=== PATIENT | female | born 1940 | race Caucasian/White ===

== ENCOUNTER → 2017-10-16 11:16 | Outpatient (CLI) | payer MEDICARE, SELFPAY ==
[2017-10-16 12:57] LABS: Vitamin D,25 Hydroxy 24.3 ng/mL (29.95-100.01)
[2017-10-16 12:58] LABS: ALB/GLOB Ratio 0.8 RATIO (0.9-2.4); AST(SGOT) 22 U/L (15-37); Alanine Aminotransfer ALT/SGPT 24 U/L (13-56); Albumin, Serum 3.3 g/dL (3.2-5.0); Alkaline Phosphatase 100 U/L (45-117); Anion Gap 9 (5-15); BUN 22 mg/dL (7-18); BUN/Creat Ratio 26.5 RATIO (10-20); Calcium,Total 8.8 mg/dL (8.5-10.1); Chloride 108 mmol/L (98-107); Creatinine, Serum 0.83 mg/dL (0.55-1.02); EST Glomerular Filtration Rate 71 mL/min (>60); Est Glom Filt Rate - Afr Amer 86 mL/min (>60); Globulin 3.9 g/dL (2.2-4.2); Glucose 97 mg/dL (74-106); Potassium 3.8 mmol/L (3.5-5.1); Protein, Total 7.2 g/dL (6.4-8.2); Sodium Level 145 mmol/L (136-145); Thyroid Stim Hormone (TSH) 0.75 uIU/mL (0.358-3.74)
[2017-10-16 13:06] LABS: Absolute Lymphocyte Count 1.66 X10^3/ul (0.83-4.51); Basophil# 0.05 X10^3/uL; Basophil% 0.9 % (0-1); Eosinophil# 0.23 X10^3/uL; Eosinophils% 4.3 % (0-5); Hematocrit 41.3 % (37-47); Lymphocyte # 1.66 X10^3/ul (4.0); Mean Corp Hgb Conc 31.5 g/gl (32-36); Mean Corpuscular Hgb 29.1 pg (27.0-32.0); Mean Corpuscular Volume 92.6 fL (81-99); Mean Platelet Vol. 10.2 fl (6.2-12.0); Monocyte% 7.5 % (0-10); Neutrophil # 3.01 X10^3/uL (2.7-7.7); Neutrophil % 56.3 % (47-70); Platelet Count 266 K/mm3 (150-450); RBC Distribution Width CV 14.1 % (11.6-14.6); RBC Distribution Width SD 48.2 fl (35.1-43.9); Red Blood Count 4.46 M/mm3 (4.2-5.4); White Blood Count 5.4 K/mm3 (4.4-11.0)
[2017-10-16 13:09] LABS: POSITIVE COUNT NO; POSITIVE DIFFERENTIAL NO; POSITIVE MORPHOLOGY NO
== END ==
PROVIDERS: Family Provider Family Medicine Geriatric Medicine; PCP Family Medicine Geriatric Medicine; Visit Provider Family Medicine Geriatric Medicine
DX: E55.9 Vitamin D deficiency, unspecified (principal); I10 Essential (primary) hypertension
CPT/HCPCS: 36415; 80053; 82306; 84443; 85025

== ENCOUNTER → 2018-04-16 14:01 | Outpatient (CLI) | payer MEDICARE, SELFPAY ==
[2017-02-23 00:08] VITALS: BMI 32.1
[2018-04-16 17:52] LABS: Absolute Lymphocyte Count 1.98 X10^3/ul (0.83-4.51); Absolute Neutrophil Count 2.5 X10^3/uL (2.0-7.7); Basophil# 0.06 X10^3/uL; Basophil% 1.2 % (0-1); Eosinophil# 0.21 X10^3/uL; Hematocrit 41.3 % (37-47); Hemoglobin 12.5 g/dl (12.0-15.0); Lymphocyte # 1.98 X10^3/ul (4.0); Lymphocyte % 38.2 % (19-41); Mean Corp Hgb Conc 30.3 g/gl (32-36); Mean Corpuscular Hgb 28.5 pg (27.0-32.0); Mean Corpuscular Volume 94.3 fL (81-99); Mean Platelet Vol. 10.4 fl (6.2-12.0); Monocyte# 0.45 X10^3/uL; Monocyte% 8.7 % (0-10); Neutrophil # 2.49 X10^3/uL (2.7-7.7); Neutrophil % 47.9 % (47-70); Platelet Count 289 K/mm3 (150-450); RBC Distribution Width CV 14.6 % (11.6-14.6); RBC Distribution Width SD 49.6 fl (35.1-43.9); Red Blood Count 4.38 M/mm3 (4.2-5.4); White Blood Count 5.2 K/mm3 (4.4-11.0)
[2018-04-16 18:13] LABS: Vitamin D,25 Hydroxy 25.3 ng/mL (29.95-100.01)
[2018-04-16 18:18] LABS: POSITIVE COUNT NO; POSITIVE DIFFERENTIAL NO; POSITIVE MORPHOLOGY NO
[2018-04-16 18:25] LABS: ALB/GLOB Ratio 0.9 RATIO (0.9-2.4); AST(SGOT) 14 U/L (15-37); Alanine Aminotransfer ALT/SGPT 21 U/L (13-56); Albumin, Serum 3.3 g/dL (3.2-5.0); Alkaline Phosphatase 104 U/L (45-117); Anion Gap 7 (5-15); BUN 27 mg/dL (7-18); Calcium,Total 8.9 mg/dL (8.5-10.1); Chloride 108 mmol/L (98-107); Creatinine, Serum 0.84 mg/dL (0.55-1.02); EST Glomerular Filtration Rate 70 mL/min (>60); Est Glom Filt Rate - Afr Amer 84 mL/min (>60); Globulin 3.7 g/dL (2.2-4.2); Glucose 83 mg/dL (74-106); Potassium 3.7 mmol/L (3.5-5.1); Sodium Level 143 mmol/L (136-145); Thyroid Stim Hormone (TSH) 1.28 uIU/mL (0.358-3.74)
== END ==
PROVIDERS: Family Provider Family Medicine Geriatric Medicine; PCP Family Medicine Geriatric Medicine; Visit Provider Family Medicine Geriatric Medicine
DX: E55.9 Vitamin D deficiency, unspecified (principal); I10 Essential (primary) hypertension
CPT/HCPCS: 36415; 80053; 82306; 84443; 85025

== ENCOUNTER 2018-08-22 21:27 | Emergency (ER) | payer MEDICARE, SELFPAY ==
[2018-08-22 21:27] VITALS: BP 184/102; PULSE 80; RESP 16; TEMP 36.8; O2SAT 95; BMI 33.9
--- NOTE | 2018-08-22 22:23 | CT_ITS ---
STUDY: CT ABDOMEN AND PELVIS WITH CONTRAST REASON FOR EXAM: Female, 78 years old. Right lower quadrant pain for a few hours. RADIATION DOSAGE (If Supplied By Facility): CTDIvol = ( 26.62 ) mGy, DLP = ( 1889.47 ) mGycm TECHNIQUE: Transaxial images were obtained from the dome of the diaphragm to the symphysis pubis without oral contrast. 100ML IV Isovue 300 was administered. Sagittal and coronal images were reconstructed. Individualized dose optimization techniques were used for this CT. COMPARISON: None. FINDINGS: There is a 3 mm calcified granuloma medial right lung base. A 2 mm calcification is seen in the left lung. The visualized lung bases are otherwise unremarkable. The visualized portions of the heart are within normal limits. There is a calcified mediastinal node. The liver is normal size contour and density. There is a vague hypodensity in segment 6 of the liver adjacent to gallbladder fossa which may represent small cyst. This is too small to characterize. Normal gallbladder and extrahepatic biliary system. There are multiple benign calcified granulomata of the spleen. Normal pancreas. Normal bilateral adrenal glands. There is a 8 mm cyst in the upper pole of the right kidney. There is a 2 cm cyst in the lower pole. A 3 mm nonobstructing calculus in the mid calyx. No hydronephrosis. Normal visualized right ureter. Normal left kidney. Normal visualized left ureter. There is a large retrocardiac hiatal hernia consisting of the gastric fundus. Stomach is otherwise unremarkable. Normal small intestine. Normal colon. There is diffuse atherosclerotic calcification of the abdominal aorta, without a demonstrated aneurysm. Normal inferior vena cava. Normal retroperitoneum. Normal urinary bladder. The uterus is retroverted. There is a 2.5 x 1.5 x 2.6 cm calcified fibroid centrally within the uterus and normal ovaries. There is no pelvic lymphadenopathy. No free air or free fluid is seen within the peritoneal cavity.. There is a small right inguinal hernia. There is a small amount of soft tissue extending into the hernia may represent the appendix. The abdominal wall is otherwise unremarkable. There are diffuse degenerative changes of the visualized lumbar spine. CT/Abdomen/Pelvis W IV Cont ONLY IMPRESSION: 1. Right inguinal hernia. This contains soft tissue. Question appendix. 2. Large retrocardiac hiatal hernia. 3. Hepatic and right renal cysts. 4. Nonobstructing right renal calculus. 5. Large calcified uterine fibroid. 6. Degenerative changes of the lumbar spine. Electronically Signed: Alex Mckeon DO at 23:53 EDT Tel [phone], Service support ,
[2018-08-22] MEDS: 0.9% Normal Saline 1,000 ML 1000 ML IV (22:38)
[2018-08-22 22:53] LABS: Absolute Lymphocyte Count 1.28 X10^3/ul (0.83-4.51); Absolute Neutrophil Count 6.1 X10^3/uL (2.0-7.7); Basophil# 0.04 X10^3/uL; Basophil% 0.5 % (0-1); Eosinophil# 0.13 X10^3/uL; Eosinophils% 1.6 % (0-5); Hematocrit 40.9 % (37-47); Lymphocyte # 1.28 X10^3/ul (4.0); Lymphocyte % 15.8 % (19-41); Mean Corp Hgb Conc 31.8 g/gl (32-36); Mean Corpuscular Hgb 28.2 pg (27.0-32.0); Mean Corpuscular Volume 88.7 fL (81-99); Mean Platelet Vol. 10.4 fl (6.2-12.0); Monocyte% 7.4 % (0-10); Neutrophil # 6.05 X10^3/uL (2.7-7.7); Neutrophil % 74.6 % (47-70); POSITIVE COUNT NO; POSITIVE DIFFERENTIAL NO; POSITIVE MORPHOLOGY NO; Platelet Count 263 K/mm3 (150-450); RBC Distribution Width CV 14.7 % (11.6-14.6); Red Blood Count 4.61 M/mm3 (4.2-5.4); White Blood Count 8.1 K/mm3 (4.4-11.0)
[2018-08-22 23:09] LABS: AST(SGOT) 19 U/L (15-37); Alanine Aminotransfer ALT/SGPT 20 U/L (13-56); Albumin, Serum 3.6 g/dL (3.2-5.0); Alkaline Phosphatase 108 U/L (45-117); Anion Gap 8 (5-15); BUN 22 mg/dL (7-18); Calcium,Total 8.8 mg/dL (8.5-10.1); Chloride 110 mmol/L (98-107); Creatinine, Serum 1.05 mg/dL (0.55-1.02); EST Glomerular Filtration Rate 54 mL/min (>60); Est Glom Filt Rate - Afr Amer 65 mL/min (>60); Globulin 3.6 g/dL (2.2-4.2); Glucose 121 mg/dL (74-106); Lipase 113 U/L (73-393); Potassium 3.9 mmol/L (3.5-5.1); Protein, Total 7.2 g/dL (6.4-8.2); Sodium Level 144 mmol/L (136-145)
[2018-08-22 23:52] LABS: Mucous, Urine 0 SEEN /hpf (<or=2+)
[2018-08-22 23:53] LABS: Color, Urine Yellow (Yellow); Glucose, Dipstick Normal (Normal); Ketone-Dipstick Negative (Negative); Leukocyte Esterase-Dipstick 100 /ul (Negative); Nitrite-Dipstick Positive (Negative); Occult Blood-Urine 10 /ul (Negative); Protein-Dipstick 15 mg/dl (Negative); Specific Gravity, Urine 1.015 (1.002-1.030); Urine Bilirubin Dipstick Negative (Negative); Urine Clarity Cloudy (Clear); Urine Urobilinogen Normal (Normal)
[2018-08-22 23:58] LABS: Bacteria 3+ /hpf (None Seen); Squamous Epithelial Cells - UA 0-5 SEEN /hpf (5-10); White Blood Cells 5-10 SEEN /hpf (0-5)
--- NOTE | 2018-08-22 23:58 | ED.DCSUM_ITS ---
- ER Visit Summary Date of Service: 08/22/18 Chief Complaint: Abdominal pain History of Present Illness: The patient is a 78 F with right lower quadrant pain. The pain started about 2 hours prior to arrival. Nothing seemed to bring it on. She had been eating chili and watermelon. She said she had this pain in the past but never this long. By the time I saw her, the pain had resolved. Reports a history of tubal ligation. Denies any other abdominal or GI problems. Denies any urinary symptoms. Denies fevers. Physical Examination: Afebrile and vital signs unremarkable. Heart regular rate and rhythm. Lungs clear. Abdomen soft and nontender. Back is nontender. Skin appears normal. Test Results: Labs unremarkable. Urinalysis and CT pending. Emergency Department Course and Treatment: Patient declined pain meds. Will evaluate for right lower quadrant pain. Labs, urine, CT ordered. CT and urinalysis are pending at the time of this dictation. Oncoming doctor will check the results. If negative, patient may be discharged home to follow- up with her PCP. Treatment Plan: As above Disposition: Pending results Impression: 1. Right lower quadrant pain This note was generated with [employer] dictation software. It may contain incorrect words, spelling, and punctuation that were not noted in review of the chart prior to signing ED Disposition - Plan for ED Patient: Referrals: Ferny Pina Chi, MD [Primary Care Provider] -
[2018-08-22 23:59] LABS: Red Blood Cells-Urine 0-5 SEEN /hpf (0-5)
--- NOTE | 2018-08-23 00:13 | ED.DEP ---
ED Disposition - Plan for ED Patient: Instructions: ED UTI Cystitis Female, ED Hernia Inguinal Prescriptions: Smz/Tmp Ds [Bactrim Ds] 1 tab PO BID #6 tab Referrals: Ferny Pina Chi, MD [Primary Care Provider] - Franko Sinha MD [STAFF PHYSICIAN] -
[2018-08-23] MEDS: Smz/Tmp Ds Tablet 1 TABLET PO (00:27)
[2018-08-23 00:30] VITALS: BP 146/81; PULSE 67; RESP 18; O2SAT 97
== END 2018-08-23 00:31 | disposition home or self-care (01) ==
PROVIDERS: Emergency Provider Emergency Medicine; Family Provider Family Medicine Geriatric Medicine; PCP Family Medicine Geriatric Medicine
DX: K40.90 Unilateral inguinal hernia, without obstruction or gangrene, not specified as recurrent (principal); N30.90 Cystitis, unspecified without hematuria; K44.9 Diaphragmatic hernia without obstruction or gangrene; D25.9 Leiomyoma of uterus, unspecified; N20.0 Calculus of kidney; N28.1 Cyst of kidney, acquired; I10 Essential (primary) hypertension; F32.9 Major depressive disorder, single episode, unspecified; F41.9 Anxiety disorder, unspecified; Z79.899 Other long term (current) drug therapy
CPT/HCPCS: 74177; 80053; 81001; 83690; 85025; 96360; 96361; 99284; J7030; Q9967

== ENCOUNTER → 2018-09-05 14:56 | Outpatient (CLI) | payer MEDICARE, SELFPAY ==
[2018-08-28 15:36] VITALS: BMI 33.9
== END ==
PROVIDERS: Family Provider Family Medicine Geriatric Medicine; PCP Family Medicine Geriatric Medicine; Visit Provider Family Medicine Geriatric Medicine
DX: N39.0 Urinary tract infection, site not specified (principal)
CPT/HCPCS: 87077; 87086; 87088; 87186

== ENCOUNTER 2018-09-11 08:07 | Day surgery (SDC) | payer MEDICARE, SELFPAY ==
--- NOTE | 2018-08-28 05:07 | HP_ITS ---
Intake Vital Signs 08/28/18 Body Mass Index (BMI) 33.9 08/28/18 Height 5 ft 6 in 08/28/18 Weight: 206 lb 3 oz 08/28/18 Body Mass Index (BMI) 33.3 08/28/18 Blood Pressure 145/68 H 08/28/18 Blood Pressure Location Rt brachial 08/28/18 Blood Pressure Position Sitting 08/28/18 Respiratory Rate 20 H 08/28/18 Pulse Rate 75 08/28/18 Pulse Ox 98 Intake Visit Reasons: [facility] ER 08/22 Abd Pain/Hernia Chief Complaint: [facility] Haul Cane Brakeman Required: No Is patient in pain?: Yes Allergies cefaclor [From Ceclor] Adverse Reaction (Verified 08/28/18 15:32) Unknown guaifenesin [From Entex LA] Adverse Reaction (Verified 08/28/18 15:32) Unknown phenylephrine [From Entex LA] Adverse Reaction (Verified 08/28/18 15:32) Unknown phenylpropanolamine [From Entex LA] Adverse Reaction (Verified 08/28/18 15:32) Unknown Medications Aspirin 81 mg PO QHS 01/13/17 [History Confirmed 08/28/18] Levothyroxine Sodium [Synthroid] 88 mcg PO DAILY 01/13/17 [History Confirmed 08/28/18] Losartan/Hydrochlorothiazide [Losartan-Hctz 100-25 mg Tab] 1 tab PO DAILY 01/13/17 [History Confirmed 08/28/18] Potassium Chloride [K-Tab ER] 20 meq PO DAILY 01/13/17 [History Confirmed 08/28/18] Quetiapine Fumarate [Seroquel] 1 tab PO QHS 01/13/17 [History Confirmed 08/28/18] Acetaminophen [Tylenol] 1,500 mg PO DAILY 02/22/17 [History Confirmed 08/28/18] Multivit-Min/FA/Lycopen/Lutein [Centrum Silver Tablet] 1 ea PO DAILY 02/22/17 [History Confirmed 08/28/18] vilazodone 40 mg tablet 40 mg PO DAILY 08/28/18 [History Confirmed 08/28/18] Is last menstrual period known: No Post menopausal: Yes Patient : No PFSH Medical History Large hiatal hernia (Acute) Right inguinal hernia (Acute) Right lower quadrant abdominal pain (Acute) Anxiety and depression (Acute) Hemorrhoid (Acute) Osteoarthritis (Acute) Hypothyroidism (Chronic) Hypertension (Chronic) Surgical History History of colonoscopy (Acute ~2007) History of total knee replacement (TKR) (Acute) History of tonsillectomy (Acute) History of tubal ligation (Acute) Family History Father Heart disease Asthma Brother Heart disease Cancer prostate and leukemia Social History Smoking Status: Never smoker HPI HPI HPI: SREEKANTH FUENTES, is a 78 F who presents to the office today for HPI HPI Surgical H&P: Yes HPI: SREEKANTH FUENTES, is a 78 F who presents to the office today for surgical consultation regarding multiple different complaints. The patient was seen by Dr. Carroll Myers in the [facility] emergency room and is referred for general surgical evaluation. The patient presented there with complaint of right lower quadrant pain on August 22. She demonstrated findings of UTI and was placed on Bactrim. A CT scan was also obtained demonstrating a right inguinal hernia possibly including the appendix. Hepatic and renal cysts. Right renal calculus. Very large hiatal hernia. The patient is referred for surgical consultation regarding these issues as well as the patient has concerns about hemorrhoids. A written copy of my surgical consult will return to Dr. Myers and referred on to the patient's primary care physician Dr. Pina. This was actually an extensive office visit today. 78-year-old female complaining of right lower quadrant pain change in bowel pattern with gas and ambulating the past. She has had 2 prior indistinct episodes previously which seemed to resolve but the episode on August 22 was very severe causing her to go to the emergency room. She states that she lives a very sedentary life. She states that she is at least 10 years from her previous colonoscopy. She has no direct family member with colon cancer. She has had previous troubles with gastroesophageal reflux disease. She was actually not aware of hiatal hernia. For period of time she was placed on omeprazole therapy. Apparently she stopped that a year ago. Currently she denies chest pressure or shortness of breath. She only infrequently currently has reflux symptoms. She has not had any unusual weight loss. She denies bright red blood per rectum or melena. Additionally she complains of a very painful right knee. She thinks that she needs to have knee surgery. She also wears a brace for her right ankle because of weakness there and flatfootedness. Laboratory on August 22 demonstrated a white blood cell count of 8.1 with a hemoglobin 13 hematocrit 40.9 platelet count 263,000 with 74% neutrophils. BUN was 22 and creatinine 1.05. Liver function tests were normal. The patient has not been able to palpate any masses herself. She states that she has felt improved since her emergency room visit. ROS General General: No weight change, appetite, fatigue, colon cancer, breast cancer or weakness HEENT HEENT: No difficulty swallowing, eye injury, eye surgery, swollen glands or hoarseness Endo Endocrine: Yes thyroid disease; no diabetes mellitus, thyroid cancer, Hair loss, heat intolerance or cold intolerance Musc Musculoskeletal: Yes arthritis; no back problems, rheumatoid arthritis, gout or joint pain Cardio Cardiovascular: Yes high blood pressure; no murmur, pacemaker, heart disease, atrial fibrillation, heart attack, heart stent, palpitations, shortness of breat with exertion or chest pain Psych Psychiatric: Yes depression and anxiety; no hearing voices Resp Respiratory: No shortness of breath, No sleep apnea, No cough, No COPD, No asthma, No emphysema, No wheezing Gastro Gastrointestinal: Yes abdominal pain, No nausea or vomiting, No diarrhea, No constipation, No blood in stool, No acid reflux, Yes hemorrhoids, No ulcers, No gallbladder problem, No black,tarry stools Neuro Neurologic: No weakness Exam Const General: cooperative, comfortable, no acute distress, anxious Nutritional Appearance: obese Orientation: alert, awake, oriented x3 HENMT Head: normal to inspection Neck Neck: normal visual inspection Resp Effort & Inspection: normal respiratory effort Auscultation: clear to auscultation bilaterally Cardio Rate: regular rate Rhythm: regular rhythm Heart Sounds: no murmurs GI Palpation: soft, no hepatosplenomegaly Auscultation: normal bowel sounds Other: Pendulous abdomen, very soft with no muscularity. Not pulsatile or expansile. The patient was examined supine and upright. Because of her overhanging pannus I had great difficult detecting the right groin hernia. Musc Cervical Spine: normal cervical lordosis Neuro Cognition: normal cognition Extrem General: no calf tenderness bilaterally Other: Right ankle splint in place Psych Affect: normal affect Assessment & Plan Problems 1. Hemorrhoids, unspecified hemorrhoid type K64.9 2. Right lower quadrant abdominal pain R10.31 3. Right inguinal hernia K40.90 4. Large hiatal hernia K44.9 5. Osteoarthritis of right knee, unspecified osteoarthritis type M17.11 Plan Complicated 78-year-old female. By her own admission she is extraordinarily sedentary. Her complaint of right lower quadrant pain might correlate with the CT imaging suggesting a right inguinal hernia with possible appendiceal involvement. Further clarification of the cecal area not available. CT imaging also demonstrates significant amount of stomach within a hiatal hernia. The patient has had a history of GERD currently not on medication. She has not had a colonoscopy for at least 10 years. I proposed for her a combined esophagogastroduodenoscopy with very careful inspection of the hiatal hernia to determine the extent of the hernia possible erosion at the level of the diaphragm possible need for biopsy or prophylactic treatment. Possible need for future definitive treatment. I propose a colonoscopy with possible biopsy or polypectomy as indicated with very careful inspection of the right colon to exclude a potential etiology of right lower quadrant pain. She has had an opting to ask and have questions answered we will schedule and proceed as noted. The patient additionally complains of protruding hemorrhoids. We will inspect these at the time of her colonoscopy. It is of note that based upon the patient's chronic anxiety I think that a surgical hemorrhoidectomy would be quite difficult to get her through. The patient clearly has degenerative disease of her right knee. She is stating that she needs to have a right knee replacement. She also has a brace on the right ankle. These 2 degenerative processes may be complicating causing the abnormality of the right groin. I also proposed for her a laparoscopic right inguinal herniorrhaphy. Because of the patient's overlying pannus I have great difficulty performing an external exam of the right groin. Also because of the disease of the right knee and right ankle I feel that a laparoscopic approach with mesh placement would more likely provide a definitive long-lasting repair. She has had an opportunity to ask and have questions answered. I very much appreciate the kind opportunity of assisting with her surgical care. We will proceed as noted. CC: Dr Myers and Dr Yovani Sinha M.D., F.A.C.S. Coding Level of Care Code Comprehensive,moderate Diagnoses Hemorrhoids, unspecified hemorrhoid type K64.9 ??Hemorrhoid type: unspecified Right lower quadrant abdominal pain R10.31 Right inguinal hernia K40.90 Large hiatal hernia K44.9 Osteoarthritis of right knee, unspecified osteoarthritis type M17.11 ??Osteoarthritis location: knee ??Osteoarthritis type: unspecified ??Laterality: right 08/28/18 5080 <Electronically signed by Franko Sinha MD> Date Franko Sinha MD
[2018-08-28 15:36] VITALS: BMI 33.9
[2018-09-11] VITALS (8 sets, daily range): BP systolic 114–165; BP diastolic 66–82; PULSE 67–84; RESP 16; TEMP 35.9–37.6; O2SAT 50–100; BMI 33.3
--- NOTE | 2018-09-11 09:15 | EGD_PTH ---
PATIENT: SREEKANTH FUENTES LOC: EN U#:[id number] AGE/SX: 78/F ROOM: RE09/11/[address]: Dr. Franko Sinha MD : 1940 BED: DIS: 09/11/2018 SPEC #: [id number] RECD: 09/11/18 13:28 STATUS: LALIT ARI #: [id number] ROBERT: 09/11/18 09:[address]: Franko Sinha DEPT: SURGICAL PATHOLOGY RECD BY: Isatu Hutchins ENTERED: 09/11/18 13:52 SP TYPE: EGD BIOPSY OT DR: Dr. Ferny Pina MD Tissues: A - Gastric mucous membrane B - POLYP Procedures: Surgery Specimen Level IV HEADER OPERATION: Colonoscopy, EGD ([facility] [place]) PRE-OP DIAGNOSIS: Hemorrhoids, right lower quadrant pain, large hiatal hernia TISSUE SUBMITTED: A. Antrum biopsy for H. Pylori and path, B. Cecal polyp biopsy MICROSCOPIC DIAGNOSIS A. Gastric antrum, biopsy: Mild chronic gastritis. B. Cecal polyp, biopsy: Tubular adenoma. AM:shamika 09/12/18 COMMENT A. The results of immunohistochemistry for Helicobacter pylori will be reported separately ([id number]). MICROSCOPIC DESCRIPTION Slides are reviewed. GROSS DESCRIPTION A - Received in fixative is one container labeled with the patient's name and designated antrum biopsy. The specimen consists of one irregular fragment of light montano soft tissue that measures 0.2 x 0.2 x 0.1 cm. The specimen is totally submitted in one cassette. B - Received in fixative is one container labeled with the patient's name and designated cecal polyp biopsy. The specimen consists of one irregular fragment of light montano soft tissue that measures 0.3 x 0.2 x 0.1 cm. The specimen is totally submitted in one cassette. / AM:shamika 09/11/18 TC:5 CPT: 82299 x2
--- NOTE | 2018-09-11 09:15 | IMM_PTH ---
PATIENT: SREEKATNH FUENTES LOC: EN U#:[id number] AGE/SX: 78/F ROOM: RE09/11/[address]: Dr. Franko Sinha MD : 1940 BED: DIS: 09/11/2018 SPEC #: [id number] RECD: 09/11/18 15:14 STATUS: LALIT RETelma #: [id number] ROBERT: 09/11/18 09:[address]: Franko Sinha DEPT: IMMUNOHISTOCHEMISTRY RECD BY: Reta Kowalski ENTERED: 09/11/18 15:15 SP TYPE: IMMUNO OTHR DR: Dr. Ferny Pina MD Tissues: A - Stomach, NOS Procedures: H Pylori (initial) PHYSICIAN & INSTITUTION [place] [id number] SPECIMEN INFORMATION: Tissue Source: A - Antrum biopsy Clinical Info: Hemorrhoids, right lower quadrant pain, large hiatal hernia Specimen Number: [id number] CPT code: 75607 METHODOLOGY: Deparaffinized sections of prefer/formalin-fixed tissue or PAP/DQ stained slides are incubated with monoclonal/polyclonal antibodies/oligonucleotide probes. Localization is made via biotin free immunoperoxidase method. Appropriate controls are performed and reacted as expected. Results on target cell population are indicated in the following table: RESULTS: ANTIBODY / CLONE RESULT Block A H Pylori (polyclonal) negative These tests were developed and their performance characteristics determined by [facility]. They may not have been cleared or approved by the U.S. Food and Drug Administration. The FDA has determined that such clearance or approval is not necessary. INTERPRETATION: A. Antrum biopsy: Negative for Helicobacter pylori organisms. AM:shamika 09/13/18
--- NOTE | 2018-09-11 10:32 | OP.ENDO_ITS ---
09/11/2018 Ferny Pina MD [address] [place] [address] Re : Upper GI endoscopy procedure for Vee Mueller Dear Dr. Pina This procedure was performed on Tuesday, September 11, 2018. My impressions and recommendations are as follows: Impressions : - Large hiatal hernia. - Erythematous mucosa in the antrum. Biopsied. - Normal examined duodenum. Recommendations : - Telephone my office for pathology results in 1 week. - Discharge patient to home. - Resume previous diet. - Continue present medications. My findings are described in the full procedure note, which is enclosed. If I can be of further assistance, please feel free to contact me at Doctor phone number(s): Work: . Sincerely, Franko Sinha MD 09/11/2018 10:31:41 AM This report has been signed electronically.
--- NOTE | 2018-09-11 10:34 | OP.ENDO_ITS ---
09/11/2018 Ferny Pina MD [address] [place] [address] Re : Colonoscopy procedure for Vee Mueller Dear Dr. Pina This procedure was performed on Tuesday, September 11, 2018. My impressions and recommendations are as follows: Impressions : - Hemorrhoids found on perianal exam. - One 3 mm polyp in the cecum, removed with a cold biopsy forceps. Resected and retrieved. - Diverticulosis in the sigmoid colon and in the descending colon. Recommendations : - Discharge patient to home. - Resume previous diet. - Continue present medications. - Repeat colonoscopy in 5 years for surveillance based on pathology results. - Telephone my office for pathology results in 1 week. My findings are described in the full procedure note, which is enclosed. If I can be of further assistance, please feel free to contact me at Doctor phone number(s): Work: . Sincerely, Franko Sinha MD 09/11/2018 10:34:27 AM This report has been signed electronically.
== END 2018-09-11 11:32 | disposition home or self-care (01) ==
LOC: EN 08:08 → AC 08:08
PROVIDERS: Family Provider Family Medicine Geriatric Medicine; PCP Family Medicine Geriatric Medicine; Referring Provider Family Medicine Geriatric Medicine; Visit Provider Surgery
PROC: 0DJD8ZZ Inspection of Lower Intestinal Tract, Via Natural or Artificial Opening Endoscopic (ICD-10-PCS; CPT 45378; principal; 2018-09-11 09:10)
DX: K29.50 Unspecified chronic gastritis without bleeding (principal); K44.9 Diaphragmatic hernia without obstruction or gangrene; D50.9 Iron deficiency anemia, unspecified; Z12.11 Encounter for screening for malignant neoplasm of colon; D12.0 Benign neoplasm of cecum; K64.9 Unspecified hemorrhoids; K57.30 Diverticulosis of large intestine without perforation or abscess without bleeding; K40.90 Unilateral inguinal hernia, without obstruction or gangrene, not specified as recurrent; R10.31 Right lower quadrant pain; F32.9 Major depressive disorder, single episode, unspecified; F41.9 Anxiety disorder, unspecified; E03.9 Hypothyroidism, unspecified; I10 Essential (primary) hypertension; M17.11 Unilateral primary osteoarthritis, right knee; N39.0 Urinary tract infection, site not specified; E66.9 Obesity, unspecified; Z68.33 Body mass index [BMI] 33.0-33.9, adult; Z79.82 Long term (current) use of aspirin; Z79.899 Other long term (current) drug therapy
CPT/HCPCS: 43239; 45380; 88305; 88342; J7120

== ENCOUNTER → 2018-10-02 15:08 | Outpatient (CLI) | payer MEDICARE, SELFPAY ==
[2018-09-14 09:15] VITALS: BMI 33.5
[2018-10-02 15:48] LABS: Potassium 3.9 mmol/L (3.5-5.1)
== END ==
PROVIDERS: Family Provider Family Medicine Geriatric Medicine; PCP Family Medicine Geriatric Medicine; Referring Provider Surgery; Visit Provider Surgery
DX: E87.6 Hypokalemia (principal)
CPT/HCPCS: 36415; 84132

== ENCOUNTER → 2018-10-10 06:37 | Outpatient (CLI) | payer MEDICARE, SELFPAY ==
--- NOTE | 2018-08-28 05:07 | HP_ITS ---
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 Back Tender Required: No Is patient in pain?: Yes Allergies cefaclor [From Ceclor] Adverse Reaction (Verified 08/28/18 15:32) Unknown guaifenesin [From Entex LA] Adverse Reaction (Verified 08/28/18 15:32) Unknown phenylephrine [From Entex LA] Adverse Reaction (Verified 08/28/18 15:32) Unknown phenylpropanolamine [From Entex LA] Adverse Reaction (Verified 08/28/18 15:32) Unknown Medications Aspirin 81 mg PO QHS 01/13/17 [History Confirmed 08/28/18] Levothyroxine Sodium [Synthroid] 88 mcg PO DAILY 01/13/17 [History Confirmed 08/28/18] Losartan/Hydrochlorothiazide [Losartan-Hctz 100-25 mg Tab] 1 tab PO DAILY 01/13/17 [History Confirmed 08/28/18] Potassium Chloride [K-Tab ER] 20 meq PO DAILY 01/13/17 [History Confirmed 08/28/18] Quetiapine Fumarate [Seroquel] 1 tab PO QHS 01/13/17 [History Confirmed 08/28/18] Acetaminophen [Tylenol] 1,500 mg PO DAILY 02/22/17 [History Confirmed 08/28/18] Multivit-Min/FA/Lycopen/Lutein [Centrum Silver Tablet] 1 ea PO DAILY 02/22/17 [History Confirmed 08/28/18] vilazodone 40 mg tablet 40 mg PO DAILY 08/28/18 [History Confirmed 08/28/18] Is last menstrual period known: No Post menopausal: Yes Patient : No PFSH Medical History Large hiatal hernia (Acute) Right inguinal hernia (Acute) Right lower quadrant abdominal pain (Acute) Anxiety and depression (Acute) Hemorrhoid (Acute) Osteoarthritis (Acute) Hypothyroidism (Chronic) Hypertension (Chronic) Surgical History History of colonoscopy (Acute ~2007) History of total knee replacement (TKR) (Acute) History of tonsillectomy (Acute) History of tubal ligation (Acute) Family History Father Heart disease Asthma Brother Heart disease Cancer prostate and leukemia Social History Smoking Status: Never smoker HPI HPI HPI: SREEKANTH FUENTES, is a 78 F who presents to the office today for HPI HPI Surgical H&P: Yes HPI: SREEKANTH FUENTES, is a 78 F who presents to the office today for surgical consultation regarding multiple different complaints. The patient was seen by Dr. Carroll Myers in the [facility] emergency room and is referred for general surgical evaluation. The patient presented there with complaint of right lower quadrant pain on August 22. She demonstrated findings of UTI and was placed on Bactrim. A CT scan was also obtained demonstrating a right inguinal hernia possibly including the appendix. Hepatic and renal cysts. Right renal calculus. Very large hiatal hernia. The patient is referred for surgical consultation regarding these issues as well as the patient has concerns about hemorrhoids. A written copy of my surgical consult will return to Dr. Myers and referred on to the patient's primary care physician Dr. Pina. This was actually an extensive office visit today. 78-year-old female complaining of right lower quadrant pain change in bowel pattern with gas and ambulating the past. She has had 2 prior indistinct episodes previously which seemed to resolve but the episode on August 22 was very severe causing her to go to the emergency room. She states that she lives a very sedentary life. She states that she is at least 10 years from her previous colonoscopy. She has no direct family member with colon cancer. She has had previous troubles with gastroesophageal reflux disease. She was actually not aware of hiatal hernia. For period of time she was placed on omeprazole therapy. Apparently she stopped that a year ago. Currently she denies chest pressure or shortness of breath. She only infrequently currently has reflux symptoms. She has not had any unusual weight loss. She denies bright red blood per rectum or melena. Additionally she complains of a very painful right knee. She thinks that she needs to have knee surgery. She also wears a brace for her right ankle because of weakness there and flatfootedness. Laboratory on August 22 demonstrated a white blood cell count of 8.1 with a hemoglobin 13 hematocrit 40.9 platelet count 263,000 with 74% neutrophils. BUN was 22 and creatinine 1.05. Liver function tests were normal. The patient has not been able to palpate any masses herself. She states that she has felt improved since her emergency room visit. ROS General General: No weight change, appetite, fatigue, colon cancer, breast cancer or weakness HEENT HEENT: No difficulty swallowing, eye injury, eye surgery, swollen glands or hoarseness Endo Endocrine: Yes thyroid disease; no diabetes mellitus, thyroid cancer, Hair loss, heat intolerance or cold intolerance Musc Musculoskeletal: Yes arthritis; no back problems, rheumatoid arthritis, gout or joint pain Cardio Cardiovascular: Yes high blood pressure; no murmur, pacemaker, heart disease, atrial fibrillation, heart attack, heart stent, palpitations, shortness of breat with exertion or chest pain Psych Psychiatric: Yes depression and anxiety; no hearing voices Resp Respiratory: No shortness of breath, No sleep apnea, No cough, No COPD, No asthma, No emphysema, No wheezing Gastro Gastrointestinal: Yes abdominal pain, No nausea or vomiting, No diarrhea, No constipation, No blood in stool, No acid reflux, Yes hemorrhoids, No ulcers, No gallbladder problem, No black,tarry stools Neuro Neurologic: No weakness Exam Const General: cooperative, comfortable, no acute distress, anxious Nutritional Appearance: obese Orientation: alert, awake, oriented x3 HENMT Head: normal to inspection Neck Neck: normal visual inspection Resp Effort & Inspection: normal respiratory effort Auscultation: clear to auscultation bilaterally Cardio Rate: regular rate Rhythm: regular rhythm Heart Sounds: no murmurs GI Palpation: soft, no hepatosplenomegaly Auscultation: normal bowel sounds Other: Pendulous abdomen, very soft with no muscularity. Not pulsatile or expansile. The patient was examined supine and upright. Because of her overhanging pannus I had great difficult detecting the right groin hernia. Musc Cervical Spine: normal cervical lordosis Neuro Cognition: normal cognition Extrem General: no calf tenderness bilaterally Other: Right ankle splint in place Psych Affect: normal affect Assessment & Plan Problems 1. Hemorrhoids, unspecified hemorrhoid type K64.9 2. Right lower quadrant abdominal pain R10.31 3. Right inguinal hernia K40.90 4. Large hiatal hernia K44.9 5. Osteoarthritis of right knee, unspecified osteoarthritis type M17.11 Plan Complicated 78-year-old female. By her own admission she is extraordinarily sedentary. Her complaint of right lower quadrant pain might correlate with the CT imaging suggesting a right inguinal hernia with possible appendiceal involvement. Further clarification of the cecal area not available. CT imaging also demonstrates significant amount of stomach within a hiatal hernia. The patient has had a history of GERD currently not on medication. She has not had a colonoscopy for at least 10 years. I proposed for her a combined esophagogastroduodenoscopy with very careful inspection of the hiatal hernia to determine the extent of the hernia possible erosion at the level of the diaphragm possible need for biopsy or prophylactic treatment. Possible need for future definitive treatment. I propose a colonoscopy with possible biopsy or polypectomy as indicated with very careful inspection of the right colon to exclude a potential etiology of right lower quadrant pain. She has had an opting to ask and have questions answered we will schedule and proceed as noted. The patient additionally complains of protruding hemorrhoids. We will inspect these at the time of her colonoscopy. It is of note that based upon the patient's chronic anxiety I think that a surgical hemorrhoidectomy would be quite difficult to get her through. The patient clearly has degenerative disease of her right knee. She is stating that she needs to have a right knee replacement. She also has a brace on the right ankle. These 2 degenerative processes may be complicating causing the abnormality of the right groin. I also proposed for her a laparoscopic right inguinal herniorrhaphy. Because of the patient's overlying pannus I have great difficulty performing an external exam of the right groin. Also because of the disease of the right knee and right ankle I feel that a laparoscopic approach with mesh placement would more likely provide a definitive long-lasting repair. She has had an opportunity to ask and have questions answered. I very much appreciate the kind opportunity of assisting with her surgical care. We will proceed as noted. CC: Dr Myers and Dr Yovani Sinha M.D., F.A.C.S. Coding Level of Care Code Comprehensive,moderate Diagnoses Hemorrhoids, unspecified hemorrhoid type K64.9 ??Hemorrhoid type: unspecified Right lower quadrant abdominal pain R10.31 Right inguinal hernia K40.90 Large hiatal hernia K44.9 Osteoarthritis of right knee, unspecified osteoarthritis type M17.11 ??Osteoarthritis location: knee ??Osteoarthritis type: unspecified ??Laterality: right 08/28/18 1707 <Electronically signed by Franko Sinha MD> Date Franko Sinha MD I have re-examined the patient. There are no clinical changes since date of exam.
[2018-08-28 15:36] VITALS: BMI 33.9
--- NOTE | 2018-09-11 08:14 | EKG12_ITS ---
Test Reason : PREOP Blood Pressure : / mmHG Vent. Rate : 081 BPM Atrial Rate : 081 BPM P-R Int : 196 ms QRS Dur : 084 ms QT Int : 410 ms P-R-T Axes : 051 -06 019 degrees QTc Int : 476 ms Sinus rhythm with occasional Premature ventricular complexes Abnormal ECG When compared with ECG of 22-FEB-2017 15:33, Premature ventricular complexes are now Present Confirmed by DAVID MANUEL, BRITANY ([id number]), material expeditor ROBERT SAPP ([id number]) on 09/14/2018 8:30:58 AM Referred By: Franko Sinha Confirmed By:BRITANY HERNANDEZ MD
[2018-09-11 08:30] VITALS: BMI 33.3
--- NOTE | 2018-09-14 05:20 | PCM.HP.BLA ---
Problem List (1) Right inguinal hernia Status: Acute History and Physical Date of Admission: 09/14/18 R#: [id number]:[id number] Name: SREEKANTH FUENTES Rep #: [id number] : 1940 78 From: Franko Sinha MD PCP: Yovani MANUEL,Ferny Saeed Status: PRE SDC Location: SDC Intake Vital Signs 08/28/18 Body Mass Index (BMI) 33.9 08/28/18 Height 5 ft 6 in 08/28/18 Weight: 206 lb 3 oz 08/28/18 Body Mass Index (BMI) 33.3 08/28/18 Blood Pressure 145/68 H 08/28/18 Blood Pressure Location Rt brachial 08/28/18 Blood Pressure Position Sitting 08/28/18 Respiratory Rate 20 H 08/28/18 Pulse Rate 75 08/28/18 Pulse Ox 98 Intake Visit Reasons: [facility] ER 08/22 Abd Pain/Hernia Chief Complaint: [facility] Solution Spec Required: No Is patient in pain?: Yes Allergies cefaclor [From Ceclor] Adverse Reaction (Verified 08/28/18 15:32) Unknown guaifenesin [From Entex LA] Adverse Reaction (Verified 08/28/18 15:32) Unknown phenylephrine [From Entex LA] Adverse Reaction (Verified 08/28/18 15:32) Unknown phenylpropanolamine [From Entex LA] Adverse Reaction (Verified 08/28/18 15:32) Unknown Medications Aspirin 81 mg PO QHS 01/13/17 [History Confirmed 08/28/18] Levothyroxine Sodium [Synthroid] 88 mcg PO DAILY 01/13/17 [History Confirmed 08/28/18] Losartan/Hydrochlorothiazide [Losartan-Hctz 100-25 mg Tab] 1 tab PO DAILY 01/13/17 [History Confirmed 08/28/18] Potassium Chloride [K-Tab ER] 20 meq PO DAILY 01/13/17 [History Confirmed 08/28/18] Quetiapine Fumarate [Seroquel] 1 tab PO QHS 01/13/17 [History Confirmed 08/28/18] Acetaminophen [Tylenol] 1,500 mg PO DAILY 02/22/17 [History Confirmed 08/28/18] Multivit-Min/FA/Lycopen/Lutein [Centrum Silver Tablet] 1 ea PO DAILY 02/22/17 [History Confirmed 08/28/18] vilazodone 40 mg tablet 40 mg PO DAILY 08/28/18 [History Confirmed 08/28/18] Is last menstrual period known: No Post menopausal: Yes Patient : No PFSH Medical History Large hiatal hernia (Acute) Right inguinal hernia (Acute) Right lower quadrant abdominal pain (Acute) Anxiety and depression (Acute) Hemorrhoid (Acute) Osteoarthritis (Acute) Hypothyroidism (Chronic) Hypertension (Chronic) Surgical History History of colonoscopy (Acute ~2007) History of total knee replacement (TKR) (Acute) History of tonsillectomy (Acute) History of tubal ligation (Acute) Family History Father Heart disease Asthma Brother Heart disease Cancer prostate and leukemia Social History Smoking Status: Never smoker HPI HPI HPI: SREEKANTH FUENTES, is a 78 F who presents to the office today for HPI HPI Surgical H&P: Yes HPI: SREEKANTH FUENTES, is a 78 F who presents to the office today for surgical consultation regarding multiple different complaints. The patient was seen by Dr. Carroll Myers in the [facility] emergency room and is referred for general surgical evaluation. The patient presented there with complaint of right lower quadrant pain on August 22. She demonstrated findings of UTI and was placed on Bactrim. A CT scan was also obtained demonstrating a right inguinal hernia possibly including the appendix. Hepatic and renal cysts. Right renal calculus. Very large hiatal hernia. The patient is referred for surgical consultation regarding these issues as well as the patient has concerns about hemorrhoids. A written copy of my surgical consult will return to Dr. Myers and referred on to the patient's primary care physician Dr. Pina. This was actually an extensive office visit today. 78-year-old female complaining of right lower quadrant pain change in bowel pattern with gas and ambulating the past. She has had 2 prior indistinct episodes previously which seemed to resolve but the episode on August 22 was very severe causing her to go to the emergency room. She states that she lives a very sedentary life. She states that she is at least 10 years from her previous colonoscopy. She has no direct family member with colon cancer. She has had previous troubles with gastroesophageal reflux disease. She was actually not aware of hiatal hernia. For period of time she was placed on omeprazole therapy. Apparently she stopped that a year ago. Currently she denies chest pressure or shortness of breath. She only infrequently currently has reflux symptoms. She has not had any unusual weight loss. She denies bright red blood per rectum or melena. Additionally she complains of a very painful right knee. She thinks that she needs to have knee surgery. She also wears a brace for her right ankle because of weakness there and flatfootedness. Laboratory on August 22 demonstrated a white blood cell count of 8.1 with a hemoglobin 13 hematocrit 40.9 platelet count 263,000 with 74% neutrophils. BUN was 22 and creatinine 1.05. Liver function tests were normal. The patient has not been able to palpate any masses herself. She states that she has felt improved since her emergency room visit. ROS General General: No weight change, appetite, fatigue, colon cancer, breast cancer or weakness HEENT HEENT: No difficulty swallowing, eye injury, eye surgery, swollen glands or hoarseness Endo Endocrine: Yes thyroid disease; no diabetes mellitus, thyroid cancer, Hair loss, heat intolerance or cold intolerance Musc Musculoskeletal: Yes arthritis; no back problems, rheumatoid arthritis, gout or joint pain Cardio Cardiovascular: Yes high blood pressure; no murmur, pacemaker, heart disease, atrial fibrillation, heart attack, heart stent, palpitations, shortness of breat with exertion or chest pain Psych Psychiatric: Yes depression and anxiety; no hearing voices Resp Respiratory: No shortness of breath, No sleep apnea, No cough, No COPD, No asthma, No emphysema, No wheezing Gastro Gastrointestinal: Yes abdominal pain, No nausea or vomiting, No diarrhea, No constipation, No blood in stool, No acid reflux, Yes hemorrhoids, No ulcers, No gallbladder problem, No black,tarry stools Neuro Neurologic: No weakness Exam Const General: cooperative, comfortable, no acute distress, anxious Nutritional Appearance: obese Orientation: alert, awake, oriented x3 HENMT Head: normal to inspection Neck Neck: normal visual inspection Resp Effort & Inspection: normal respiratory effort Auscultation: clear to auscultation bilaterally Cardio Rate: regular rate Rhythm: regular rhythm Heart Sounds: no murmurs GI Palpation: soft, no hepatosplenomegaly Auscultation: normal bowel sounds Other: Pendulous abdomen, very soft with no muscularity. Not pulsatile or expansile. The patient was examined supine and upright. Because of her overhanging pannus I had great difficult detecting the right groin hernia. Musc Cervical Spine: normal cervical lordosis Neuro Cognition: normal cognition Extrem General: no calf tenderness bilaterally Other: Right ankle splint in place Psych Affect: normal affect Assessment & Plan Problems 1. Hemorrhoids, unspecified hemorrhoid type K64.9 2. Right lower quadrant abdominal pain R10.31 3. Right inguinal hernia K40.90 4. Large hiatal hernia K44.9 5. Osteoarthritis of right knee, unspecified osteoarthritis type M17.11 Plan Complicated 78-year-old female. By her own admission she is extraordinarily sedentary. Her complaint of right lower quadrant pain might correlate with the CT imaging suggesting a right inguinal hernia with possible appendiceal involvement. Further clarification of the cecal area not available. CT imaging also demonstrates significant amount of stomach within a hiatal hernia. The patient has had a history of GERD currently not on medication. She has not had a colonoscopy for at least 10 years. I proposed for her a combined esophagogastroduodenoscopy with very careful inspection of the hiatal hernia to determine the extent of the hernia possible erosion at the level of the diaphragm possible need for biopsy or prophylactic treatment. Possible need for future definitive treatment. I propose a colonoscopy with possible biopsy or polypectomy as indicated with very careful inspection of the right colon to exclude a potential etiology of right lower quadrant pain. She has had an opting to ask and have questions answered we will schedule and proceed as noted. The patient additionally complains of protruding hemorrhoids. We will inspect these at the time of her colonoscopy. It is of note that based upon the patient's chronic anxiety I think that a surgical hemorrhoidectomy would be quite difficult to get her through. The patient clearly has degenerative disease of her right knee. She is stating that she needs to have a right knee replacement. She also has a brace on the right ankle. These 2 degenerative processes may be complicating causing the abnormality of the right groin. I also proposed for her a laparoscopic right inguinal herniorrhaphy. Because of the patient's overlying pannus I have great difficulty performing an external exam of the right groin. Also because of the disease of the right knee and right ankle I feel that a laparoscopic approach with mesh placement would more likely provide a definitive long-lasting repair. She has had an opportunity to ask and have questions answered. I very much appreciate the kind opportunity of assisting with her surgical care. We will proceed as noted. CC: Dr Myers and Dr Yovani Sinha M.D., F.A.C.S. Coding Level of Care Code Comprehensive,moderate Diagnoses Hemorrhoids, unspecified hemorrhoid type K64.9 ??Hemorrhoid type: unspecified Right lower quadrant abdominal pain R10.31 Right inguinal hernia K40.90 Large hiatal hernia K44.9 Osteoarthritis of right knee, unspecified osteoarthritis type M17.11 ??Osteoarthritis location: knee ??Osteoarthritis type: unspecified ??Laterality: right 08/28/18 1707 <Electronically signed by Franko Sinha MD> Date Franko Sinha MD I have re-examined the patient. There are no clinical changes since date of exam. 09/11/18 0615 <Electronically signed by Franko Sinha MD> Date: Time: Franko Sinha MD CC: Franko Sinha MD; Ferny Pina MD ~ Date Dictated: 08/28/18 0507 Date Transcribed: 09/04/18 1030 Drywall Taper: Signed Large hiatal hernia noted in upper endoscopy. Minimal H. pylori negative gastritis. Small tubular adenoma of the cecum and diverticulosis. No acute findings to correlate with the patient's right lower quadrant pain. We will pursue laparoscopic right inguinal hernia repair with mesh. She is aware of the technique, benefits, risks, alternatives. We will proceed as noted. Franko Sinha M.D., F.A.C.S.
[2018-09-14 09:15] VITALS: BP 155/73; PULSE 69; RESP 18; TEMP 37.4; O2SAT 99; BMI 33.5
[2018-09-14 09:16] LABS: Hematocrit 40.1 % (37-47); Hemoglobin 13.2 g/dl (12.0-15.0); Mean Corp Hgb Conc 32.9 g/gl (32-36); Mean Corpuscular Hgb 29.2 pg (27.0-32.0); Mean Corpuscular Volume 88.7 fL (81-99); Mean Platelet Vol. 9.5 fl (6.2-12.0); Platelet Count 247 K/mm3 (150-450); RBC Distribution Width CV 14.2 % (11.6-14.6); RBC Distribution Width SD 46.3 fl (35.1-43.9); Red Blood Count 4.52 M/mm3 (4.2-5.4)
[2018-09-14 09:17] LABS: Scan Indicated on CBC? Y/N NO
[2018-09-14 09:37] LABS: Anion Gap 5 (5-15); BUN 19 mg/dL (7-18); Calcium,Total 9.1 mg/dL (8.5-10.1); Chloride 108 mmol/L (98-107); Creatinine, Serum 0.86 mg/dL (0.55-1.02); EST Glomerular Filtration Rate 68 mL/min (>60); Est Glom Filt Rate - Afr Amer 82 mL/min (>60); Estimated Creatinine Clearance 51.28 ml/min; Glucose 103 mg/dL (74-106); Potassium 2.9 mmol/L (3.5-5.1); Sodium Level 142 mmol/L (136-145)
[2018-09-14 09:38] LABS: Thyroid Stim Hormone (TSH) 0.54 uIU/mL (0.358-3.74)
--- NOTE | 2018-09-14 09:39 | DCINST_ITS ---
Discharge Diet: Light diet - advance as tolerated - if you have questions about your diet instructions, please talk to you doctor. Discharge Activity: May Not Drive - for 3-5 days or while taking narcotic pain medicine. May shower in (days): 1 Lifting Restrictions: 10 pounds Call your doctor if your incision/area has: Continuous Slow Oozing, Sudden Increased Bleeding, Increased Pain/ Swelling, Increased Redness, Foul Smelling Discharge Call your doctor if you observe: Fever of 101 or Higher Suture Line Care: Avoid Pulling/Pushing, Avoid Pinching/Bending Additional Dressing/Incision Instructions:: Change or remove dressing in 4 days. Leave steri-strips in place for 1 week. Allergies/Adverse Reactions: Allergies prednisone Allergy (Verified 09/14/18 09:20) hallucinations HALLUCINATIONS cefaclor [From Ceclor] Adverse Reaction (Verified 09/14/18 09:21) Itching guaifenesin [From Entex LA] Adverse Reaction (Verified 09/14/18 09:20) HORRIBLE HEADACHE phenylephrine [From Entex LA] Adverse Reaction (Verified 09/14/18 09:21) HORRIBLE HEADACHE phenylpropanolamine [From Entex LA] Adverse Reaction (Verified 09/14/18 09:21) HORRIBLE HEADACHE Medications to take at Discharge Aspirin 81 mg PO QHS 01/13/17 Levothyroxine Sodium [Synthroid] 88 mcg PO DAILY 01/13/17 Losartan/Hydrochlorothiazide [Losartan-Hctz 100-25 mg Tab] 1 tab PO DAILY 01/13/17 Potassium Chloride [K-Tab ER] 20 meq PO DAILY 01/13/17 Quetiapine Fumarate [Seroquel] 1 tab PO QHS 01/13/17 Acetaminophen [Tylenol] 1,000 mg PO DAILY 02/22/17 Multivit-Min/FA/Lycopen/Lutein [Centrum Silver Tablet] 1 ea PO DAILY 02/22/17 vilazodone 40 mg tablet 40 mg PO DAILY 08/28/18 Ciprofloxacin HCl 250 mg PO BID 09/10/18 Hydrocodone Bitart/Apap 5-325 [[place]yle 5MG-325MG] 1 tablet PO Q6H PRN PRN 2 Days #8 tablet 09/14/18 The following prescriptions were given: Hydrocodone Bitart/Apap 5-325 [Argyle 5MG-325MG] 1 tablet PO Q6H PRN PRN 2 Days #8 tablet PRN Reason: Pain Orders to be completed after discharge: Thyroid Stim Hormone (TSH) Time Frame: 09/11/18, Location: Laboratory Primary Care Physician: Ferny Pina Chi, MD [Primary Care Provider] - Test Results: Test results from this visit will be discussed in further detail at your follow- up appointment, if applicable. Please Follow Up With: Franko Sinha MD - [phone] When: Call to make an appointment to be seen in about 10 days.
[2018-10-03 14:10] VITALS: BMI 33.5
== END ==
PROVIDERS: Family Provider Family Medicine Geriatric Medicine; PCP Family Medicine Geriatric Medicine; Referring Provider Surgery; Visit Provider Surgery
DX: Z01.818 Encounter for other preprocedural examination (principal); K40.90 Unilateral inguinal hernia, without obstruction or gangrene, not specified as recurrent; K44.9 Diaphragmatic hernia without obstruction or gangrene; K64.9 Unspecified hemorrhoids; E03.9 Hypothyroidism, unspecified; Z79.899 Other long term (current) drug therapy
CPT/HCPCS: 36415; 80048; 84443; 85027; 93005; J7120

== ENCOUNTER 2018-10-18 09:22 | Day surgery (SDC) | payer MEDICARE, SELFPAY ==
[2018-10-03 14:10] VITALS: BMI 33.5
--- NOTE | 2018-10-04 04:02 | HP_ITS ---
Intake Vital Signs 10/03/18 Body Mass Index (BMI) 33.5 10/03/18 Height 5 ft 6 in 10/03/18 Weight: 207 lb 9 oz 10/03/18 Body Mass Index (BMI) 33.5 10/03/18 Blood Pressure 145/81 H 10/03/18 Blood Pressure Location Rt brachial 10/03/18 Blood Pressure Position Sitting 10/03/18 Respiratory Rate 20 H 10/03/18 Pulse Rate 73 10/03/18 Temperature 98.0 F 10/03/18 Temperature Source Oral 10/03/18 Pulse Ox 97 Intake Visit Reasons: update H&P for hernia--recheck labs Chief Complaint: update H&P--hernia repair/ K+ Identification Technician Required: No Is patient in pain?: No Allergies prednisone Allergy (Verified 10/03/18 14:09) hallucinations cefaclor [From Ceclor] Adverse Reaction (Verified 10/03/18 14:09) Itching guaifenesin [From Entex LA] Adverse Reaction (Verified 10/03/18 14:09) HORRIBLE HEADACHE phenylephrine [From Entex LA] Adverse Reaction (Verified 10/03/18 14:09) HORRIBLE HEADACHE phenylpropanolamine [From Entex LA] Adverse Reaction (Verified 10/03/18 14:09) HORRIBLE HEADACHE Medications Aspirin 81 mg PO QHS 01/13/17 [History Confirmed 10/03/18] Levothyroxine Sodium [Synthroid] 88 mcg PO DAILY 01/13/17 [History Confirmed 10/03/18] Losartan/Hydrochlorothiazide [Losartan-Hctz 100-25 mg Tab] 1 tab PO DAILY 01/13/17 [History Confirmed 10/03/18] Potassium Chloride [K-Tab ER] 20 meq PO DAILY 01/13/17 [History Confirmed 10/03/18] Quetiapine Fumarate [Seroquel] 1 tab PO QHS 01/13/17 [History Confirmed 10/03/18] Acetaminophen [Tylenol] 1,000 mg PO DAILY 02/22/17 [History Confirmed 10/03/18] Multivit-Min/FA/Lycopen/Lutein [Centrum Silver Tablet] 1 ea PO DAILY 02/22/17 [History Confirmed 10/03/18] vilazodone 40 mg tablet 40 mg PO DAILY 08/28/18 [History Confirmed 10/03/18] potassium chloride ER 20 mEq tablet,extended release 20 meq PO BID #14 tab NS 09/14/18 [Rx Confirmed 10/03/18] Is last menstrual period known: No Post menopausal: Yes Patient : No PFSH Medical History Large hiatal hernia (Acute) Right inguinal hernia (Acute) Right lower quadrant abdominal pain (Acute) Anxiety and depression (Acute) Hemorrhoid (Acute) Osteoarthritis (Acute) Hypothyroidism (Chronic) Hypertension (Chronic) Surgical History History of colonoscopy (Acute ~2007) History of total knee replacement (TKR) (Acute) History of tonsillectomy (Acute) History of tubal ligation (Acute) Family History Father Heart disease Asthma Brother Heart disease Cancer prostate and leukemia Social History (Updated 10/04/18 @ 16:02 by Lacey Sal PA-C) Smoking Status: Never smoker HPI HPI HPI: SREEKANTH FUENTES, is a 78 F who presents to the office today for HPI HPI Surgical H&P: Yes HPI: SREEKANTH FUENTES, is a 78 F who presents to the office today for an update history and physical. Patient potassium was low at 2.9 on day of surgery, which canceled the surgery. It was recommended the patient take her potassium tablet twice daily. Her repeat potassium was 3.9 on 10/03/18. Patient denies recent hospitalizations or illnesses. She denies previous myocardial infarction, stroke and blood clots. Patient has also been treated recently for a UTI. She no longer has those symptoms and has completed her antibiotic treatment. Patient's past history per Dr. Sinha: SREEKANTH FUENTES, is a 78 F who presents to the office today for surgical consultation regarding multiple different complaints. The patient was seen by Dr. Carroll Myers in the [facility] emergency room and is referred for general surgical evaluation. The patient presented there with complaint of right lower quadrant pain on August 22. She demonstrated findings of UTI and was placed on Bactrim. A CT scan was also obtained demonstrating a right inguinal hernia possibly including the appendix. Hepatic and renal cysts. Right renal calculus. Very large hiatal hernia. The patient is referred for surgical consultation regarding these issues as well as the patient has concerns about hemorrhoids. A written copy of my surgical consult will return to Dr. Myers and referred on to the patient's primary care physician Dr. Pina. This was actually an extensive office visit today. 78-year-old female complaining of right lower quadrant pain change in bowel pattern with gas and ambulating the past. She has had 2 prior indistinct episodes previously which seemed to resolve but the episode on August 22 was very severe causing her to go to the emergency room. She states that she lives a very sedentary life. She states that she is at least 10 years from her previous colonoscopy. She has no direct family member with colon cancer. She has had previous troubles with gastroesophageal reflux disease. She was actually not aware of hiatal hernia. For period of time she was placed on omeprazole therapy. Apparently she stopped that a year ago. Currently she denies chest pressure or shortness of breath. She only infrequently currently has reflux symptoms. She has not had any unusual weight loss. She denies bright red blood per rectum or melena. Additionally she complains of a very painful right knee. She thinks that she needs to have knee surgery. She also wears a brace for her right ankle because of weakness there and flat footedness. Laboratory on August 22 demonstrated a white blood cell count of 8.1 with a hemoglobin 13 hematocrit 40.9 platelet count 263,000 with 74% neutrophils. BUN was 22 and creatinine 1.05. Liver function tests were normal. The patient has not been able to palpate any masses herself. She states that she has felt improved since her emergency room visit. ROS General General: No weight change, appetite, fatigue, colon cancer, breast cancer or weakness HEENT HEENT: No difficulty swallowing, eye injury, eye surgery, swollen glands or hoarseness Endo Endocrine: Yes thyroid disease; no diabetes mellitus, thyroid cancer, Hair loss, heat intolerance or cold intolerance Musc Musculoskeletal: Yes arthritis; no back problems, rheumatoid arthritis, gout or joint pain Cardio Cardiovascular: Yes high blood pressure; no murmur, pacemaker, heart disease, atrial fibrillation, heart attack, heart stent, palpitations, shortness of breat with exertion or chest pain Psych Psychiatric: Yes depression and anxiety; no hearing voices Resp Respiratory: No shortness of breath, No sleep apnea, No cough, No COPD, No asthma, No emphysema, No wheezing Gastro Gastrointestinal: Yes abdominal pain, No nausea or vomiting, No diarrhea, No constipation, No blood in stool, No acid reflux, Yes hemorrhoids, No ulcers, No gallbladder problem, No black,tarry stools Neuro Neurologic: No weakness Exam Const General: cooperative, healthy appearing, comfortable, no acute distress [facility] Head: normal to inspection Eyes General: appearance normal, both eyes and all related structures Neck Neck: normal visual inspection Neck mass: No Resp Effort & Inspection: normal respiratory effort Auscultation: clear to auscultation bilaterally Cardio Rate: regular rate Rhythm: regular rhythm Heart Sounds: no murmurs GI Inspection: normal to inspection Palpation: soft, hernia (right groin) Auscultation: normal bowel sounds Skin General: no rashes or lesions noted Neuro General: no focal motor deficits, CN's II-XI intact bilaterally Extrem General: normal to inspection Psych Appearance: grossly normal Affect: normal affect Assessment & Plan Problems 1. Right inguinal hernia K40.[address] Sinha will plan to perform a laparoscopic right inguinal hernia repair with mesh. Procedure details, risks and benefits have been reviewed. Patient has had the opportunity to ask and have questions answered. May decrease potassium tablet to daily. Patient verbally understands and agrees with the plan. Coding Level of Care Code No Charge Diagnoses Right inguinal hernia K40.90 Comment Update H&P 10/04/18 8558 <Electronically signed by Lacey miller PA-C> Date _ Lacey Sal PA-C I have re-examined the patient. There are no clinical changes since date of exam.
[2018-10-18] VITALS (9 sets, daily range): BP systolic 101–142; BP diastolic 69–93; PULSE 60–81; RESP 16–24; TEMP 36.6–37; O2SAT 97–100; BMI 32.7
[2018-10-18 10:13] LABS: Anion Gap 7 (5-15); BUN 20 mg/dL (7-18); BUN/Creat Ratio 21.6 RATIO (10-20); Calcium,Total 9.5 mg/dL (8.5-10.1); Chloride 108 mmol/L (98-107); Creatinine, Serum 0.92 mg/dL (0.55-1.02); EST Glomerular Filtration Rate 63 mL/min (>60); Est Glom Filt Rate - Afr Amer 76 mL/min (>60); Estimated Creatinine Clearance 47.94 ml/min; Glucose 101 mg/dL (74-106); Potassium 3.8 mmol/L (3.5-5.1); Sodium Level 143 mmol/L (136-145)
--- NOTE | 2018-10-18 11:36 | DCINST_ITS ---
Discharge Diet: Light diet - advance as tolerated - if you have questions about your diet instructions, please talk to you doctor. Discharge Activity: May Not Drive - for 1 week or while taking narcotic pain medicine. May shower in (days): 1 Lifting Restrictions: 10 pounds Call your doctor if your incision/area has: Continuous Slow Oozing, Sudden Increased Bleeding, Increased Pain/ Swelling, Increased Redness, Foul Smelling Discharge Call your doctor if you observe: Fever of 101 or Higher Suture Line Care: Avoid Pulling/Pushing, Avoid Pinching/Bending Additional Dressing/Incision Instructions:: Change or remove dressing in 4 days. Leave steri-strips in place for 1 week. Allergies/Adverse Reactions: Allergies cefaclor [From Ceclor] Allergy (Verified 10/17/18 09:06) Itching guaifenesin [From Entex LA] Adverse Reaction (Verified 10/03/18 14:09) HORRIBLE HEADACHE phenylephrine [From Entex LA] Adverse Reaction (Verified 10/03/18 14:09) HORRIBLE HEADACHE phenylpropanolamine [From Entex LA] Adverse Reaction (Verified 10/03/18 14:09) HORRIBLE HEADACHE prednisone Adverse Reaction (Verified 10/17/18 09:06) hallucinations HALLUCINATIONS Medications to take at Discharge Levothyroxine Sodium [Synthroid] 88 mcg PO DAILY 01/13/17 Losartan/Hydrochlorothiazide [Losartan-Hctz 100-25 mg Tab] 1 tab PO DAILY 01/13/17 Potassium Chloride [K-Tab ER] 20 meq PO DAILY 01/13/17 Quetiapine Fumarate [Seroquel] 1 tab PO QHS 01/13/17 Acetaminophen [Tylenol] 1,000 mg PO DAILY 02/22/17 Multivit-Min/FA/Lycopen/Lutein [Centrum Silver Tablet] 1 ea PO DAILY 02/22/17 vilazodone 40 mg tablet 40 mg PO DAILY 08/28/18 Primary Care Physician: Ferny Pina Chi, MD [Primary Care Provider] - Test Results: Test results from this visit will be discussed in further detail at your follow- up appointment, if applicable. Please Follow Up With: Franko Sinha MD - [phone] When: Call to make an appointment to be seen in about 10 days.
[2018-10-18] MEDS: Bupivacaine 0.5% PF 10 ML VIAL ×2 (12:56)
--- NOTE | 2018-10-18 13:00 | OP.PCM_ITS ---
Problem List (1) Right inguinal hernia Status: Acute Report of Operation Date of Procedure: 10/18/18 Pre-Operative Diagnosis: Symptomatic right indirect inguinal hernia Post-Operative Diagnosis: Same Surgery/Procedure Performed:: Laparoscopic right inguinal herniorrhaphy Description of Surgical Findings:: Timeout and informed consent was obtained. 78-year-old female was taken out from placement table underwent general endotracheal intubation anesthesia. The abdomen was sterilely prepped and draped. 900 mg clindamycin was given intravenously. 0.5% Marcaine was used as local anesthetic. A total of 30 cc was used. A vertical incision was made in the inferior portion of the umbilicus. Holding sutures of 0 Vicryl placed. Varies needle inserted. The abdomen was insufflated with CO2 to pressure for 10 minutes mercury pressure. Edith trocar inserted. Fascia had very little resistance to the trocar. Inspection revealed left groin solid intact large indirect right anal hernia. Fortunately no current bowel involvement. 5 mm trochars were placed in the right midabdomen in the left lower quadrant. The peritoneum superior lateral to the internal ring was incised carried immediately the hernia sac was completely bluntly dissected free. The indirect and direct space was dissected free. With good visualization I then placed a large 3D max right-sided mesh. Lot number [id number], reference #[id number]. Expiry date 04/06/2023. I secured that in place superiorly and medially with secure strap. Very excellent positioning of the mesh was achieved. The peritoneum was then approximated to itself using secure strap. This actually was a little bit tedious. Careful inspection however revealed that the mesh remained in place. Hemo-lock clip was used to approximate a small peritoneal defect. There appeared to be good obliteration to the mesh. It of the notes that the 5-minute trochars Working back and forth to the lack of integrity of the fascia. Trochars removed the abdomen displays CO2. It is of additional note because the 10-minute trocar would not stay seated at the umbilicus that I had a placed in a side catheter. Then tedious effort because of the patient's body habitus was required to placed interrupted simple and [id number] sutures of 0 Vicryl at the umbilical area to close that defect. This was challenging due to the lack of turgor of the tissue and depth of the wound. I spent a significant amount of time trying to assure that good wound closure had been achieved. The skin edges were approximated up to 4- 0 Monocryl subdermal stitches. Steri-Strips Telfa and OpSite dressings applied. Sponge and instrument and needle counts were reported and surgery were correct. Blood loss minimal. She tolerated procedure well was taken to the recovery area in satisfactory condition without apparent complication. Specimens none. Drains none. Blood loss minimal. Franko Sinha M.D., F.A.C.S. Type of Anesthesia:: General Anesthesiologist: Yessica Melendez
--- NOTE | 2018-10-18 17:43 | SUR.PHASEII ---
UP TO BR TO VOID UNABLE, ENC TO AMBULATE AND TRY AGAIN.
--- NOTE | 2018-10-18 18:42 | SUR.PHASEII ---
BLADDER SCANNED FOR 86CC AT THIS TIME, FLUIDS PUSHED.
== END 2018-10-18 20:17 | disposition home or self-care (01) ==
LOC: SDC 09:23 → AC 09:26
PROVIDERS: Family Provider Family Medicine Geriatric Medicine; PCP Family Medicine Geriatric Medicine; Referring Provider Surgery; Visit Provider Surgery
PROC: (CPT 49650; principal; 2018-10-18 11:05)
DX: K40.90 Unilateral inguinal hernia, without obstruction or gangrene, not specified as recurrent (principal); K44.9 Diaphragmatic hernia without obstruction or gangrene; I10 Essential (primary) hypertension; E03.9 Hypothyroidism, unspecified; M19.90 Unspecified osteoarthritis, unspecified site; K21.9 Gastro-esophageal reflux disease without esophagitis; F32.9 Major depressive disorder, single episode, unspecified; F41.9 Anxiety disorder, unspecified; Z78.0 Asymptomatic menopausal state; Z79.82 Long term (current) use of aspirin; Z79.899 Other long term (current) drug therapy; Z86.718 Personal history of other venous thrombosis and embolism
CPT/HCPCS: 00840; 49650; 36415; 80048; 93005; J7120; C1781; J2405

== ENCOUNTER → 2018-11-27 08:48 | Outpatient (CLI) | payer MEDICARE, SELFPAY ==
[2018-10-18 09:55] VITALS: BMI 32.7
[2018-11-27 12:38] LABS: Absolute Lymphocyte Count 1.84 X10^3/uL (0.83-4.51); Basophil# 0.06 X10^3/uL; Basophil% 0.9 % (0-1); Eosinophil# 0.29 X10^3/uL; Eosinophils% 4.3 % (0-5); Hematocrit 38.2 % (37-47); Lymphocyte # 1.84 X10^3/ul (4.0); Lymphocyte % 27.3 % (19-41); Mean Corp Hgb Conc 31.4 g/dL (32-36); Mean Corpuscular Hgb 28.8 pg (27.0-32.0); Mean Corpuscular Volume 91.6 fL (81-99); Mean Platelet Vol. 10.5 fl (6.2-12.0); Monocyte# 0.53 X10^3/uL; Monocyte% 7.9 % (0-10); NRBC Flagged by Analyzer 0 % (0-5); Neutrophil % 59.5 % (47-70); Platelet Count 235 K/mm3 (150-450); RBC Distribution Width CV 15.1 % (11.6-14.6); RBC Distribution Width SD 50.2 fl (35.1-43.9); Red Blood Count 4.17 M/mm3 (4.2-5.4); White Blood Count 6.7 K/mm3 (4.4-11.0)
[2018-11-27 13:02] LABS: ALB/GLOB Ratio 0.8 RATIO (0.9-2.4); AST(SGOT) 17 U/L (15-37); Alanine Aminotransfer ALT/SGPT 14 U/L (13-56); Albumin, Serum 3.2 g/dL (3.2-5.0); Alkaline Phosphatase 123 U/L (45-117); Anion Gap 6 (5-15); BUN 26 mg/dL (7-18); BUN/Creat Ratio 29.7 RATIO (10-20); Chloride 111 mmol/L (98-107); Creatinine, Serum 0.88 mg/dL (0.55-1.02); EST Glomerular Filtration Rate 67 mL/min (>60); Est Glom Filt Rate - Afr Amer 81 mL/min (>60); Globulin 4.1 g/dL (2.2-4.2); Glucose 106 mg/dL (74-106); Potassium 3.8 mmol/L (3.5-5.1); Protein, Total 7.3 g/dL (6.4-8.2); Sodium Level 143 mmol/L (136-145); Thyroid Stim Hormone (TSH) 0.77 uIU/mL (0.358-3.74)
== END ==
PROVIDERS: Family Provider Family Medicine Geriatric Medicine; PCP Family Medicine Geriatric Medicine; Visit Provider Family Medicine Geriatric Medicine
DX: E55.9 Vitamin D deficiency, unspecified (principal); I10 Essential (primary) hypertension
CPT/HCPCS: 36415; 80053; 82306; 84443; 85025

== ENCOUNTER → 2019-05-28 10:21 | Outpatient (CLI) | payer MEDICARE, SELFPAY ==
[2018-10-18 09:55] VITALS: BMI 32.7
[2019-05-28 12:38] LABS: Absolute Lymphocyte Count 2.07 X10^3/uL (0.83-4.51); Absolute Neutrophil Count 3.1 X10^3/uL (2.0-7.7); Basophil# 0.04 X10^3/uL; Basophil% 0.7 % (0-1); Eosinophil# 0.14 X10^3/uL; Eosinophils% 2.4 % (0-5); Hematocrit 42.1 % (37-47); Hemoglobin 13.3 g/dL (12.0-15.0); Lymphocyte # 2.07 X10^3/ul (4.0); Lymphocyte % 35.5 % (19-41); Mean Corp Hgb Conc 31.6 g/dL (32-36); Mean Corpuscular Volume 91.9 fL (81-99); Monocyte% 8.6 % (0-10); NRBC Flagged by Analyzer 0 % (0-5); Neutrophil # 3.06 X10^3/uL (2.7-7.7); Neutrophil % 52.5 % (47-70); Platelet Count 260 K/mm3 (150-450); RBC Distribution Width CV 14.2 % (11.6-14.6); RBC Distribution Width SD 48.1 fl (35.1-43.9); Red Blood Count 4.58 M/mm3 (4.2-5.4); White Blood Count 5.8 K/mm3 (4.4-11.0)
[2019-05-28 13:01] LABS: ALB/GLOB Ratio 0.8 RATIO (0.9-2.4); AST(SGOT) 14 U/L (15-37); Alanine Aminotransfer ALT/SGPT 20 U/L (13-56); Albumin, Serum 3.3 g/dL (3.2-5.0); Alkaline Phosphatase 110 U/L (45-117); Anion Gap 7 (5-15); BUN 26 mg/dL (7-18); BUN/Creat Ratio 27.5 RATIO (10-20); Calcium,Total 9.3 mg/dL (8.5-10.1); Chloride 109 mmol/L (98-107); Creatinine, Serum 0.95 mg/dL (0.55-1.02); EST Glomerular Filtration Rate 61 mL/min (>60); Est Glom Filt Rate - Afr Amer 74 mL/min (>60); Glucose 106 mg/dL (74-106); Potassium 3.7 mmol/L (3.5-5.1); Protein, Total 7.3 g/dL (6.4-8.2); Sodium Level 144 mmol/L (136-145); Thyroid Stim Hormone (TSH) 1.01 uIU/mL (0.358-3.74)
== END ==
PROVIDERS: PCP Family Medicine Geriatric Medicine; Visit Provider Family Medicine Geriatric Medicine
DX: E55.9 Vitamin D deficiency, unspecified (principal); I10 Essential (primary) hypertension
CPT/HCPCS: 36415; 80053; 82306; 84443; 85025

== ENCOUNTER → 2019-12-03 11:45 | Outpatient (CLI) | payer MEDICARE, SELFPAY ==
[2018-10-18 09:55] VITALS: BMI 32.7
[2019-12-03 12:35] LABS: Absolute Lymphocyte Count 1.98 X10^3/uL (0.83-4.51); Absolute Neutrophil Count 3.2 X10^3/uL (2.0-7.7); Basophil# 0.04 X10^3/uL; Basophil% 0.7 % (0-1); Eosinophil# 0.14 X10^3/uL; Eosinophils% 2.4 % (0-5); Hematocrit 38.3 % (37-47); Hemoglobin 12.1 g/dL (12.0-15.0); Lymphocyte # 1.98 X10^3/ul (4.0); Lymphocyte % 34.3 % (19-41); Mean Corp Hgb Conc 31.6 g/dL (32-36); Mean Corpuscular Hgb 28.9 pg (27.0-32.0); Mean Corpuscular Volume 91.4 fL (81-99); Monocyte# 0.46 X10^3/uL; NRBC Flagged by Analyzer 0.3 % (0-5); Neutrophil # 3.15 X10^3/uL (2.7-7.7); Neutrophil % 54.4 % (47-70); Platelet Count 295 K/mm3 (150-450); RBC Distribution Width CV 13.4 % (11.6-14.6); RBC Distribution Width SD 45.5 fl (35.1-43.9); Red Blood Count 4.19 M/mm3 (4.2-5.4); White Blood Count 5.8 K/mm3 (4.4-11.0)
[2019-12-03 12:58] LABS: Vitamin D,25 Hydroxy 28.8 ng/mL
[2019-12-03 13:36] LABS: ALB/GLOB Ratio 0.9 RATIO (0.9-2.4); AST(SGOT) 15 U/L (15-37); Alanine Aminotransfer ALT/SGPT 16 U/L (13-56); Albumin, Serum 3.4 g/dL (3.2-5.0); Alkaline Phosphatase 121 U/L (45-117); Anion Gap 8 (5-15); BUN 29 mg/dL (7-18); BUN/Creat Ratio 31.6 RATIO (10-20); Calcium,Total 9.1 mg/dL (8.5-10.1); Chloride 111 mmol/L (98-107); Creatinine, Serum 0.92 mg/dL (0.55-1.02); EST Glomerular Filtration Rate 63 mL/min (>60); Est Glom Filt Rate - Afr Amer 76 mL/min (>60); Globulin 3.6 g/dL (2.2-4.2); Glucose 98 mg/dL (74-106); Potassium 4.1 mmol/L (3.5-5.1); Sodium Level 144 mmol/L (136-145)
== END ==
PROVIDERS: PCP Family Medicine Geriatric Medicine; Visit Provider Family Medicine Geriatric Medicine
DX: E55.9 Vitamin D deficiency, unspecified (principal); I10 Essential (primary) hypertension
CPT/HCPCS: 36415; 80053; 82306; 84443; 85025

== ENCOUNTER → 2020-06-02 10:50 | Outpatient (CLI) | payer MEDICARE, SELFPAY ==
[2018-10-18 09:55] VITALS: BMI 32.7
[2020-06-02 12:58] LABS: Absolute Lymphocyte Count 2.06 X10^3/uL (0.83-4.51); Absolute Neutrophil Count 4.6 X10^3/uL (2.0-7.7); Basophil# 0.06 X10^3/uL; Basophil% 0.8 % (0-1); Eosinophil# 0.33 X10^3/uL; Eosinophils% 4.4 % (0-5); Hematocrit 41.9 % (37-47); Hemoglobin 12.8 g/dL (12.0-15.0); Lymphocyte # 2.06 X10^3/ul (4.0); Lymphocyte % 27.4 % (19-41); Mean Corp Hgb Conc 30.5 g/dL (32-36); Mean Corpuscular Hgb 27.6 pg (27.0-32.0); Mean Corpuscular Volume 90.5 fL (81-99); Monocyte% 6.6 % (0-10); NRBC Flagged by Analyzer 0 % (0-5); Neutrophil # 4.55 X10^3/uL (2.7-7.7); Neutrophil % 60.5 % (47-70); Platelet Count 334 K/mm3 (150-450); RBC Distribution Width CV 14.5 % (11.6-14.6); RBC Distribution Width SD 48.1 fl (35.1-43.9); Red Blood Count 4.63 M/mm3 (4.2-5.4); White Blood Count 7.5 K/mm3 (4.4-11.0)
[2020-06-02 13:13] LABS: Vitamin D,25 Hydroxy 18.7 ng/mL
[2020-06-02 13:23] LABS: ALB/GLOB Ratio 0.8 RATIO (0.9-2.4); AST(SGOT) 18 U/L (15-37); Alanine Aminotransfer ALT/SGPT 23 U/L (13-56); Albumin, Serum 3.4 g/dL (3.2-5.0); Alkaline Phosphatase 142 U/L (45-117); Anion Gap 7 (5-15); BUN 25 mg/dL (7-18); BUN/Creat Ratio 26.3 RATIO (10-20); Calcium,Total 9.3 mg/dL (8.5-10.1); Chloride 109 mmol/L (98-107); Creatinine, Serum 0.95 mg/dL (0.55-1.02); EST Glomerular Filtration Rate 60 mL/min (>60); Est Glom Filt Rate - Afr Amer 73 mL/min (>60); Globulin 4.4 g/dL (2.2-4.2); Glucose 104 mg/dL (74-106); Potassium 3.6 mmol/L (3.5-5.1); Protein, Total 7.8 g/dL (6.4-8.2); Sodium Level 142 mmol/L (136-145); Thyroid Stim Hormone (TSH) 0.93 uIU/mL (0.358-3.74)
== END ==
PROVIDERS: PCP Family Medicine Geriatric Medicine; Visit Provider Family Medicine Geriatric Medicine
DX: I10 Essential (primary) hypertension (principal); E55.9 Vitamin D deficiency, unspecified
CPT/HCPCS: 36415; 80053; 82306; 84443; 85025

== ENCOUNTER → 2020-12-07 11:26 | Outpatient (CLI) | payer MEDICARE, SELFPAY ==
[2020-12-07 12:36] LABS: Absolute Lymphocyte Count 1.84 X10^3/uL (0.83-4.51); Absolute Neutrophil Count 5.1 X10^3/uL (2.0-7.7); Basophil# 0.05 X10^3/uL; Basophil% 0.6 % (0-1); Eosinophil# 0.14 X10^3/uL; Eosinophils% 1.8 % (0-5); Hematocrit 38.6 % (37-47); Hemoglobin 12.1 g/dL (12.0-15.0); Lymphocyte # 1.84 X10^3/ul (0.83-4.51); Lymphocyte % 23.8 % (19-41); Mean Corp Hgb Conc 31.3 g/dL (32-36); Mean Corpuscular Hgb 27.3 pg (27.0-32.0); Mean Corpuscular Volume 86.9 fL (81-99); Mean Platelet Vol. 11.1 fl (6.2-12.0); Monocyte# 0.56 X10^3/uL; Monocyte% 7.2 % (0-10); NRBC Flagged by Analyzer 0 % (0-5); Neutrophil # 5.13 X10^3/uL (2.7-7.7); Neutrophil % 66.3 % (47-70); Platelet Count 322 K/mm3 (150-450); RBC Distribution Width CV 15.5 % (11.6-14.6); RBC Distribution Width SD 49.2 fl (35.1-43.9); Red Blood Count 4.44 M/mm3 (4.2-5.4); White Blood Count 7.7 K/mm3 (4.4-11.0)
[2020-12-07 13:15] LABS: ALB/GLOB Ratio 0.8 RATIO (0.9-2.4); AST(SGOT) 14 U/L (15-37); Alanine Aminotransfer ALT/SGPT 15 U/L (13-56); Albumin, Serum 3.3 g/dL (3.2-5.0); Alkaline Phosphatase 125 U/L (45-117); Anion Gap 8 (5-15); BUN 22 mg/dL (7-18); BUN/Creat Ratio 27.5 RATIO (10-20); Calcium,Total 9.1 mg/dL (8.5-10.1); Chloride 107 mmol/L (98-107); EST Glomerular Filtration Rate 73 mL/min (>60); Est Glom Filt Rate - Afr Amer 89 mL/min (>60); Globulin 4.2 g/dL (2.2-4.2); Glucose 100 mg/dL (74-106); Potassium 3.5 mmol/L (3.5-5.1); Protein, Total 7.5 g/dL (6.4-8.2); Sodium Level 140 mmol/L (136-145); Thyroid Stim Hormone (TSH) 1.65 uIU/mL (0.358-3.74)
== END ==
PROVIDERS: PCP Family Medicine Geriatric Medicine; Visit Provider Family Medicine Geriatric Medicine
DX: I10 Essential (primary) hypertension (principal); E55.9 Vitamin D deficiency, unspecified
CPT/HCPCS: 36415; 80053; 82306; 84443; 85025

== ENCOUNTER 2021-05-31 10:55 | Outpatient (CLI) | payer MEDICARE, SELFPAY ==
[2021-05-31 12:19] LABS: Absolute Lymphocyte Count 2.18 X10^3/uL (0.83-4.51); Absolute Neutrophil Count 5.3 X10^3/uL (2.0-7.7); Basophil# 0.07 X10^3/uL; Basophil% 0.8 % (0-1); Eosinophil# 0.21 X10^3/uL; Eosinophils% 2.5 % (0-5); Hematocrit 38.3 % (37-47); Hemoglobin 12.3 g/dL (12.0-15.0); Lymphocyte # 2.18 X10^3/ul (0.83-4.51); Lymphocyte % 26.1 % (19-41); Mean Corp Hgb Conc 32.1 g/dL (32-36); Mean Corpuscular Hgb 28.1 pg (27.0-32.0); Mean Corpuscular Volume 87.6 fL (81-99); Mean Platelet Vol. 10.1 fl (6.2-12.0); Monocyte# 0.61 X10^3/uL; Monocyte% 7.3 % (0-10); NRBC Flagged by Analyzer 0 % (0-5); Neutrophil # 5.25 X10^3/uL (2.7-7.7); Neutrophil % 63.1 % (47-70); Platelet Count 318 K/mm3 (150-450); RBC Distribution Width SD 54.5 fl (35.1-43.9); Red Blood Count 4.37 M/mm3 (4.2-5.4); White Blood Count 8.3 K/mm3 (4.4-11.0)
[2021-05-31 12:46] LABS: Vitamin D,25 Hydroxy 20.7 ng/mL
[2021-05-31 13:21] LABS: ALB/GLOB Ratio 0.7 RATIO (0.9-2.4); AST(SGOT) 16 U/L (15-37); Alanine Aminotransfer ALT/SGPT 22 U/L (13-56); Albumin, Serum 3.3 g/dL (3.2-5.0); Alkaline Phosphatase 135 U/L (45-117); Anion Gap 8 (5-15); BUN 26 mg/dL (7-18); BUN/Creat Ratio 30.9 RATIO (10-20); Calcium,Total 9.1 mg/dL (8.5-10.1); Chloride 107 mmol/L (98-107); Creatinine, Serum 0.84 mg/dL (0.55-1.02); EST Glomerular Filtration Rate 69 mL/min (>60); Est Glom Filt Rate - Afr Amer 84 mL/min (>60); Globulin 4.6 g/dL (2.2-4.2); Glucose 97 mg/dL (74-106); Potassium 3.6 mmol/L (3.5-5.1); Protein, Total 7.9 g/dL (6.4-8.2); Sodium Level 141 mmol/L (136-145); Thyroid Stim Hormone (TSH) 1.65 uIU/mL (0.358-3.74)
== END 2021-05-31 23:59 | disposition home or self-care (01) ==
PROVIDERS: PCP Family Medicine Geriatric Medicine; Visit Provider Family Medicine Geriatric Medicine
DX: I10 Essential (primary) hypertension (principal); E55.9 Vitamin D deficiency, unspecified
CPT/HCPCS: 36415; 80053; 82306; 84443; 85025

== ENCOUNTER → 2021-12-20 | Outpatient (CLI) | payer MEDICARE, SELFPAY ==
[2021-12-20 12:04] LABS: Absolute Lymphocyte Count 2.31 X10^3/uL (0.83-4.51); Absolute Neutrophil Count 3.6 X10^3/uL (2.0-7.7); Basophil# 0.07 X10^3/uL; Basophil% 1.1 % (0-1); Eosinophil# 0.18 X10^3/uL; Eosinophils% 2.7 % (0-5); Hematocrit 41.3 % (37-47); Hemoglobin 13.1 g/dL (12.0-15.0); Lymphocyte # 2.31 X10^3/ul (0.83-4.51); Lymphocyte % 34.7 % (19-41); Mean Corp Hgb Conc 31.7 g/dL (32-36); Mean Corpuscular Hgb 28.7 pg (27.0-32.0); Mean Corpuscular Volume 90.6 fL (81-99); Mean Platelet Vol. 10.5 fl (6.2-12.0); Monocyte# 0.54 X10^3/uL; Monocyte% 8.1 % (0-10); NRBC Flagged by Analyzer 0 % (0-5); Neutrophil # 3.55 X10^3/uL (2.7-7.7); Neutrophil % 53.2 % (47-70); Platelet Count 281 K/mm3 (150-450); RBC Distribution Width CV 15.1 % (11.6-14.6); RBC Distribution Width SD 50.3 fl (35.1-43.9); Red Blood Count 4.56 M/mm3 (4.2-5.4); White Blood Count 6.7 K/mm3 (4.4-11.0)
[2021-12-20 12:31] LABS: Vitamin D,25 Hydroxy 14.9 ng/mL
[2021-12-20 12:46] LABS: ALB/GLOB Ratio 0.8 RATIO (0.9-2.4); AST(SGOT) 14 U/L (15-37); Alanine Aminotransfer ALT/SGPT 16 U/L (13-56); Albumin, Serum 3.5 g/dL (3.2-5.0); Alkaline Phosphatase 134 U/L (45-117); Anion Gap 9 (5-15); BUN 24 mg/dL (7-18); Calcium,Total 9.7 mg/dL (8.5-10.1); Chloride 107 mmol/L (98-107); Creatinine, Serum 0.92 mg/dL (0.55-1.02); EST Glomerular Filtration Rate 62 mL/min (>60); Est Glom Filt Rate - Afr Amer 75 mL/min (>60); Globulin 4.3 g/dL (2.2-4.2); Glucose 111 mg/dL (74-106); Potassium 3.7 mmol/L (3.5-5.1); Protein, Total 7.8 g/dL (6.4-8.2); Sodium Level 142 mmol/L (136-145)
== END | disposition home or self-care (01) ==
LOC: POLAB3 09:24
PROVIDERS: PCP Family Medicine Geriatric Medicine; Visit Provider Family Medicine Geriatric Medicine
DX: I10 Essential (primary) hypertension (principal); E55.9 Vitamin D deficiency, unspecified
CPT/HCPCS: 36415; 80053; 82306; 84443; 85025

== ENCOUNTER → 2022-06-21 | Outpatient (CLI) | payer MEDICARE, SELFPAY ==
[2022-06-21 13:24] LABS: Absolute Neutrophil Count 3.8 X10^3/uL (2.0-7.7); Basophil# 0.05 X10^3/uL; Basophil% 0.7 % (0-1); Eosinophils% 4.1 % (0-5); Hematocrit 43.6 % (37-47); Hemoglobin 13.7 g/dL (12.0-15.0); Lymphocyte % 35.3 % (19-41); Mean Corp Hgb Conc 31.4 g/dL (32-36); Mean Corpuscular Hgb 29.1 pg (27.0-32.0); Mean Corpuscular Volume 92.8 fL (81-99); Mean Platelet Vol. 10.7 fl (6.2-12.0); Monocyte# 0.57 X10^3/uL; Monocyte% 7.7 % (0-10); NRBC Flagged by Analyzer 0 % (0-5); Neutrophil # 3.83 X10^3/uL (2.7-7.7); Neutrophil % 51.9 % (47-70); Platelet Count 301 K/mm3 (150-450); RBC Distribution Width CV 15.3 % (11.6-14.6); RBC Distribution Width SD 52.5 fl (35.1-43.9); White Blood Count 7.4 K/mm3 (4.4-11.0)
[2022-06-21 13:39] LABS: Vitamin D,25 Hydroxy 22.2 ng/mL
[2022-06-21 13:52] LABS: ALB/GLOB Ratio 0.9 RATIO (0.9-2.4); AST(SGOT) 15 U/L (15-37); Alanine Aminotransfer ALT/SGPT 16 U/L (13-56); Albumin, Serum 3.6 g/dL (3.2-5.0); Alkaline Phosphatase 103 U/L (45-117); Anion Gap 8 (5-15); BUN 26 mg/dL (7-18); BUN/Creat Ratio 29.8 RATIO (10-20); Calcium,Total 9.5 mg/dL (8.5-10.1); Chloride 111 mmol/L (98-107); Creatinine, Serum 0.87 mg/dL (0.55-1.02); EST Glomerular Filtration Rate 66 mL/min (>60); Est Glom Filt Rate - Afr Amer 80 mL/min (>60); Globulin 3.8 g/dL (2.2-4.2); Glucose 105 mg/dL (74-106); Potassium 4.1 mmol/L (3.5-5.1); Protein, Total 7.4 g/dL (6.4-8.2); Sodium Level 144 mmol/L (136-145); Thyroid Stim Hormone (TSH) 1.01 uIU/mL (0.358-3.74)
== END | disposition home or self-care (01) ==
LOC: POLAB3 10:20
PROVIDERS: PCP Family Medicine Geriatric Medicine; Visit Provider Family Medicine Geriatric Medicine
DX: I10 Essential (primary) hypertension (principal); E55.9 Vitamin D deficiency, unspecified
CPT/HCPCS: 36415; 80053; 82306; 84443; 85025

== ENCOUNTER → 2022-12-27 | Outpatient (CLI) | payer MEDICARE, SELFPAY ==
[2022-12-27 11:59] LABS: Absolute Neutrophil Count 3.8 X10^3/uL (2.0-7.7); Basophil# 0.07 X10^3/uL; Eosinophil# 0.24 X10^3/uL; Eosinophils% 3.5 % (0-5); Lymphocyte % 33.4 % (19-41); Mean Corp Hgb Conc 31.7 g/dL (32-36); Mean Corpuscular Hgb 30.3 pg (27.0-32.0); Mean Corpuscular Volume 95.6 fL (81-99); Mean Platelet Vol. 10.5 fl (6.2-12.0); Monocyte# 0.51 X10^3/uL; Monocyte% 7.4 % (0-10); NRBC Flagged by Analyzer 0 % (0-5); Neutrophil # 3.75 X10^3/uL (2.7-7.7); Neutrophil % 54.4 % (47-70); Platelet Count 249 K/mm3 (150-450); RBC Distribution Width CV 14.2 % (11.6-14.6); RBC Distribution Width SD 49.7 fl (35.1-43.9); Red Blood Count 4.29 M/mm3 (4.2-5.4); White Blood Count 6.9 K/mm3 (4.4-11.0)
[2022-12-27 12:12] LABS: Vitamin D,25 Hydroxy 28.7 ng/mL
[2022-12-27 12:21] LABS: ALB/GLOB Ratio 0.9 RATIO (0.9-2.4); AST(SGOT) 15 U/L (15-37); Alanine Aminotransfer ALT/SGPT 17 U/L (13-56); Albumin, Serum 3.3 g/dL (3.2-5.0); Alkaline Phosphatase 97 U/L (45-117); Anion Gap 6 (5-15); BUN 23 mg/dL (7-18); BUN/Creat Ratio 26.5 RATIO (10-20); Chloride 111 mmol/L (98-107); Creatinine, Serum 0.87 mg/dL (0.55-1.02); EST Glomerular Filtration Rate 66 mL/min (>60); Est Glom Filt Rate - Afr Amer 80 mL/min (>60); Globulin 3.7 g/dL (2.2-4.2); Glucose 105 mg/dL (74-106); Potassium 3.7 mmol/L (3.5-5.1); Sodium Level 145 mmol/L (136-145); Thyroid Stim Hormone (TSH) 1.34 uIU/mL (0.358-3.74)
== END | disposition home or self-care (01) ==
LOC: POLAB3 10:18
PROVIDERS: PCP Family Medicine Geriatric Medicine; Visit Provider Family Medicine Geriatric Medicine
DX: I10 Essential (primary) hypertension (principal); E55.9 Vitamin D deficiency, unspecified
CPT/HCPCS: 36415; 80053; 82306; 84443; 85025

== ENCOUNTER → 2023-06-28 | Outpatient (CLI) | payer MEDICARE, SELFPAY ==
[2023-06-28 11:10] LABS: Absolute Lymphocyte Count 1.99 X10^3/uL (0.83-4.51); Absolute Neutrophil Count 2.4 X10^3/uL (2.0-7.7); Basophil# 0.05 X10^3/uL; Eosinophil# 0.18 X10^3/uL; Eosinophils% 3.6 % (0-5); Hemoglobin 12.4 g/dL (12.0-15.0); Lymphocyte # 1.99 X10^3/ul (0.83-4.51); Lymphocyte % 39.3 % (19-41); Mean Corp Hgb Conc 31.8 g/dL (32-36); Mean Corpuscular Hgb 29.1 pg (27.0-32.0); Mean Corpuscular Volume 91.5 fL (81-99); Mean Platelet Vol. 9.9 fl (6.2-12.0); Monocyte# 0.43 X10^3/uL; Monocyte% 8.5 % (0-10); NRBC Flagged by Analyzer 0 % (0-5); Neutrophil # 2.41 X10^3/uL (2.7-7.7); Neutrophil % 47.4 % (47-70); Platelet Count 327 K/mm3 (150-450); RBC Distribution Width CV 13.3 % (11.6-14.6); RBC Distribution Width SD 44.7 fl (35.1-43.9); Red Blood Count 4.26 M/mm3 (4.2-5.4); White Blood Count 5.1 K/mm3 (4.4-11.0)
[2023-06-28 11:27] LABS: Vitamin D,25 Hydroxy 19.5 ng/mL
[2023-06-28 11:29] LABS: ALB/GLOB Ratio 0.7 RATIO (0.9-2.4); AST(SGOT) 15 U/L (15-37); Alanine Aminotransfer ALT/SGPT 12 U/L (13-56); Albumin, Serum 3.2 g/dL (3.2-5.0); Alkaline Phosphatase 104 U/L (45-117); Anion Gap 9 (5-15); BUN 29 mg/dL (7-18); BUN/Creat Ratio 31.8 RATIO (10-20); Calcium,Total 9.3 mg/dL (8.5-10.1); Chloride 108 mmol/L (98-107); Creatinine, Serum 0.91 mg/dL (0.55-1.02); EST Glomerular Filtration Rate 63 mL/min (>60); Est Glom Filt Rate - Afr Amer 76 mL/min (>60); Globulin 4.3 g/dL (2.2-4.2); Glucose 112 mg/dL (74-106); Potassium 3.5 mmol/L (3.5-5.1); Protein, Total 7.5 g/dL (6.4-8.2); Sodium Level 145 mmol/L (136-145); Thyroid Stim Hormone (TSH) 0.65 uIU/mL (0.358-3.74)
== END | disposition home or self-care (01) ==
LOC: POLAB3 10:07
PROVIDERS: PCP Family Medicine Geriatric Medicine; Visit Provider Family Medicine Geriatric Medicine
DX: I10 Essential (primary) hypertension (principal); E55.9 Vitamin D deficiency, unspecified
CPT/HCPCS: 36415; 80053; 82306; 84443; 85025

== ENCOUNTER → 2024-01-11 | Outpatient (CLI) | payer MEDICARE, SELFPAY | END | disposition home or self-care (01) | LOC: POLAB3 10:38 | PROVIDERS: PCP Family Medicine Geriatric Medicine; Visit Provider Family Medicine Geriatric Medicine | DX: I10 Essential (primary) hypertension (principal); E55.9 Vitamin D deficiency, unspecified ==

== ENCOUNTER → 2024-01-16 | Outpatient (CLI) | payer MEDICARE, SELFPAY ==
[2024-01-16 12:26] LABS: Absolute Lymphocyte Count 2.06 X10^3/uL (0.83-4.51); Absolute Neutrophil Count 3.4 X10^3/uL (2.0-7.7); Basophil# 0.06 X10^3/uL; Basophil% 0.9 % (0-1); Eosinophil# 0.26 X10^3/uL; Eosinophils% 4.1 % (0-5); Hematocrit 43.1 % (37-47); Hemoglobin 13.6 g/dL (12.0-15.0); Lymphocyte # 2.06 X10^3/ul (0.83-4.51); Lymphocyte % 32.5 % (19-41); Mean Corp Hgb Conc 31.6 g/dL (32-36); Mean Corpuscular Volume 95.1 fL (81-99); Mean Platelet Vol. 10.7 fl (6.2-12.0); Monocyte# 0.58 X10^3/uL; Monocyte% 9.1 % (0-10); NRBC Flagged by Analyzer 0 % (0-5); Neutrophil # 3.36 X10^3/uL (2.7-7.7); Neutrophil % 53.1 % (47-70); Platelet Count 278 K/mm3 (150-450); RBC Distribution Width CV 14.7 % (11.6-14.6); RBC Distribution Width SD 51.9 fl (35.1-43.9); Red Blood Count 4.53 M/mm3 (4.2-5.4); White Blood Count 6.3 K/mm3 (4.4-11.0)
[2024-01-16 12:58] LABS: Vitamin D,25 Hydroxy 20.7 ng/mL
[2024-01-16 13:31] LABS: AST(SGOT) 15 U/L (15-37); Alanine Aminotransfer ALT/SGPT 12 U/L (13-56); Albumin, Serum 3.6 g/dL (3.2-5.0); Alkaline Phosphatase 109 U/L (45-117); Anion Gap 10 (5-15); BUN 26 mg/dL (7-18); BUN/Creat Ratio 28.7 RATIO (10-20); Calcium,Total 9.5 mg/dL (8.5-10.1); Chloride 110 mmol/L (98-107); Creatinine, Serum 0.91 mg/dL (0.55-1.02); EST Glomerular Filtration Rate 63 mL/min (>60); Est Glom Filt Rate - Afr Amer 76 mL/min (>60); Globulin 3.7 g/dL (2.2-4.2); Glucose 109 mg/dL (74-106); Potassium 3.4 mmol/L (3.5-5.1); Protein, Total 7.3 g/dL (6.4-8.2); Sodium Level 144 mmol/L (136-145); Thyroid Stim Hormone (TSH) 0.949 uIU/mL (0.358-3.740)
== END | disposition home or self-care (01) ==
LOC: MTLAB 10:45
PROVIDERS: PCP Family Medicine Geriatric Medicine; Referring Provider Family Medicine Geriatric Medicine; Visit Provider Family Medicine Geriatric Medicine
DX: I10 Essential (primary) hypertension (principal); E55.9 Vitamin D deficiency, unspecified
CPT/HCPCS: 36415; 80053; 82306; 84443; 85025

== ENCOUNTER → 2024-04-16 | Outpatient (CLI) | payer MEDICARE, SELFPAY ==
[2024-04-16 10:51] LABS: Absolute Lymphocyte Count 1.78 X10^3/uL (0.83-4.51); Absolute Neutrophil Count 4.7 X10^3/uL (2.0-7.7); Basophil# 0.06 X10^3/uL; Basophil% 0.8 % (0-1); Eosinophils% 2.8 % (0-5); Hematocrit 41.5 % (37-47); Hemoglobin 12.9 g/dL (12.0-15.0); Lymphocyte # 1.78 X10^3/ul (0.83-4.51); Lymphocyte % 24.5 % (19-41); Mean Corp Hgb Conc 31.1 g/dL (32-36); Mean Corpuscular Hgb 29.7 pg (27.0-32.0); Mean Corpuscular Volume 95.4 fL (81-99); Mean Platelet Vol. 9.8 fl (6.2-12.0); Monocyte# 0.51 X10^3/uL; NRBC Flagged by Analyzer 0 % (0-5); Neutrophil # 4.71 X10^3/uL (2.7-7.7); Neutrophil % 64.8 % (47-70); Platelet Count 264 K/mm3 (150-450); RBC Distribution Width CV 14.1 % (11.6-14.6); RBC Distribution Width SD 50.1 fl (35.1-43.9); Red Blood Count 4.35 M/mm3 (4.2-5.4); White Blood Count 7.3 K/mm3 (4.4-11.0)
[2024-04-16 11:17] LABS: Vitamin D,25 Hydroxy 18.2 ng/mL
[2024-04-16 11:28] LABS: ALB/GLOB Ratio 0.9 RATIO (0.9-2.4); AST(SGOT) 13 U/L (15-37); Alanine Aminotransfer ALT/SGPT 14 U/L (13-56); Albumin, Serum 3.7 g/dL (3.2-5.0); Alkaline Phosphatase 106 U/L (45-117); Anion Gap 3 (5-15); BUN 27 mg/dL (7-18); BUN/Creat Ratio 29.8 RATIO (10-20); Calcium,Total 9.3 mg/dL (8.5-10.1); Chloride 109 mmol/L (98-107); Creatinine, Serum 0.91 mg/dL (0.55-1.02); EST Glomerular Filtration Rate 63 mL/min (>60); Est Glom Filt Rate - Afr Amer 76 mL/min (>60); Globulin 3.9 g/dL (2.2-4.2); Glucose 109 mg/dL (74-106); Potassium 3.3 mmol/L (3.5-5.1); Protein, Total 7.6 g/dL (6.4-8.2); Sodium Level 142 mmol/L (136-145); Thyroid Stim Hormone (TSH) 0.507 uIU/mL (0.358-3.740)
== END | disposition home or self-care (01) ==
PROVIDERS: PCP Family Medicine Geriatric Medicine; Visit Provider Family Medicine Geriatric Medicine
DX: I10 Essential (primary) hypertension (principal); E55.9 Vitamin D deficiency, unspecified
CPT/HCPCS: 36415; 80053; 82306; 84443; 85025

== ENCOUNTER → 2024-05-03 | Outpatient (CLI) | payer MEDICARE, SELFPAY ==
[2024-05-03 11:25] LABS: Anion Gap 5 (5-15); BUN 25 mg/dL (7-18); BUN/Creat Ratio 26.9 RATIO (10-20); Calcium,Total 9.7 mg/dL (8.5-10.1); Chloride 110 mmol/L (98-107); Creatinine, Serum 0.93 mg/dL (0.55-1.02); EST Glomerular Filtration Rate 61 mL/min (>60); Est Glom Filt Rate - Afr Amer 74 mL/min (>60); Glucose 100 mg/dL (74-106); Potassium 3.9 mmol/L (3.5-5.1); Sodium Level 143 mmol/L (136-145)
== END | disposition home or self-care (01) ==
LOC: MTLAB 08:08
PROVIDERS: PCP Family Medicine Geriatric Medicine; Referring Provider Family Medicine Geriatric Medicine; Visit Provider Family Medicine Geriatric Medicine
DX: I10 Essential (primary) hypertension (principal)
CPT/HCPCS: 36415; 80048

== ENCOUNTER 2024-12-14 09:52 | Inpatient (IN) | payer MEDICARE, SELFPAY ==
[2024-12-14] VITALS (18 sets, daily range): BP systolic 107–159; BP diastolic 53–105; PULSE 61–77; RESP 16–20; TEMP 36.4–37.1; O2SAT 92–100; BMI 29.3; BMI 29.8
--- NOTE | 2024-12-14 10:17 | CT_ITS ---
PROCEDURE: ABDOMEN/PELVIS W IV CONT ONLY 12/14/2024 REASON FOR EXAM: ABD PAIN, HX OF HERNIA TECHNIQUE: Procedure Code: [id number] Modality: CT Procedure: ABDOMEN/PELVIS W IV CONT ONLY Coronal and Sagittal reconstruction series were provided. CONTRAST: Isovue 370 VOLUME: 100 mL One or more dose reduction techniques were used (e.g., Automated exposure control, adjustment of the mA and/or kV according to patient size, use of iterative reconstruction technique. RADIATION DOSE SUMMARY: CTDlvol: 21.57 mGy DLP: 1030.52 mGycm COMPARISON: 08/22/2018 FINDINGS: Lung bases: Clear Liver: Grossly unremarkable. Occasional tiny hypodensities in right hepatic lobe are stable series 2, image 34, 46, 49 Gallbladder: Within normal limits Spleen: Nonenlarged. Occasional punctate calcifications. Pancreas: Within normal limits. Adrenals: No adrenal mass. Kidneys: No hydronephrosis or hydroureter. Occasional tiny nonobstructing calculi in right kidney. Bilateral peripelvic cysts. Right cortical benign-appearing cyst measures approximately 2.1 Cm, previously 1.7 cm. Bladder: Normal Reproductive Organs: Calcified uterine fibroids Bowel: Moderate-sized hiatal hernia with majority of stomach above the diaphragm. There is right lateral inferior abdominal wall hernia (spigelian hernia) containing right: Loops. Mild surrounding mesenteric fat stranding. No significant free fluid. No evidence of bowel perforation. Remainder of colonic loops are within normal limits. No bowel obstruction. Appendix: Not definitely visualized. Lymph nodes: No suspicious lymph node enlargement. 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 CT/Abdomen/Pelvis W IV Cont ONLY IMPRESSION: 1. Right lateral wall hernia contains proximal colonic loops. There is mild fa t stranding consistent with surrounding inflammation, but no evidence of bowel obstruction, perforation or associated f luid collection/abscess. Reading Location: [place] [id number]
[2024-12-14] MEDS: 0.9% Normal Saline (1000mL) 1,000 ML 999 ML IV (10:27)
[2024-12-14 10:35] LABS: Hematocrit 39.5 % (37-47); Hemoglobin 13.2 g/dL (12.0-15.0); Immature Granulocytes Count 0.020 X10^3/uL (0.0-0.0); Mean Corp Hgb Conc 33.4 g/dL (32-36); Mean Corpuscular Volume 92.9 fL (81-99); Mean Platelet Vol. 10.0 fl (6.2-12.0); NRBC Flagged by Analyzer 0 % (0-5); Platelet Count 249 K/mm3 (150-450); RBC Distribution Width CV 14.3 % (11.6-14.6); RBC Distribution Width SD 49.4 fl (35.1-43.9); Red Blood Count 4.25 M/mm3 (4.2-5.4); White Blood Count 6.6 K/mm3 (4.4-11.0)
[2024-12-14 10:48] LABS: AST(SGOT) 19 U/L (<=31); Alanine Aminotransfer ALT/SGPT 6 U/L (<=34); Albumin, Serum 4.1 g/dL (3.4-4.8); Alkaline Phosphatase 89 U/L (35-104); Anion Gap 15 (5-15); BUN 26 mg/dL (4-19); BUN/Creat Ratio 29.9 RATIO (10-20); Calcium,Total 9.4 mg/dL (7.6-11.0); Carbon Dioxide 22.2 mmol/L (21.0-32.0); Chloride 106 mmol/L (98-108); Estimated Creatinine Clearance 57.96 ml/min (50-250); Globulin 2.9 g/dL (2.2-4.2); Glucose 101 mg/dL (70-99); Lipase 34 U/L (13-75); Potassium 3.3 mmol/L (3.3-5.1)
--- OUTSIDE RECORDS SUMMARY | 2024-12-14 10:50 | XMS RPT_ITS | CCD ---
Author Organization [facility] Care Team Providers Care Cash Management Specialist Name Role Phone Yovani, Ferny Chi Primary Care Provider Yovani, Ferny Chi Referring Unavailable Yovani, Ferny Chi Primary Care Unavailable Yovani, Ferny Chi Attending Unavailable Yovani, Ferny Chi Attending Unavailable Yovani, Ferny Chi Primary Care Unavailable Yovani, Ferny Chi Attending Unavailable Yovani, Ferny Chi Primary Care Unavailable Yovani, Ferny Chi Attending Unavailable Yovani, Ferny Chi Referring Unavailable Yovani, Ferny Chi Primary Care Unavailable Yovani, Ferny Chi Primary Care Unavailable Yovani, Ferny Chi Attending Unavailable Allergies Allergy Classification Reported Allergen(s) Allergy Type Date of Onset Reaction(s) Facility Cephalosporins (antibiotic) (1 source) Cefaclor Drug Allergy 11-16-[address] [facility] Work Phone: guaiFENesin / Phenylephrine (1 source) guaiFENesin / Phenylephrine Drug Allergy 11-16-[address] [facility] Work Phone: (5 sources) Cefaclor Drug Allergy 11-16-19 08 Itching [facility] (4 sources) guaiFENesin Drug Allergy 10-30-19 19 HORRIBLE HEADACHE [facility] (4 sources) Phenylephrine Drug Allergy 10-30-19 19 HORRIBLE HEADACHE [facility] (4 sources) Phenylpropanolamine Drug Allergy 10-30-19 19 HORRIBLE HEADACHE [facility] (4 sources) predniSONE Drug Allergy 10-30-19 19 hallucinations [facility] (1 source) guaiFENesin / Phenylephrine Drug Allergy 11-16-[address] [facility] (1 source) Cefaclor Drug Allergy 10-30-19 19 [facility] (1 source) guaiFENesin Drug Allergy 10-30-19 19 [facility] (1 source) Phenylephrine Drug Allergy 10-30-19 19 [facility] (1 source) Phenylpropanolamine Drug Allergy 10-30-19 [facility] (1 source) predniSONE Drug Allergy 10-30-19 [facility] Medications Current Medications Medication Drug Class(es) Dates Sig (Normalized) Sig (Original) acetaminophen 500 mg oral tablet (4 sources) Start: 02-22-2017 take 1000 mg by mouth once daily Acetaminophen Active 1000 MG PO DAILY February 22, 2017 1:00am aspirin 81 mg delayed release oral tablet (2 sources) Platelet Aggregation Inhibitor, Nonsteroidal Anti-inflammatory Drug Start: 07-03-2009 aspirin(ADULT LOW DOSE ASPIRIN 81 MG TAB, DELAYED RELEASE) 0 07/03/2009 Active busPIRone hydrochloride 10 mg oral tablet (2 sources) Start: 11-16-2007 buspirone hcl(BUSPAR 10 MG TAB) Take one(1) tablet twice daily. 0 11/16/2007 Active Comment on above: Take one(1) tablet t wice daily. calcium carbonate 600 mg / cholecalciferol 125 unt oral tablet (2 sources) Vitamin D Start: 11-16-2007 calcium carbonate/vitamin d3(CALCIUM 600 + D 600 MG-125 UNIT TAB) omega 3 0 11/16/2007 Active Comment on above: omega 3 FISH OIL-OMEGA 3-VITAMIN C 850 MG-284 MG-11.6 MG/2.5 G ORAL PACKET (2 sources) Start: 07-03-2009 FISH OIL-OMEGA 3-VITAMIN C 850 MG-284 MG-11.6 MG/2.5 G ORAL PACKET 0 07/03/2009 Active Start: 07-03-2009 FISH OIL-OMEGA 3-VITAMIN C 850 MG-284 MG-11.6 MG/2.5 G ORAL PACKET fish oil/omega-3 fatty acids(FISH OIL OMEGA 3-6-9 1,000 MG-300 MG CAP, DELAYED RELEASE) (2 sources) Start: 11-16-2007 fish oil/omega -3 fatty acids(FISH OIL OMEGA 3-6-9 1,000 MG-300 MG CAP, DELAYED RELEASE) 0 11/16/2007 Active Start: 11-16-2007 fish oil/omega -3 fatty acids(FISH OIL OMEGA 3-6-9 1,000 MG- 300 MG CAP, DELAYED RELEASE) tnncsuto-kemhcky-fycl 149-hyal(GLUCOSAMINE CHONDROITIN COMPLEX ADVANCED [id number]-1.65MG TAB) (2 sources) Start: 07-03-2009 glucosam-chond ro-herb 149-hyal(GLUCOSAMINE CHONDROITIN COMPLEX ADVANCED [id number]-1.65MG TAB) 0 07/03/2009 Active Start: 07-03-2009 glucosam-chond ro-herb 149-hyal(GLUCOSAMINE CHONDROITIN COMPLEX ADVANCED [id number]-1.65MG TAB) hydroCHLOROthiazide 25 mg / losartan potassium 100 mg oral tablet (6 sources) Thiazide Diuretic, Angiotensin 2 Receptor Gwendolyn Start: 08-18-2020 take 1 tablet by mouth once daily losartan-hydroCHLOROthiazide (HYZAAR) 100-25 mg per tablet Take 1 tablet by mouth once daily. 08/18/2020 Active Start: 01-13-2017 take 1 tablet by roya th once daily Losartan-Hydrochlorothiazide Active 1 TA BLET PO DAILY January 13, 2017 12:00am Comment on above: Take 1 tablet by roya th once daily. hydroCHLOROthiazide 12.5 mg / valsartan 160 mg oral tablet (2 sources) Thiazide Diuretic, Angiotensin 2 Receptor Gwendolyn Start: 008 valsartan/hydrochlor othiazide(DIOVAN HCT 160 MG-12.5 MG TAB) Take one(1) tablet daily. 0 11/16/2007 Active Comment on above: Take one(1) tablet d aily. levothyroxine sodium 0.088 mg oral tablet (6 sources) l-Thyroxine Start: 017 take 1 tablet by mouth once daily levothyroxine (SYNTHROID) 88 mcg tablet Take 88 mcg by mouth once daily. 0 09/16/2020 Active Comment on above: Take 88 mcg by mouth once daily. Ziopryyw-Mky-Bo-Lycopen-Lut ein (4 sources) Start: 017 Mmwamjnr-Hre-Rp-Lyco pen-Lutein Active 1 EACH PO DAILY February 22, 2017 1:00am omeprazole 20 mg delayed release oral capsule (2 sources) Proton Pump Inhibitor Start: 010 omeprazole(PRILOSEC 20 MG CAP) ap 0 07/03/2009 Active Comment on above: ap microencapsulated potassium chloride 20 meq extended release oral tablet (6 sources) Start: 021 potassium chloride ER (K-DUR, KLOR-CON) 20 mEq tablet Take 20 mEq by mouth once daily. 08/22/2020 Active Start: 01-13-2017 take 20 mEq by mouth once dejah y Potassium Chloride Active 20 MEQ PO DAILY January 13, 2017 12:00am Comment on above: Take 20 mEq by mouth once daily. QUEtiapine 25 mg oral tablet (6 sources) Atypical Antipsychotic Start: 01-14-20 17 take 1 tablet by mouth once daily at bedtime QUEtiapine (SEROQUEL) 25 mg tablet Take 25 mg by mouth daily at bedtime. 08/31/2020 Active Comment on above: Take 25 mg by mouth daily at bedtime. venlafaxine 75 mg oral tablet (2 sources) Serotonin and Norepinephrine Reuptake Inhibitor Start: 11-16-19 08 venlafaxine hcl(EFFEXOR 75 MG TAB) Take one(1) tablet twice daily. 0 11/16/2007 Active Comment on above: Take one(1) tablet t wice daily. vilazodone hydrochloride 40 mg oral tablet (6 sources) Start: 08-29-19 19 take 1 tablet by mouth once daily VIIBRYD 40 mg tablet Take 40 mg by mouth once daily. 09/02/2020 Active Comment on above: Take 40 mg by mouth once daily. Completed/Discontinued Medications Medication Drug Class(es) Dates Sig (Normalized) Sig (Original) acetaminophen 325 mg / HYDROcodone bitartrate 5 mg oral tablet (4 sources) Opioid Agonist Start: 09-14-2018 End: 09-16-2018 take 1 tablet by mouth every six hours as needed Hydrocodone-Acetam inophen Discontinued 1 TABLET PO EVERY 6 HOURS NEEDED 8 2 September 14, 2018 12:00am September 16, 2018 12:07am ciprofloxacin 250 mg oral tablet (4 sources) Quinolone Antimicrobial Start: 09-10-2018 End: 10-03-2018 take 250 mg by mouth twice daily Ciprofloxacin Hcl Discontinued 250 MG PO TWICE A DAY September 10, 2018 12:00am October 03, 2018 2:10pm meclizine hydrochloride 25 mg oral tablet (4 sources) Antiemetic Start: 02-23-2017 End: 08-28-2018 take 25 mg by mouth twice daily as needed Meclizine Discontinued 25 MG PO TWICE DAILY NEEDED February 23, 2017 1:00am August 28, 2018 3:35pm modafinil 100 mg oral tablet (4 sources) Sympathomimetic-li ke Agent Start: 01-13-2017 End: 08-28-2018 take 50 mg by mouth once daily Modafinil Discontinued 50 MG PO DAILY January 13, 2017 12:00am August 28, 2018 3:35pm sulfamethoxazole 800 mg / trimethoprim 160 mg oral tablet (4 sources) Dihydrofolate Reductase Inhibitor Antibacterial, Sulfonamide Antimicrobial Start: 08-23-2018 End: 08-28-2018 take 1 tablet by mouth twice daily Sulfamethoxazole-T rimethoprim Discontinued 1 TABLET PO TWICE A DAY August 23, 2018 12:00am August 28, 2018 3:33pm Problems Active Problems Problem Classification Problem Date Documented Date Episodic/Chronic Abdominal hernia (8 sources) Right inguinal hernia ; Translations: [Unilateral inguinal hernia, without obstruction or gangrene, not specified as recurrent] 09-14-2018 Episodic Abdominal pain (4 sources) Right lower quadrant pain; Translations: [Right lower quadrant pain] 09-14-2018 Episodic Anxiety disorders (4 sources) Mixed anxiety and depressive disorder; Translations: [Anxiety disorder, unspecified] 09-14-2018 Chronic Essential hypertension (5 sources) Hypertensive disorder; Translations: [Essential (primary) hypertension] Onset: 05-20-2024 09-14-2018 Chronic Hemorrhoids (4 sources) Hemorrhoids; Translations: [Unspecified hemorrhoids] 09-14-2018 Episodic Osteoarthritis (4 sources) Osteoarthritis; Translations: [Unspecified osteoarthritis, unspecified site] 09-14-2018 Chronic Other connective tissue disease (4 sources) History of total knee arthroplasty; Translations: [Presence of unspecified artificial knee joint] 09-14-2018 Chronic Other non-traumatic joint disorders (2 sources) Pain of right wrist; Translations: [Pain in right wrist] Episodic Residual codes; unclassified (4 sources) History of colonoscopy; Translations: [Other specified postprocedural states] 09-14-2018 Episodic Thyroid disorders (4 sources) Hypothyroidism; Translations: [Hypothyroidism, unspecified] 09-14-2018 Chronic Past or Other Problems Problem Classification Problem Date Documented Da te Episodic/Chronic Phlebitis; thrombophlebitis and thromboembolism (2 sources) Venous embolism; Translations: [Embolism and thrombosis of superficial veins of unspecified lower extremity] Onset: 11-28-2011 11-28-2011 Episodic Unclassified (4 sources) s/p lap right inguinal herniorrhaphy Onset: 10-08-2018 10-30-2021 Results Test Name Value Interpretation Reference Range Facility Basic Metabolic Profile (BMP )on 05-03-2024 BUN/CRE 26.9 RATIO High 10-20 [facility] Comment on above: Performed By: #### L 500.2500 #### [facility] [address] [place], [address] CA,Total 9.7 mg/dL Normal 8.5-10.1 [facility] Comment on above: Performed By: #### L 500.2500 #### [facility] [address] [place], [address] Chloride [Moles/Vol] 110 mmol/L High 98-107 [facility] Comment on above: Performed By: #### L 500.2500 #### [facility] [address] [place], [address] CO2 [Moles/Vol] 28.0 mmol/L Normal 21.0-32.0 [facility] Comment on above: Performed By: #### L 500.2500 #### [facility] [address] [place], [address] Creatinine [Mass/Vol] 0.93 mg/dL Normal 0.55-1.02 [facility] Comment on above: Result Comment: The validity of the calculated GFR GFRAA in patients over 70 years has not been determined. Clinical correlation is essential. Performed By: #### L 500.2500 #### [facility] [address] [place], [address] EST GFR - AA 74 mL/min Normal >60 [facility] Comment on above: Result Comment: Afri can Cuban GFR Calc Performed By: #### L 500.2500 #### [facility] [address] [place], [address] GAP 5 Normal 5-15 [facility] Comment on above: Performed By: #### L 500.2500 #### [facility] [address] [place], [address] GFR/1.73 sq M.predicted among non-blacks MDRD (S/P/Bld) [Vol rate/Area] 61 mL/min/{1.73_m2} Normal >60 [facility] Comment on above: Result Comment: Non- GFR Calc Performed By: #### L 500.2500 #### [facility] [address] [place], [address] Glucose [Mass/Vol] 100 mg/dL Normal 74-106 [facility] Comment on above: Result Comment: Fast ing Glucose result from 100 to 125 mg/dL suggests IMPAIRED HOMEOSTASIS per A.D.A. criteria. Performed By: #### L 500.2500 #### [facility] [address] [place], [address] Potassium [Moles/Vol] 3.9 mmol/L Normal 3.5-5.1 [facility] Comment on above: Performed By: #### L 500.2500 #### [facility] [address] [place], [address] Sodium [Moles/Vol] 143 mmol/L Normal 136-145 [facility] Comment on above: Performed By: #### L 500.2500 #### [facility] [address] [place], [address] Urea nitrogen [Mass/Vol] 25 mg/dL High 7-18 [facility] Comment on above: Performed By: #### L 500.2500 #### [facility] [address] [place], [address] CBC W/Diff, Automatedon 01-0 -2024 Absolute Lymph 1.78 X10 3/uL Normal 0.83-4.51 [facility] Comment on above: Performed By: #### L 500.4050, L506.1000, [id number], L100.0100 #### [facility] [address] [place], [address] Absolute Neut 4.7 X10 3/uL Normal 2.0-7.7 [facility] Comment on above: Performed By: #### L 500.4050, L506.1000, [id number], L100.0100 #### [facility] [address] [place], [address] Basophils/100 WBC (Bld) 0.8 % Normal 0-1 [facility] Comment on above: Performed By: #### L 500.4050, L506.1000, [id number], L100.0100 #### [facility] [address] [place], [address] Eosinophils/100 WBC (Bld) 2.8 % Normal 0-5 [facility] Comment on above: Performed By: #### L 500.4050, L506.1000, [id number], L100.0100 #### [facility] [address] [place], [address] Erythrocyte distribution width (RBC) [Ratio] 14.1 % Normal 11.6-14.6 [facility] Comment on above: Performed By: #### L 500.4050, L506.1000, [id number], L100.0100 #### [facility] [address] [place], [address] Hematocrit (Bld) [Volume fraction] 41.5 % Normal 37-47 [facility] Comment on above: Performed By: #### L 500.4050, L506.1000, [id number], L100.0100 #### [facility] [address] [place], [address] Hemoglobin (Bld) [Mass/Vol] 12.9 g/dL Normal 12.0-15.0 [facility] Comment on above: Performed By: #### L 500.4050, L506.1000, [id number], L100.0100 #### [facility] [address] [place], [address] IG% 0.100 Normal 0.0-0.9 [facility] Comment on above: Result Comment: IG% - Immature Granulocytes (promyelocytes, myelocytes and metamyelocytes) > 1% indicates that a LEFT SHIFT is Present. Performed By: #### L 500.4050, L506.1000, [id number], L100.0100 #### [facility] [address] [place], [address] Lymphocytes/100 WBC (Bld) 24.5 % Normal 19-41 [facility] Comment on above: Performed By: #### L 500.4050, L506.1000, [id number], L100.0100 #### [facility] [address] [place], [address] MCH (RBC) [Entitic mass] 29.7 pg Normal 27.0-32.0 [facility] Comment on above: Performed By: #### L 500.4050, L506.1000, [id number], L100.0100 #### [facility] [address] [place], [address] MCHC (RBC) [Mass/Vol] 31.1 g/dL Low 32-36 [facility] Comment on above: Performed By: #### L 500.4050, L506.1000, [id number], L100.0100 #### [facility] [address] [place], [address] MCV (RBC) [Entitic vol] 95.4 fL Normal 81-99 [facility] Comment on above: Performed By: #### L 500.4050, L506.1000, [id number], L100.0100 #### [facility] [address] [place], [address] Monocytes/100 WBC (Bld) 7.0 % Normal 0-10 [facility] Comment on above: Performed By: #### L 500.4050, L506.1000, [id number], L100.0100 #### [facility] [address] [place], [address] Neutrophils/100 WBC (Bld) 64.8 % Normal 47-70 [facility] Comment on above: Performed By: #### L 500.4050, L506.1000, [id number], L100.0100 #### [facility] [address] [place], [address] Nucleated RBC (Bld) [#/Vol] 0 10*3/uL Normal 0-5 [facility] Comment on above: Performed By: #### L 500.4050, L506.1000, [id number], L100.0100 #### [facility] [address] [place], [address] Platelet mean volume (Bld) [Entitic vol] 9.8 fL Normal 6.2-12.0 [facility] Comment on above: Performed By: #### L 500.4050, L506.1000, [id number], L100.0100 #### [facility] [address] [place], [address] Platelets (Bld) [#/Vol] 264 10*3/uL Normal 150-450 [facility] Comment on above: Performed By: #### L 500.4050, L506.1000, [id number], L100.0100 #### [facility] [address] [place], [address] RBC (Bld) [#/Vol] 4.35 10*6/uL Normal 4.2-5.4 [facility] Comment on above: Performed By: #### L 500.4050, L506.1000, [id number], L100.0100 #### [facility] [address] [place], [address] RDW SD 50.1 fl High 35.1-43.9 [facility] Comment on above: Performed By: #### L 500.4050, L506.1000, [id number], L100.0100 #### [facility] [address] [place], [address] WBC (Bld) [#/Vol] 7.3 10*3/uL Normal 4.4-11.0 [facility] Comment on above: Performed By: #### L 500.4050, L506.1000, [id number], L100.0100 #### [facility] [address] [place], [address] Comprehensive Metabolic Prof [facility] 04-16-2024 Albumin [Mass/Vol] 3.7 g/dL Normal 3.2-5.0 [facility] Comment on above: Performed By: #### L 500.4050, L506.1000, [id number], L100.0100 #### [facility] [address] [place], [address] Albumin/Globulin [Mass ratio] 0.9 {ratio} Normal 0.9-2.4 [facility] Comment on above: Performed By: #### L 500.4050, L506.1000, [id number], L100.0100 #### [facility] [address] [place], [address] ALK P 106 U/L Normal 45-117 [facility] Comment on above: Performed By: #### L 500.4050, L506.1000, [id number], L100.0100 #### [facility] [address] [place], [address] ALT [Catalytic activity/Vol] 14 U/L Normal 13-56 [facility] Comment on above: Performed By: #### L 500.4050, L506.1000, [id number], L100.0100 #### [facility] [address] [place], [address] AST [Catalytic activity/Vol] 13 U/L Low 15-37 [facility] Comment on above: Performed By: #### L 500.4050, L506.1000, [id number], L100.0100 #### [facility] [address] [place], [address] Bilirubin [Mass/Vol] 0.60 mg/dL Normal 0.20-1.00 [facility] Comment on above: Result Comment: For patients on eltrombopag therapy, use of Dimension [place] TBIL is not recommended. Performed By: #### L 500.4050, L506.1000, [id number], L100.0100 #### [facility] [address] [place], [address] BUN/CRE 29.8 RATIO High 10-20 [facility] Comment on above: Performed By: #### L 500.4050, L506.1000, [id number], L100.0100 #### [facility] [address] [place], [address] CA,Total 9.3 mg/dL Normal 8.5-10.1 [facility] Comment on above: Performed By: #### L 500.4050, L506.1000, [id number], L100.0100 #### [facility] [address] [place], [address] Chloride [Moles/Vol] 109 mmol/L High 98-107 [facility] Comment on above: Performed By: #### L 500.4050, L506.1000, [id number], L100.0100 #### [facility] [address] [place], [address] CO2 [Moles/Vol] 29.0 mmol/L Normal 21.0-32.0 [facility] Comment on above: Performed By: #### L 500.4050, L506.1000, [id number], L100.0100 #### [facility] [address] [place], [address] Creatinine [Mass/Vol] 0.91 mg/dL Normal 0.55-1.02 [facility] Comment on above: Result Comment: The validity of the calculated GFR GFRAA in patients over 70 years has not been determined. Clinical correlation is essential. Performed By: #### L 500.4050, L506.1000, L501.9520, L100.0100 #### [facility] [address] [place], [address] EST GFR - AA 76 mL/min Normal >60 [facility] Comment on above: Result Comment: Afri can Cuban GFR Calc Performed By: #### L 500.4050, L506.1000, L501.9520, L100.0100 #### [facility] [address] [place], [address] GAP 3 Low 5-15 [facility] Comment on above: Performed By: #### L 500.4050, L506.1000, [id number], L100.0100 #### [facility] [address] [place], [address] GFR/1.73 sq M.predicted among non-blacks MDRD (S/P/Bld) [Vol rate/Area] 63 mL/min/{1.73_m2} Normal >60 [facility] Comment on above: Result Comment: Non- GFR Calc Performed By: #### L 500.4050, L506.1000, L501.9520, L100.0100 #### [facility] [address] [place], [address] Globulin (S) [Mass/Vol] 3.9 g/dL Normal 2.2-4.2 [facility] Comment on above: Performed By: #### L 500.4050, L506.1000, L501.9520, L100.0100 #### [facility] [address] [place], [address] Glucose [Mass/Vol] 109 mg/dL High 74-106 [facility] Comment on above: Result Comment: Fast ing Glucose result from 100 to 125 mg/dL suggests IMPAIRED HOMEOSTASIS per A.D.A. criteria. Performed By: #### L 500.4050, L506.1000, [id number], L100.0100 #### [facility] [address] [place], [address] Potassium [Moles/Vol] 3.3 mmol/L Low 3.5-5.1 [facility] Comment on above: Performed By: #### L 500.4050, L506.1000, [id number], L100.0100 #### [facility] [address] [place], [address] Sodium [Moles/Vol] 142 mmol/L Normal 136-145 [facility] Comment on above: Performed By: #### L 500.4050, L506.1000, [id number], L100.0100 #### [facility] [address] [place], [address] T PROT 7.6 g/dL Normal 6.4-8.2 [facility] Comment on above: Performed By: #### L 500.4050, L506.1000, [id number], L100.0100 #### [facility] [address] [place], [address] Urea nitrogen [Mass/Vol] 27 mg/dL High 7-18 [facility] Comment on above: Performed By: #### L 500.4050, L506.1000, [id number], L100.0100 #### [facility] [address] [place], [address] Thyroid Stim Hormone (TSH)on 04-16-2024 TSH 0.507 uIU/mL Normal 0.358-3.740 [facility] Comment on above: Performed By: #### L 500.4050, L506.1000, L501.9520, L100.0100 #### [facility] [address] [place], [address] Vitamin D,25 Hydroxyon 04-16 Vitamin D 25-OH 18.2 ng/mL Normal [facility] Comment on above: Result Comment: Pretty min D 25(OH) Status Range Deficiency <20 ng/mL (50nmol/L) Insufficiency 20 - 30 ng/mL (50 - 75 nmol/L) Sufficiency 30 - 100 ng/mL (75 - 250 nmol/L) Toxicity >100 ng/mL (>250 nmol/L) Performed By: #### L 500.4050, L506.1000, L501.9520, L100.0100 #### [facility] [address] [place], [address] CBC W/Diff, Automatedon 10-0 Absolute Lymph 2.06 X10 3/uL Normal 0.83-4.51 [facility] Comment on above: Performed By: #### L 500.4050, L100.0100, L501.9520, L506.1000 #### [facility] [address] [place], [address] Absolute Neut 3.4 X10 3/uL Normal 2.0-7.7 [facility] Comment on above: Performed By: #### L 500.4050, L100.0100, L501.9520, L506.1000 #### [facility] [address] [place], [address] Basophils/100 WBC (Bld) 0.9 % Normal 0-1 [facility] Comment on above: Performed By: #### L 500.4050, L100.0100, L501.9520, L506.1000 #### [facility] [address] [place], [address] Eosinophils/100 WBC (Bld) 4.1 % Normal 0-5 [facility] Comment on above: Performed By: #### L 500.4050, L100.0100, L501.9520, L506.1000 #### [facility] Laboratory [address] [place], [address] Erythrocyte distribution width (RBC) [Ratio] 14.7 % High 11.6-14.6 [facility] Comment on above: Performed By: #### L 500.4050, L100.0100, L501.9520, L506.1000 #### [facility] [address] [place], [address] Hematocrit (Bld) [Volume fraction] 43.1 % Normal 37-47 [facility] Comment on above: Performed By: #### L 500.4050, L100.0100, L501.9520, L506.1000 #### [facility] [address] [place], [address] Hemoglobin (Bld) [Mass/Vol] 13.6 g/dL Normal 12.0-15.0 [facility] Comment on above: Performed By: #### L 500.4050, L100.0100, L501.9520, L506.1000 #### [facility] [address] [place], [address] IG% 0.300 Normal 0.0-0.9 [facility] Comment on above: Result Comment: IG% - Immature Granulocytes (promyelocytes, myelocytes and metamyelocytes) > 1% indicates that a LEFT SHIFT is Present. Performed By: #### L 500.4050, L100.0100, L501.9520, L506.1000 #### [facility] [address] [place], [address] Lymphocytes/100 WBC (Bld) 32.5 % Normal 19-41 [facility] Comment on above: Performed By: #### L 500.4050, L100.0100, L501.9520, L506.1000 #### [facility] [address] [place], [address] MCH (RBC) [Entitic mass] 30.0 pg Normal 27.0-32.0 [facility] Comment on above: Performed By: #### L 500.4050, L100.0100, L501.9520, L506.1000 #### [facility] [address] [place], [address] MCHC (RBC) [Mass/Vol] 31.6 g/dL Low 32-36 [facility] Comment on above: Performed By: #### L 500.4050, L100.0100, L501.9520, L506.1000 #### [facility] [address] [place], [address] MCV (RBC) [Entitic vol] 95.1 fL Normal 81-99 [facility] Comment on above: Performed By: #### L 500.4050, L100.0100, L501.9520, L506.1000 #### [facility] [address] [place], [address] Monocytes/100 WBC (Bld) 9.1 % Normal 0-10 [facility] Comment on above: Performed By: #### L 500.4050, L100.0100, L501.9520, L506.1000 #### [facility] [address] [place], [address] Neutrophils/100 WBC (Bld) 53.1 % Normal 47-70 [facility] Comment on above: Performed By: #### L 500.4050, L100.0100, L501.9520, L506.1000 #### [facility] [address] [place], [address] Nucleated RBC (Bld) [#/Vol] 0 10*3/uL Normal 0-5 [facility] Comment on above: Performed By: #### L 500.4050, L100.0100, L501.9520, L506.1000 #### [facility] [address] [place], [address] Platelet mean volume (Bld) [Entitic vol] 10.7 fL Normal 6.2-12.0 [facility] Comment on above: Performed By: #### L 500.4050, L100.0100, L501.9520, L506.1000 #### [facility] [address] [place], [address] Platelets (Bld) [#/Vol] 278 10*3/uL Normal 150-450 [facility] Comment on above: Performed By: #### L 500.4050, L100.0100, L501.9520, L506.1000 #### [facility] [address] [place], [address] RBC (Bld) [#/Vol] 4.53 10*6/uL Normal 4.2-5.4 [facility] Comment on above: Performed By: #### L 500.4050, L100.0100, L501.9520, L506.1000 #### [facility] [address] [place], [address] RDW SD 51.9 fl High 35.1-43.9 [facility] Comment on above: Performed By: #### L 500.4050, L100.0100, L501.9520, L506.1000 #### [facility] [address] [place], [address] WBC (Bld) [#/Vol] 6.3 10*3/uL Normal 4.4-11.0 [facility] Comment on above: Performed By: #### L 500.4050, L100.0100, L501.9520, L506.1000 #### [facility] [address] [place], [address] Comprehensive Metabolic Prof ilon 01-16-2024 Albumin [Mass/Vol] 3.6 g/dL Normal 3.2-5.0 [facility] Comment on above: Performed By: #### L 500.4050, L506.1000, L501.9520, L100.0100 #### [facility] [address] [place], [address] Albumin/Globulin [Mass ratio] 1.0 {ratio} Normal 0.9-2.4 [facility] Comment on above: Performed By: #### L 500.4050, L506.1000, L501.9520, L100.0100 #### [facility] [address] [place], [address] ALK P 109 U/L Normal 45-117 [facility] Comment on above: Performed By: #### L 500.4050, L506.1000, L501.9520, L100.0100 #### [facility] [address] [place], [address] ALT [Catalytic activity/Vol] 12 U/L Low 13-56 [facility] Comment on above: Performed By: #### L 500.4050, L506.1000, L501.9520, L100.0100 #### [facility] [address] [place], [address] AST [Catalytic activity/Vol] 15 U/L Normal 15-37 [facility] Comment on above: Performed By: #### L 500.4050, L506.1000, L501.9520, L100.0100 #### [facility] [address] [place], [address] Bilirubin [Mass/Vol] 0.60 mg/dL Normal 0.20-1.00 [facility] Comment on above: Result Comment: For patients on eltrombopag therapy, use of Dimension [place] TBIL is not recommended. Performed By: #### L 500.4050, L506.1000, L501.9520, L100.0100 #### [facility] [address] [place], [address] BUN/CRE 28.7 RATIO High 10-20 [facility] Comment on above: Performed By: #### L 500.4050, L506.1000, L501.9520, L100.0100 #### [facility] [address] [place], [address] CA,Total 9.5 mg/dL Normal 8.5-10.1 [facility] Comment on above: Performed By: #### L 500.4050, L506.1000, L501.9520, L100.0100 #### [facility] [address] [place], [address] Chloride [Moles/Vol] 110 mmol/L High 98-107 [facility] Comment on above: Performed By: #### L 500.4050, L506.1000, L501.9520, L100.0100 #### [facility] [address] [place], [address] CO2 [Moles/Vol] 24.0 mmol/L Normal 21.0-32.0 [facility] Comment on above: Performed By: #### L 500.4050, L506.1000, L501.9520, L100.0100 #### [facility] [address] [place], [address] Creatinine [Mass/Vol] 0.91 mg/dL Normal 0.55-1.02 [facility] Comment on above: Result Comment: The validity of the calculated GFR GFRAA in patients over 70 years has not been determined. Clinical correlation is essential. Performed By: #### L 500.4050, L506.1000, L501.9520, L100.0100 #### [facility] [address] [place], [address] EST GFR - AA 76 mL/min Normal >60 [facility] Comment on above: Result Comment: Afri can Cuban GFR Calc Performed By: #### L 500.4050, L506.1000, L501.9520, L100.0100 #### [facility] [address] [place], [address] GAP 10 Normal 5-15 [facility] Comment on above: Performed By: #### L 500.4050, L506.1000, L501.9520, L100.0100 #### [facility] [address] [place], [address] GFR/1.73 sq M.predicted among non-blacks MDRD (S/P/Bld) [Vol rate/Area] 63 mL/min/{1.73_m2} Normal >60 [facility] Comment on above: Result Comment: Non- GFR Calc Performed By: #### L 500.4050, L506.1000, L501.9520, L100.0100 #### [facility] [address] [place], [address] Globulin (S) [Mass/Vol] 3.7 g/dL Normal 2.2-4.2 [facility] Comment on above: Performed By: #### L 500.4050, L506.1000, L501.9520, L100.0100 #### [facility] [address] [place], [address] Glucose [Mass/Vol] 109 mg/dL High 74-106 [facility] Comment on above: Result Comment: Fast ing Glucose result from 100 to 125 mg/dL suggests IMPAIRED HOMEOSTASIS per A.D.A. criteria. Performed By: #### L 500.4050, L506.1000, L501.9520, L100.0100 #### [facility] [address] [place], [address] Potassium [Moles/Vol] 3.4 mmol/L Low 3.5-5.1 [facility] Comment on above: Performed By: #### L 500.4050, L506.1000, L501.9520, L100.0100 #### [facility] [address] [place], [address] Sodium [Moles/Vol] 144 mmol/L Normal 136-145 [facility] Comment on above: Performed By: #### L 500.4050, L506.1000, L501.9520, L100.0100 #### [facility] [address] [place], [address] T PROT 7.3 g/dL Normal 6.4-8.2 [facility] Comment on above: Performed By: #### L 500.4050, L506.1000, L501.9520, L100.0100 #### [facility] [address] [place], [address] Urea nitrogen [Mass/Vol] 26 mg/dL High 7-18 [facility] Comment on above: Performed By: #### L 500.4050, L506.1000, L501.9520, L100.0100 #### [facility] [address] [place], [address] Thyroid Stim Hormone (TSH)on 01-16-2024 TSH 0.949 uIU/mL Normal 0.358-3.740 [facility] Comment on above: Performed By: #### L 500.4050, L506.1000, L501.9520, L100.0100 #### [facility] [address] [place], [address] Vitamin D,25 Hydroxyon 01-15 Vitamin D 25-OH 20.7 ng/mL Normal [facility] Comment on above: Result Comment: Pretty min D 25(OH) Status Range Deficiency <20 ng/mL (50nmol/L) Insufficiency 20 - 30 ng/mL (50 - 75 nmol/L) Sufficiency 30 - 100 ng/mL (75 - 250 nmol/L) Toxicity >100 ng/mL (>250 nmol/L) Performed By: #### L 500.4050, L506.1000, L501.9520, L100.0100 #### [facility] [address] [place], [place], [address] Absolute lymphocyte countOrd ered By: Ferny Pina on 06-28-2023 Lymphocytes Auto (Unsp spec) [#/Vol] 1.99 10*3/uL 0.83-4.51 [facility] Automated lymphocyte count a s percentage of total leukocytesOrdered By: Ferny Yovani on 06-28-2023 Lymphocytes/100 WBC Auto (Unsp spec) 39.3 % 19-41 [facility] Basophil percentageOrdered B y: Ferny Pina on 06-28-2023 Basophils/100 WBC (Bld) 1.0 % 0-1 [facility] Bilirubin [Mass/Vol] 0.40 mg/dL 0.20-1.00 [facility] Comment on above: For patients on eltr ombopag therapy, use of Dimension [place] TBIL is not recommended. Chloride [Moles/Vol] 108 mmol/L 98-107 [facility] Eosinophils/100 WBC (Bld) 3.6 % 0-5 [facility] Glucose [Mass/Vol] 112 mg/dL 74-106 [facility] Comment on above: Fasting Glucose resu lt from 100 to 125 mg/dL suggests IMPAIRED HOMEOSTASIS per A.D.A. criteria. Hemoglobin (Bld) [Mass/Vol] 12.4 g/dL 12.0-15.0 [facility] Monocytes/100 WBC (Bld) 8.5 % 0-10 [facility] Neutrophils (Bld) [#/Vol] 2.4 10*3/uL 2.0-7.7 [facility] Neutrophils/100 WBC (Bld) 47.4 % 47-70 [facility] Potassium [Moles/Vol] 3.5 mmol/L 3.5-5.1 [facility] Protein [Mass/Vol] 7.5 g/dL 6.4-8.2 [facility] Sodium [Moles/Vol] 145 mmol/L 136-145 [facility] WBC (Bld) [#/Vol] 5.1 10*3/uL 4.4-11.0 [facility] CBC W/Diff, Automatedon 03-2 0-2023 Absolute Lymph 1.99 X10 3/uL Normal 0.83-4.51 [facility] Comment on above: Performed By: #### L 100.0100, L506.1000, L500.4050, L501.9520 #### [facility] [address] [place], [address] Absolute Neut 2.4 X10 3/uL Normal 2.0-7.7 [facility] Comment on above: Performed By: #### L 100.0100, L506.1000, L500.4050, L501.9520 #### [facility] [address] [place], [address] Basophils/100 WBC (Bld) 1.0 % Normal 0-1 [facility] Comment on above: Performed By: #### L 100.0100, L506.1000, L500.4050, L501.9520 #### [facility] [address] [place], [address] Eosinophils/100 WBC (Bld) 3.6 % Normal 0-5 [facility] Comment on above: Performed By: #### L 100.0100, L506.1000, L500.4050, L501.9520 #### [facility] [address] [place], [address] Erythrocyte distribution width (RBC) [Ratio] 13.3 % Normal 11.6-14.6 [facility] Comment on above: Performed By: #### L 100.0100, L506.1000, L500.4050, L501.9520 #### [facility] [address] [place], [address] Hematocrit (Bld) [Volume fraction] 39.0 % Normal 37-47 [facility] Comment on above: Performed By: #### L 100.0100, L506.1000, L500.4050, L501.9520 #### [facility] [address] [place], [address] Hemoglobin (Bld) [Mass/Vol] 12.4 g/dL Normal 12.0-15.0 [facility] Comment on above: Performed By: #### L 100.0100, L506.1000, L500.4050, L501.9520 #### [facility] [address] [place], [address] IG% 0.200 Normal 0.0-0.9 [facility] Comment on above: Result Comment: IG% - Immature Granulocytes (promyelocytes, myelocytes and metamyelocytes) > 1% indicates that a LEFT SHIFT is Present. Performed By: #### L 100.0100, L506.1000, L500.4050, L501.9520 #### [facility] [address] [place], [address] Lymphocytes/100 WBC (Bld) 39.3 % Normal 19-41 [facility] Comment on above: Performed By: #### L 100.0100, L506.1000, L500.4050, L501.9520 #### [facility] [address] [place], [address] MCH (RBC) [Entitic mass] 29.1 pg Normal 27.0-32.0 [facility] Comment on above: Performed By: #### L 100.0100, L506.1000, L500.4050, L501.9520 #### [facility] [address] [place], [address] MCHC (RBC) [Mass/Vol] 31.8 g/dL Low 32-36 [facility] Comment on above: Performed By: #### L 100.0100, L506.1000, L500.4050, L501.9520 #### [facility] [address] [place], [address] MCV (RBC) [Entitic vol] 91.5 fL Normal 81-99 [facility] Comment on above: Performed By: #### L 100.0100, L506.1000, L500.4050, L501.9520 #### [facility] [address] [place], [address] Monocytes/100 WBC (Bld) 8.5 % Normal 0-10 [facility] Comment on above: Performed By: #### L 100.0100, L506.1000, L500.4050, L501.9520 #### [facility] [address] [place], [address] Neutrophils/100 WBC (Bld) 47.4 % Normal 47-70 [facility] Comment on above: Performed By: #### L 100.0100, L506.1000, L500.4050, L501.9520 #### [facility] [address] [place], [address] Nucleated RBC (Bld) [#/Vol] 0 10*3/uL Normal 0-5 [facility] Comment on above: Performed By: #### L 100.0100, L506.1000, L500.4050, L501.9520 #### [facility] [address] [place], [address] Platelet mean volume (Bld) [Entitic vol] 9.9 fL Normal 6.2-12.0 [facility] Comment on above: Performed By: #### L 100.0100, L506.1000, L500.4050, L501.9520 #### [facility] [address] [place], [address] Platelets (Bld) [#/Vol] 327 10*3/uL Normal 150-450 [facility] Comment on above: Performed By: #### L 100.0100, L506.1000, L500.4050, L501.9520 #### [facility] [address] [place], [address] RBC (Bld) [#/Vol] 4.26 10*6/uL Normal 4.2-5.4 [facility] Comment on above: Performed By: #### L 100.0100, L506.1000, L500.4050, L501.9520 #### [facility] [address] [place], [address] RDW SD 44.7 fl High 35.1-43.9 [facility] Comment on above: Performed By: #### L 100.0100, L506.1000, L500.4050, L501.9520 #### [facility] [address] [place], [address] WBC (Bld) [#/Vol] 5.1 10*3/uL Normal 4.4-11.0 [facility] Comment on above: Performed By: #### L 100.0100, L506.1000, L500.4050, L501.9520 #### [facility] [address] [place], [address] Comprehensive Metabolic Prof [facility] 06-28-2023 Albumin [Mass/Vol] 3.2 g/dL Normal 3.2-5.0 [facility] Comment on above: Performed By: #### L 100.0100, L506.1000, L500.4050, L501.9520 #### [facility] [address] [place], [address] Albumin/Globulin [Mass ratio] 0.7 {ratio} Low 0.9-2.4 [facility] Comment on above: Performed By: #### L 100.0100, L506.1000, L500.4050, L501.9520 #### [facility] [address] [place], [address] ALK P 104 U/L Normal 45-117 [facility] Comment on above: Performed By: #### L 100.0100, L506.1000, L500.4050, L501.9520 #### [facility] [address] [place], [address] ALT [Catalytic activity/Vol] 12 U/L Low 13-56 [facility] Comment on above: Performed By: #### L 100.0100, L506.1000, L500.4050, L501.9520 #### [facility] [address] [place], [address] AST [Catalytic activity/Vol] 15 U/L Normal 15-37 [facility] Comment on above: Performed By: #### L 100.0100, L506.1000, L500.4050, L501.9520 #### [facility] [address] [place], [address] Bilirubin [Mass/Vol] 0.40 mg/dL Normal 0.20-1.00 [facility] Comment on above: Result Comment: For patients on eltrombopag therapy, use of Dimension [place] TBIL is not recommended. Performed By: #### L 100.0100, L506.1000, L500.4050, L501.9520 #### [facility] [address] [place], [address] BUN/CRE 31.8 RATIO High 10-20 [facility] Comment on above: Performed By: #### L 100.0100, L506.1000, L500.4050, L501.9520 #### [facility] [address] [place], [address] CA,Total 9.3 mg/dL Normal 8.5-10.1 [facility] Comment on above: Performed By: #### L 100.0100, L506.1000, L500.4050, L501.9520 #### [facility] [address] [place], [address] Chloride [Moles/Vol] 108 mmol/L High 98-107 [facility] Comment on above: Performed By: #### L 100.0100, L506.1000, L500.4050, L501.9520 #### [facility] [address] [place], [address] CO2 [Moles/Vol] 28.0 mmol/L Normal 21.0-32.0 [facility] Comment on above: Performed By: #### L 100.0100, L506.1000, L500.4050, L501.9520 #### [facility] [address] [place], [address] Creatinine [Mass/Vol] 0.91 mg/dL Normal 0.55-1.02 [facility] Comment on above: Result Comment: The validity of the calculated GFR GFRAA in patients over 70 years has not been determined. Clinical correlation is essential. Performed By: #### L 100.0100, L506.1000, L500.4050, L501.9520 #### [facility] [address] [place], [address] EST GFR - AA 76 mL/min Normal >60 [facility] Comment on above: Result Comment: Afri can Cuban GFR Calc Performed By: #### L 100.0100, L506.1000, L500.4050, L501.9520 #### [facility] [address] [place], [address] GAP 9 Normal 5-15 [facility] Comment on above: Performed By: #### L 100.0100, L506.1000, L500.4050, L501.9520 #### [facility] [address] [place], [address] GFR/1.73 sq M.predicted among non-blacks MDRD (S/P/Bld) [Vol rate/Area] 63 mL/min/{1.73_m2} Normal >60 [facility] Comment on above: Result Comment: Non- GFR Calc Performed By: #### L 100.0100, L506.1000, L500.4050, L501.9520 #### [facility] [address] [place], [address] Globulin (S) [Mass/Vol] 4.3 g/dL High 2.2-4.2 [facility] Comment on above: Performed By: #### L 100.0100, L506.1000, L500.4050, L501.9520 #### [facility] [address] [place], [address] Glucose [Mass/Vol] 112 mg/dL High 74-106 [facility] Comment on above: Result Comment: Fast ing Glucose result from 100 to 125 mg/dL suggests IMPAIRED HOMEOSTASIS per A.D.A. criteria. Performed By: #### L 100.0100, L506.1000, L500.4050, L501.9520 #### [facility] [address] [place], [address] Potassium [Moles/Vol] 3.5 mmol/L Normal 3.5-5.1 [facility] Comment on above: Performed By: #### L 100.0100, L506.1000, L500.4050, L501.9520 #### [facility] [address] [place], [address] Sodium [Moles/Vol] 145 mmol/L Normal 136-145 [facility] Comment on above: Performed By: #### L 100.0100, L506.1000, L500.4050, L501.9520 #### [facility] [address] [place], [address] T PROT 7.5 g/dL Normal 6.4-8.2 [facility] Comment on above: Performed By: #### L 100.0100, L506.1000, L500.4050, L501.9520 #### [facility] [address] [place], [address] Urea nitrogen [Mass/Vol] 29 mg/dL High 7-18 [facility] Comment on above: Performed By: #### L 100.0100, L506.1000, L500.4050, L501.9520 #### [facility] [address] [place], [address] Determination of erythrocyte mean corpuscular volume (MCV)Ordered By: Ferny Pina on 06-28-2023 MCV (RBC) [Entitic vol] 91.5 fL 81-99 [facility] Erythrocyte distribution wid th ratioOrdered By: [facility] Erythrocyte distribution width (RBC) [Ratio] 13.3 % 11.6-14.6 [facility] Erythrocyte distribution wid th standard deviationOrdered By: Ferny Yovani on 06-28-2023 Erythrocyte distribution width (RBC) [Entitic vol] 44.7 fL 35.1-43.9 [facility] Hematocrit Auto (Bld) [Volum e fraction]Ordered By: [facility] 06-28-2023 Hematocrit (Bld) [Volume fraction] 39.0 % 37-47 [facility] Immature granulocytes/100 WB C Auto (Bld)Ordered By: Ferny Pina on 06-28-2023 Immature granulocytes/100 WBC (Bld) 0.200 % 0.0-0.9 [facility] Comment on above: IG% - Immature Granu locytes (promyelocytes, myelocytes and metamyelocytes) > 1% indicates that a LEFT SHIFT is Present. Laboratory - Chemistry and C hemistry - challengeOrdered By: Ferny Pina on 06-28-2023 Albumin/Globulin [Mass ratio] 0.7 {ratio} 0.9-2.4 [facility] ALP [Catalytic activity/Vol] 104 U/L 45-117 [facility] ALT [Catalytic activity/Vol] 12 U/L 13-56 [facility] CO2 [Moles/Vol] 28.0 mmol/L 21.0-32.0 [facility] Globulin (S) [Mass/Vol] 4.3 g/dL 2.2-4.2 [facility] Urea nitrogen/Creatinine [Mass ratio] 31.8 mg/mg 10-20 [facility] Laboratory - Hematology and Cell countsOrdered By: Ferny Pina on 06-28-2023 MCH (RBC) [Entitic mass] 29.1 pg 27.0-32.0 [facility] MCHC (RBC) [Mass/Vol] 31.8 g/dL 32-36 [facility] Nucleated RBC/100 WBC (Bld) [Ratio] 0 % 0-5 [facility] Platelet mean volume (Bld) [Entitic vol] 9.9 fL 6.2-12.0 [facility] Platelets (Bld) [#/Vol] 327 10*3/uL 150-450 [facility] No Panel InformationOrdered By: Ferny Pina on 06-28-2023 Estimated GFR (MDRD) Amer 76 mL/min >60 [facility] Comment on above: GFR Calc Estimated GFR (MDRD) Non-Af Amer 63 mL/min >60 [facility] Comment on above: Non- GFR Calc Vitamin D 25-Hydroxy 19.5 ng/mL [facility] Comment on above: Vitamin D 25(OH) Sta tus Range Deficiency <20 ng/mL (50nmol/L) Insufficiency 20 - 30 ng/mL (50 - 75 nmol/L) Sufficiency 30 - 100 ng/mL (75 - 250 nmol/L) Toxicity >100 ng/mL (>250 nmol/L) RBC Auto (Bld) [#/Vol]Ordere d By: Ferny Pina on 06-28-2023 RBC (Bld) [#/Vol] 4.26 10*6/uL 4.2-5.4 [facility] Serum or plasma calcium griselda urement (mass/volume)Ordered By: Ferny Pina on 06-28-2023 Calcium [Mass/Vol] 9.3 mg/dL 8.5-10.1 [facility] Serum or plasma creatinine m easurement (mass/volume)Ordered By: Ferny Pina on 06-28-2023 Creatinine [Mass/Vol] 0.91 mg/dL 0.55-1.02 [facility] Comment on above: The validity of the calculated GFR & GFRAA in patients over 70 years has not been determined. Clinical correlation is essential. Serum or plasma thyroid stim ulating hormone (TSH) measurement (units/volume)Ordered By: Ferny Pina on 06-28-2023 TSH Qn 0.65 uIU/mL 0.358-3.74 [facility] Serum or plasma urea nitroge n measurement (mass/volume)Ordered By: Ferny Pina on 06-28-2023 Urea nitrogen [Mass/Vol] 29 mg/dL 7-18 [facility] Thin prep Papanicolaou smear with manual screeningOrdered By: Ferny Pina on 06-28-2023 Thin prep Papanicolaou smear with manual screening 3.2 g/dL 3.2-5.0 [facility] Thin prep Papanicolaou smear with manual screening 15 U/L 15-37 [facility] Thin prep Papanicolaou smear with manual screening 9 5-15 [facility] Thyroid Stim Hormone (TSH)on 06-28-2023 TSH 0.65 uIU/mL Normal 0.358-3.74 [facility] Comment on above: Performed By: #### L 100.0100, L506.1000, L500.4050, L501.9520 #### [facility] [address] [place], [place], [id number] Vitamin D,25 Hydroxyon 06-27 Vitamin D 25-OH 19.5 ng/mL Normal [facility] Comment on above: Result Comment: Pretty min D 25(OH) Status Range Deficiency <20 ng/mL (50nmol/L) Insufficiency 20 - 30 ng/mL (50 - 75 nmol/L) Sufficiency 30 - 100 ng/mL (75 - 250 nmol/L) Toxicity >100 ng/mL (>250 nmol/L) Performed By: #### L 100.0100, L506.1000, L500.4050, [id number] #### [facility] [address] [place], [address] Absolute lymphocyte countOrd ered By: Ferny Pina on 12-27-2022 Lymphocytes Auto (Unsp spec) [#/Vol] 2.30 10*3/uL 0.83-4.51 [facility] Basophil percentageOrdered B y: Ferny Pina on 12-27-2022 Basophils/100 WBC (Bld) 1.0 % 0-1 [facility] Bilirubin [Mass/Vol] 0.60 mg/dL 0.20-1.00 [facility] Comment on above: For patients on eltr ombopag therapy, use of Dimension [place] TBIL is not recommended. Chloride [Moles/Vol] 111 mmol/L 98-107 [facility] Eosinophils/100 WBC (Bld) 3.5 % 0-5 [facility] Glucose [Mass/Vol] 105 mg/dL 74-106 [facility] Comment on above: Fasting Glucose resu lt from 100 to 125 mg/dL suggests IMPAIRED HOMEOSTASIS per A.D.A. criteria. Neutrophils (Bld) [#/Vol] 3.8 10*3/uL 2.0-7.7 [facility] Neutrophils/100 WBC (Bld) 54.4 % 47-70 [facility] Potassium [Moles/Vol] 3.7 mmol/L 3.5-5.1 [facility] Protein [Mass/Vol] 7.0 g/dL 6.4-8.2 [facility] Sodium [Moles/Vol] 145 mmol/L 136-145 [facility] WBC (Bld) [#/Vol] 6.9 10*3/uL 4.4-11.0 [facility] Blood erythrocytes count (nu mber/volume)Ordered By: Ferny Pina on 12-27-2022 RBC (Bld) [#/Vol] 4.29 10*6/uL 4.2-5.4 [facility] Blood hemoglobin measurement (mass/volume)Ordered By: Ferny Pina on 12-27-2022 Hemoglobin (Bld) [Mass/Vol] 13.0 g/dL 12.0-15.0 [facility] Blood lymphocytes/100 leukoc ytesOrdered By: Ferny Pina on 12-27-2022 Lymphocytes/100 WBC (Bld) 33.4 % 19-41 [facility] Blood monocytes/100 leukocyt esOrdered By: Ferny Pina on 12-27-2022 Monocytes/100 WBC (Bld) 7.4 % 0-10 [facility] Blood platelet mean volumeOr dered By: Ferny Yovani on 12-27-2022 Platelet mean volume (Bld) [Entitic vol] 10.5 fL 6.2-12.0 [facility] Determination of erythrocyte mean corpuscular volume (MCV)Ordered By: Ferny Pina on 12-27-2022 MCV (RBC) [Entitic vol] 95.6 fL 81-99 [facility] Hematocrit Auto (Bld) [Volum e fraction]Ordered By: Ferny Pina on 12-27-2022 Hematocrit (Bld) [Volume fraction] 41.0 % 37-47 [facility] - Chemistry and C hemistry - challengeOrdered By: Ferny Yovani on 12-27-2022 ALP [Catalytic activity/Vol] 97 U/L 45-117 [facility] ALT [Catalytic activity/Vol] 17 U/L 13-56 [facility] CO2 [Moles/Vol] 28.0 mmol/L 21.0-32.0 [facility] Globulin (S) [Mass/Vol] 3.7 g/dL 2.2-4.2 [facility] Urea nitrogen/Creatinine [Mass ratio] 26.5 mg/mg 10-20 [facility] - Hematology and Cell countsOrdered By: Ferny Pina on 12-27-2022 Erythrocyte distribution width (RBC) [Entitic vol] 49.7 fL 35.1-43.9 [facility] Erythrocyte distribution width (RBC) [Ratio] 14.2 % 11.6-14.6 [facility] Immature granulocytes/100 WBC (Bld) 0.300 % 0.0-0.9 [facility] Comment on above: IG% - Immature Granu locytes (promyelocytes, myelocytes and metamyelocytes) > 1% indicates that a LEFT SHIFT is Present. MCH (RBC) [Entitic mass] 30.3 pg 27.0-32.0 [facility] Nucleated RBC/100 WBC (Bld) [Ratio] 0 % 0-5 [facility] MCHC Auto (RBC) [Mass/Vol]Or dered By: Ferny Pina on 12-27-2022 MCHC (RBC) [Mass/Vol] 31.7 g/dL 32-36 [facility] No Panel InformationOrdered By: Ferny Pina on 12-27-2022 Estimated GFR (MDRD) Amer 80 mL/min >60 [facility] Comment on above: GFR Calc Estimated GFR (MDRD) Non-Af Amer 66 mL/min >60 [facility] Comment on above: Non- GFR Calc Thyroid Stimulating Hormone (TSH) 1.34 uIU/mL 0.358-3.74 [facility] Vitamin D 25-Hydroxy 28.7 ng/mL [facility] Comment on above: Vitamin D 25(OH) Sta tus Range Deficiency <20 ng/mL (50nmol/L) Insufficiency 20 - 30 ng/mL (50 - 75 nmol/L) Sufficiency 30 - 100 ng/mL (75 - 250 nmol/L) Toxicity >100 ng/mL (>250 nmol/L) Platelets bldOrdered By: Ferny Pina on 12-27-2022 Platelets (Bld) [#/Vol] 249 10*3/uL 150-450 [facility] Serum or plasma albumin griselda urement (mass/volume)Ordered By: Ferny Pina on 12-27-2022 Albumin [Mass/Vol] 3.3 g/dL 3.2-5.0 [facility] Serum or plasma albumin/glob ulin mass ratioOrdered By: Ferny Pina on 12-27-2022 Albumin/Globulin [Mass ratio] 0.9 {ratio} 0.9-2.4 [facility] Serum or plasma calcium griselda urement (mass/volume)Ordered By: Ferny Pina on 12-27-2022 Calcium [Mass/Vol] 9.0 mg/dL 8.5-10.1 [facility] Serum or plasma creatinine m easurement (mass/volume)Ordered By: Ferny Pina on 12-27-2022 Creatinine [Mass/Vol] 0.87 mg/dL 0.55-1.02 [facility] Comment on above: The validity of the calculated GFR & GFRAA in patients over 70 years has not been determined. Clinical correlation is essential. Serum or plasma urea nitroge n measurement (mass/volume)Ordered By: Ferny Pina on 12-27-2022 Urea nitrogen [Mass/Vol] 23 mg/dL 7-18 [facility] Thin prep Papanicolaou smear with manual screeningOrdered By: Ferny Pina on 12-27-2022 Thin prep Papanicolaou smear with manual screening 15 U/L 15- [facility] Thin prep Papanicolaou smear with manual screening 6 5-15 [facility] Absolute lymphocyte countOrd ered By: Dr. Pina on 06-21-2022 Lymphocytes Auto (Unsp spec) [#/Vol] 2.60 10*3/uL 0.83-4.51 [facility] Basophil percentageOrdered B y: Dr. Pina on 06-21-2022 Basophils/100 WBC (Bld) 0.7 % 0-1 [facility] Bilirubin [Mass/Vol] 0.60 mg/dL 0.20-1.00 [facility] Comment on above: For patients on eltr ombopag therapy, use of Dimension [place] TBIL is not recommended. Chloride [Moles/Vol] 111 mmol/L 98-107 [facility] Eosinophils/100 WBC (Bld) 4.1 % 0-5 [facility] Glucose [Mass/Vol] 105 mg/dL 74-106 [facility] Comment on above: Fasting Glucose resu lt from 100 to 125 mg/dL suggests IMPAIRED HOMEOSTASIS per A.D.A. criteria. Neutrophils (Bld) [#/Vol] 3.8 10*3/uL 2.0-7.7 [facility] Neutrophils/100 WBC (Bld) 51.9 % 47-70 [facility] Potassium [Moles/Vol] 4.1 mmol/L 3.5-5.1 [facility] Protein [Mass/Vol] 7.4 g/dL 6.4-8.2 [facility] Sodium [Moles/Vol] 144 mmol/L 136-145 [facility] WBC (Bld) [#/Vol] 7.4 10*3/uL 4.4-11.0 [facility] Blood erythrocytes count (nu mber/volume)Ordered By: Dr. Pina on 06-21-2022 RBC (Bld) [#/Vol] 4.70 10*6/uL 4.2-5.4 [facility] Blood hemoglobin measurement (mass/volume)Ordered By: Dr. Pina on 06-21-2022 Hemoglobin (Bld) [Mass/Vol] 13.7 g/dL 12.0-15.0 [facility] Blood lymphocytes/100 leukoc ytesOrdered By: Dr. Pina on 06-21-2022 Lymphocytes/100 WBC (Bld) 35.3 % 19-41 [facility] Blood monocytes/100 leukocyt esOrdered By: Dr. Pina on 06-21-2022 Monocytes/100 WBC (Bld) 7.7 % 0-10 [facility] Blood platelet mean volumeOr dered By: Dr. Pina on 06-21-2022 Platelet mean volume (Bld) [Entitic vol] 10.7 fL 6.2-12.0 [facility] Determination of erythrocyte mean corpuscular volume (MCV)Ordered By: Dr. Pina on 06-21-2022 MCV (RBC) [Entitic vol] 92.8 fL 81-99 [facility] Hematocrit Auto (Bld) [Volum e fraction]Ordered By: Dr. Pina on 06-21-2022 Hematocrit (Bld) [Volume fraction] 43.6 % 37-47 [facility] - Chemistry and C hemistry - challengeOrdered By: Dr. Pina on 06-21-2022 ALP [Catalytic activity/Vol] 103 U/L 45-117 [facility] ALT [Catalytic activity/Vol] 16 U/L 13-56 [facility] CO2 [Moles/Vol] 25.0 mmol/L 21.0-32.0 [facility] Globulin (S) [Mass/Vol] 3.8 g/dL 2.2-4.2 [facility] Urea nitrogen/Creatinine [Mass ratio] 29.8 mg/mg 10-20 [facility] - Hematology and Cell countsOrdered By: Dr. Pina on 06-21-2022 Erythrocyte distribution width (RBC) [Entitic vol] 52.5 fL 35.1-43.9 [facility] Erythrocyte distribution width (RBC) [Ratio] 15.3 % 11.6-14.6 [facility] Immature granulocytes/100 WBC (Bld) 0.300 % 0.0-0.9 [facility] Comment on above: IG% - Immature Granu locytes (promyelocytes, myelocytes and metamyelocytes) > 1% indicates that a LEFT SHIFT is Present. MCH (RBC) [Entitic mass] 29.1 pg 27.0-32.0 [facility] Nucleated RBC/100 WBC (Bld) [Ratio] 0 % 0-5 [facility] MCHC Auto (RBC) [Mass/Vol]Or dered By: Dr. Pina on 06-21-2022 MCHC (RBC) [Mass/Vol] 31.4 g/dL 32-36 [facility] No Panel InformationOrdered By: Dr. Pina on 06-21-2022 Estimated GFR (MDRD) Amer 80 mL/min >60 [facility] Comment on above: GFR Calc Estimated GFR (MDRD) Non-Af Amer 66 mL/min >60 [facility] Comment on above: Non- GFR Calc Thyroid Stimulating Hormone (TSH) 1.01 uIU/mL 0.358-3.74 [facility] Vitamin D 25-Hydroxy 22.2 ng/mL [facility] Comment on above: Vitamin D 25(OH) Sta tus Range Deficiency <20 ng/mL (50nmol/L) Insufficiency 20 - 30 ng/mL (50 - 75 nmol/L) Sufficiency 30 - 100 ng/mL (75 - 250 nmol/L) Toxicity >100 ng/mL (>250 nmol/L) Platelets bldOrdered By: Dr. Pina on 06-21-2022 Platelets (Bld) [#/Vol] 301 10*3/uL 150-450 [facility] Serum or plasma albumin griselda urement (mass/volume)Ordered By: Dr. Pina on 06-21-2022 Albumin [Mass/Vol] 3.6 g/dL 3.2-5.0 [facility] Serum or plasma albumin/glob ulin mass ratioOrdered By: Dr. Pina on 06-21-2022 Albumin/Globulin [Mass ratio] 0.9 {ratio} 0.9-2.4 [facility] Serum or plasma calcium griselda urement (mass/volume)Ordered By: Dr. Pina on 06-21-2022 Calcium [Mass/Vol] 9.5 mg/dL 8.5-10.1 [facility] Serum or plasma creatinine m easurement (mass/volume)Ordered By: Dr. Pina on 06-21-2022 Creatinine [Mass/Vol] 0.87 mg/dL 0.55-1.02 [facility] Comment on above: The validity of the calculated GFR & GFRAA in patients over 70 years has not been determined. Clinical correlation is essential. Serum or plasma urea nitroge n measurement (mass/volume)Ordered By: Dr. Pina on 06-21-2022 Urea nitrogen [Mass/Vol] 26 mg/dL 7-18 [facility] Thin prep Papanicolaou smear with manual screeningOrdered By: Dr. Pina on 06-21-2022 Thin prep Papanicolaou smear with manual screening 15 U/L 15-37 [facility] Thin prep Papanicolaou smear with manual screening 8 5-15 [facility] Absolute lymphocyte counton 12-20-2021 Lymphocytes Auto (Unsp spec) [#/Vol] 2.31 10*3/uL 0.83-4.51 [facility] Work Phone: Basophil percentageon 2021 Basophils/100 WBC (Bld) 1.1 % 0-1 [facility] Work Phone: Bilirubin [Mass/Vol] 0.60 mg/dL 0.20-1.00 [facility] Work Phone: Comment on above: For patients on eltr ombopag therapy, use of Dimension [place] TBIL is not recommended. Chloride [Moles/Vol] 107 mmol/L 98-107 [facility] Work Phone: Eosinophils/100 WBC (Bld) 2.7 % 0-5 [facility] Work Phone: Glucose [Mass/Vol] 111 mg/dL 74-106 [facility] Work Phone: Comment on above: Fasting Glucose resu lt from 100 to 125 mg/dL suggests IMPAIRED HOMEOSTASIS per A.D.A. criteria. Neutrophils (Bld) [#/Vol] 3.6 10*3/uL 2.0-7.7 [facility] Work Phone: Neutrophils/100 WBC (Bld) 53.2 % 47-70 [facility] Work Phone: Potassium [Moles/Vol] 3.7 mmol/L 3.5-5.1 [facility] Work Phone: Protein [Mass/Vol] 7.8 g/dL 6.4-8.2 [facility] Work Phone: Sodium [Moles/Vol] 142 mmol/L 136-145 [facility] Work Phone: WBC (Bld) [#/Vol] 6.7 10*3/uL 4.4-11.0 [facility] Work Phone: Blood erythrocytes count (nu mber/volume)on 12-20-2021 RBC (Bld) [#/Vol] 4.56 10*6/uL 4.2-5.4 [facility] Work Phone: Blood hemoglobin measurement (mass/volume)on 12-20-2021 Hemoglobin (Bld) [Mass/Vol] 13.1 g/dL 12.0-15.0 [facility] Work Phone: Blood lymphocytes/100 leukoc yteson 12-20-2021 Lymphocytes/100 WBC (Bld) 34.7 % 19-41 [facility] Work Phone: Blood monocytes/100 leukocyt eson 12-20-2021 Monocytes/100 WBC (Bld) 8.1 % 0-10 [facility] Work Phone: Blood platelet mean volumeon 12-20-2021 Platelet mean volume (Bld) [Entitic vol] 10.5 fL 6.2-12.0 [facility] Work Phone: Determination of erythrocyte mean corpuscular volume (MCV)on 12-20-2021 MCV (RBC) [Entitic vol] 90.6 fL 81-99 [facility] Work Phone: Hematocrit Auto (Bld) [Volum e fraction]on 12-20-2021 Hematocrit (Bld) [Volume fraction] 41.3 % 37-47 [facility] Work Phone: Laboratory - Chemistry and C hemistry - challengeon 12-20-2021 ALP [Catalytic activity/Vol] 134 U/L 45-117 [facility] Work Phone: ALT [Catalytic activity/Vol] 16 U/L 13-56 [facility] Work Phone: CO2 [Moles/Vol] 26.0 mmol/L 21.0-32.0 [facility] Work Phone: Globulin (S) [Mass/Vol] 4.3 g/dL 2.2-4.2 [facility] Work Phone: Urea nitrogen/Creatinine [Mass ratio] 26.0 mg/mg 10-20 [facility] Work Phone: Laboratory - Hematology and Cell countson 12-20-2021 Erythrocyte distribution width (RBC) [Entitic vol] 50.3 fL 35.1-43.9 [facility] Work Phone: Erythrocyte distribution width (RBC) [Ratio] 15.1 % 11.6-14.6 [facility] Work Phone: Immature granulocytes/100 WBC (Bld) 0.200 % 0.0-0.9 [facility] Work Phone: Comment on above: IG% - Immature Granu locytes (promyelocytes, myelocytes and metamyelocytes) > 1% indicates that a LEFT SHIFT is Present. MCH (RBC) [Entitic mass] 28.7 pg 27.0-32.0 [facility] Work Phone: Nucleated RBC/100 WBC (Bld) [Ratio] 0 % 0-5 [facility] Work Phone: MCHC Auto (RBC) [Mass/Vol]on 12-20-2021 MCHC (RBC) [Mass/Vol] 31.7 g/dL 32-36 [facility] Work Phone: No Panel Informationon 12-20 Estimated GFR (MDRD) Amer 75 mL/min >60 [facility] Work Phone: Comment on above: GFR Calc Estimated GFR (MDRD) Non-Af Amer 62 mL/min >60 [facility] Work Phone: Comment on above: Non- GFR Calc Thyroid Stimulating Hormone (TSH) 1.10 uIU/mL 0.358-3.74 [facility] Work Phone: Vitamin D 25-Hydroxy 14.9 ng/mL [facility] Work Phone: Comment on above: Vitamin D 25(OH) Sta tus Range Deficiency <20 ng/mL (50nmol/L) Insufficiency 20 - 30 ng/mL (50 - 75 nmol/L) Sufficiency 30 - 100 ng/mL (75 - 250 nmol/L) Toxicity >100 ng/mL (>250 nmol/L) Platelets bldon 12-20-2021 Platelets (Bld) [#/Vol] 281 10*3/uL 150-450 [facility] Work Phone: Serum or plasma albumin griselda urement (mass/volume)on 12-20-2021 Albumin [Mass/Vol] 3.5 g/dL 3.2-5.0 [facility] Work Phone: Serum or plasma albumin/glob ulin mass ratioon 12-20-2021 Albumin/Globulin [Mass ratio] 0.8 {ratio} 0.9-2.4 [facility] Work Phone: Serum or plasma calcium griselda urement (mass/volume)on 12-20-2021 Calcium [Mass/Vol] 9.7 mg/dL 8.5-10.1 [facility] Work Phone: Serum or plasma creatinine m easurement (mass/volume)on 12-20-2021 Creatinine [Mass/Vol] 0.92 mg/dL 0.55-1.02 [facility] Work Phone: Comment on above: The validity of the calculated GFR & GFRAA in patients over 70 years has not been determined. Clinical correlation is essential. Serum or plasma urea nitroge n measurement (mass/volume)on 12-20-2021 Urea nitrogen [Mass/Vol] 24 mg/dL 7-18 [facility] Work Phone: Thin prep Papanicolaou smear with manual screeningon 12-20-2021 Thin prep Papanicolaou smear with manual screening 14 U/L 15-37 [facility] Work Phone: Thin prep Papanicolaou smear with manual screening 9 5-15 [facility] Work Phone: CNOVon 09-16-2020 MATT Office Visit ([facility]) ---- VEE FUENTES ([id number]) 1940 F Date Time Provider Department 09/16/20 6:15 PM KRANTHI TIJERINA [facility] During your visit today, we recorded the following information about you: Temperature Pulse Respiration Blood pressure 98.8 degrees 83/minute 16/minute 138/80 Weight 98.8 kg Kranthi Tijerina APRN.CNP 09/16/2020 7:42 PM Signed This note was created using NoteWriter. Subjective Vee Fuentes is a 80 year old female. 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 Patient states she was doing laundry earlier today when she excellently bumped her hand against a laundry basket. Patient states she had pain to the base of the wrist and the base of the thumb since the injury. Patient denies any radiation of pain up to the fingers or down to the elbow. Patient states she is able to turn the wrist over and back again without any difficulty. Patient states he is been taking ibuprofen at home for pain which has been helping. Patient denies any chest pain, shortness of breath difficulty breathing, abdominal pain, nausea or vomiting. Patient denies any fever, shaking, or chills. Review of Systems Constitutional: Negative. HENT: Negative. Respiratory: Negative. Cardiovascular: Negative. Musculoskeletal: Positive for arthralgias. Negative for gait problem and joint swelling. Skin: Negative. Objective BP 138/80 Pulse 83 Temp 37.1 ?C (98.8 ?F) (Left Tympanic) Resp 16 Wt 98.8 kg (217 lb 12.8 oz) SpO2 95% BMI 34.10 kg/m? Physical Exam Vitals and nursing note reviewed. Constitutional: General: She is not in acute distress. Appearance: Normal appearance. She is not ill-appearing, toxic-appearing or diaphoretic. HENT: Head: Normocephalic. Eyes: Pupils: Pupils are equal, round, and reactive to light. Cardiovascular: Rate and Rhythm: Normal rate and regular rhythm. Pulses: Normal pulses. Heart sounds: Normal heart sounds. No murmur heard. No friction rub. No gallop. Pulmonary: Effort: Pulmonary effort is normal. No respiratory distress. Breath sounds: Normal breath sounds. No stridor. No wheezing, rhonchi or rales. Chest: Chest wall: No tenderness. Musculoskeletal: General: Tenderness and signs of injury present. No swelling or deformity. Normal range of motion. Cervical back: Normal range of motion and neck supple. Right lower leg: No edema. Left lower leg: No edema. Skin: General: Skin is warm and dry. Capillary Refill: Capillary refill takes less than 2 seconds. Neurological: General: No focal deficit present. Mental Status: She is alert and oriented to person, place, and time. Assessment and Plan Given patient's complaint presentation a thorough exam of the right hand and wrist was performed. Patient does have moderate amount of swelling to the anterior distal forearm at the base of the wrist with tenderness upon palpation to the base of the thumb. Patient is right-hand dominant. There is no ecchymosis, erythema or gross deformity identified. Patient is able to open and close all digits of the right hand without any difficulty, radial pulses strong and regular, no anatomical snuffbox tenderness upon palpation, I have low suspicion for vascular compromise, scaphoid fracture. I do suspect patient is experiencing contusion versus acute osseous abnormality given mechanism of injury. X-rays of the right wrist reveal Advanced degenerative changes. ?Soft tissue swelling. Patient was given Velcro spica splint and encouraged follow-up with orthopedics as needed. Patient educated symptoms become worse go to emergency room for further evaluation. Patient was agreeable with this plan and discharged home in stable condition. Kranthi Tijerina APRN.MARY ELLEN Tijerina APRN.CNP 09/16/2020 7:36 PM Signed SPRAINS / STRAINS GENERAL INFORMATION: A sprain is when the ligaments of a joint are stretched and injured. A strain is when a muscle is overstretched and some fibers are torn. These injuries can take several weeks to heal. INSTRUCTIONS: 1. To minimize swelling, keep the injured limb above the level of your heart as much as possible. If it is your leg that is injured, elevate it on some pillows whenever you are sitting or lying down. 2. Apply ice to the injury for 15 minutes each hour for the first two days. Put the ice in a plastic bag and place a thin towel between the bag of ice and your skin. 3. After the first 1 to 2 days, you may apply heat to the injury to help relieve pain. You may use a warm heating pad, whirlpool bath, or warm moist towels for 15-20 minutes every hour (while awake) for 48 hours. 4. You may use medicines for pain such as acetaminophen, ibuprofen or aspirin (unless otherwis (more content not included)... [facility] No Panel Informationon 09-[address] [facility] XR WRIST 4V PA/LAT/OBL/SCAPH RTon 09-16-2020 XR WRIST 4V PA/LAT/OBL/SCAPH RT * * *Final Report* * * DATE OF EXAM: Sep 16 2020 7:03PM WOX [id number] - XR WRIST 4V PA/LAT/OBL/SCAPH RT / PROCEDURE REASON: Right wrist pain * * * * Physician Interpretation * * * * PROCEDURE: Right wrist INDICATION: Right wrist pain .Pt. states she possibly bumped her Rt wrist/thumb into a close basket 1 day ago. Pain and swelling posterior Rt wrist and base of thumb. TECHNIQUE: XR WRIST 4V PA/LAT/OBL/SCAPH RT COMPARISON: None FINDINGS: Diffuse osteopenia. 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 Moderate triscaphe osteoarthrosis. Soft tissue calcifications in the region of the scapholunate ligament, lunotriquetral ligament and triangular fibrocartilage complex. Generalized soft tissue swelling. No erosion. No fracture. IMPRESSION: Advanced degenerative changes. Soft tissue swelling. Long Distance Operator: [facility] Transcribe Date/Time: Sep 16 2020 7:29P Dictated by : JEFFERY GUERRA MD This examination was interpreted and the report reviewed and electronically signed by: JEFFERY GUERRA MD on Sep 16 2020 7:31PM EST [id number] Normal [facility] XR Wrist - right 4 Viewson 0 09-16-2020 IMPRESSION: Advanced degenerative changes. Soft tissue swelling. Long Distance Operator: [facility] Transcribe Date/Time: Sep 16 2020 7:29P Dictated by : JEFFERY GUERRA MD This examination was interpreted and the report reviewed and electronically signed by: JEFFERY GUERRA MD on Sep 16 2020 7:31PM EST DIVISION OF RADIOLOGY * * *Final Report* * * DATE OF EXAM: Sep 16 2020 7:03PM WOX 5273 - XR WRIST 4V PA/LAT/OBL/SCAPH RT / PROCEDURE REASON: Right wrist pain * * * * Physician Interpretation * * * * PROCEDURE: Right wrist INDICATION: Right wrist pain .Pt. states she possibly bumped her Rt wrist/thumb into a close basket 1 day ago. Pain and swelling posterior Rt wrist and base of thumb. TECHNIQUE: XR WRIST 4V PA/LAT/OBL/SCAPH RT COMPARISON: None FINDINGS: Diffuse osteopenia. 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 Moderate triscaphe osteoarthrosis. Soft tissue calcifications in the region of the scapholunate ligament, lunotriquetral ligament and triangular fibrocartilage complex. Generalized soft tissue swelling. No erosion. No fracture. DIVISION OF RADIOLOGY Provider, [facility] [place] - 09/16/2020 * * *Final Report* * * DATE OF EXAM: Sep 16 2020 7:03PM WOX 5273 - XR WRIST 4V PA/LAT/OBL/SCAPH RT / PROCEDURE REASON: Right wrist pain * * * * Physician Interpretation * * * * PROCEDURE: Right wrist INDICATION: Right wrist pain .Pt. states she possibly bumped her Rt wrist/thumb into a close basket 1 day ago. Pain and swelling posterior Rt wrist and base of thumb. TECHNIQUE: XR WRIST 4V PA/LAT/OBL/SCAPH RT COMPARISON: None FINDINGS: Diffuse osteopenia. 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 Moderate triscaphe osteoarthrosis. Soft tissue calcifications in the region of the scapholunate ligament, lunotriquetral ligament and triangular fibrocartilage complex. Generalized soft tissue swelling. No erosion. No fracture. IMPRESSION IMPRESSION: Advanced degenerative changes. Soft tissue swelling. Long Distance Operator: PSC[facility] Transcribe Date/Time: Sep 16 2020 7:29P Dictated by : JEFFERY GUERRA MD This examination was interpreted and the report reviewed and electronically signed by: JEFFERY GUERRA MD on Sep 16 2020 7:31PM EST [facility] Radiology Study observation (narrative) Catalina renee [facility] XR Wrist - right 4 ViewsOrde red By: [facility] Provider on 09-16-[address] [facility] Vital Signs Date Time Vital Sign Value Performing Clinician Aletha wood 09-16-2020 18:16-0400 Body temperature 98.8 [degF] Kranthi Tijerina APRN.SPLITTER TENDER Work Phone: [facility] 09-16-2020 18:16-0400 Body weight 98.79 kg Kranthi Tijerina APRN.CNP Work Phone: [facility] 09-16-2020 18:16-0400 Diastolic blood pressure 80 mm[Hg] Kranthi Tijerina APRN.CNP Work Phone: [facility] 09-16-2020 18:16-0400 Heart rate 83 /min Kranthi Chatal ASSOCIATE SALES MANAGER.SPLITTER TENDER Work Phone: [facility] 09-16-2020 18:16-0400 Respiratory rate 16 /min Kranthi Chatal ASSOCIATE SALES MANAGER.SPLITTER TENDER Work Phone: [facility] 09-16-2020 18:16-0400 SaO2% (BldA) [Mass fraction] 95 % Kranthi Chatal ASSOCIATE SALES MANAGER.SPLITTER TENDER Work Phone: [facility] 09-16-2020 18:16-0400 Systolic blood pressure 138 mm[Hg] Kranthi Chatal ASSOCIATE SALES MANAGER.SPLITTER TENDER Work Phone: [facility] Encounters Encounter Date Encounter Type Care Provider Facility Start: 05-03-2024 End: 05-03-2024 ambulatory [facility] Facility:[facility] Start: 04-16-2024 End: 04-16-2024 ambulatory [facility] Facility:[facility] Start: 01-16-2024 End: 01-16-2024 ambulatory [facility] Facility:[facility] Start: 01-11-2024 End: 01-11-2024 ambulatory [facility] Facility:[facility] Start: 06-28-2023 End: 06-28-2023 ambulatory [facility] Work Phone: Start: 06-28-2023 End: 06-28-2023 Patient encounter procedure [facility] 3rd Flr Start: 06-28-2023 End: 06-28-2023 ambulatory [facility] Facility:[facility] Start: 12-27-2022 End: 12-27-2022 ambulatory [facility] Work Phone: Start: 12-27-2022 End: 12-27-2022 Patient encounter procedure [facility] 3rd Flr Start: 06-21-2022 End: 06-21-2022 ambulatory [facility] Work Phone: Start: 06-21-2022 End: 06-21-2022 Patient encounter procedure [facility] 3rd Flr Start: 12-20-2021 End: 12-20-2021 ambulatory [facility] Work Phone: Start: 12-20-2021 End: 12-20-2021 Patient encounter procedure [facility] 3rd Flr Start: 09-16-2020 End: 09-16-2020 Subsequent hospital visit by physician Christina [facility] [place] Work Phone: Radiology Comment on above: Right wrist pain [M2 5.531] Start: 09-16-2020 End: 09-16-2020 Patient encounter procedure Kranthi Breezy ASSOCIATE SALES MANAGER.SPLITTER TENDER Work Phone: [facility] Comment on above: Right wrist pain (Pr imary Dx) Procedures Date Procedure Procedure Detail Performing Clinician Start: 09-16-2020 Radex wrist complete minimum 3 views Kranthi Ernestoal ASSOCIATE SALES MANAGER.SPLITTER TENDER Work Phone: H/O: tubal ligation History of t ubal ligation History of tonsillectomy History of tonsi llectomy Plan of Treatment Date Care Activity Detail Author Start: 12-10-2023 Covid-19 Vaccine ( season) Covid-19 Vaccine ( season) [facility] Start: 12-10-2023 Influenza vaccination Influenza Vacc ine (#1) [facility] Start: 04-10-2023 Advance Directive Discussion Advance Directive Discussion [facility] Start: 12-09-2020 Influenza vaccination INFLUENZA (Sea son Ended) [facility] Start: 2006 ADVANCE DIRECTIVE DISCUSSION ADVANCE DIRECTIVE DISCUSSION [facility] Start: 2006 BONE DENSITY BONE DENSITY [facility] Start: 2006 Pneumococcal Vaccine : 65+ (1 of 1 - PCV) Pneumococcal Vaccine: 65+ (1 of 1 - PCV) [facility] Start: 2006 PNEUMOVAX AGE 65 AND OVER WITH 5YR LOOKBACK (#1) PNEUMOVAX AGE 65 AND OVER WITH 5YR LOOKBACK (#1) [facility] Start: 2006 Screening for osteoporosis Bone Density Screening [facility] Start: 2001 RSV Vaccine (1 - 1-d ose 60+ series) RSV Vaccine (1 - 1-dose 60+ series) [facility] Start: 1991 Screening for malign ant neoplasm of colon [facility] Start: 1991 SHINGRIX VACCINE (1 of 2) SHINGRIX V ACCINE (1 of 2) [facility] Start: 1986 DIABET[facility] SCREEN [facility] Start: 1986 Diabetes Screening Diabetes Screenin g [facility] Start: 1960 Urine microalbumin profile [facility] Start: 1959 Anxiety Screening Anxiety Screening [facility] Start: 1959 Depression Screening Depression Scre ening [facility] Start: 1953 Adult depression screening assessment DEPRESSION SCREENING [facility] Immunizations Immunization Date Immunization Notes Care Provider Fa cility 02-23-2017 influenza, injectabl e, quadrivalent, preservative free [facility] 02-23-2017 influenza, seasonal, injectable [facility] 02-23-2017 influenza virus vaccine, unspecified formulation [facility] [place] Work Phone: [facility] Payers Date Payer Category Payer Self-pay [id number] 2012 Private Health Insurance 101 [id number] 2009 Medicare AETNA MEDICARE A ETNA MEDICARE PPO [id number] 2009-Present PPO [id number] 2009 Medicare AETNA MEDICARE A ETNA MEDICARE PPO [id number] 2009-Present [phone] [address] [place] [address] PPO [id number] Unknown [id number] 62 Unknown [id number] 62 Unknown [id number] 62 Unknown [id number] 62 Unknown [id number] Social History Date Type Detail Facility Start: 09-16-2020 Tobacco smoking status NHIS Never smoker [facility] Start: 09-16-2020 Tobacco use and exposure Never used [facility] Start: 09-16-2020 Alcohol intake Current non-dr edge inker uppers of alcohol (finding) [facility] Start: 1940 Sex Assigned At Not on file [facility] Start: 08-17-2020 End: 09-16-2020 Exposure to SARS-CoV-2 (event) Not sure [facility] Start: 10-29-2018 Tobacco smoking status HIIS Unknown if ever smoked [facility] Start: 01-14-2017 None [facility] Start: 02-22-2017 Spouse/ Signif icant Other [facility] Start: 09-10-2018 Non-smoker [facility] Start: 1940 Sex Assigned At Female [facility] Start: 09-16-2020 History of Social function [facility] Start: 09-16-2020 Tobacco use panel [facility] National Score (1-100), lower number is lower risk Not on file [facility] Medical Equipment Procedure Code Equipment Code Equipment Origin al Text Equipment Identifier Dates MESH,3DMAX RIGHT LG [id number] FDA Start: 10-18-2018 TACKER,SECURE STRAP FDA Start : 10-18-2018 MESH,3DMAX RIGHT LG [id number] FDA Start: 10-18-2018 TACKER,SECURE STRAP FDA Start : 10-18-2018 MESH,3DMAX RIGHT LG [id number] FDA Start: 10-18-2018 TACKER,SECURE STRAP FDA Start : 10-18-2018 MESH,3DMAX RIGHT LG [id number] FDA Start: 10-18-2018 TACKER,SECURE STRAP FDA Start : 10-18-2018 Progress note 09-16-2020 Note Date & Type Note Facility 09-16-2020 Note HNO ID: [id number] Author: Kranthi Tijerina APRN.SPLITTER TENDER Service: ? Author Type: Nurse Practitioner Type: Progress Notes Filed: 09/16/2020 7:42 PM Note Text: This note was created using PaperG. Subjective Vee Fuentes is a 80 year old female. 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 Patient states she was doing laundry earlier today when she excellently bumped her hand against a laundry basket. Patient states she had pain to the base of the wrist and the base of the thumb since the injury. Patient denies any radiation of pain up to the fingers or down to the elbow. Patient states she is able to turn the wrist over and back again without any difficulty. Patient states he is been taking ibuprofen at home for pain which has been helping. Patient denies any chest pain, shortness of breath difficulty breathing, abdominal pain, nausea or vomiting. Patient denies any fever, shaking, or chills. Review of Systems Constitutional: Negative. HENT: Negative. Respiratory: Negative. Cardiovascular: Negative. Musculoskeletal: Positive for arthralgias. Negative for gait problem and joint swelling. Skin: Negative. Objective BP 138/80 Pulse 83 Temp 37.1 ?C (98.8 ?F) (Left Tympanic) Resp 16 Wt 98.8 kg (217 lb 12.8 oz) SpO2 95% BMI 34.10 kg/m? Physical Exam Vitals and nursing note reviewed. Constitutional: General: She is not in acute distress. Appearance: Normal appearance. She is not ill-appearing, toxic-appearing or diaphoretic. HENT: Head: Normocephalic. Eyes: Pupils: Pupils are equal, round, and reactive to light. Cardiovascular: Rate and Rhythm: Normal rate and regular rhythm. Pulses: Normal pulses. Heart sounds: Normal heart sounds. No murmur heard. No friction rub. No gallop. Pulmonary: Effort: Pulmonary effort is normal. No respiratory distress. Breath sounds: Normal breath sounds. No stridor. No wheezing, rhonchi or rales. Chest: Chest wall: No tenderness. Musculoskeletal: General: Tenderness and signs of injury present. No swelling or deformity. Normal range of motion. Cervical back: Normal range of motion and neck supple. Right lower leg: No edema. Left lower leg: No edema. Skin: General: Skin is warm and dry. Capillary Refill: Capillary refill takes less than 2 seconds. Neurological: General: No focal deficit present. Mental Status: She is alert and oriented to person, place, and time. Assessment and Plan Given patient's complaint presentation a thorough exam of the right hand and wrist was performed. Patient does have moderate amount of swelling to the anterior distal forearm at the base of the wrist with tenderness upon palpation to the base of the thumb. Patient is right-hand dominant. There is no ecchymosis, erythema or gross deformity identified. Patient is able to open and close all digits of the right hand without any difficulty, radial pulses strong and regular, no anatomical snuffbox tenderness upon palpation, I have low suspicion for vascular compromise, scaphoid fracture. I do suspect patient is experiencing contusion versus acute osseous abnormality given mechanism of injury. X-rays of the right wrist reveal Advanced degenerative changes. ?Soft tissue swelling. Patient was given Velcro spica splint and encouraged follow-up with orthopedics as needed. Patient educated symptoms become worse go to emergency room for further evaluation. Patient was agreeable with this plan and discharged home in stable condition. Kranthi Tijerina APRN.[facility] Progress note 09-16-2020 Note Date & Type Note Facility 09-16-2020 Note HNO ID: [id number] Author: Angelito Leon RT(R) Service: ? Author Type: Return Agent Type: Progress Notes Filed: 09/16/2020 7:03 PM Note Text: Radiology Service Progress Note PATIENT NAME: Vee Fuentes DATE OF SERVICE: September 16, 2020 TIME: 6:55 PM PATIENT IDENTITY VERIFICATION COMPLETED USING TWO (2) IDENTIFIERS: Name and Date of confirmed by patient verbally. FALL SCREENING: Has the patient had 2 falls in the last year or 1 fall with injury or currently using an Ambulatory Assistive Device (Walker, Cane, Wheelchair, Crutches, etc.)? No PATIENT GENDER DATA: Female. status: : No status: NO. PATIENT RELEVANT IMPLANT DATA REVIEWED: Not Applicable RADIOLOGY DEPARTMENT: General X-ray: Exam(s) Completed: Upper Extremity X-Ray(s): Wrist, right PERIPHERAL IV DATA: Not applicable SIGNED BY: Angelito Leon, RT(R) September 16, 2020 6:55 PM [facility] Instructions 09-16-2020 Patient Instructions Note Date & Type Note Facility 09-16-2020 Instructions Kranthi Tijerina APRN.CNP - 09/16/2020 7:36 PM EDT SPRAINS / STRAINS GENERAL INFORMATION: A sprain is when the ligaments of a joint are stretched and injured. A strain is when a muscle is overstretched and some fibers are torn. These injuries can take several weeks to heal. INSTRUCTIONS: 1. To minimize swelling, keep the injured limb above the level of your heart as much as possible. If it is your leg that is injured, elevate it on some pillows whenever you are sitting or lying down. 2. Apply ice to the injury for 15 minutes each hour for the first two days. Put the ice in a plastic bag and place a thin towel between the bag of ice and your skin. 3. After the first 1 to 2 days, you may apply heat to the injury to help relieve pain. You may use a warm heating pad, whirlpool bath, or warm moist towels for 15-20 minutes every hour (while awake) for 48 hours. 4. You may use medicines for pain such as acetaminophen, ibuprofen or aspirin (unless otherwise instructed by your physician). 5. If you were given a brace, splint, or elastic bandage, wear it until otherwise instructed by your health care provider. Adjust elastic bandage for comfort. It should be tight enough for support, but not so tight that it causes numbness or tingling. Take it off and rewrap it at least once a day. 6. If you have been told to use crutches, do not bear weight until your health care provider instructs you otherwise. 7. When you are allowed to return to normal activity, warm up before exercise to avoid future muscle strains. CONTACT YOUR DOCTOR OR RETURN TO THE ED IF: 1. You have increased pain or swelling of the affected area. 2. You notice coldness or blue discoloration of the fingers or toes (depending on site of injury). documented in this encounter [facility] History of Present illness Narrative 09-16-2020 Kranthi Tijerina APRN.SPLITTER TENDER - 09/16/2020 7:31 PM EDT Note Date & Type Note Facility 09-16-2020 History of Presen t illness Narrative This note was created using PaperG. Subjective Vee Fuentes is a 80 year old female. 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 Patient states she was doing laundry earlier today when she excellently bumped her hand against a laundry basket. Patient states she had pain to the base of the wrist and the base of the thumb since the injury. Patient denies any radiation of pain up to the fingers or down to the elbow. Patient states she is able to turn the wrist over and back again without any difficulty. Patient states he is been taking ibuprofen at home for pain which has been helping. Patient denies any chest pain, shortness of breath difficulty breathing, abdominal pain, nausea or vomiting. Patient denies any fever, shaking, or chills. Review of Systems Constitutional: Negative. HENT: Negative. Respiratory: Negative. Cardiovascular: Negative. Musculoskeletal: Positive for arthralgias. Negative for gait problem and joint swelling. Skin: Negative. Objective BP 138/80 Pulse 83 Temp 37.1 C (98.8 F) (Left Tympanic) Resp 16 Wt 98.8 kg (217 lb 12.8 oz) SpO2 95% BMI 34.10 kg/m Physical Exam Vitals and nursing note reviewed. Constitutional: General: She is not in acute distress. Appearance: Normal appearance. She is not ill-appearing, toxic-appearing or diaphoretic. HENT: Head: Normocephalic. Eyes: Pupils: Pupils are equal, round, and reactive to light. Cardiovascular: Rate and Rhythm: Normal rate and regular rhythm. Pulses: Normal pulses. Heart sounds: Normal heart sounds. No murmur heard. No friction rub. No gallop. Pulmonary: Effort: Pulmonary effort is normal. No respiratory distress. Breath sounds: Normal breath sounds. No stridor. No wheezing, rhonchi or rales. Chest: Chest wall: No tenderness. Musculoskeletal: General: Tenderness and signs of injury present. No swelling or deformity. Normal range of motion. Cervical back: Normal range of motion and neck supple. Right lower leg: No edema. Left lower leg: No edema. Skin: General: Skin is warm and dry. Capillary Refill: Capillary refill takes less than 2 seconds. Neurological: General: No focal deficit present. Mental Status: She is alert and oriented to person, place, and time. Assessment and Plan Given patient's complaint presentation a thorough exam of the right hand and wrist was performed. Patient does have moderate amount of swelling to the anterior distal forearm at the base of the wrist with tenderness upon palpation to the base of the thumb. Patient is right-hand dominant. There is no ecchymosis, erythema or gross deformity identified. Patient is able to open and close all digits of the right hand without any difficulty, radial pulses strong and regular, no anatomical snuffbox tenderness upon palpation, I have low suspicion for vascular compromise, scaphoid fracture. I do suspect patient is experiencing contusion versus acute osseous abnormality given mechanism of injury. X-rays of the right wrist reveal Advanced degenerative changes. Soft tissue swelling. Patient was given Velcro spica splint and encouraged follow-up with orthopedics as needed. Patient educated symptoms become worse go to emergency room for further evaluation. Patient was agreeable with this plan and discharged home in stable condition. Kranthi Tijerina APRN.MARY ELLEN documented in this encounter [facility] History of Present illness Narrative 09-16-2020 Angelito Leon RT(R) - 09/16/2020 6:40 PM EDT Note Date & Type Note Facility 09-16-2020 History of Presen t illness Narrative Radiology Service Progress Note PATIENT NAME: Vee Fuentes DATE OF SERVICE: September 16, 2020 TIME: 6:55 PM PATIENT IDENTITY VERIFICATION COMPLETED USING TWO (2) IDENTIFIERS: Name and Date of confirmed by patient verbally. FALL SCREENING: Has the patient had 2 falls in the last year or 1 fall with injury or currently using an Ambulatory Assistive Device (Walker, Cane, Wheelchair, Crutches, etc.)? No PATIENT GENDER DATA: Female. status: : No status: NO. PATIENT RELEVANT IMPLANT DATA REVIEWED: Not Applicable RADIOLOGY DEPARTMENT: General X-ray: Exam(s) Completed: Upper Extremity X-Ray(s): Wrist, right PERIPHERAL IV DATA: Not applicable SIGNED BY: RT Ermias(R) September 16, 2020 6:55 PM documented in this encounter [facility] Evaluation note Note Date & Type Note Facility Evaluation note Diagnosis Right wrist pain- Primary Pain in joint, forearm documented in this encounter [facility] Evaluation note Note Date & Type Note Facility Evaluation note No assessment information availa [facility] Work Phone: Evaluation note Note Date & Type Note Facility Evaluation note Diagnosis Right wrist pain Pain in joint, forearm documented in this encounter [facility] Reason for Referral Status Reason Specialty Diagnoses / Procedures Referred By Contact Referred To Contact Pending Review PCP Requested Referral Orthopedics Diagnoses Right wrist pain Procedures CONSULT TO ORTHOPAEDICS NEW PATIENT VISIT LEVEL 5 Kranthi Tijerina, SAMEER.SPLITTER TENDER [address] [place] [address] Summary Purpose Family History No Family History Records Found Relationship Condition Age at Onset Recorded Date/T arianna father Cardiac disease Unknown Asthma Unknown brother Cardiac disease Unknown Malignant neoplasm Unknown Advance Directives No Advanced Directives Records Found Advance Directive Response Recorded Date/ Time Living Will Yes October 15, 2018 8 :14am Power of Ap Processor Yes October 15, 2018 8:14am Additional Source Comments Source Comments (unrecognize d section and content) In the event this informatio n is protected by the Federal Confidentiality of Alcohol and Drug Abuse Patient Records regulations: The Federal rules restrict any use of the information to criminally investigate or prosecute any alcohol or drug abuse patient.[facility] the event this information is protected by the Federal Confidentiality of Alcohol and Drug Abuse Patient Records regulations: The Federal rules restrict any use of the information to criminally investigate or prosecute any alcohol or drug abuse patient.[facility] Reason for Visit (unrecogniz ed section and content) Reason Comments Hand Injury RIGHT hand x 1 day INFORMATION SOURCE (unrecogn ized section and content) DATE CREATED AUTHOR 09/18/2020 [facility] DATE CREATED AUTHOR AUTHOR'S ORGANIZ ATION 05/22/2024 [facility] Goals (unrecognized section and content) Goals may be documented in a n alternate sectionGoals may be documented in an alternate sectionGoals may be documented in an alternate sectionGoals may be documented in an alternate section Care Teams (unrecognized sec tion and content) Team Status: Active Member Role Status Dates Dr. Ferny Pina MD Family Provider Active Dr. Ferny Pina MD Primary Care Provider Active Team Status: Inactive Member Role Status Dates Dr. Ferny Pina MD Primary Care Provider, Attending Provider Active Cash Management Specialist Relationship Specialty Start Date End Date Ferny Pina Chi PCP - General 11/16/07 FOR RECORDS PERTAINING TO PATIENTS WHO ARE OR HAVE BEEN ENROLLED IN A CHEMICAL DEPENDENCY/SUBSTANCEABUSE PROGRAM, SOME INFORMATION MAY BE OMITTED. This clinical summary was aggregated from multiple sources. Caution should be exercised in using it in the provision of clinical care. This summary normalizes information from multiple sources, and as a consequence, information in this document may materially change the coding, format and clinical context of patient data. In addition, data may be omitted in some cases. CLINICAL DECISIONS SHOULD BE BASED ON THE PRIMARY CLINICAL RECORDS. [facility]. provides no warranty or guarantee of the accuracy or completeness of information in this document.
--- NOTE | 2024-12-14 11:13 | EX.ED.DYSGE1 ---
HPI History of Present Illness Chief Complaint: Abd Pain Narrative Narrative: Patient is a 84-year-old female with past medical history of hiatal hernia, previous right inguinal hernia status post repair, anxiety, depression, hypothyroidism, hypertension who presents to the emergency department with a chief complaint of abdominal pain and swelling. Patient states that her pain is going on for past few days however has been progressively worsening they went to urgent care and they advised her to come to the emergency department to be further evaluated. She also notes that she has been dealing with a rash underneath her stomach region and has been placing Neosporin, and other creams and is not getting better. States that her is not doing well and she has been trying to take care of him she could not take the pain anymore therefore she came here to be evaluated. [facility] Medical History Large hiatal hernia Right inguinal hernia Right lower quadrant abdominal pain Anxiety and depression Hemorrhoid Osteoarthritis Hypothyroidism Hypertension Home Medications ?Medication ?Instructions ?Recorded ?Last Taken ?Type levothyroxine 88 mcg tablet 88 mcg PO DAILY thyroid 01/13/17 10/18/18 08:00 History losartan 100 1 tab PO DAILY blood pressure 01/13/17 02/22/17 History mg-hydrochlorothiazide 25 mg tablet potassium chloride 20 mEq 20 meq PO DAILY SUPPLEMENT 01/13/17 02/22/17 History tablet,extended release quetiapine 25 mg tablet 1 tab PO QHS sleep 01/13/17 02/22/17 History acetaminophen 500 mg tablet 1,000 mg PO DAILY ARTHRITIS 02/22/17 02/22/17 History xasptfon-eoy-hkeny acid 0.4 1 ea PO DAILY supplement 02/22/17 02/22/17 History mg-lycopene 300 mcg-lutein 250 mcg tablet vilazodone 40 mg tablet (Viibryd) 40 mg PO DAILY 08/28/18 Unknown History Allergy/AdvReac Type Severity Reaction Status Date / Time cefaclor (From Ceclor) Allergy Itching Verified 12/14/24 09:16 guaifenesin (From Entex [place]) AdvReac HORRIBLE Verified 12/14/24 09:16 HEADACHE phenylephrine (From Entex [place]) AdvReac HORRIBLE Verified 12/14/24 09:16 HEADACHE phenylpropanolamine (From AdvReac HORRIBLE Verified 12/14/24 09:16 Entex [place]) HEADACHE prednisone AdvReac hallucinati Verified 12/14/24 09:16 ons Family History Father Heart disease Asthma Brother Heart disease Cancer prostate and leukemia Surgical History s/p lap right inguinal herniorrhaphy (~10/18/18) History of colonoscopy (~2007) History of total knee replacement (TKR) History of tonsillectomy History of tubal ligation Social History Smoking Status: Never smoker alcohol intake: never substance use type: does not use ROS ROS ED ROS Narrative Constitutional: Denies fevers, chills, headaches Cardiovascular: Denies chest pain Respiratory: Denies shortness of breath Abdomen: Complains of abdominal pain as noted above denies nausea vomiting diarrhea states that she is passing gas Neurological: Denies numbness, weakness, tingling Musculoskeletal: Denies back pain Skin: Complains of rash on her groin region as noted above EXAM Physical Exam Narrative Exam Narrative: General: Patient was lying in bed rest comfortably did not appear to be in acute distress Head: Atraumatic, normocephalic Eyes: PERRL bilaterally, EOMI bilateral, no conjunctival injection noted Neck: Soft, supple, trachea midline Cardiovascular: Regular rate and rhythm Abdomen: Soft, tenderness to palpation in the right side of her abdomen no rebound or guarding on exam Genitourinary: No concern for Martha's gangrene Extremities: +5/5 strength noted in the bilateral lower extremities, radial pulses +2/4 and about extremities, no pedal edema exam Neurological: Patient functioning as if she was at [facility] years 2024 Skin: Warm, dry, intact patient has evidence of fungal infection underneath her lower abdomen, no overlying skin changes in the patient's abdomen Const Vital Signs: 12/14/24 09:53 12/14/24 11:52 12/14/24 13:00 Temperature 98.3 F Temperature Source Oral Pulse Rate 69 61 71 Respiratory Rate 16 18 18 Blood Pressure 158/73 H 144/105 H 159/68 H Blood Pressure Mean 101 118 98 Pulse Ox 97 95 96 Oxygen Delivery Method Room Air Room Air Room Air MDM MDM MDM Narrative Medical decision making narrative: Patient is a 84-year-old female who presented to the emergency department chief complaint abdominal pain. On the differential diagnosis includes but not limited to incarcerated hernia, strangulated hernia, bowel obstruction, constipation, fungal infection. Once workup is obtained reviewed she will be reevaluated. Patient CBC reviewed showed no evidence leukocytosis white blood count was 6.6, he was 13.2, platelet count was 249. Patient sodium was 143, potassium normal 3.3, creatinine was 0.88. Patient AST and ALT are 19 and 6 respectively. Patient lipase normal at 34. Patient CT abdomen pelvis with IV contrast reviewed showed right lateral wall hernia containing proximal colonic loops. There is mild fat stranding consistent with surrounding inflammation but no evidence of bowel obstruction perforation or associated fluid collection/abscess. Called and discussed case with on-call general surgeon Dr. Hatch and he is requesting further pain medication with second attempt at reduction. Patient was given a milligram of Dilaudid and after some time I tried again and still was unable to obtain reduction of the bowel. He came in and attempted himself and evaluate the patient at bedside and states that he will take the patient to the operating room for surgical repair. Patient is agreeable this plan all course concerns answered. Lab Data Labs: Laboratory Results - last 24 hr 12/14/24 10:19 WBC 6.6 RBC 4.25 Hgb 13.2 Hct 39.5 MCV 92.9 MCH 31.1 MCHC 33.4 RDW Std Deviation 49.4 H RDW Coeff of Ag 14.3 Plt Count 249 MPV 10.0 Immature Gran % (Auto) 0.300 Neut % (Auto) 61.7 Lymph % (Auto) 23.4 Gulf % (Auto) 8.4 Eos % (Auto) 5.1 H Baso % (Auto) 1.1 H Absolute Neuts (auto) 4.1 Absolute Lymphs (auto) 1.55 Nucleated RBC % 0 Sodium 143 Potassium 3.3 Chloride 106 Carbon Dioxide 22.2 Anion Gap 15 BUN 26 H Creatinine 0.88 Estim Creat Clear Calc 57.96 Est GFR (MDRD) Non-Af 66 BUN/Creatinine Ratio 29.9 H Glucose 101 H Calcium 9.4 Total Bilirubin 0.61 AST 19 ALT 6 Alkaline Phosphatase 89 Total Protein 7.0 Albumin 4.1 Globulin 2.9 Albumin/Globulin Ratio 1.4 Lipase 34 Radiography Diagnostic Testing: Clinical Impression(s) from Imaging Studies Abdomen/Pelvis CT 12/14/24 10:17 IMPRESSION: 1. Right lateral wall hernia contains proximal colonic loops. There is mild fat stranding consistent with surrounding inflammation, but no evidence of bowel obstruction, perforation or associated fluid collection/abscess. Reading [facility] Dis[facility] Triage Chief Complaint: Abd Pain ED Provider: Calvin Ortega Dx/Rx/DC Orders Clinical Impression: Abdominal hernia, Hypertension, Hypothyroidism, Abdominal pain Prescriptions: No Action Viibryd 40 mg tablet 40 mg PO DAILY quetiapine 25 MG tablet 1 tab PO QHS Patient Comments: MENTAL HEALTH losartan-hydrochlorothiazide 1 EACH tablet 1 tab PO DAILY Patient Comments: BLOOD PRESSURE/WATER PILL/HEART levothyroxine 88 MCG tablet 88 mcg PO DAILY Patient Comments: THYROID potassium chloride 20 MEQ tablet extended release 20 meq PO DAILY Patient Comments: SUPPLEMENT acetaminophen 500 MG tablet 1,000 mg PO DAILY thszvsha-asf-UR-lycopen-lutein 1 EACH tablet 1 ea PO DAILY Primary Care Provider: Ferny Pina Chi Referrals: Ferny Pina Chi, MD [Primary Care Provider] - Print Language: Iranian Disposition Disposition: Acute Care [facility]
--- NOTE | 2024-12-14 13:56 | EKG12_ITS ---
Test Reason : DIZZINESS Blood Pressure : */* mmHG Vent. Rate : 68 BPM Atrial Rate : 68 BPM P-R Int : 220 ms QRS Dur : 86 ms QT Int : 422 ms P-R-T Axes : 64 25 43 degrees QTcB Int : 448 ms Sinus rhythm with 1st degree A-V block Nonspecific ST abnormality Abnormal ECG Confirmed by Kristofer Oreilly ([id number]), editor house organ CHRISTOPHER BROWN ([id number]) on 12/17/2024 5:46:22 AM Referred By: Confirmed By: Kristofer Oreilly
--- OUTSIDE RECORDS SUMMARY | 2024-12-14 14:28 | XMS RPT_ITS | CCD ---
Author Organization [facility] Care Team Providers Care Visual Merchandising Associate Name Role Phone Yovani, Ferny Chi Primary [...] (1 source) Cefaclor Drug Allergy 11-16-19 08 [facility] Work Phone: guaiFENesin / Phenylephrine (1 source) guaiFENesin / Phenylephrine Drug Allergy 11-16-19 08 [facility] Work Phone: (5 sources) Cefaclor Drug Allergy 11-16-19 08 Itching [facility] (4 sources) guaiFENesin Drug Allergy 10-30-19 19 HORRIBLE HEADACHE [facility] (4 sources) Phenylephrine Drug Allergy 10-30-19 19 HORRIBLE HEADACHE [facility] (4 sources) Phenylpropanolamine Drug Allergy 10-30-19 19 HORRIBLE HEADACHE [facility] (4 sources) predniSONE Drug Allergy 10-30-19 19 hallucinations [facility] (1 source) guaiFENesin / Phenylephrine Drug Allergy 11-16-19 08 [facility] (1 source) Cefaclor Drug Allergy 10-30-19 19 [facility] (1 source) guaiFENesin Drug Allergy 10-30-19 19 [facility] (1 source) Phenylephrine Drug Allergy 10-30-19 19 [facility] (1 source) Phenylpropanolamine Drug Allergy 10-30-19 [facility] (1 source) predniSONE Drug Allergy 10-30-19 [facility] Medications Current Medications Medication Drug [...] 1,000 MG- 300 MG CAP, DELAYED RELEASE) jzgkxrwu-fuxvwrd-woqe 149-hyal(GLUCOSAMINE CHONDROITIN COMPLEX ADVANCED [id number]-1.65MG TAB) (2 sources) Start: 07-03-2009 glucosam-chond ro-herb 149-hyal(GLUCOSAMINE CHONDROITIN COMPLEX ADVANCED [id number]-1.65MG TAB) 0 07/03/2009 Active Start: 07-03-2009 glucosam-chond ro-herb 149-hyal(GLUCOSAMINE CHONDROITIN COMPLEX ADVANCED [id number]-1.65MG TAB) hydroCHLOROthiazide 25 mg / losartan potassium [...] Take 88 mcg by mouth once daily. Lcxwwseo-Vld-Nd-Lycopen-Lut ein (4 sources) Start: 017 Hrwdswti-Wai-Yh-Lyco pen-Lutein Active 1 EACH PO DAILY February [...] )on 05-03-2024 BUN/CRE 26.9 RATIO High 10-20 [facility] Comment on above: Performed By: #### L 500.2500 #### [facility] [address] [place], [address] CA,Total 9.7 mg/dL Normal 8.5-10.1 [facility] Comment on above: Performed By: #### L 500.2500 #### [facility] [address] [place], [address] Chloride [Moles/Vol] 110 mmol/L High 98-107 [facility] Comment on above: Performed By: #### L 500.2500 #### [facility] [address] [place], [address] CO2 [Moles/Vol] 28.0 mmol/L Normal 21.0-32.0 [facility] Comment on above: Performed By: #### L 500.2500 #### [facility] [address] [place], [address] Creatinine [Mass/Vol] 0.93 mg/dL Normal 0.55-1.02 [facility] Comment on above: Result Comment: The validity of the calculated GFR GFRAA in patients over 70 years has not been determined. Clinical correlation is essential. Performed By: #### L 500.2500 #### [facility] [address] [place], [address] EST GFR - AA 74 mL/min Normal >60 [facility] Comment on above: Result Comment: Afri can [place] GFR Calc Performed By: #### L 500.2500 #### [facility] [address] [place], [address] GAP 5 Normal 5-15 [facility] Comment on above: Performed By: #### L 500.2500 #### [facility] [address] [place], [address] GFR/1.73 sq M.predicted among non-blacks MDRD (S/P/Bld) [Vol rate/Area] 61 mL/min/{1.73_m2} Normal >60 [facility] Comment on above: Result Comment: Non- GFR Calc Performed By: #### L 500.2500 #### [facility] [address] [place], [address] Glucose [Mass/Vol] 100 mg/dL Normal 74-106 [facility] Comment on above: Result Comment: Fast ing Glucose result from 100 to 125 mg/dL suggests IMPAIRED HOMEOSTASIS per A.D.A. criteria. Performed By: #### L 500.2500 #### [facility] [address] [place], [address] Potassium [Moles/Vol] 3.9 mmol/L Normal 3.5-5.1 [facility] Comment on above: Performed By: #### L 500.2500 #### [facility] [address] [place], [address] Sodium [Moles/Vol] 143 mmol/L Normal 136-145 [facility] Comment on above: Performed By: #### L 500.2500 #### [facility] [address] [place], [address] Urea nitrogen [Mass/Vol] 25 mg/dL High 7-18 [facility] Comment on above: Performed By: #### L 500.2500 #### [facility] [address] [place], [address] CBC W/Diff, Automatedon 01-0 -2024 Absolute Lymph 1.78 X10 3/uL Normal 0.83-4.51 [facility] Comment on above: Performed By: #### L 500.4050, L506.1000, L501.9520, L100.0100 #### [facility] [address] [place], [address] Absolute Neut 4.7 X10 3/uL Normal 2.0-7.7 [facility] Comment on above: Performed By: #### L 500.4050, L506.1000, L501.9520, L100.0100 #### [facility] [address] [place], [address] Basophils/100 WBC (Bld) 0.8 % Normal 0-1 [facility] Comment on above: Performed By: #### L 500.4050, L506.1000, L501.9520, L100.0100 #### [facility] [address] [place], [address] Eosinophils/100 WBC (Bld) 2.8 % Normal 0-5 [facility] Comment on above: Performed By: #### L 500.4050, L506.1000, L501.9520, L100.0100 #### [facility] [address] [place], [address] Erythrocyte distribution width (RBC) [Ratio] 14.1 % Normal 11.6-14.6 [facility] Comment on above: Performed By: #### L 500.4050, L506.1000, L501.9520, L100.0100 #### [facility] [address] [place], [address] Hematocrit (Bld) [Volume fraction] 41.5 % Normal 37-47 [facility] Comment on above: Performed By: #### L 500.4050, L506.1000, L501.9520, L100.0100 #### [facility] [address] [place], [address] Hemoglobin (Bld) [Mass/Vol] 12.9 g/dL Normal 12.0-15.0 [facility] Comment on above: Performed By: #### L 500.4050, L506.1000, L501.9520, L100.0100 #### [facility] [address] [place], [address] IG% 0.100 Normal 0.0-0.9 [facility] Comment on above: Result Comment: IG% - Immature Granulocytes (promyelocytes, myelocytes and metamyelocytes) > 1% indicates that a LEFT SHIFT is Present. Performed By: #### L 500.4050, L506.1000, L501.9520, L100.0100 #### [facility] [address] [place], [address] Lymphocytes/100 WBC (Bld) 24.5 % Normal 19-41 [facility] Comment on above: Performed By: #### L 500.4050, L506.1000, L501.9520, L100.0100 #### [facility] [address] [place], [address] MCH (RBC) [Entitic mass] 29.7 pg Normal 27.0-32.0 [facility] Comment on above: Performed By: #### L 500.4050, L506.1000, L501.9520, L100.0100 #### [facility] [address] [place], [address] MCHC (RBC) [Mass/Vol] 31.1 g/dL Low 32-36 [facility] Comment on above: Performed By: #### L 500.4050, L506.1000, L501.9520, L100.0100 #### [facility] [address] [place], [address] MCV (RBC) [Entitic vol] 95.4 fL Normal 81-99 [facility] Comment on above: Performed By: #### L 500.4050, L506.1000, L501.9520, L100.0100 #### [facility] [address] [place], [address] Monocytes/100 WBC (Bld) 7.0 % Normal 0-10 [facility] Comment on above: Performed By: #### L 500.4050, L506.1000, L501.9520, L100.0100 #### [facility] [address] [place], [address] Neutrophils/100 WBC (Bld) 64.8 % Normal 47-70 [facility] Comment on above: Performed By: #### L 500.4050, L506.1000, L501.9520, L100.0100 #### [facility] [address] [place], [address] Nucleated RBC (Bld) [#/Vol] 0 10*3/uL Normal 0-5 [facility] Comment on above: Performed By: #### L 500.4050, L506.1000, L501.9520, L100.0100 #### [facility] [address] [place], [address] Platelet mean volume (Bld) [Entitic vol] 9.8 fL Normal 6.2-12.0 [facility] Comment on above: Performed By: #### L 500.4050, L506.1000, L501.9520, L100.0100 #### [facility] [address] [place], [address] Platelets (Bld) [#/Vol] 264 10*3/uL Normal 150-450 [facility] Comment on above: Performed By: #### L 500.4050, L506.1000, L501.9520, L100.0100 #### [facility] [address] [place], [address] RBC (Bld) [#/Vol] 4.35 10*6/uL Normal 4.2-5.4 [facility] Comment on above: Performed By: #### L 500.4050, L506.1000, L501.9520, L100.0100 #### [facility] [address] [place], [address] RDW SD 50.1 fl High 35.1-43.9 [facility] Comment on above: Performed By: #### L 500.4050, L506.1000, L501.9520, L100.0100 #### [facility] [address] [place], [address] WBC (Bld) [#/Vol] 7.3 10*3/uL Normal 4.4-11.0 [facility] Comment on above: Performed By: #### L 500.4050, L506.1000, L501.9520, L100.0100 #### [facility] [address] [place], [address] Comprehensive Metabolic Prof [facility] [place] 04-16-2024 Albumin [Mass/Vol] 3.7 g/dL Normal 3.2-5.0 [facility] Comment on above: Performed By: #### L 500.4050, L506.1000, L501.9520, L100.0100 #### [facility] [address] [place], [address] Albumin/Globulin [Mass ratio] 0.9 {ratio} Normal 0.9-2.4 [facility] Comment on above: Performed By: #### L 500.4050, L506.1000, L501.9520, L100.0100 #### [facility] [address] [place], [address] ALK P 106 U/L Normal 45-117 [facility] Comment on above: Performed By: #### L 500.4050, L506.1000, L501.9520, L100.0100 #### [facility] [address] [place], [address] ALT [Catalytic activity/Vol] 14 U/L Normal 13-56 [facility] Comment on above: Performed By: #### L 500.4050, L506.1000, L501.9520, L100.0100 #### [facility] [address] [place], [address] AST [Catalytic activity/Vol] 13 U/L Low 15-37 [facility] Comment on above: Performed By: #### L 500.4050, L506.1000, L501.9520, L100.0100 #### [facility] [address] [place], [address] Bilirubin [Mass/Vol] 0.60 mg/dL Normal 0.20-1.00 [facility] Comment on above: Result Comment: For patients on eltrombopag therapy, use of Dimension [place] TBIL is not recommended. Performed By: #### L 500.4050, L506.1000, L501.9520, L100.0100 #### [facility] [address] [place], [address] BUN/CRE 29.8 RATIO High 10-20 [facility] Comment on above: Performed By: #### L 500.4050, L506.1000, L501.9520, L100.0100 #### [facility] [address] [place], [address] CA,Total 9.3 mg/dL Normal 8.5-10.1 [facility] Comment on above: Performed By: #### L 500.4050, L506.1000, L501.9520, L100.0100 #### [facility] [address] [place], [address] Chloride [Moles/Vol] 109 mmol/L High 98-107 [facility] Comment on above: Performed By: #### L 500.4050, L506.1000, L501.9520, L100.0100 #### [facility] [address] [place], [address] CO2 [Moles/Vol] 29.0 mmol/L Normal 21.0-32.0 [facility] Comment on above: Performed By: #### L 500.4050, L506.1000, L501.9520, L100.0100 #### [facility] [address] [place], [address] Creatinine [Mass/Vol] 0.91 mg/dL Normal 0.55-1.02 [facility] Comment on above: Result Comment: The validity of the calculated GFR GFRAA in patients over 70 years has not been determined. Clinical correlation is essential. Performed By: #### L 500.4050, L506.1000, L501.9520, L100.0100 #### [facility] [address] [place], [address] EST GFR - AA 76 mL/min Normal >60 [facility] Comment on above: Result Comment: Afri can [place] GFR Calc Performed By: #### L 500.4050, L506.1000, L501.9520, L100.0100 #### [facility] [address] [place], [address] GAP 3 Low 5-15 [facility] Comment on above: Performed By: #### L 500.4050, L506.1000, L501.9520, L100.0100 #### [facility] [address] [place], [address] GFR/1.73 sq M.predicted among non-blacks MDRD (S/P/Bld) [Vol rate/Area] 63 mL/min/{1.73_m2} Normal >60 [facility] Comment on above: Result Comment: Non- GFR Calc Performed By: #### L 500.4050, L506.1000, L501.9520, L100.0100 #### [facility] [address] [place], [address] Globulin (S) [Mass/Vol] 3.9 g/dL Normal 2.2-4.2 [facility] Comment on above: Performed By: #### L 500.4050, L506.1000, L501.9520, L100.0100 #### [facility] [address] [place], [address] Glucose [Mass/Vol] 109 mg/dL High 74-106 [facility] Comment on above: Result Comment: Fast ing Glucose result from 100 to 125 mg/dL suggests IMPAIRED HOMEOSTASIS per A.D.A. criteria. Performed By: #### L 500.4050, L506.1000, L501.9520, L100.0100 #### [facility] [address] [place], [address] Potassium [Moles/Vol] 3.3 mmol/L Low 3.5-5.1 [facility] Comment on above: Performed By: #### L 500.4050, L506.1000, L501.9520, L100.0100 #### [facility] [address] [place], [address] Sodium [Moles/Vol] 142 mmol/L Normal 136-145 [facility] Comment on above: Performed By: #### L 500.4050, L506.1000, L501.9520, L100.0100 #### [facility] [address] [place], [address] T PROT 7.6 g/dL Normal 6.4-8.2 [facility] Comment on above: Performed By: #### L 500.4050, L506.1000, L501.9520, L100.0100 #### [facility] [address] [place], [address] Urea nitrogen [Mass/Vol] 27 mg/dL High 7-18 [facility] Comment on above: Performed By: #### L 500.4050, L506.1000, L501.9520, L100.0100 #### [facility] [address] [place], [address] Thyroid Stim Hormone (TSH)on 04-16-2024 TSH 0.507 uIU/mL Normal 0.358-3.740 [facility] Comment on above: Performed By: #### L 500.4050, L506.1000, L501.9520, L100.0100 #### [facility] [address] [place], [address] Vitamin D,25 Hydroxyon 04-16 Vitamin D 25-OH 18.2 ng/mL Normal [facility] Comment on above: Result Comment: Pretty min D 25(OH) Status Range Deficiency <20 ng/mL (50nmol/L) Insufficiency 20 - 30 ng/mL (50 - 75 nmol/L) Sufficiency 30 - 100 ng/mL (75 - 250 nmol/L) Toxicity >100 ng/mL (>250 nmol/L) Performed By: #### L 500.4050, L506.1000, L501.9520, L100.0100 #### [facility] [address] [place], [address] CBC W/Diff, Automatedon 10-0 Absolute Lymph 2.06 X10 3/uL Normal 0.83-4.51 [facility] Comment on above: Performed By: #### L 500.4050, L100.0100, L501.9520, L506.1000 #### [facility] [address] [place], [address] Absolute Neut 3.4 X10 3/uL Normal 2.0-7.7 [facility] Comment on above: Performed By: #### L 500.4050, L100.0100, L501.9520, L506.1000 #### [facility] [address] [place], [address] Basophils/100 WBC (Bld) 0.9 % Normal 0-1 [facility] Comment on above: Performed By: #### L 500.4050, L100.0100, L501.9520, L506.1000 #### [facility] [address] [place], [address] Eosinophils/100 WBC (Bld) 4.1 % Normal 0-5 [facility] Comment on above: Performed By: #### L 500.4050, L100.0100, L501.9520, L506.1000 #### [facility] [address] [place], [address] Erythrocyte distribution width (RBC) [Ratio] 14.7 % High 11.6-14.6 [facility] Comment on above: Performed By: #### L 500.4050, L100.0100, L501.9520, L506.1000 #### [facility] [address] [place], [address] Hematocrit (Bld) [Volume fraction] 43.1 % Normal 37-47 [facility] Comment on above: Performed By: #### L 500.4050, L100.0100, L501.9520, L506.1000 #### [facility] [address] [place], [address] Hemoglobin (Bld) [Mass/Vol] 13.6 g/dL Normal 12.0-15.0 [facility] Comment on above: Performed By: #### L 500.4050, L100.0100, L501.9520, L506.1000 #### [facility] [address] [place], [address] IG% 0.300 Normal 0.0-0.9 [facility] Comment on above: Result Comment: IG% - Immature Granulocytes (promyelocytes, myelocytes and metamyelocytes) > 1% indicates that a LEFT SHIFT is Present. Performed By: #### L 500.4050, L100.0100, L501.9520, L506.1000 #### [facility] [address] [place], [address] Lymphocytes/100 WBC (Bld) 32.5 % Normal 19-41 [facility] Comment on above: Performed By: #### L 500.4050, L100.0100, L501.9520, L506.1000 #### [facility] [address] [place], [address] MCH (RBC) [Entitic mass] 30.0 pg Normal 27.0-32.0 [facility] Comment on above: Performed By: #### L 500.4050, L100.0100, L501.9520, L506.1000 #### [facility] [address] [place], [address] MCHC (RBC) [Mass/Vol] 31.6 g/dL Low 32-36 [facility] Comment on above: Performed By: #### L 500.4050, L100.0100, L501.9520, L506.1000 #### [facility] [address] [place], [address] MCV (RBC) [Entitic vol] 95.1 fL Normal 81-99 [facility] Comment on above: Performed By: #### L 500.4050, L100.0100, L501.9520, L506.1000 #### [facility] [address] [place], [address] Monocytes/100 WBC (Bld) 9.1 % Normal 0-10 [facility] Comment on above: Performed By: #### L 500.4050, L100.0100, L501.9520, L506.1000 #### [facility] [address] [place], [address] Neutrophils/100 WBC (Bld) 53.1 % Normal 47-70 [facility] Comment on above: Performed By: #### L 500.4050, L100.0100, L501.9520, L506.1000 #### [facility] [address] [place], [address] Nucleated RBC (Bld) [#/Vol] 0 10*3/uL Normal 0-5 [facility] Comment on above: Performed By: #### L 500.4050, L100.0100, L501.9520, L506.1000 #### [facility] [address] [place], [address] Platelet mean volume (Bld) [Entitic vol] 10.7 fL Normal 6.2-12.0 [facility] Comment on above: Performed By: #### L 500.4050, L100.0100, L501.9520, L506.1000 #### [facility] [address] [place], [address] Platelets (Bld) [#/Vol] 278 10*3/uL Normal 150-450 [facility] Comment on above: Performed By: #### L 500.4050, L100.0100, L501.9520, L506.1000 #### [facility] [address] [place], [address] RBC (Bld) [#/Vol] 4.53 10*6/uL Normal 4.2-5.4 [facility] Comment on above: Performed By: #### L 500.4050, L100.0100, L501.9520, L506.1000 #### [facility] [address] [place], [address] RDW SD 51.9 fl High 35.1-43.9 [facility] Comment on above: Performed By: #### L 500.4050, L100.0100, L501.9520, L506.1000 #### [facility] [address] [place], [address] WBC (Bld) [#/Vol] 6.3 10*3/uL Normal 4.4-11.0 [facility] Comment on above: Performed By: #### L 500.4050, L100.0100, L501.9520, L506.1000 #### [facility] [address] [place], [address] Comprehensive Metabolic Prof ilon 01-16-2024 Albumin [Mass/Vol] 3.6 g/dL Normal 3.2-5.0 [facility] Comment on above: Performed By: #### L 500.4050, L506.1000, L501.9520, L100.0100 #### [facility] [address] [place], [address] Albumin/Globulin [Mass ratio] 1.0 {ratio} Normal 0.9-2.4 [facility] Comment on above: Performed By: #### L 500.4050, L506.1000, L501.9520, L100.0100 #### [facility] [address] [place], [address] ALK P 109 U/L Normal 45-117 [facility] Comment on above: Performed By: #### L 500.4050, L506.1000, L501.9520, L100.0100 #### [facility] [address] [place], [address] ALT [Catalytic activity/Vol] 12 U/L Low 13-56 [facility] Comment on above: Performed By: #### L 500.4050, L506.1000, L501.9520, L100.0100 #### [facility] [address] [place], [address] AST [Catalytic activity/Vol] 15 U/L Normal 15-37 [facility] Comment on above: Performed By: #### L 500.4050, L506.1000, L501.9520, L100.0100 #### [facility] [address] [place], [address] Bilirubin [Mass/Vol] 0.60 mg/dL Normal 0.20-1.00 [facility] Comment on above: Result Comment: For patients on eltrombopag therapy, use of Dimension [place] TBIL is not recommended. Performed By: #### L 500.4050, L506.1000, L501.9520, L100.0100 #### [facility] [address] [place], [address] BUN/CRE 28.7 RATIO High 10-20 [facility] Comment on above: Performed By: #### L 500.4050, L506.1000, L501.9520, L100.0100 #### [facility] [address] [place], [address] CA,Total 9.5 mg/dL Normal 8.5-10.1 [facility] Comment on above: Performed By: #### L 500.4050, L506.1000, L501.9520, L100.0100 #### [facility] [address] [place], [address] Chloride [Moles/Vol] 110 mmol/L High 98-107 [facility] Comment on above: Performed By: #### L 500.4050, L506.1000, L501.9520, L100.0100 #### [facility] [address] [place], [address] CO2 [Moles/Vol] 24.0 mmol/L Normal 21.0-32.0 [facility] Comment on above: Performed By: #### L 500.4050, L506.1000, L501.9520, L100.0100 #### [facility] [address] [place], [address] Creatinine [Mass/Vol] 0.91 mg/dL Normal 0.55-1.02 [facility] Comment on above: Result Comment: The validity of the calculated GFR GFRAA in patients over 70 years has not been determined. Clinical correlation is essential. Performed By: #### L 500.4050, L506.1000, L501.9520, L100.0100 #### [facility] [address] [place], [address] EST GFR - AA 76 mL/min Normal >60 [facility] Comment on above: Result Comment: Afri can [place] GFR Calc Performed By: #### L 500.4050, L506.1000, L501.9520, L100.0100 #### [facility] [address] [place], [address] GAP 10 Normal 5-15 [facility] [facility] Comment on above: Performed By: #### L 500.4050, L506.1000, L501.9520, L100.0100 #### [facility] [address] [place], [address] GFR/1.73 sq M.predicted among non-blacks MDRD (S/P/Bld) [Vol rate/Area] 63 mL/min/{1.73_m2} Normal >60 [facility] Comment on above: Result Comment: Non- GFR Calc Performed By: #### L 500.4050, L506.1000, L501.9520, L100.0100 #### [facility] [address] [place], [address] Globulin (S) [Mass/Vol] 3.7 g/dL Normal 2.2-4.2 [facility] Comment on above: Performed By: #### L 500.4050, L506.1000, L501.9520, L100.0100 #### [facility] [address] [place], [address] Glucose [Mass/Vol] 109 mg/dL High 74-106 [facility] Comment on above: Result Comment: Fast ing Glucose result from 100 to 125 mg/dL suggests IMPAIRED HOMEOSTASIS per A.D.A. criteria. Performed By: #### L 500.4050, L506.1000, L501.9520, L100.0100 #### [facility] [address] [place], [address] Potassium [Moles/Vol] 3.4 mmol/L Low 3.5-5.1 [facility] Comment on above: Performed By: #### L 500.4050, L506.1000, L501.9520, L100.0100 #### [facility] [address] [place], [address] Sodium [Moles/Vol] 144 mmol/L Normal 136-145 [facility] Comment on above: Performed By: #### L 500.4050, L506.1000, L501.9520, L100.0100 #### [facility] [address] [place], [address] T PROT 7.3 g/dL Normal 6.4-8.2 [facility] Comment on above: Performed By: #### L 500.4050, L506.1000, L501.9520, L100.0100 #### [facility] [address] [place], [address] Urea nitrogen [Mass/Vol] 26 mg/dL High 7-18 [facility] Comment on above: Performed By: #### L 500.4050, L506.1000, L501.9520, L100.0100 #### [facility] [address] [place], [address] Thyroid Stim Hormone (TSH)on 01-16-2024 TSH 0.949 uIU/mL Normal 0.358-3.740 [facility] Comment on above: Performed By: #### L 500.4050, L506.1000, L501.9520, L100.0100 #### [facility] [address] [place], [address] Vitamin D,25 Hydroxyon 01-15 Vitamin D 25-OH 20.7 ng/mL Normal [facility] Comment on above: Result Comment: Pretty min D 25(OH) Status Range Deficiency <20 ng/mL (50nmol/L) Insufficiency 20 - 30 ng/mL (50 - 75 nmol/L) Sufficiency 30 - 100 ng/mL (75 - 250 nmol/L) Toxicity >100 ng/mL (>250 nmol/L) Performed By: #### L 500.4050, L506.1000, L501.9520, L100.0100 #### [facility] [address] [place], [place], [id number] Absolute lymphocyte countOrd ered By: Ferny Pina on 06-28-2023 Lymphocytes Auto (Unsp spec) [#/Vol] 1.99 10*3/uL 0.83-4.51 [facility] Automated lymphocyte count a s percentage of total leukocytesOrdered By: Ferny Yovani on 06-28-2023 Lymphocytes/100 WBC Auto (Unsp spec) 39.3 % 19-41 [facility] Basophil percentageOrdered B y: Ferny Pina on 06-28-2023 Basophils/100 WBC (Bld) 1.0 % 0-1 [facility] Bilirubin [Mass/Vol] 0.40 mg/dL 0.20-1.00 [facility] Comment on above: For patients on eltr ombopag therapy, use of Dimension [place] TBIL is not recommended. Chloride [Moles/Vol] 108 mmol/L 98-107 [facility] Eosinophils/100 WBC (Bld) 3.6 % 0-5 [facility] Glucose [Mass/Vol] 112 mg/dL 74-106 [facility] Comment on above: Fasting Glucose resu lt from 100 to 125 mg/dL suggests IMPAIRED HOMEOSTASIS per A.D.A. criteria. Hemoglobin (Bld) [Mass/Vol] 12.4 g/dL 12.0-15.0 [facility] Monocytes/100 WBC (Bld) 8.5 % 0-10 [facility] Neutrophils (Bld) [#/Vol] 2.4 10*3/uL 2.0-7.7 [facility] Neutrophils/100 WBC (Bld) 47.4 % 47-70 [facility] Potassium [Moles/Vol] 3.5 mmol/L 3.5-5.1 [facility] Protein [Mass/Vol] 7.5 g/dL 6.4-8.2 [facility] Sodium [Moles/Vol] 145 mmol/L 136-145 [facility] WBC (Bld) [#/Vol] 5.1 10*3/uL 4.4-11.0 [facility] CBC W/Diff, Automatedon 03-2 0-2023 Absolute Lymph 1.99 X10 3/uL Normal 0.83-4.51 [facility] Comment on above: Performed By: #### L 100.0100, L506.1000, L500.4050, L501.9520 #### [facility] [address] [place], [address] Absolute Neut 2.4 X10 3/uL Normal 2.0-7.7 [facility] Comment on above: Performed By: #### L 100.0100, L506.1000, L500.4050, L501.9520 #### [facility] [address] [place], [address] Basophils/100 WBC (Bld) 1.0 % Normal 0-1 [facility] Comment on above: Performed By: #### L 100.0100, L506.1000, L500.4050, L501.9520 #### [facility] [address] [place], [address] Eosinophils/100 WBC (Bld) 3.6 % Normal 0-5 [facility] Comment on above: Performed By: #### L 100.0100, L506.1000, L500.4050, L501.9520 #### [facility] [address] [place], [address] Erythrocyte distribution width (RBC) [Ratio] 13.3 % Normal 11.6-14.6 [facility] Comment on above: Performed By: #### L 100.0100, L506.1000, L500.4050, L501.9520 #### [facility] [address] [place], [address] Hematocrit (Bld) [Volume fraction] 39.0 % Normal 37-47 [facility] Comment on above: Performed By: #### L 100.0100, L506.1000, L500.4050, L501.9520 #### [facility] [address] [place], [address] Hemoglobin (Bld) [Mass/Vol] 12.4 g/dL Normal 12.0-15.0 [facility] Comment on above: Performed By: #### L 100.0100, L506.1000, L500.4050, L501.9520 #### [facility] [address] [place], [address] IG% 0.200 Normal 0.0-0.9 [facility] Comment on above: Result Comment: IG% - Immature Granulocytes (promyelocytes, myelocytes and metamyelocytes) > 1% indicates that a LEFT SHIFT is Present. Performed By: #### L 100.0100, L506.1000, L500.4050, L501.9520 #### [facility] [address] [place], [address] Lymphocytes/100 WBC (Bld) 39.3 % Normal 19-41 [facility] Comment on above: Performed By: #### L 100.0100, L506.1000, L500.4050, L501.9520 #### [facility] [address] [place], [address] MCH (RBC) [Entitic mass] 29.1 pg Normal 27.0-32.0 [facility] Comment on above: Performed By: #### L 100.0100, L506.1000, L500.4050, L501.9520 #### [facility] [address] [place], [address] MCHC (RBC) [Mass/Vol] 31.8 g/dL Low 32-36 [facility] Comment on above: Performed By: #### L 100.0100, L506.1000, L500.4050, L501.9520 #### [facility] [address] [place], [address] MCV (RBC) [Entitic vol] 91.5 fL Normal 81-99 [facility] Comment on above: Performed By: #### L 100.0100, L506.1000, L500.4050, L501.9520 #### [facility] [address] [place], [address] Monocytes/100 WBC (Bld) 8.5 % Normal 0-10 [facility] Comment on above: Performed By: #### L 100.0100, L506.1000, L500.4050, [id number] #### [facility] [address] [place], [address] Neutrophils/100 WBC (Bld) 47.4 % Normal 47-70 [facility] Comment on above: Performed By: #### L 100.0100, L506.1000, L500.4050, L501.9520 #### [facility] [address] [place], [address] Nucleated RBC (Bld) [#/Vol] 0 10*3/uL Normal 0-5 [facility] Comment on above: Performed By: #### L 100.0100, L506.1000, L500.4050, [id number] #### [facility] [address] [place], [address] Platelet mean volume (Bld) [Entitic vol] 9.9 fL Normal 6.2-12.0 [facility] Comment on above: Performed By: #### L 100.0100, L506.1000, L500.4050, L501.9520 #### [facility] [address] [place], [address] Platelets (Bld) [#/Vol] 327 10*3/uL Normal 150-450 [facility] Comment on above: Performed By: #### L 100.0100, L506.1000, L500.4050, L501.9520 #### [facility] [address] [place], [address] RBC (Bld) [#/Vol] 4.26 10*6/uL Normal 4.2-5.4 [facility] Comment on above: Performed By: #### L 100.0100, L506.1000, L500.4050, L501.9520 #### [facility] [address] [place], [address] RDW SD 44.7 fl High 35.1-43.9 [facility] Comment on above: Performed By: #### L 100.0100, L506.1000, L500.4050, [id number] #### [facility] [address] [place], [address] WBC (Bld) [#/Vol] 5.1 10*3/uL Normal 4.4-11.0 [facility] Comment on above: Performed By: #### L 100.0100, L506.1000, L500.4050, L501.9520 #### [facility] [address] [place], [address] Comprehensive Metabolic Prof [facility] [place] 06-28-2023 Albumin [Mass/Vol] 3.2 g/dL Normal 3.2-5.0 [facility] Comment on above: Performed By: #### L 100.0100, L506.1000, L500.4050, L501.9520 #### [facility] [address] [place], [address] Albumin/Globulin [Mass ratio] 0.7 {ratio} Low 0.9-2.4 [facility] Comment on above: Performed By: #### L 100.0100, L506.1000, L500.4050, L501.9520 #### [facility] [address] [place], [address] ALK P 104 U/L Normal 45-117 [facility] Comment on above: Performed By: #### L 100.0100, L506.1000, L500.4050, [id number] #### [facility] [address] [place], [address] ALT [Catalytic activity/Vol] 12 U/L Low 13-56 [facility] Comment on above: Performed By: #### L 100.0100, L506.1000, L500.4050, [id number] #### [facility] [address] [place], [address] AST [Catalytic activity/Vol] 15 U/L Normal 15-37 [facility] Comment on above: Performed By: #### L 100.0100, L506.1000, L500.4050, L501.9520 #### [facility] [address] [place], [address] Bilirubin [Mass/Vol] 0.40 mg/dL Normal 0.20-1.00 [facility] Comment on above: Result Comment: For patients on eltrombopag therapy, use of Dimension [place] TBIL is not recommended. Performed By: #### L 100.0100, L506.1000, L500.4050, L501.9520 #### [facility] [address] [place], [address] BUN/CRE 31.8 RATIO High 10-20 [facility] Comment on above: Performed By: #### L 100.0100, L506.1000, L500.4050, [id number] #### [facility] [address] [place], [address] CA,Total 9.3 mg/dL Normal 8.5-10.1 [facility] Comment on above: Performed By: #### L 100.0100, L506.1000, L500.4050, L501.9520 #### [facility] [address] [place], [address] Chloride [Moles/Vol] 108 mmol/L High 98-107 [facility] Comment on above: Performed By: #### L 100.0100, L506.1000, L500.4050, L501.9520 #### [facility] [address] [place], [address] CO2 [Moles/Vol] 28.0 mmol/L Normal 21.0-32.0 [facility] Comment on above: Performed By: #### L 100.0100, L506.1000, L500.4050, L501.9520 #### [facility] [address] [place], [address] Creatinine [Mass/Vol] 0.91 mg/dL Normal 0.55-1.02 [facility] Comment on above: Result Comment: The validity of the calculated GFR GFRAA in patients over 70 years has not been determined. Clinical correlation is essential. Performed By: #### L 100.0100, L506.1000, L500.4050, L501.9520 #### [facility] [address] [place], [address] EST GFR - AA 76 mL/min Normal >60 [facility] Comment on above: Result Comment: Afri can [place] GFR Calc Performed By: #### L 100.0100, L506.1000, L500.4050, L501.9520 #### [facility] [address] [place], [address] GAP 9 Normal 5-15 [facility] Comment on above: Performed By: #### L 100.0100, L506.1000, L500.4050, L501.9520 #### [facility] [address] [place], [address] GFR/1.73 sq M.predicted among non-blacks MDRD (S/P/Bld) [Vol rate/Area] 63 mL/min/{1.73_m2} Normal >60 [facility] Comment on above: Result Comment: Non- GFR Calc Performed By: #### L 100.0100, L506.1000, L500.4050, L501.9520 #### [facility] [address] [place], [address] Globulin (S) [Mass/Vol] 4.3 g/dL High 2.2-4.2 [facility] Comment on above: Performed By: #### L 100.0100, L506.1000, L500.4050, L501.9520 #### [facility] [address] [place], [address] Glucose [Mass/Vol] 112 mg/dL High 74-106 [facility] Comment on above: Result Comment: Fast ing Glucose result from 100 to 125 mg/dL suggests IMPAIRED HOMEOSTASIS per A.D.A. criteria. Performed By: #### L 100.0100, L506.1000, L500.4050, L501.9520 #### [facility] [address] [place], [address] Potassium [Moles/Vol] 3.5 mmol/L Normal 3.5-5.1 [facility] Comment on above: Performed By: #### L 100.0100, L506.1000, L500.4050, L501.9520 #### [facility] [address] [place], [address] Sodium [Moles/Vol] 145 mmol/L Normal 136-145 [facility] Comment on above: Performed By: #### L 100.0100, L506.1000, L500.4050, L501.9520 #### [facility] [address] [place], [address] T PROT 7.5 g/dL Normal 6.4-8.2 [facility] Comment on above: Performed By: #### L 100.0100, L506.1000, L500.4050, L501.9520 #### [facility] [address] [place], [address] Urea nitrogen [Mass/Vol] 29 mg/dL High 7-18 [facility] Comment on above: Performed By: #### L 100.0100, L506.1000, L500.4050, L501.9520 #### [facility] [address] [place], [address] Determination of erythrocyte mean corpuscular volume (MCV)Ordered By: Ferny Pina on 06-28-2023 MCV (RBC) [Entitic vol] 91.5 fL 81-99 [facility] Erythrocyte distribution wid th ratioOrdered By: [facility] Erythrocyte distribution width (RBC) [Ratio] 13.3 % 11.6-14.6 [facility] Erythrocyte distribution wid th standard deviationOrdered By: Ferny Yovani on 06-28-2023 Erythrocyte distribution width (RBC) [Entitic vol] 44.7 fL 35.1-43.9 [facility] Hematocrit Auto (Bld) [Volum e fraction]Ordered By: [facility] 06-28-2023 Hematocrit (Bld) [Volume fraction] 39.0 % 37-47 [facility] Immature granulocytes/100 WB C Auto (Bld)Ordered By: Ferny Pina on 06-28-2023 Immature granulocytes/100 WBC (Bld) 0.200 % 0.0-0.9 [facility] Comment on above: IG% - Immature Granu locytes (promyelocytes, myelocytes and metamyelocytes) > 1% indicates that a LEFT SHIFT is Present. Laboratory - Chemistry and C hemistry - challengeOrdered By: Ferny Pina on 06-28-2023 Albumin/Globulin [Mass ratio] 0.7 {ratio} 0.9-2.4 [facility] ALP [Catalytic activity/Vol] 104 U/L 45-117 [facility] ALT [Catalytic activity/Vol] 12 U/L 13-56 [facility] CO2 [Moles/Vol] 28.0 mmol/L 21.0-32.0 [facility] Globulin (S) [Mass/Vol] 4.3 g/dL 2.2-4.2 [facility] Urea nitrogen/Creatinine [Mass ratio] 31.8 mg/mg 10-20 [facility] - Hematology and Cell countsOrdered By: Ferny Pina on 06-28-2023 MCH (RBC) [Entitic mass] 29.1 pg 27.0-32.0 [facility] MCHC (RBC) [Mass/Vol] 31.8 g/dL 32-36 [facility] Nucleated RBC/100 WBC (Bld) [Ratio] 0 % 0-5 [facility] Platelet mean volume (Bld) [Entitic vol] 9.9 fL 6.2-12.0 [facility] Platelets (Bld) [#/Vol] 327 10*3/uL 150-450 [facility] No Panel InformationOrdered By: Ferny Pina on 06-28-2023 Estimated GFR (MDRD) Amer 76 mL/min >60 [facility] Comment on above: GFR Calc Estimated GFR (MDRD) Non-Af Amer 63 mL/min >60 [facility] Comment on above: Non- GFR Calc Vitamin D 25-Hydroxy 19.5 ng/mL [facility] Comment on above: Vitamin D 25(OH) Sta tus Range Deficiency <20 ng/mL (50nmol/L) Insufficiency 20 - 30 ng/mL (50 - 75 nmol/L) Sufficiency 30 - 100 ng/mL (75 - 250 nmol/L) Toxicity >100 ng/mL (>250 nmol/L) RBC Auto (Bld) [#/Vol]Ordere d By: Ferny Pina on 06-28-2023 RBC (Bld) [#/Vol] 4.26 10*6/uL 4.2-5.4 [facility] Serum or plasma calcium griselda urement (mass/volume)Ordered By: Ferny Pina on 06-28-2023 Calcium [Mass/Vol] 9.3 mg/dL 8.5-10.1 [facility] Serum or plasma creatinine m easurement (mass/volume)Ordered By: Ferny Pina on 06-28-2023 Creatinine [Mass/Vol] 0.91 mg/dL 0.55-1.02 [facility] Comment on above: The validity of the calculated GFR & GFRAA in patients over 70 years has not been determined. Clinical correlation is essential. Serum or plasma thyroid stim ulating hormone (TSH) measurement (units/volume)Ordered By: Ferny Pina on 06-28-2023 TSH Qn 0.65 uIU/mL 0.358-3.74 [facility] Serum or plasma urea nitroge n measurement (mass/volume)Ordered By: Ferny Pina on 06-28-2023 Urea nitrogen [Mass/Vol] 29 mg/dL 7-18 [facility] Thin prep Papanicolaou smear with manual screeningOrdered By: Ferny Pina on 06-28-2023 Thin prep Papanicolaou smear with manual screening 3.2 g/dL 3.2-5.0 [facility] Thin prep Papanicolaou smear with manual screening 15 U/L 15-37 [facility] Thin prep Papanicolaou smear with manual screening 9 5-15 [facility] Thyroid Stim Hormone (TSH)on 06-28-2023 TSH 0.65 uIU/mL Normal 0.358-3.74 [facility] Comment on above: Performed By: #### L 100.0100, L506.1000, L500.4050, L501.9520 #### [facility] [address] [place], [place], [id number] Vitamin D,25 Hydroxyon 06-27 Vitamin D 25-OH 19.5 ng/mL Normal [facility] Comment on above: Result Comment: Pretty min D 25(OH) Status Range Deficiency <20 ng/mL (50nmol/L) Insufficiency 20 - 30 ng/mL (50 - 75 nmol/L) Sufficiency 30 - 100 ng/mL (75 - 250 nmol/L) Toxicity >100 ng/mL (>250 nmol/L) Performed By: #### L 100.0100, L506.1000, L500.4050, L501.9520 #### [facility] [address] [place], [address] Absolute lymphocyte countOrd ered By: Ferny Pina on 12-27-2022 Lymphocytes Auto (Unsp spec) [#/Vol] 2.30 10*3/uL 0.83-4.51 [facility] Basophil percentageOrdered B y: Ferny Pina on 12-27-2022 Basophils/100 WBC (Bld) 1.0 % 0-1 [facility] Bilirubin [Mass/Vol] 0.60 mg/dL 0.20-1.00 [facility] Comment on above: For patients on eltr ombopag therapy, use of Dimension [place] TBIL is not recommended. Chloride [Moles/Vol] 111 mmol/L 98-107 [facility] Eosinophils/100 WBC (Bld) 3.5 % 0-5 [facility] Glucose [Mass/Vol] 105 mg/dL 74-106 [facility] Comment on above: Fasting Glucose resu lt from 100 to 125 mg/dL suggests IMPAIRED HOMEOSTASIS per A.D.A. criteria. Neutrophils (Bld) [#/Vol] 3.8 10*3/uL 2.0-7.7 [facility] Neutrophils/100 WBC (Bld) 54.4 % 47-70 [facility] Potassium [Moles/Vol] 3.7 mmol/L 3.5-5.1 [facility] Protein [Mass/Vol] 7.0 g/dL 6.4-8.2 [facility] Sodium [Moles/Vol] 145 mmol/L 136-145 [facility] WBC (Bld) [#/Vol] 6.9 10*3/uL 4.4-11.0 [facility] Blood erythrocytes count (nu mber/volume)Ordered By: Ferny Pina on 12-27-2022 RBC (Bld) [#/Vol] 4.29 10*6/uL 4.2-5.4 [facility] Blood hemoglobin measurement (mass/volume)Ordered By: Ferny Pina on 12-27-2022 Hemoglobin (Bld) [Mass/Vol] 13.0 g/dL 12.0-15.0 [facility] Blood lymphocytes/100 leukoc ytesOrdered By: Ferny Pina on 12-27-2022 Lymphocytes/100 WBC (Bld) 33.4 % 19-41 [facility] Blood monocytes/100 leukocyt esOrdered By: Ferny Pina on 12-27-2022 Monocytes/100 WBC (Bld) 7.4 % 0-10 [facility] Blood platelet mean volumeOr dered By: Ferny Yovani on 12-27-2022 Platelet mean volume (Bld) [Entitic vol] 10.5 fL 6.2-12.0 [facility] Determination of erythrocyte mean corpuscular volume (MCV)Ordered By: Ferny Pina on 12-27-2022 MCV (RBC) [Entitic vol] 95.6 fL 81-99 [facility] Hematocrit Auto (Bld) [Volum e fraction]Ordered By: Ferny Pina on 12-27-2022 Hematocrit (Bld) [Volume fraction] 41.0 % 37-47 [facility] - Chemistry and C hemistry - challengeOrdered By: Ferny Yovani on 12-27-2022 ALP [Catalytic activity/Vol] 97 U/L 45-117 [facility] ALT [Catalytic activity/Vol] 17 U/L 13-56 [facility] CO2 [Moles/Vol] 28.0 mmol/L 21.0-32.0 [facility] Globulin (S) [Mass/Vol] 3.7 g/dL 2.2-4.2 [facility] Urea nitrogen/Creatinine [Mass ratio] 26.5 mg/mg 10-20 [facility] - Hematology and Cell countsOrdered By: Ferny Pina on 12-27-2022 Erythrocyte distribution width (RBC) [Entitic vol] 49.7 fL 35.1-43.9 [facility] Erythrocyte distribution width (RBC) [Ratio] 14.2 % 11.6-14.6 [facility] Immature granulocytes/100 WBC (Bld) 0.300 % 0.0-0.9 [facility] Comment on above: IG% - Immature Granu locytes (promyelocytes, myelocytes and metamyelocytes) > 1% indicates that a LEFT SHIFT is Present. MCH (RBC) [Entitic mass] 30.3 pg 27.0-32.0 [facility] Nucleated RBC/100 WBC (Bld) [Ratio] 0 % 0-5 [facility] MCHC Auto (RBC) [Mass/Vol]Or dered By: Ferny Pina on 12-27-2022 MCHC (RBC) [Mass/Vol] 31.7 g/dL 32-36 [facility] No Panel InformationOrdered By: Ferny Pina on 12-27-2022 Estimated GFR (MDRD) Amer 80 mL/min >60 [facility] Comment on above: GFR Calc Estimated GFR (MDRD) Non-Af Amer 66 mL/min >60 [facility] Comment on above: Non- GFR Calc Thyroid Stimulating Hormone (TSH) 1.34 uIU/mL 0.358-3.74 [facility] Vitamin D 25-Hydroxy 28.7 ng/mL [facility] Comment on above: Vitamin D 25(OH) Sta tus Range Deficiency <20 ng/mL (50nmol/L) Insufficiency 20 - 30 ng/mL (50 - 75 nmol/L) Sufficiency 30 - 100 ng/mL (75 - 250 nmol/L) Toxicity >100 ng/mL (>250 nmol/L) Platelets bldOrdered By: Ferny Pina on 12-27-2022 Platelets (Bld) [#/Vol] 249 10*3/uL 150-450 [facility] Serum or plasma albumin griselda urement (mass/volume)Ordered By: Ferny Pina on 12-27-2022 Albumin [Mass/Vol] 3.3 g/dL 3.2-5.0 [facility] Serum or plasma albumin/glob ulin mass ratioOrdered By: Ferny Pina on 12-27-2022 Albumin/Globulin [Mass ratio] 0.9 {ratio} 0.9-2.4 [facility] Serum or plasma calcium griselda urement (mass/volume)Ordered By: Ferny Pina on 12-27-2022 Calcium [Mass/Vol] 9.0 mg/dL 8.5-10.1 [facility] Serum or plasma creatinine m easurement (mass/volume)Ordered By: Ferny Pina on 12-27-2022 Creatinine [Mass/Vol] 0.87 mg/dL 0.55-1.02 [facility] Comment on above: The validity of the calculated GFR & GFRAA in patients over 70 years has not been determined. Clinical correlation is essential. Serum or plasma urea nitroge n measurement (mass/volume)Ordered By: Ferny Pina on 12-27-2022 Urea nitrogen [Mass/Vol] 23 mg/dL 7-18 [facility] Thin prep Papanicolaou smear with manual screeningOrdered By: Ferny Pina on 12-27-2022 Thin prep Papanicolaou smear with manual screening 15 U/L 15- [facility] Thin prep Papanicolaou smear with manual screening 6 5-15 [facility] Absolute lymphocyte countOrd ered By: Dr. Pina on 06-21-2022 Lymphocytes Auto (Unsp spec) [#/Vol] 2.60 10*3/uL 0.83-4.51 [facility] Basophil percentageOrdered B y: Dr. Pina on 06-21-2022 Basophils/100 WBC (Bld) 0.7 % 0-1 [facility] Bilirubin [Mass/Vol] 0.60 mg/dL 0.20-1.00 [facility] Comment on above: For patients on eltr ombopag therapy, use of Dimension [place] TBIL is not recommended. Chloride [Moles/Vol] 111 mmol/L 98-107 [facility] Eosinophils/100 WBC (Bld) 4.1 % 0-5 [facility] Glucose [Mass/Vol] 105 mg/dL 74-106 [facility] Comment on above: Fasting Glucose resu lt from 100 to 125 mg/dL suggests IMPAIRED HOMEOSTASIS per A.D.A. criteria. Neutrophils (Bld) [#/Vol] 3.8 10*3/uL 2.0-7.7 [facility] Neutrophils/100 WBC (Bld) 51.9 % 47-70 [facility] Potassium [Moles/Vol] 4.1 mmol/L 3.5-5.1 [facility] Protein [Mass/Vol] 7.4 g/dL 6.4-8.2 [facility] Sodium [Moles/Vol] 144 mmol/L 136-145 [facility] WBC (Bld) [#/Vol] 7.4 10*3/uL 4.4-11.0 [facility] Blood erythrocytes count (nu mber/volume)Ordered By: Dr. Pina on 06-21-2022 RBC (Bld) [#/Vol] 4.70 10*6/uL 4.2-5.4 [facility] Blood hemoglobin measurement (mass/volume)Ordered By: Dr. Pina on 06-21-2022 Hemoglobin (Bld) [Mass/Vol] 13.7 g/dL 12.0-15.0 [facility] Blood lymphocytes/100 leukoc ytesOrdered By: Dr. Pina on 06-21-2022 Lymphocytes/100 WBC (Bld) 35.3 % 19-41 [facility] Blood monocytes/100 leukocyt esOrdered By: Dr. Pina on 06-21-2022 Monocytes/100 WBC (Bld) 7.7 % 0-10 [facility] Blood platelet mean volumeOr dered By: Dr. Pina on 06-21-2022 Platelet mean volume (Bld) [Entitic vol] 10.7 fL 6.2-12.0 [facility] Determination of erythrocyte mean corpuscular volume (MCV)Ordered By: Dr. Pina on 06-21-2022 MCV (RBC) [Entitic vol] 92.8 fL 81-99 [facility] Hematocrit Auto (Bld) [Volum e fraction]Ordered By: Dr. Pina on 06-21-2022 Hematocrit (Bld) [Volume fraction] 43.6 % 37-47 [facility] Laboratory - Chemistry and C hemistry - challengeOrdered By: Dr. Pina on 06-21-2022 ALP [Catalytic activity/Vol] 103 U/L 45-117 [facility] ALT [Catalytic activity/Vol] 16 U/L 13-56 [facility] CO2 [Moles/Vol] 25.0 mmol/L 21.0-32.0 [facility] Globulin (S) [Mass/Vol] 3.8 g/dL 2.2-4.2 [facility] Urea nitrogen/Creatinine [Mass ratio] 29.8 mg/mg 10-20 [facility] Laboratory - Hematology and Cell countsOrdered By: Dr. Pina on 06-21-2022 Erythrocyte distribution width (RBC) [Entitic vol] 52.5 fL 35.1-43.9 [facility] Erythrocyte distribution width (RBC) [Ratio] 15.3 % 11.6-14.6 [facility] Immature granulocytes/100 WBC (Bld) 0.300 % 0.0-0.9 [facility] Comment on above: IG% - Immature Granu locytes (promyelocytes, myelocytes and metamyelocytes) > 1% indicates that a LEFT SHIFT is Present. MCH (RBC) [Entitic mass] 29.1 pg 27.0-32.0 [facility] Nucleated RBC/100 WBC (Bld) [Ratio] 0 % 0-5 [facility] MCHC Auto (RBC) [Mass/Vol]Or dered By: Dr. Pina on 06-21-2022 MCHC (RBC) [Mass/Vol] 31.4 g/dL 32-36 [facility] No Panel InformationOrdered By: Dr. Pina on 06-21-2022 Estimated GFR (MDRD) Amer 80 mL/min >60 [facility] Comment on above: GFR Calc Estimated GFR (MDRD) Non-Af Amer 66 mL/min >60 [facility] Comment on above: Non- GFR Calc Thyroid Stimulating Hormone (TSH) 1.01 uIU/mL 0.358-3.74 [facility] Vitamin D 25-Hydroxy 22.2 ng/mL [facility] Comment on above: Vitamin D 25(OH) Sta tus Range Deficiency <20 ng/mL (50nmol/L) Insufficiency 20 - 30 ng/mL (50 - 75 nmol/L) Sufficiency 30 - 100 ng/mL (75 - 250 nmol/L) Toxicity >100 ng/mL (>250 nmol/L) Platelets bldOrdered By: Dr. Pina on 06-21-2022 Platelets (Bld) [#/Vol] 301 10*3/uL 150-450 [facility] Serum or plasma albumin griselda urement (mass/volume)Ordered By: Dr. Pina on 06-21-2022 Albumin [Mass/Vol] 3.6 g/dL 3.2-5.0 [facility] Serum or plasma albumin/glob ulin mass ratioOrdered By: Dr. Pina on 06-21-2022 Albumin/Globulin [Mass ratio] 0.9 {ratio} 0.9-2.4 [facility] Serum or plasma calcium griselda urement (mass/volume)Ordered By: Dr. Pina on 06-21-2022 Calcium [Mass/Vol] 9.5 mg/dL 8.5-10.1 [facility] Serum or plasma creatinine m easurement (mass/volume)Ordered By: Dr. Pina on 06-21-2022 Creatinine [Mass/Vol] 0.87 mg/dL 0.55-1.02 [facility] Comment on above: The validity of the calculated GFR & GFRAA in patients over 70 years has not been determined. Clinical correlation is essential. Serum or plasma urea nitroge n measurement (mass/volume)Ordered By: Dr. Pina on 06-21-2022 Urea nitrogen [Mass/Vol] 26 mg/dL 7-18 [facility] Thin prep Papanicolaou smear with manual screeningOrdered By: Dr. Pina on 06-21-2022 Thin prep Papanicolaou smear with manual screening 15 U/L 15-37 [facility] Thin prep Papanicolaou smear with manual screening 8 5-15 [facility] Absolute lymphocyte counton 12-20-2021 Lymphocytes Auto (Unsp spec) [#/Vol] 2.31 10*3/uL 0.83-4.51 [facility] Work Phone: Basophil percentageon 2021 Basophils/100 WBC (Bld) 1.1 % 0-1 [facility] Work Phone: Bilirubin [Mass/Vol] 0.60 mg/dL 0.20-1.00 [facility] Work Phone: Comment on above: For patients on eltr ombopag therapy, use of Dim[place] TBIL is not recommended. Chloride [Moles/Vol] 107 mmol/L 98-107 [facility] Work Phone: Eosinophils/100 WBC (Bld) 2.7 % 0-5 [facility] Work Phone: Glucose [Mass/Vol] 111 mg/dL 74-106 [facility] Work Phone: Comment on above: Fasting Glucose resu lt from 100 to 125 mg/dL suggests IMPAIRED HOMEOSTASIS per A.D.A. criteria. Neutrophils (Bld) [#/Vol] 3.6 10*3/uL 2.0-7.7 [facility] Work Phone: Neutrophils/100 WBC (Bld) 53.2 % 47-70 [facility] Work Phone: Potassium [Moles/Vol] 3.7 mmol/L 3.5-5.1 [facility] Work Phone: Protein [Mass/Vol] 7.8 g/dL 6.4-8.2 [facility] Work Phone: Sodium [Moles/Vol] 142 mmol/L 136-145 [facility] Work Phone: WBC (Bld) [#/Vol] 6.7 10*3/uL 4.4-11.0 [facility] Work Phone: Blood erythrocytes count (nu mber/volume)on 12-20-2021 RBC (Bld) [#/Vol] 4.56 10*6/uL 4.2-5.4 [facility] Work Phone: Blood hemoglobin measurement (mass/volume)on 12-20-2021 Hemoglobin (Bld) [Mass/Vol] 13.1 g/dL 12.0-15.0 [facility] Work Phone: Blood lymphocytes/100 leukoc yteson 12-20-2021 Lymphocytes/100 WBC (Bld) 34.7 % 19-41 [facility] Work Phone: Blood monocytes/100 leukocyt eson 12-20-2021 Monocytes/100 WBC (Bld) 8.1 % 0-10 [facility] Work Phone: Blood platelet mean volumeon 12-20-2021 Platelet mean volume (Bld) [Entitic vol] 10.5 fL 6.2-12.0 [facility] Work Phone: Determination of erythrocyte mean corpuscular volume (MCV)on 12-20-2021 MCV (RBC) [Entitic vol] 90.6 fL 81-99 [facility] Work Phone: Hematocrit Auto (Bld) [Volum e fraction]on 12-20-2021 Hematocrit (Bld) [Volume fraction] 41.3 % 37-47 [facility] Work Phone: Laboratory - Chemistry and C hemistry - challengeon 12-20-2021 ALP [Catalytic activity/Vol] 134 U/L 45-117 [facility] Work Phone: ALT [Catalytic activity/Vol] 16 U/L 13-56 [facility] Work Phone: CO2 [Moles/Vol] 26.0 mmol/L 21.0-32.0 [facility] Work Phone: Globulin (S) [Mass/Vol] 4.3 g/dL 2.2-4.2 [facility] Work Phone: Urea nitrogen/Creatinine [Mass ratio] 26.0 mg/mg 10-20 [facility] Work Phone: Laboratory - Hematology and Cell countson 12-20-2021 Erythrocyte distribution width (RBC) [Entitic vol] 50.3 fL 35.1-43.9 [facility] Work Phone: Erythrocyte distribution width (RBC) [Ratio] 15.1 % 11.6-14.6 [facility] Work Phone: Immature granulocytes/100 WBC (Bld) 0.200 % 0.0-0.9 [facility] Work Phone: Comment on above: IG% - Immature Granu locytes (promyelocytes, myelocytes and metamyelocytes) > 1% indicates that a LEFT SHIFT is Present. MCH (RBC) [Entitic mass] 28.7 pg 27.0-32.0 [facility] Work Phone: Nucleated RBC/100 WBC (Bld) [Ratio] 0 % 0-5 [facility] Work Phone: MCHC Auto (RBC) [Mass/Vol]on 12-20-2021 MCHC (RBC) [Mass/Vol] 31.7 g/dL 32-36 [facility] Work Phone: No Panel Informationon 12-20 Estimated GFR (MDRD) Amer 75 mL/min >60 [facility] Work Phone: Comment on above: GFR Calc Estimated GFR (MDRD) Non-Af Amer 62 mL/min >60 [facility] Work Phone: Comment on above: Non- GFR Calc Thyroid Stimulating Hormone (TSH) 1.10 uIU/mL 0.358-3.74 [facility] Work Phone: Vitamin D 25-Hydroxy 14.9 ng/mL [facility] Work Phone: Comment on above: Vitamin D 25(OH) Sta tus Range Deficiency <20 ng/mL (50nmol/L) Insufficiency 20 - 30 ng/mL (50 - 75 nmol/L) Sufficiency 30 - 100 ng/mL (75 - 250 nmol/L) Toxicity >100 ng/mL (>250 nmol/L) Platelets bldon 12-20-2021 Platelets (Bld) [#/Vol] 281 10*3/uL 150-450 [facility] Work Phone: Serum or plasma albumin griselda urement (mass/volume)on 12-20-2021 Albumin [Mass/Vol] 3.5 g/dL 3.2-5.0 [facility] Work Phone: Serum or plasma albumin/glob ulin mass ratioon 12-20-2021 Albumin/Globulin [Mass ratio] 0.8 {ratio} 0.9-2.4 [facility] Work Phone: Serum or plasma calcium griselda urement (mass/volume)on 12-20-2021 Calcium [Mass/Vol] 9.7 mg/dL 8.5-10.1 [facility] Work Phone: Serum or plasma creatinine m easurement (mass/volume)on 12-20-2021 Creatinine [Mass/Vol] 0.92 mg/dL 0.55-1.02 [facility] Work Phone: Comment on above: The validity of the calculated GFR & GFRAA in patients over 70 years has not been determined. Clinical correlation is essential. Serum or plasma urea nitroge n measurement (mass/volume)on 12-20-2021 Urea nitrogen [Mass/Vol] 24 mg/dL 7-18 [facility] Work Phone: Thin prep Papanicolaou smear with manual screeningon 12-20-2021 Thin prep Papanicolaou smear with manual screening 14 U/L 15-37 [facility] Work Phone: Thin prep Papanicolaou smear with manual screening 9 5-15 [facility] Work Phone: CNOVon 09-16-2020 MATT Office Visit (UCWSTR) ---- VEE FUENTES ([id number]) 1940 F Date Time Provider Department 09/16/20 6:15 PM KRANTHI TIJERINA [facility] During your visit today, we recorded [...] (unless otherwis (more content not included)... Normal [facility] No Panel Informationon 09-16 [facility] XR WRIST 4V PA/LAT/OBL/SCAPH RTon 09-16-2020 XR [...] IMPRESSION: Advanced degenerative changes. Soft tissue swelling. Palletizer Operator: [facility] Transcribe Date/Time: Sep 16 2020 7:29P Dictated by : JEFFERY GUERRA MD This examination was interpreted and the report reviewed and electronically signed by: JEFFERY GUERRA MD on Sep 16 2020 7:31PM EST [id number] Normal [facility] XR Wrist - right 4 Viewson 0 09-16-2020 IMPRESSION: Advanced degenerative changes. Soft tissue swelling. Palletizer Operator: [facility] Transcribe Date/Time: Sep 16 2020 7:29P Dictated [...] erosion. No fracture. DIVISION OF RADIOLOGY Provider, [facility] - 09/16/2020 * * *Final Report* * [...] IMPRESSION: Advanced degenerative changes. Soft tissue swelling. Palletizer Operator: [facility] Transcribe Date/Time: Sep 16 2020 7:29P Dictated by : JEFFERY GUERRA MD This examination was interpreted and the report reviewed and electronically signed by: JEFFERY GUERRA MD on Sep 16 2020 7:31PM EST [facility] Radiology Study observation (narrative) Catalina renee [facility] XR Wrist - right 4 ViewsOrde red By: [facility] Provider on 09-16-2020 [facility] Vital Signs Date Time Vital Sign Value Performing Clinician Aletha wood 09-16-2020 18:16-0400 Body temperature 98.8 [degF] Kranthi Tijerina APRN.FACIALIST Work Phone: [facility] 09-16-2020 18:16-0400 Body weight 98.79 kg Kranthi Tijerina APRN.CNP Work Phone: [facility] 09-16-2020 18:16-0400 Diastolic blood pressure 80 mm[Hg] Kranthi Tijerina APRN.CNP Work Phone: [facility] 09-16-2020 18:16-0400 Heart rate 83 /min Kranthi Chatal PRINCIPAL GIFTS OFFICER.FACIALIST Work Phone: [facility] 09-16-2020 18:16-0400 Respiratory rate 16 /min Kranthi Chatal PRINCIPAL GIFTS OFFICER.FACIALIST Work Phone: [facility] 09-16-2020 18:16-0400 SaO2% (BldA) [Mass fraction] 95 % Kranthi Chatal PRINCIPAL GIFTS OFFICER.FACIALIST Work Phone: [facility] 09-16-2020 18:16-0400 Systolic blood pressure 138 mm[Hg] Kranthi Chatal PRINCIPAL GIFTS OFFICER.FACIALIST Work Phone: [facility] Encounters Encounter Date Encounter Type Care Provider Facility Start: 05-03-2024 End: 05-03-2024 ambulatory [facility] Facility:[facility] Start: 04-16-2024 End: 04-16-2024 ambulatory [facility] Facility:[facility] Start: 01-16-2024 End: 01-16-2024 ambulatory [facility] Facility:[facility] Start: 01-11-2024 End: 01-11-2024 ambulatory [facility] Facility:[facility] Start: 06-28-2023 End: 06-28-2023 ambulatory [facility] Work Phone: Start: 06-28-2023 End: 06-28-2023 Patient encounter procedure [facility]y Office 3rd Flr Start: 06-28-2023 End: 06-28-2023 ambulatory [facility] Facility:[facility] Start: 12-27-2022 End: 12-27-2022 ambulatory [facility] Work Phone: Start: 12-27-2022 End: 12-27-2022 Patient encounter procedure [facility] Phy Office 3rd Flr Start: 06-21-2022 End: 06-21-2022 ambulatory [facility] Work Phone: Start: 06-21-2022 End: 06-21-2022 Patient encounter procedure [facility] Phy Office 3rd Flr Start: 12-20-2021 End: 12-20-2021 ambulatory [facility] Work Phone: Start: 12-20-2021 End: 12-20-2021 Patient encounter procedure [facility] Phy Office 3rd Flr Start: 09-16-2020 End: 09-16-2020 Subsequent hospital visit by physician [facility] [place] Work Phone: Radiology Comment on above: Right wrist pain [M2 5.531] Start: 09-16-2020 End: 09-16-2020 Patient encounter procedure Kranthi Breezy PRINCIPAL GIFTS OFFICER.FACIALIST Work Phone: [facility] Comment on above: Right wrist pain (Pr imary Dx) Procedures Date Procedure Procedure Detail Performing Clinician Start: 09-16-2020 Radex wrist complete minimum 3 views Kranthi Ernestoal PRINCIPAL GIFTS OFFICER.FACIALIST Work Phone: H/O: tubal ligation History of t ubal ligation History of tonsillectomy History of tonsi llectomy Plan of Treatment Date Care Activity Detail Author Start: 12-10-2023 Covid-19 Vaccine ( season) Covid-19 Vaccine ( season) [facility] Start: 12-10-2023 Influenza vaccination Influenza Vacc ine (#1) [facility] Start: 04-10-2023 Advance Directive Discussion Advance Directive Discussion [facility] Start: 12-09-2020 Influenza vaccination INFLUENZA (Sea son Ended) [facility] Start: 2006 ADVANCE DIRECTIVE DISCUSSION ADVANCE DIRECTIVE DISCUSSION [facility] Start: 2006 BONE DENSITY BONE DENSITY [facility] Start: 2006 Pneumococcal Vaccine : 65+ (1 of 1 - PCV) Pneumococcal Vaccine: 65+ (1 of 1 - PCV) [facility] Start: 2006 PNEUMOVAX AGE 65 AND OVER WITH 5YR LOOKBACK (#1) PNEUMOVAX AGE 65 AND OVER WITH 5YR LOOKBACK (#1) [facility] Start: 2006 Screening for osteoporosis Bone Density Screening [facility] Start: 2001 RSV Vaccine (1 - 1-d ose 60+ series) RSV Vaccine (1 - 1-dose 60+ series) [facility] Start: 1991 Screening for malign ant neoplasm of colon [facility] Start: 1991 SHINGRIX VACCINE (1 of 2) SHINGRIX V ACCINE (1 of 2) [facility] Start: 1986 DIABETES SCREEN [facility]CREEN [facility] Start: 1986 Diabetes Screening Diabetes Screenin g [facility] Start: 1960 Urine microalbumin profile [facility] Start: 1959 Anxiety Screening Anxiety Screening [facility] Start: 1959 Depression Screening Depression Scre ening [facility] Start: 1953 Adult depression screening assessment DEPRESSION SCREENING [facility] Immunizations Immunization Date Immunization Notes Care Provider Fa cility 02-23-2017 influenza, injectabl e, quadrivalent, preservative free [facility] 02-23-2017 influenza, seasonal, injectable [facility] 02-23-2017 influenza virus vaccine, unspecified formulation Xr [place] Work Phone: [facility] Payers Date Payer Category Payer Self-pay [id number] 2012 Private Health Insurance 101 [id number] 2009 Medicare AETNA MEDICARE A ETNA MEDICARE PPO [id number] 2009-Present PPO [id number] 2009 Medicare AETNA MEDICARE A ETNA MEDICARE PPO [id number] 2009-Present [phone] [address] [place] [address] PPO [id number] Unknown [id number] 63 Unknown [id number] Unknown [id number] 62 Unknown [id number] 63 Unknown [id number] Social History Date Type Detail Facility Start: 09-16-2020 Tobacco smoking status NHIS Never smoker [facility] Start: 09-16-2020 Tobacco use and exposure Never used [facility] Start: 09-16-2020 Alcohol intake Current non-dr soda fountain manager of alcohol (finding) [facility] Start: 1940 Sex Assigned At Not on file [facility] Start: 08-17-2020 End: 09-16-2020 Exposure to SARS-CoV-2 (event) Not sure [facility] Start: 10-29-2018 Tobacco smoking status AZIS Unknown if ever smoked [facility] Start: 01-14-2017 None [facility] Start: 02-22-2017 Spouse/ Signif icant Other [facility] Start: 09-10-2018 Non-smoker [facility] Start: 1940 Sex Assigned At Female [facility] Start: 09-16-2020 History of Social function [facility] Start: 09-16-2020 Tobacco use panel [facility] National Score (1-100), lower number is lower risk Not on file [facility] Medical Equipment Procedure Code Equipment Code Equipment Origin al Text Equipment Identifier Dates MESH,3DMAX RIGHT LG [id number] FDA Start: 10-18-2018 TACKER,SECURE STRAP FDA Start : 10-18-2018 MESH,3DMAX RIGHT LG [id number] FDA Start: 10-18-2018 TACKER,SECURE STRAP FDA Start : 10-18-2018 MESH,3DMAX RIGHT LG [id number] FDA Start: 10-18-2018 TACKER,SECURE STRAP FDA Start : 10-18-2018 MESH,3DMAX RIGHT LG [id number] FDA Start: 10-18-2018 TACKER,SECURE STRAP FDA Start : 10-18-2018 Progress note 09-16-2020 Note Date & Type Note Facility 09-16-2020 Note HNO ID: [id number] Author: Kranthi Tijerina APRN.FACIALIST Service: ? Author Type: Nurse Practitioner Type: Progress Notes Filed: 09/16/2020 7:42 PM Note Text: This note was created using Fileforce. Subjective Vee Fuentes is a 80 year [...] discharged home in stable condition. Kranthi Tijerina APRN.[facility] Progress note 09-16-2020 Note Date & Type Note Facility 09-16-2020 Note HNO ID: [id number] Author: Angelito Leon RT(R) Service: ? Author Type: Bingo Clerk Type: Progress Notes Filed: 09/16/2020 7:03 PM [...] Leon, RT(R) September 16, 2020 6:55 PM [facility] Instructions 09-16-2020 Patient Instructions Note Date & [...] of Present illness Narrative 09-16-2020 Kranthi Tijerina APRN.FACIALIST - 09/16/2020 7:31 PM EDT Note Date & Type Note Facility 09-16-2020 History of Presen t illness Narrative This note was created using [employer]. Subjective Vee Fuentes is a 80 year [...] Tijerina APRN.MARY ELLEN documented in this encounter [facility] History of Present illness Narrative 09-16-2020 Angelito [...] 2020 6:55 PM documented in this encounter [facility] Evaluation note Note Date & Type Note Facility Evaluation note Diagnosis Right wrist pain- Primary Pain in joint, forearm documented in this encounter [facility] Evaluation note Note Date & Type Note Facility Evaluation note No assessment information availa [facility] Work Phone: Evaluation note Note Date & Type Note Facility Evaluation note Diagnosis Right wrist pain Pain in joint, forearm documented in this encounter [facility] Reason for Referral Status Reason Specialty Diagnoses / Procedures Referred By Contact Referred To Contact Pending Review PCP Requested Referral Orthopedics Diagnoses Right wrist pain Procedures CONSULT TO ORTHOPAEDICS NEW PATIENT VISIT LEVEL 5 Kranthi Tijerina, SAMEER.FACIALIST [address] [place] [address] Summary Purpose Family History No Family History Records Found Relationship Condition Age at Onset Recorded Date/T arianna father Cardiac disease Unknown Asthma Unknown brother Cardiac disease Unknown Malignant neoplasm Unknown Advance Directives No Advanced Directives Records Found Advance Directive Response Recorded Date/ Time Living Will Yes October 15, 2018 8 :14am Power of Detail Manager Yes October 15, 2018 8:14am Additional Source [...] or prosecute any alcohol or drug abuse patient.[facility] Reason for Visit (unrecogniz ed section and content) Reason Comments Hand Injury RIGHT hand x 1 day INFORMATION SOURCE (unrecogn ized section and content) DATE CREATED AUTHOR 09/18/2020 [facility] DATE CREATED AUTHOR AUTHOR'S ORGANIZ ATION 05/22/2024 [facility] Goals (unrecognized section and content) Goals may [...] MD Primary Care Provider, Attending Provider Active Visual Merchandising Associate Relationship Specialty Start Date End Date Ferny [...] BE BASED ON THE PRIMARY CLINICAL RECORDS. [facility]. provides no warranty or guarantee of the accuracy or completeness of information in this document.
--- NOTE | 2024-12-14 14:34 | PCM.HP.STD ---
HPI - General General Date of Admission: 12/14/24 Date of Service: 12/14/24 Chief Complaint: Right sided abdominal pain/incarcerated hernia HPI Narrative SREEKANTH FUENTES, is a 84 F who presented to the emergency department at [facility] earlier today with about a 2-day history of right lower quadrant abdominal bulge and pain. She has a history of a previous laparoscopic right inguinal hernia repair several years ago. She also has a hiatal hernia as well as issues with anxiety, depression, hypothyroidism and hypertension. She presented to the emergency department as she states that her abdominal pain has progressively worsened over this past several days. She has never had pain or bulge in this area previously. She also admits to a rash in the right groin region as well. She was seen evaluate by the ER staff. She underwent a CT scan that revealed what appeared to be a spigelian hernia low in the right lower abdomen. This hernia contained a small segment of right colon. There was some mild edema of the mesentery, but no evidence of perforation or bowel ischemia. There was no evidence of bowel obstruction as a result of the hernia. Surgery consult was obtained. I saw the patient and attempted to reduce the hernia. Reduction was not able to be successful. As a result surgical repair was advised [facility] Medical History (Updated 12/14/24 @ 14:[address] Ta Hatch MD) Incarcerated ventral hernia Large hiatal hernia Right inguinal hernia Right lower quadrant abdominal pain Anxiety and depression Hemorrhoid Osteoarthritis Hypothyroidism Hypertension Home Medications ?Medication ?Instructions ?Recorded ?Last Taken ?Type levothyroxine 88 mcg tablet 88 mcg PO DAILY thyroid 01/13/17 12/13/24 History losartan 100 1 tab PO DAILY blood pressure 01/13/17 12/13/24 History mg-hydrochlorothiazide 25 mg tablet potassium chloride 20 mEq 20 meq PO DAILY SUPPLEMENT 01/13/17 12/13/24 History tablet,extended release quetiapine 25 mg tablet 1 tab PO QHS sleep 01/13/17 12/13/24 History acetaminophen 500 mg tablet 1,000 mg PO DAILY ARTHRITIS 02/22/17 12/13/24 History vilazodone 40 mg tablet (Viibryd) 40 mg PO DAILY 08/28/18 12/13/24 History Allergy/AdvReac Type Severity Reaction Status Date / Time cefaclor (From [facility]) Allergy Itching Verified 12/14/24 09:16 guaifenesin (From [facility]) AdvReac HORRIBLE Verified 12/14/24 09:16 HEADACHE phenylephrine (From [facility]) AdvReac HORRIBLE Verified 12/14/24 09:16 HEADACHE phenylpropanolamine (From AdvReac HORRIBLE Verified 12/14/24 09:16 [facility] [place]) HEADACHE prednisone AdvReac hallucinati Verified 12/14/24 09:16 ons Family History Father Heart disease Asthma Brother Heart disease Cancer prostate and leukemia Surgical History s/p lap right inguinal herniorrhaphy (~10/18/18) History of colonoscopy (~2007) History of total knee replacement (TKR) History of tonsillectomy History of tubal ligation Social History Smoking Status: Never smoker alcohol intake: never substance use type: does not use ROS Constitutional Constitutional: Reports systems reviewed and no addt'l complaints, except as documented Eyes Eyes: Reports systems reviewed and no addt'l complaints, except as documented ENT HEENT: Reports systems reviewed and no addt'l complaints, except as documented Cardiovascular Cardiovascular: Reports systems reviewed and no addt'l complaints, except as documented Respiratory/Chest Respiratory/Chest: Reports systems reviewed and no addt'l complaints, except as documented Gastrointestinal Gastrointestinal: Reports systems reviewed and no addt'l complaints, except as documented Vital Signs Vital Signs Vital Signs: 12/14/24 09:53 12/14/24 11:52 12/14/24 13:00 Temperature 98.3 F Temperature Source Oral Pulse Rate 69 61 71 Respiratory Rate 16 18 18 Blood Pressure 158/73 H 144/105 H 159/68 H Blood Pressure Mean 101 118 98 Pulse Ox 97 95 96 Oxygen Delivery Method Room Air Room Air Room Air 12/14/24 14:10 Temperature 98.8 F Temperature Source Pulse Rate 69 Respiratory Rate 20 H Blood Pressure 107/77 Blood Pressure Mean 87 Pulse Ox 92 Oxygen Delivery Method Weight Weight: 198 lb 13.711 oz Body Mass Index (BMI) 29.3 Results Medical Records Data Attestation: I reviewed the patient's medical records Lab / Micro Data Attestation: I reviewed the patient's lab results. 12/14/24 10:19 12/14/24 10:19 Labs: Laboratory Results - last 24 hr 12/14/24 10:19: WBC 6.6, RBC 4.25, Hgb 13.2, Hct 39.5, MCV 92.9, MCH 31.1, MCHC 33.4, RDW Std Deviation 49.4 H, RDW Coeff of Ag 14.3, Plt Count 249, MPV 10.0, Immature Gran % (Auto) 0.300, Neut % (Auto) 61.7, Lymph % (Auto) 23.4, [place] % (Auto) 8.4, Eos % (Auto) 5.1 H, Baso % (Auto) 1.1 H, Absolute Neuts (auto) 4.1, Absolute Lymphs (auto) 1.55, Nucleated RBC % 0, Sodium 143, Potassium 3.3, Chloride 106, Carbon Dioxide 22.2, Anion Gap 15, BUN 26 H, Creatinine 0.88, Estim Creat Clear Calc 57.96, Est GFR (MDRD) Non-Af 66, BUN/Creatinine Ratio 29.9 H, Glucose 101 H, Calcium 9.4, Total Bilirubin 0.61, AST 19, ALT 6, Alkaline Phosphatase 89, Total Protein 7.0, Albumin 4.1, Globulin 2.9, Albumin/Globulin Ratio 1.4, Lipase 34 Imaging Radiology Impression Abdomen/Pelvis CT 12/14/24 10:17 IMPRESSION: 1. Right lateral wall hernia contains proximal colonic loops. There is mild fat stranding consistent with surrounding inflammation, but no evidence of bowel obstruction, perforation or associated fluid collection/abscess. Reading Location: [id number] Assessment & Plan Assessment/Plan (1) Incarcerated ventral hernia: PLAN: Plan The patient is an 84-year-old female who presents with a 2-day history of right lower abdomen bulge and pain. Workup in the ER revealed an incarcerated spigelian hernia containing a segment of right colon. This was not amenable to reduction in the emergency department. As a result we have recommended surgical intervention. Specifically, I recommended a diagnostic laparoscopy to evaluate the status of the involved bowel, and also recommend an open repair with possible mesh. Surgery will begin once an OR becomes available. We did discuss the details of the planned procedure including risk benefits and alternatives. Charges/Coding Visit Charges Inpatient E&M: 00440 Init Hosp L3
--- NOTE | 2024-12-14 15:55 | PCM.PRE.AN2 ---
ASA Classification* ASA Classification ASA Classification: 2 and E Assessment & Plan Anesthesia* Anesthesia Assessment Anesthesia Assessment: Discussed sedation and/or anesthesia options, risks, benefits, and alternatives with patient/parents/legal guardian/POA. Questions invited. The patient/parents/legal guardian/POA seems to understand and agrees to proceed with anesthesia plan. Reviewed the physical assessment, medical history, allergy history and patient home medications list prior to surgery/procedure/anesthetic and documented any changes. Performed airway and anesthesia risk assessments. Anesthesia Type Anesthesia Type: General Anesthesia Focused Assessment* Temperature: 98.1 F Pulse Rate: 72 Blood Pressure: 145/66 Respiratory Rate: 20 Pulse Ox: 92 Airway Assessment Mouth opens: >3 cm Mallampati Score: II Labs Anesthesia Preop lab: CBC WBC 6.6 K/mm3 (4.4-11.0) 12/14/24 10:12/14/24 RBC 4.25 M/mm3 (4.2-5.4) 12/14/24 10:12/14/24 Hgb 13.2 g/dL (12.0-15.0) 12/14/24 10:12/14/24 Hct 39.5 % (37-47) 12/14/24 10:12/14/24 Plt Count 249 K/mm3 (150-450) 12/14/24 10:12/14/24 CHEMISTRY Potassium 3.3 mmol/L (3.3-5.1) 12/14/24 10:12/14/24 Sodium 143 mmol/L (133-145) 12/14/24 10:12/14/24 Magnesium 1.8 mg/dL (1.8-2.4) 01/14/17 05:55 01/14/17 BUN 26 mg/dL (4-19) H 12/14/24 10:12/14/24 Creatinine 0.88 mg/dL (0.70-1.20) 12/14/24 10:12/14/24 Glucose 101 mg/dL (70-99) H 12/14/24 10:12/14/24 POC Glucose 107 mg/dL (70-110) 01/13/17 10:13 01/13/17 TSH 0.507 uIU/mL (0.358-3.740) 04/16/24 10:31 04/16/24 COAG PT 14.1 SECONDS (11.7-14.9) 02/22/17 16:25 02/22/17 Pre-Assessment Diagnosis/Proposed Procedure Planned Operative Procedure(s): exploratory laparoscopy Anesthesia History Anesthesia History - special education classroom aide: Anesthesia History - special education classroom aide Hx Hospitalization Any Problems With Anesthesia No 12/14/24 14:30 Cholinesterase deficiency No 12/14/24 14:30 You/Your Family Experience No 12/14/24 14:30 fever (hyperthermia) with Relationship Recent Exposure to Contagious No 12/14/24 14:30 Disease Does patient have nerve No 12/14/24 14:30 stimulator Patient instructed to have device shut off --Does patient have Pacemaker or ICD? When Was Last Pacemaker Check QUESTION #4 FULL TEXT: You/Your Family Experience fever (hyperthermia) with Anesthesia Last Oral Intake Last Oral intake: Last Oral Intake NPO since Meds taken in AM with sips of water? Meds patient instructed to take am of surgery PONV PONV - special education classroom aide: PONV - special education classroom aide Female HX of Motion Sickness HX of N/V After Surgery Non-Smoker Duration of Surgery greater than 60 minutes Number of Risk Factors PONV Score Height & Weight Height & Weight: Anesthesia: Height & Weight Height 5 ft 9 in 12/14/24 14:30 Weight: 90.2 kg 12/14/24 14:30 Body Mass Index (BMI) 29.3 12/14/24 14:30 Respiratory Assessment Respiratory Assessment - special education classroom aide: Respiratory Tract Infection Hx - special education classroom aide Hx Respiratory Tract Infection No 12/14/24 14:30 STOP Sleep Apnea STOP Sleep Apnea - special education classroom aide: STOP Sleep Apnea - special education classroom aide Hx Hypertension No 12/14/24 14:30 Hx Sleep Apnea No 12/14/24 14:30 CPAP BIPAP Do you snore loudly (louder No 12/14/24 14:30 than talking or can be heard Do you often feel tired/ No 12/14/24 14:30 fatigued/ sleepy during daytime? Has anyone observed you stop No 12/14/24 14:30 breathing during sleep? STOP Results Negative 12/14/24 14:30 QUESTION #5 FULL TEXT : Do you snore loudly (louder than talking or can be heard through closed doors)? Tobacco Use History Tobacco Use History - special education classroom aide: Tobacco Use History - special education classroom aide Tobacco Use Smoking Status Never smoker 12/14/24 10:29 Hx Tobacco Use No 12/14/24 09:52 Years Smoking Packs Smoked per Day Smoking Cessation Date was within the last 15 years Hx Smoking Cessation Date Hx Smoking Cessation No 12/14/24 10:29 Counseling Hematologic Medial History Hematologic Hx - special education classroom aide: Hematologic Medical Hx - pompom maker Hx of Blood Transfusion Hx of Transfusion in last 3 Months Date of Last Transfusion (if within last 3 months) Ever experience any problems with transfusion(s)? Specify any problems Hx of Preganancy in last 3 Months Nurse Filling Out Transfusion & Questions: Date: Time: Patient unable to answer at this time (ie. confused, unrespo /Reproduction History /Reproductive History - special education classroom aide: /Reproductive Hx- special education classroom aide Hx Now No 12/14/24 14:30 Gestational Age (in weeks): EDC: Hx Hx Para Hx Section SAB No 12/14/24 14:30 PFSH Medical History Incarcerated ventral hernia Large hiatal hernia Right inguinal hernia Right lower quadrant abdominal pain Anxiety and depression Hemorrhoid Osteoarthritis Hypothyroidism Hypertension Home Medications ?Medication ?Instructions ?Recorded ?Last Taken ?Type levothyroxine 88 mcg tablet 88 mcg PO DAILY thyroid 01/13/17 12/13/24 History losartan 100 1 tab PO DAILY blood pressure 01/13/17 12/13/24 History mg-hydrochlorothiazide 25 mg tablet potassium chloride 20 mEq 20 meq PO DAILY SUPPLEMENT 01/13/17 12/13/24 History tablet,extended release quetiapine 25 mg tablet 1 tab PO QHS sleep 01/13/17 12/13/24 History acetaminophen 500 mg tablet 1,000 mg PO DAILY ARTHRITIS 02/22/17 12/13/24 History vilazodone 40 mg tablet (Viibryd) 40 mg PO DAILY 08/28/18 12/13/24 History Allergy/AdvReac Type Severity Reaction Status Date / Time cefaclor (From [facility]) Allergy Itching Verified 12/14/24 09:16 guaifenesin (From [facility]) AdvReac HORRIBLE Verified 12/14/24 09:16 HEADACHE phenylephrine (From [facility]) AdvReac HORRIBLE Verified 12/14/24 09:16 HEADACHE phenylpropanolamine (From Adv[facility] HORRIBLE Verified 12/14/24 09:16 [facility] [place]) HEADACHE prednisone AdvReac hallucinati Verified 12/14/24 09:16 ons Family History Father Heart disease Asthma Brother Heart disease Cancer prostate and leukemia Surgical History s/p lap right inguinal herniorrhaphy (~10/18/18) History of colonoscopy (~2007) History of total knee replacement (TKR) History of tonsillectomy History of tubal ligation Social History Smoking Status: Never smoker alcohol intake: never substance use type: does not use Review of Systems (Anesthesia) ROS Narrative System reviewed and no additional complaints, except as documented.
--- OUTSIDE RECORDS SUMMARY | 2024-12-14 17:38 | XMS RPT_ITS | CCD ---
Author Organization [facility] Care Team Providers Care Stock Taker Name Role Phone Yovani, Ferny Chi Primary [...] (1 source) Cefaclor Drug Allergy 11-16-19 08 [facility] Work Phone: guaiFENesin / Phenylephrine (1 source) guaiFENesin / Phenylephrine Drug Allergy 11-16-19 08 [facility] Work Phone: (5 sources) Cefaclor Drug Allergy 11-16-19 08 Itching [facility] (4 sources) guaiFENesin Drug Allergy 10-30-19 19 HORRIBLE HEADACHE [facility] (4 sources) Phenylephrine Drug Allergy 10-30-19 19 HORRIBLE HEADACHE [facility] (4 sources) Phenylpropanolamine Drug Allergy 10-30-19 19 HORRIBLE HEADACHE [facility] (4 sources) predniSONE Drug Allergy 10-30-19 19 hallucinations [facility] (1 source) guaiFENesin / Phenylephrine Drug Allergy 11-16-19 08 [facility] (1 source) Cefaclor Drug Allergy 10-30-19 19 [facility] (1 source) guaiFENesin Drug Allergy 10-30-19 19 [facility] (1 source) Phenylephrine Drug Allergy 10-30-19 19 [facility] (1 source) Phenylpropanolamine Drug Allergy 10-30-19 [facility] (1 source) predniSONE Drug Allergy 10-30-19 [facility] Medications Current Medications Medication Drug [...] 1,000 MG- 300 MG CAP, DELAYED RELEASE) wyybrtxy-qbwteqm-iovf 149-hyal(GLUCOSAMINE CHONDROITIN COMPLEX ADVANCED [id number]-1.65MG TAB) (2 sources) Start: 07-03-2009 glucosam-chond ro-herb 149-hyal(GLUCOSAMINE CHONDROITIN COMPLEX ADVANCED [id number]-1.65MG TAB) 0 07/03/2009 Active Start: 07-03-2009 glucosam-chond ro-herb 149-hyal(GLUCOSAMINE CHONDROITIN COMPLEX ADVANCED [id number]-1.65MG TAB) hydroCHLOROthiazide 25 mg / losartan potassium [...] Take 88 mcg by mouth once daily. Zwwwvbvl-Brz-Kl-Lycopen-Lut ein (4 sources) Start: 017 Chjloyac-Quc-Wr-Lyco pen-Lutein Active 1 EACH PO DAILY February [...] )on 05-03-2024 BUN/CRE 26.9 RATIO High 10-20 [facility] Comment on above: Performed By: #### L 500.2500 #### [facility] [address] [place], [address] CA,Total 9.7 mg/dL Normal 8.5-10.1 [facility] Comment on above: Performed By: #### L 500.2500 #### [facility] [address] [place], [address] Chloride [Moles/Vol] 110 mmol/L High 98-107 [facility] Comment on above: Performed By: #### L 500.2500 #### [facility] [address] [place], [address] CO2 [Moles/Vol] 28.0 mmol/L Normal 21.0-32.0 [facility] Comment on above: Performed By: #### L 500.2500 #### [facility] [address] [place], [address] Creatinine [Mass/Vol] 0.93 mg/dL Normal 0.55-1.02 [facility] Comment on above: Result Comment: The validity of the calculated GFR GFRAA in patients over 70 years has not been determined. Clinical correlation is essential. Performed By: #### L 500.2500 #### [facility] [address] [place], [address] EST GFR - AA 74 mL/min Normal >60 [facility] Comment on above: Result Comment: Afri can [place] GFR Calc Performed By: #### L 500.2500 #### [facility] [address] [place], [address] GAP 5 Normal 5-15 [facility] Comment on above: Performed By: #### L 500.2500 #### [facility] [address] [place], [address] GFR/1.73 sq M.predicted among non-blacks MDRD (S/P/Bld) [Vol rate/Area] 61 mL/min/{1.73_m2} Normal >60 [facility] Comment on above: Result Comment: Non- GFR Calc Performed By: #### L 500.2500 #### [facility] [address] [place], [address] Glucose [Mass/Vol] 100 mg/dL Normal 74-106 [facility] Comment on above: Result Comment: Fast ing Glucose result from 100 to 125 mg/dL suggests IMPAIRED HOMEOSTASIS per A.D.A. criteria. Performed By: #### L 500.2500 #### [facility] [address] [place], [address] Potassium [Moles/Vol] 3.9 mmol/L Normal 3.5-5.1 [facility] Comment on above: Performed By: #### L 500.2500 #### [facility] [address] [place], [address] Sodium [Moles/Vol] 143 mmol/L Normal 136-145 [facility] Comment on above: Performed By: #### L 500.2500 #### [facility] [address] [place], [address] Urea nitrogen [Mass/Vol] 25 mg/dL High 7-18 [facility] Comment on above: Performed By: #### L 500.2500 #### [facility] [address] [place], [address] CBC W/Diff, Automatedon 01-0 -2024 Absolute Lymph 1.78 X10 3/uL Normal 0.83-4.51 [facility] Comment on above: Performed By: #### L 500.4050, L506.1000, L501.9520, L100.0100 #### [facility] [address] [place], [address] Absolute Neut 4.7 X10 3/uL Normal 2.0-7.7 [facility] Comment on above: Performed By: #### L 500.4050, L506.1000, L501.9520, L100.0100 #### [facility] [address] [place], [address] Basophils/100 WBC (Bld) 0.8 % Normal 0-1 [facility] Comment on above: Performed By: #### L 500.4050, L506.1000, L501.9520, L100.0100 #### [facility] [address] [place], [address] Eosinophils/100 WBC (Bld) 2.8 % Normal 0-5 [facility] Comment on above: Performed By: #### L 500.4050, L506.1000, L501.9520, L100.0100 #### [facility] [address] [place], [address] Erythrocyte distribution width (RBC) [Ratio] 14.1 % Normal 11.6-14.6 [facility] Comment on above: Performed By: #### L 500.4050, L506.1000, L501.9520, L100.0100 #### [facility] [address] [place], [address] Hematocrit (Bld) [Volume fraction] 41.5 % Normal 37-47 [facility] Comment on above: Performed By: #### L 500.4050, L506.1000, L501.9520, L100.0100 #### [facility] [address] [place], [address] Hemoglobin (Bld) [Mass/Vol] 12.9 g/dL Normal 12.0-15.0 [facility] Comment on above: Performed By: #### L 500.4050, L506.1000, L501.9520, L100.0100 #### [facility] [address] [place], [address] IG% 0.100 Normal 0.0-0.9 [facility] Comment on above: Result Comment: IG% - Immature Granulocytes (promyelocytes, myelocytes and metamyelocytes) > 1% indicates that a LEFT SHIFT is Present. Performed By: #### L 500.4050, L506.1000, L501.9520, L100.0100 #### [facility] [address] [place], [address] Lymphocytes/100 WBC (Bld) 24.5 % Normal 19-41 [facility] Comment on above: Performed By: #### L 500.4050, L506.1000, L501.9520, L100.0100 #### [facility] [address] [place], [address] MCH (RBC) [Entitic mass] 29.7 pg Normal 27.0-32.0 [facility] Comment on above: Performed By: #### L 500.4050, L506.1000, L501.9520, L100.0100 #### [facility] [address] [place], [address] MCHC (RBC) [Mass/Vol] 31.1 g/dL Low 32-36 [facility] Comment on above: Performed By: #### L 500.4050, L506.1000, L501.9520, L100.0100 #### [facility] [address] [place], [address] MCV (RBC) [Entitic vol] 95.4 fL Normal 81-99 [facility] Comment on above: Performed By: #### L 500.4050, L506.1000, L501.9520, L100.0100 #### [facility] [address] [place], [address] Monocytes/100 WBC (Bld) 7.0 % Normal 0-10 [facility] Comment on above: Performed By: #### L 500.4050, L506.1000, L501.9520, L100.0100 #### [facility] [address] [place], [address] Neutrophils/100 WBC (Bld) 64.8 % Normal 47-70 [facility] Comment on above: Performed By: #### L 500.4050, L506.1000, L501.9520, L100.0100 #### [facility] [address] [place], [address] Nucleated RBC (Bld) [#/Vol] 0 10*3/uL Normal 0-5 [facility] Comment on above: Performed By: #### L 500.4050, L506.1000, L501.9520, L100.0100 #### [facility] [address] [place], [address] Platelet mean volume (Bld) [Entitic vol] 9.8 fL Normal 6.2-12.0 [facility] Comment on above: Performed By: #### L 500.4050, L506.1000, L501.9520, L100.0100 #### [facility] [address] [place], [address] Platelets (Bld) [#/Vol] 264 10*3/uL Normal 150-450 [facility] Comment on above: Performed By: #### L 500.4050, L506.1000, L501.9520, L100.0100 #### [facility] [address] [place], [address] RBC (Bld) [#/Vol] 4.35 10*6/uL Normal 4.2-5.4 [facility] Comment on above: Performed By: #### L 500.4050, L506.1000, L501.9520, L100.0100 #### [facility] [address] [place], [address] RDW SD 50.1 fl High 35.1-43.9 [facility] Comment on above: Performed By: #### L 500.4050, L506.1000, L501.9520, L100.0100 #### [facility] [address] [place], [address] WBC (Bld) [#/Vol] 7.3 10*3/uL Normal 4.4-11.0 [facility] Comment on above: Performed By: #### L 500.4050, L506.1000, L501.9520, L100.0100 #### [facility] [address] [place], [address] Comprehensive Metabolic Prof [facility] 04-16-2024 Albumin [Mass/Vol] 3.7 g/dL Normal 3.2-5.0 [facility] Comment on above: Performed By: #### L 500.4050, L506.1000, L501.9520, L100.0100 #### [facility] [address] [place], [address] Albumin/Globulin [Mass ratio] 0.9 {ratio} Normal 0.9-2.4 [facility] Comment on above: Performed By: #### L 500.4050, L506.1000, L501.9520, L100.0100 #### [facility] [address] [place], [address] ALK P 106 U/L Normal 45-117 [facility] Comment on above: Performed By: #### L 500.4050, L506.1000, L501.9520, L100.0100 #### [facility] [address] [place], [address] ALT [Catalytic activity/Vol] 14 U/L Normal 13-56 [facility] Comment on above: Performed By: #### L 500.4050, L506.1000, L501.9520, L100.0100 #### [facility] [address] [place], [address] AST [Catalytic activity/Vol] 13 U/L Low 15-37 [facility] Comment on above: Performed By: #### L 500.4050, L506.1000, L501.9520, L100.0100 #### [facility] [address] [place], [address] Bilirubin [Mass/Vol] 0.60 mg/dL Normal 0.20-1.00 [facility] Comment on above: Result Comment: For patients on eltrombopag therapy, use of Dimension [place] TBIL is not recommended. Performed By: #### L 500.4050, L506.1000, L501.9520, L100.0100 #### [facility] [address] [place], [address] BUN/CRE 29.8 RATIO High 10-20 [facility] Comment on above: Performed By: #### L 500.4050, L506.1000, L501.9520, L100.0100 #### [facility] [address] [place], [address] CA,Total 9.3 mg/dL Normal 8.5-10.1 [facility] Comment on above: Performed By: #### L 500.4050, L506.1000, L501.9520, L100.0100 #### [facility] [address] [place], [address] Chloride [Moles/Vol] 109 mmol/L High 98-107 [facility] Comment on above: Performed By: #### L 500.4050, L506.1000, L501.9520, L100.0100 #### [facility] [address] [place], [address] CO2 [Moles/Vol] 29.0 mmol/L Normal 21.0-32.0 [facility] Comment on above: Performed By: #### L 500.4050, L506.1000, L501.9520, L100.0100 #### [facility] [address] [place], [address] Creatinine [Mass/Vol] 0.91 mg/dL Normal 0.55-1.02 [facility] Comment on above: Result Comment: The validity of the calculated GFR GFRAA in patients over 70 years has not been determined. Clinical correlation is essential. Performed By: #### L 500.4050, L506.1000, L501.9520, L100.0100 #### [facility] [address] [place], [address] EST GFR - AA 76 mL/min Normal >60 [facility] Comment on above: Result Comment: Afri can [place] GFR Calc Performed By: #### L 500.4050, L506.1000, L501.9520, L100.0100 #### [facility] [address] [place], [address] GAP 3 Low 5-15 [facility] Comment on above: Performed By: #### L 500.4050, L506.1000, L501.9520, L100.0100 #### [facility] [address] [place], [address] GFR/1.73 sq M.predicted among non-blacks MDRD (S/P/Bld) [Vol rate/Area] 63 mL/min/{1.73_m2} Normal >60 [facility] Comment on above: Result Comment: Non- GFR Calc Performed By: #### L 500.4050, L506.1000, L501.9520, L100.0100 #### [facility] [address] [place], [address] Globulin (S) [Mass/Vol] 3.9 g/dL Normal 2.2-4.2 [facility] Comment on above: Performed By: #### L 500.4050, L506.1000, L501.9520, L100.0100 #### [facility] [address] [place], [address] Glucose [Mass/Vol] 109 mg/dL High 74-106 [facility] Comment on above: Result Comment: Fast ing Glucose result from 100 to 125 mg/dL suggests IMPAIRED HOMEOSTASIS per A.D.A. criteria. Performed By: #### L 500.4050, L506.1000, L501.9520, L100.0100 #### [facility] [address] [place], [address] Potassium [Moles/Vol] 3.3 mmol/L Low 3.5-5.1 [facility] Comment on above: Performed By: #### L 500.4050, L506.1000, L501.9520, L100.0100 #### [facility] [address] [place], [address] Sodium [Moles/Vol] 142 mmol/L Normal 136-145 [facility] Comment on above: Performed By: #### L 500.4050, L506.1000, L501.9520, L100.0100 #### [facility] [address] [place], [address] T PROT 7.6 g/dL Normal 6.4-8.2 [facility] Comment on above: Performed By: #### L 500.4050, L506.1000, L501.9520, L100.0100 #### [facility] [address] [place], [address] Urea nitrogen [Mass/Vol] 27 mg/dL High 7-18 [facility] Comment on above: Performed By: #### L 500.4050, L506.1000, L501.9520, L100.0100 #### [facility] [address] [place], [address] Thyroid Stim Hormone (TSH)on 04-16-2024 TSH 0.507 uIU/mL Normal 0.358-3.740 [facility] Comment on above: Performed By: #### L 500.4050, L506.1000, L501.9520, L100.0100 #### [facility] [address] [place], [address] Vitamin D,25 Hydroxyon 04-16 Vitamin D 25-OH 18.2 ng/mL Normal [facility] Comment on above: Result Comment: Pretty min D 25(OH) Status Range Deficiency <20 ng/mL (50nmol/L) Insufficiency 20 - 30 ng/mL (50 - 75 nmol/L) Sufficiency 30 - 100 ng/mL (75 - 250 nmol/L) Toxicity >100 ng/mL (>250 nmol/L) Performed By: #### L 500.4050, L506.1000, L501.9520, L100.0100 #### [facility] [address] [place], [address] CBC W/Diff, Automatedon 10-0 Absolute Lymph 2.06 X10 3/uL Normal 0.83-4.51 [facility] Comment on above: Performed By: #### L 500.4050, L100.0100, L501.9520, L506.1000 #### [facility] [address] [place], [address] Absolute Neut 3.4 X10 3/uL Normal 2.0-7.7 [facility] Comment on above: Performed By: #### L 500.4050, L100.0100, L501.9520, L506.1000 #### [facility] [address] [place], [address] Basophils/100 WBC (Bld) 0.9 % Normal 0-1 [facility] Comment on above: Performed By: #### L 500.4050, L100.0100, L501.9520, L506.1000 #### [facility] [address] [place], [address] Eosinophils/100 WBC (Bld) 4.1 % Normal 0-5 [facility] Comment on above: Performed By: #### L 500.4050, L100.0100, L501.9520, L506.1000 #### [facility] [address] [place], [address] Erythrocyte distribution width (RBC) [Ratio] 14.7 % High 11.6-14.6 [facility] Comment on above: Performed By: #### L 500.4050, L100.0100, L501.9520, L506.1000 #### [facility] [address] [place], [address] Hematocrit (Bld) [Volume fraction] 43.1 % Normal 37-47 [facility] Comment on above: Performed By: #### L 500.4050, L100.0100, L501.9520, L506.1000 #### [facility] [address] [place], [address] Hemoglobin (Bld) [Mass/Vol] 13.6 g/dL Normal 12.0-15.0 [facility] Comment on above: Performed By: #### L 500.4050, L100.0100, L501.9520, L506.1000 #### [facility] [address] [place], [address] IG% 0.300 Normal 0.0-0.9 [facility] Comment on above: Result Comment: IG% - Immature Granulocytes (promyelocytes, myelocytes and metamyelocytes) > 1% indicates that a LEFT SHIFT is Present. Performed By: #### L 500.4050, L100.0100, L501.9520, L506.1000 #### [facility] [address] [place], [address] Lymphocytes/100 WBC (Bld) 32.5 % Normal 19-41 [facility] Comment on above: Performed By: #### L 500.4050, L100.0100, L501.9520, L506.1000 #### [facility] [address] [place], [address] MCH (RBC) [Entitic mass] 30.0 pg Normal 27.0-32.0 [facility] Comment on above: Performed By: #### L 500.4050, L100.0100, L501.9520, L506.1000 #### [facility] [address] [place], [address] MCHC (RBC) [Mass/Vol] 31.6 g/dL Low 32-36 [facility] Comment on above: Performed By: #### L 500.4050, L100.0100, L501.9520, L506.1000 #### [facility] [address] [place], [address] MCV (RBC) [Entitic vol] 95.1 fL Normal 81-99 [facility] Comment on above: Performed By: #### L 500.4050, L100.0100, L501.9520, L506.1000 #### [facility] [address] [place], [address] Monocytes/100 WBC (Bld) 9.1 % Normal 0-10 [facility] Comment on above: Performed By: #### L 500.4050, L100.0100, L501.9520, L506.1000 #### [facility] [address] [place], [address] Neutrophils/100 WBC (Bld) 53.1 % Normal 47-70 [facility] Comment on above: Performed By: #### L 500.4050, L100.0100, L501.9520, L506.1000 #### [facility] [address] [place], [address] Nucleated RBC (Bld) [#/Vol] 0 10*3/uL Normal 0-5 [facility] Comment on above: Performed By: #### L 500.4050, L100.0100, L501.9520, L506.1000 #### [facility] [address] [place], [address] Platelet mean volume (Bld) [Entitic vol] 10.7 fL Normal 6.2-12.0 [facility] Comment on above: Performed By: #### L 500.4050, L100.0100, L501.9520, L506.1000 #### [facility] [address] [place], [address] Platelets (Bld) [#/Vol] 278 10*3/uL Normal 150-450 [facility] Comment on above: Performed By: #### L 500.4050, L100.0100, L501.9520, L506.1000 #### [facility] [address] [place], [address] RBC (Bld) [#/Vol] 4.53 10*6/uL Normal 4.2-5.4 [facility] Comment on above: Performed By: #### L 500.4050, L100.0100, L501.9520, L506.1000 #### [facility] [address] [place], [address] RDW SD 51.9 fl High 35.1-43.9 [facility] Comment on above: Performed By: #### L 500.4050, L100.0100, L501.9520, L506.1000 #### [facility] [address] [place], [address] WBC (Bld) [#/Vol] 6.3 10*3/uL Normal 4.4-11.0 [facility] Comment on above: Performed By: #### L 500.4050, L100.0100, L501.9520, L506.1000 #### [facility] [address] [place], [address] Comprehensive Metabolic Prof ilon 01-16-2024 Albumin [Mass/Vol] 3.6 g/dL Normal 3.2-5.0 [facility] Comment on above: Performed By: #### L 500.4050, L506.1000, L501.9520, L100.0100 #### [facility] [address] [place], [address] Albumin/Globulin [Mass ratio] 1.0 {ratio} Normal 0.9-2.4 [facility] Comment on above: Performed By: #### L 500.4050, L506.1000, L501.9520, L100.0100 #### [facility] [address] [place], [address] ALK P 109 U/L Normal 45-117 [facility] Comment on above: Performed By: #### L 500.4050, L506.1000, L501.9520, L100.0100 #### [facility] [address] [place], [address] ALT [Catalytic activity/Vol] 12 U/L Low 13-56 [facility] Comment on above: Performed By: #### L 500.4050, L506.1000, L501.9520, L100.0100 #### [facility] [address] [place], [address] AST [Catalytic activity/Vol] 15 U/L Normal 15-37 [facility] Comment on above: Performed By: #### L 500.4050, L506.1000, L501.9520, L100.0100 #### [facility] [address] [place], [address] Bilirubin [Mass/Vol] 0.60 mg/dL Normal 0.20-1.00 [facility] Comment on above: Result Comment: For patients on eltrombopag therapy, use of Dimension [place] TBIL is not recommended. Performed By: #### L 500.4050, L506.1000, L501.9520, L100.0100 #### [facility] [address] [place], [address] BUN/CRE 28.7 RATIO High 10-20 [facility] Comment on above: Performed By: #### L 500.4050, L506.1000, L501.9520, L100.0100 #### [facility] [address] [place], [address] CA,Total 9.5 mg/dL Normal 8.5-10.1 [facility] Comment on above: Performed By: #### L 500.4050, L506.1000, L501.9520, L100.0100 #### [facility] [address] [place], [address] Chloride [Moles/Vol] 110 mmol/L High 98-107 [facility] Comment on above: Performed By: #### L 500.4050, L506.1000, L501.9520, L100.0100 #### [facility] [address] [place], [address] CO2 [Moles/Vol] 24.0 mmol/L Normal 21.0-32.0 [facility] Comment on above: Performed By: #### L 500.4050, L506.1000, L501.9520, L100.0100 #### [facility] [facility] [address] [place], [address] Creatinine [Mass/Vol] 0.91 mg/dL Normal 0.55-1.02 [facility] Comment on above: Result Comment: The validity of the calculated GFR GFRAA in patients over 70 years has not been determined. Clinical correlation is essential. Performed By: #### L 500.4050, L506.1000, L501.9520, L100.0100 #### [facility] [address] [place], [address] EST GFR - AA 76 mL/min Normal >60 [facility] Comment on above: Result Comment: Afri can [place] GFR Calc Performed By: #### L 500.4050, L506.1000, L501.9520, L100.0100 #### [facility] [address] [place], [address] GAP 10 Normal 5-15 [facility] Comment on above: Performed By: #### L 500.4050, L506.1000, L501.9520, L100.0100 #### [facility] [address] [place], [address] GFR/1.73 sq M.predicted among non-blacks MDRD (S/P/Bld) [Vol rate/Area] 63 mL/min/{1.73_m2} Normal >60 [facility] Comment on above: Result Comment: Non- GFR Calc Performed By: #### L 500.4050, L506.1000, L501.9520, L100.0100 #### [facility] [address] [place], [address] Globulin (S) [Mass/Vol] 3.7 g/dL Normal 2.2-4.2 [facility] Comment on above: Performed By: #### L 500.4050, L506.1000, L501.9520, L100.0100 #### [facility] [address] [place], [address] Glucose [Mass/Vol] 109 mg/dL High 74-106 [facility] Comment on above: Result Comment: Fast ing Glucose result from 100 to 125 mg/dL suggests IMPAIRED HOMEOSTASIS per A.D.A. criteria. Performed By: #### L 500.4050, L506.1000, L501.9520, L100.0100 #### [facility] [address] [place], [address] Potassium [Moles/Vol] 3.4 mmol/L Low 3.5-5.1 [facility] Comment on above: Performed By: #### L 500.4050, L506.1000, L501.9520, L100.0100 #### [facility] [address] [place], [address] Sodium [Moles/Vol] 144 mmol/L Normal 136-145 [facility] Comment on above: Performed By: #### L 500.4050, L506.1000, [id number], L100.0100 #### [facility] [address] [place], [address] T PROT 7.3 g/dL Normal 6.4-8.2 [facility] Comment on above: Performed By: #### L 500.4050, L506.1000, L501.9520, L100.0100 #### [facility] [address] [place], [address] Urea nitrogen [Mass/Vol] 26 mg/dL High 7-18 [facility] Comment on above: Performed By: #### L 500.4050, L506.1000, [id number], L100.0100 #### [facility] [address] [place], [address] Thyroid Stim Hormone (TSH)on 01-16-2024 TSH 0.949 uIU/mL Normal 0.358-3.740 [facility] Comment on above: Performed By: #### L 500.4050, L506.1000, L501.9520, L100.0100 #### [facility] [address] [place], [address] Vitamin D,25 Hydroxyon 01-15 Vitamin D 25-OH 20.7 ng/mL Normal [facility] Comment on above: Result Comment: Pretty min D 25(OH) Status Range Deficiency <20 ng/mL (50nmol/L) Insufficiency 20 - 30 ng/mL (50 - 75 nmol/L) Sufficiency 30 - 100 ng/mL (75 - 250 nmol/L) Toxicity >100 ng/mL (>250 nmol/L) Performed By: #### L 500.4050, L506.1000, L501.9520, L100.0100 #### [facility] [address] [place], [place], [id number] Absolute lymphocyte countOrd ered By: Ferny Pina on 06-28-2023 Lymphocytes Auto (Unsp spec) [#/Vol] 1.99 10*3/uL 0.83-4.51 [facility] Automated lymphocyte count a s percentage of total leukocytesOrdered By: Ferny Yovani on 06-28-2023 Lymphocytes/100 WBC Auto (Unsp spec) 39.3 % 19-41 [facility] Basophil percentageOrdered B y: Ferny Pina on 06-28-2023 Basophils/100 WBC (Bld) 1.0 % 0-1 [facility] Bilirubin [Mass/Vol] 0.40 mg/dL 0.20-1.00 [facility] Comment on above: For patients on eltr ombopag therapy, use of Dimension [place] TBIL is not recommended. Chloride [Moles/Vol] 108 mmol/L 98-107 [facility] Eosinophils/100 WBC (Bld) 3.6 % 0-5 [facility] Glucose [Mass/Vol] 112 mg/dL 74-106 [facility] Comment on above: Fasting Glucose resu lt from 100 to 125 mg/dL suggests IMPAIRED HOMEOSTASIS per A.D.A. criteria. Hemoglobin (Bld) [Mass/Vol] 12.4 g/dL 12.0-15.0 [facility] Monocytes/100 WBC (Bld) 8.5 % 0-10 [facility] Neutrophils (Bld) [#/Vol] 2.4 10*3/uL 2.0-7.7 [facility] Neutrophils/100 WBC (Bld) 47.4 % 47-70 [facility] Potassium [Moles/Vol] 3.5 mmol/L 3.5-5.1 [facility] Protein [Mass/Vol] 7.5 g/dL 6.4-8.2 [facility] Sodium [Moles/Vol] 145 mmol/L 136-145 [facility] WBC (Bld) [#/Vol] 5.1 10*3/uL 4.4-11.0 [facility] CBC W/Diff, Automatedon 03-2 0-2023 Absolute Lymph 1.99 X10 3/uL Normal 0.83-4.51 [facility] Comment on above: Performed By: #### L 100.0100, L506.1000, L500.4050, L501.9520 #### [facility] [address] [place], [address] Absolute Neut 2.4 X10 3/uL Normal 2.0-7.7 [facility] Comment on above: Performed By: #### L 100.0100, L506.1000, L500.4050, L501.9520 #### [facility] [address] [place], [address] Basophils/100 WBC (Bld) 1.0 % Normal 0-1 [facility] Comment on above: Performed By: #### L 100.0100, L506.1000, L500.4050, L501.9520 #### [facility] [address] [place], [address] Eosinophils/100 WBC (Bld) 3.6 % Normal 0-5 [facility] Comment on above: Performed By: #### L 100.0100, L506.1000, L500.4050, L501.9520 #### [facility] [address] [place], [address] Erythrocyte distribution width (RBC) [Ratio] 13.3 % Normal 11.6-14.6 [facility] Comment on above: Performed By: #### L 100.0100, L506.1000, L500.4050, L501.9520 #### [facility] [address] [place], [address] Hematocrit (Bld) [Volume fraction] 39.0 % Normal 37-47 [facility] Comment on above: Performed By: #### L 100.0100, L506.1000, L500.4050, L501.9520 #### [facility] [address] [place], [address] Hemoglobin (Bld) [Mass/Vol] 12.4 g/dL Normal 12.0-15.0 [facility] Comment on above: Performed By: #### L 100.0100, L506.1000, L500.4050, L501.9520 #### [facility] [address] [place], [address] IG% 0.200 Normal 0.0-0.9 [facility] Comment on above: Result Comment: IG% - Immature Granulocytes (promyelocytes, myelocytes and metamyelocytes) > 1% indicates that a LEFT SHIFT is Present. Performed By: #### L 100.0100, L506.1000, L500.4050, L501.9520 #### [facility] [address] [place], [address] Lymphocytes/100 WBC (Bld) 39.3 % Normal 19-41 [facility] Comment on above: Performed By: #### L 100.0100, L506.1000, L500.4050, L501.9520 #### [facility] [address] [place], [address] MCH (RBC) [Entitic mass] 29.1 pg Normal 27.0-32.0 [facility] Comment on above: Performed By: #### L 100.0100, L506.1000, L500.4050, L501.9520 #### [facility] [address] [place], [address] MCHC (RBC) [Mass/Vol] 31.8 g/dL Low 32-36 [facility] Comment on above: Performed By: #### L 100.0100, L506.1000, L500.4050, L501.9520 #### [facility] [address] [place], [address] MCV (RBC) [Entitic vol] 91.5 fL Normal 81-99 [facility] Comment on above: Performed By: #### L 100.0100, L506.1000, L500.4050, L501.9520 #### [facility] [address] [place], [address] Monocytes/100 WBC (Bld) 8.5 % Normal 0-10 [facility] Comment on above: Performed By: #### L 100.0100, L506.1000, L500.4050, L501.9520 #### [facility] [address] [place], [address] Neutrophils/100 WBC (Bld) 47.4 % Normal 47-70 [facility] Comment on above: Performed By: #### L 100.0100, L506.1000, L500.4050, L501.9520 #### [facility] [address] [place], [address] Nucleated RBC (Bld) [#/Vol] 0 10*3/uL Normal 0-5 [facility] Comment on above: Performed By: #### L 100.0100, L506.1000, L500.4050, L501.9520 #### [facility] [address] [place], [address] Platelet mean volume (Bld) [Entitic vol] 9.9 fL Normal 6.2-12.0 [facility] Comment on above: Performed By: #### L 100.0100, L506.1000, L500.4050, L501.9520 #### [facility] [address] [place], [address] Platelets (Bld) [#/Vol] 327 10*3/uL Normal 150-450 [facility] Comment on above: Performed By: #### L 100.0100, L506.1000, L500.4050, L501.9520 #### [facility] [address] [place], [address] RBC (Bld) [#/Vol] 4.26 10*6/uL Normal 4.2-5.4 [facility] Comment on above: Performed By: #### L 100.0100, L506.1000, L500.4050, L501.9520 #### [facility] [address] [place], [address] RDW SD 44.7 fl High 35.1-43.9 [facility] Comment on above: Performed By: #### L 100.0100, L506.1000, L500.4050, L501.9520 #### [facility] [address] [place], [address] WBC (Bld) [#/Vol] 5.1 10*3/uL Normal 4.4-11.0 [facility] Comment on above: Performed By: #### L 100.0100, L506.1000, L500.4050, L501.9520 #### [facility] [address] [place], [address] Comprehensive Metabolic Prof [facility] 06-28-2023 Albumin [Mass/Vol] 3.2 g/dL Normal 3.2-5.0 [facility] Comment on above: Performed By: #### L 100.0100, L506.1000, L500.4050, [id number] #### [facility] [address] [place], [address] Albumin/Globulin [Mass ratio] 0.7 {ratio} Low 0.9-2.4 [facility] Comment on above: Performed By: #### L 100.0100, L506.1000, L500.4050, L501.9520 #### [facility] [address] [place], [address] ALK P 104 U/L Normal 45-117 [facility] Comment on above: Performed By: #### L 100.0100, L506.1000, L500.4050, L501.9520 #### [facility] [address] [place], [address] ALT [Catalytic activity/Vol] 12 U/L Low 13-56 [facility] Comment on above: Performed By: #### L 100.0100, L506.1000, L500.4050, L501.9520 #### [facility] [address] [place], [address] AST [Catalytic activity/Vol] 15 U/L Normal 15-37 [facility] Comment on above: Performed By: #### L 100.0100, L506.1000, L500.4050, L501.9520 #### [facility] [address] [place], [address] Bilirubin [Mass/Vol] 0.40 mg/dL Normal 0.20-1.00 [facility] Comment on above: Result Comment: For patients on eltrombopag therapy, use of Dimension [place] TBIL is not recommended. Performed By: #### L 100.0100, L506.1000, L500.4050, L501.9520 #### [facility] [address] [place], [address] BUN/CRE 31.8 RATIO High 10-20 [facility] Comment on above: Performed By: #### L 100.0100, L506.1000, L500.4050, L501.9520 #### [facility] [address] [place], [address] CA,Total 9.3 mg/dL Normal 8.5-10.1 [facility] Comment on above: Performed By: #### L 100.0100, L506.1000, L500.4050, L501.9520 #### [facility] [address] [place], [address] Chloride [Moles/Vol] 108 mmol/L High 98-107 [facility] Comment on above: Performed By: #### L 100.0100, L506.1000, L500.4050, L501.9520 #### [facility] [address] [place], [address] CO2 [Moles/Vol] 28.0 mmol/L Normal 21.0-32.0 [facility] Comment on above: Performed By: #### L 100.0100, L506.1000, L500.4050, L501.9520 #### [facility] [address] [place], [address] Creatinine [Mass/Vol] 0.91 mg/dL Normal 0.55-1.02 [facility] Comment on above: Result Comment: The validity of the calculated GFR GFRAA in patients over 70 years has not been determined. Clinical correlation is essential. Performed By: #### L 100.0100, L506.1000, L500.4050, L501.9520 #### [facility] [address] [place], [address] EST GFR - AA 76 mL/min Normal >60 [facility] Comment on above: Result Comment: Afri can [place] GFR Calc Performed By: #### L 100.0100, L506.1000, L500.4050, L501.9520 #### [facility] [address] [place], [address] GAP 9 Normal 5-15 [facility] Comment on above: Performed By: #### L 100.0100, L506.1000, L500.4050, L501.9520 #### [facility] [address] [place], [address] GFR/1.73 sq M.predicted among non-blacks MDRD (S/P/Bld) [Vol rate/Area] 63 mL/min/{1.73_m2} Normal >60 [facility] Comment on above: Result Comment: Non- GFR Calc Performed By: #### L 100.0100, L506.1000, L500.4050, L501.9520 #### [facility] [address] [place], [address] Globulin (S) [Mass/Vol] 4.3 g/dL High 2.2-4.2 [facility] Comment on above: Performed By: #### L 100.0100, L506.1000, L500.4050, L501.9520 #### [facility] [address] [place], [address] Glucose [Mass/Vol] 112 mg/dL High 74-106 [facility] Comment on above: Result Comment: Fast ing Glucose result from 100 to 125 mg/dL suggests IMPAIRED HOMEOSTASIS per A.D.A. criteria. Performed By: #### L 100.0100, L506.1000, L500.4050, L501.9520 #### [facility] [address] [place], [address] Potassium [Moles/Vol] 3.5 mmol/L Normal 3.5-5.1 [facility] Comment on above: Performed By: #### L 100.0100, L506.1000, L500.4050, L501.9520 #### [facility] [address] [place], [address] Sodium [Moles/Vol] 145 mmol/L Normal 136-145 [facility] Comment on above: Performed By: #### L 100.0100, L506.1000, L500.4050, L501.9520 #### [facility] [address] [place], [address] T PROT 7.5 g/dL Normal 6.4-8.2 [facility] Comment on above: Performed By: #### L 100.0100, L506.1000, L500.4050, L501.9520 #### [facility] [address] [place], [address] Urea nitrogen [Mass/Vol] 29 mg/dL High 7-18 [facility] Comment on above: Performed By: #### L 100.0100, L506.1000, L500.4050, L501.9520 #### [facility] [address] [place], [address] Determination of erythrocyte mean corpuscular volume (MCV)Ordered By: Ferny Pina on 06-28-2023 MCV (RBC) [Entitic vol] 91.5 fL 81-99 [facility] Erythrocyte distribution wid th ratioOrdered By: [facility] Erythrocyte distribution width (RBC) [Ratio] 13.3 % 11.6-14.6 [facility] Erythrocyte distribution wid th standard deviationOrdered By: Ferny Yovani on 06-28-2023 Erythrocyte distribution width (RBC) [Entitic vol] 44.7 fL 35.1-43.9 [facility] Hematocrit Auto (Bld) [Volum e fraction]Ordered By: [facility] 06-28-2023 Hematocrit (Bld) [Volume fraction] 39.0 % 37-47 [facility] Immature granulocytes/100 WB C Auto (Bld)Ordered By: Ferny Pina on 06-28-2023 Immature granulocytes/100 WBC (Bld) 0.200 % 0.0-0.9 [facility] Comment on above: IG% - Immature Granu locytes (promyelocytes, myelocytes and metamyelocytes) > 1% indicates that a LEFT SHIFT is Present. Laboratory - Chemistry and C hemistry - challengeOrdered By: Ferny Pina on 06-28-2023 Albumin/Globulin [Mass ratio] 0.7 {ratio} 0.9-2.4 [facility] ALP [Catalytic activity/Vol] 104 U/L 45-117 [facility] ALT [Catalytic activity/Vol] 12 U/L 13-56 [facility] CO2 [Moles/Vol] 28.0 mmol/L 21.0-32.0 [facility] Globulin (S) [Mass/Vol] 4.3 g/dL 2.2-4.2 [facility] Urea nitrogen/Creatinine [Mass ratio] 31.8 mg/mg 10-20 [facility] - Hematology and Cell countsOrdered By: Ferny Pina on 06-28-2023 MCH (RBC) [Entitic mass] 29.1 pg 27.0-32.0 [facility] MCHC (RBC) [Mass/Vol] 31.8 g/dL 32-36 [facility] Nucleated RBC/100 WBC (Bld) [Ratio] 0 % 0-5 [facility] Platelet mean volume (Bld) [Entitic vol] 9.9 fL 6.2-12.0 [facility] Platelets (Bld) [#/Vol] 327 10*3/uL 150-450 [facility] No Panel InformationOrdered By: Ferny Pina on 06-28-2023 Estimated GFR (MDRD) Amer 76 mL/min >60 [facility] Comment on above: GFR Calc Estimated GFR (MDRD) Non-Af Amer 63 mL/min >60 [facility] Comment on above: Non- GFR Calc Vitamin D 25-Hydroxy 19.5 ng/mL [facility] Comment on above: Vitamin D 25(OH) Sta tus Range Deficiency <20 ng/mL (50nmol/L) Insufficiency 20 - 30 ng/mL (50 - 75 nmol/L) Sufficiency 30 - 100 ng/mL (75 - 250 nmol/L) Toxicity >100 ng/mL (>250 nmol/L) RBC Auto (Bld) [#/Vol]Ordere d By: Ferny Pina on 06-28-2023 RBC (Bld) [#/Vol] 4.26 10*6/uL 4.2-5.4 [facility] Serum or plasma calcium griselda urement (mass/volume)Ordered By: Ferny Pina on 06-28-2023 Calcium [Mass/Vol] 9.3 mg/dL 8.5-10.1 [facility] Serum or plasma creatinine m easurement (mass/volume)Ordered By: Ferny Pina on 06-28-2023 Creatinine [Mass/Vol] 0.91 mg/dL 0.55-1.02 [facility] Comment on above: The validity of the calculated GFR & GFRAA in patients over 70 years has not been determined. Clinical correlation is essential. Serum or plasma thyroid stim ulating hormone (TSH) measurement (units/volume)Ordered By: Ferny Pina on 06-28-2023 TSH Qn 0.65 uIU/mL 0.358-3.74 [facility] Serum or plasma urea nitroge n measurement (mass/volume)Ordered By: Ferny Pina on 06-28-2023 Urea nitrogen [Mass/Vol] 29 mg/dL 7-18 [facility] Thin prep Papanicolaou smear with manual screeningOrdered By: Ferny Pina on 06-28-2023 Thin prep Papanicolaou smear with manual screening 3.2 g/dL 3.2-5.0 [facility] Thin prep Papanicolaou smear with manual screening 15 U/L 15-37 [facility] Thin prep Papanicolaou smear with manual screening 9 5-15 [facility] Thyroid Stim Hormone (TSH)on 06-28-2023 TSH 0.65 uIU/mL Normal 0.358-3.74 [facility] Comment on above: Performed By: #### L 100.0100, L506.1000, L500.4050, L501.9520 #### [facility] [address] [place], [place], [id number] Vitamin D,25 Hydroxyon 06-27 Vitamin D 25-OH 19.5 ng/mL Normal [facility] Comment on above: Result Comment: Pretty min D 25(OH) Status Range Deficiency <20 ng/mL (50nmol/L) Insufficiency 20 - 30 ng/mL (50 - 75 nmol/L) Sufficiency 30 - 100 ng/mL (75 - 250 nmol/L) Toxicity >100 ng/mL (>250 nmol/L) Performed By: #### L 100.0100, L506.1000, L500.4050, L501.9520 #### [facility] [address] [place], [address] Absolute lymphocyte countOrd ered By: Ferny Pina on 12-27-2022 Lymphocytes Auto (Unsp spec) [#/Vol] 2.30 10*3/uL 0.83-4.51 [facility] Basophil percentageOrdered B y: Ferny Pina on 12-27-2022 Basophils/100 WBC (Bld) 1.0 % 0-1 [facility] Bilirubin [Mass/Vol] 0.60 mg/dL 0.20-1.00 [facility] Comment on above: For patients on eltr ombopag therapy, use of Dimension [place] TBIL is not recommended. Chloride [Moles/Vol] 111 mmol/L 98-107 [facility] Eosinophils/100 WBC (Bld) 3.5 % 0-5 [facility] Glucose [Mass/Vol] 105 mg/dL 74-106 [facility] Comment on above: Fasting Glucose resu lt from 100 to 125 mg/dL suggests IMPAIRED HOMEOSTASIS per A.D.A. criteria. Neutrophils (Bld) [#/Vol] 3.8 10*3/uL 2.0-7.7 [facility] Neutrophils/100 WBC (Bld) 54.4 % 47-70 [facility] Potassium [Moles/Vol] 3.7 mmol/L 3.5-5.1 [facility] Protein [Mass/Vol] 7.0 g/dL 6.4-8.2 [facility] Sodium [Moles/Vol] 145 mmol/L 136-145 [facility] WBC (Bld) [#/Vol] 6.9 10*3/uL 4.4-11.0 [facility] Blood erythrocytes count (nu mber/volume)Ordered By: Ferny Pina on 12-27-2022 RBC (Bld) [#/Vol] 4.29 10*6/uL 4.2-5.4 [facility] Blood hemoglobin measurement (mass/volume)Ordered By: Ferny Pina on 12-27-2022 Hemoglobin (Bld) [Mass/Vol] 13.0 g/dL 12.0-15.0 [facility] Blood lymphocytes/100 leukoc ytesOrdered By: Ferny Pina on 12-27-2022 Lymphocytes/100 WBC (Bld) 33.4 % 19-41 [facility] Blood monocytes/100 leukocyt esOrdered By: Ferny Pina on 12-27-2022 Monocytes/100 WBC (Bld) 7.4 % 0-10 [facility] Blood platelet mean volumeOr dered By: Ferny Yovani on 12-27-2022 Platelet mean volume (Bld) [Entitic vol] 10.5 fL 6.2-12.0 [facility] Determination of erythrocyte mean corpuscular volume (MCV)Ordered By: Ferny Pina on 12-27-2022 MCV (RBC) [Entitic vol] 95.6 fL 81-99 [facility] Hematocrit Auto (Bld) [Volum e fraction]Ordered By: Ferny Pina on 12-27-2022 Hematocrit (Bld) [Volume fraction] 41.0 % 37-47 [facility] Laboratory - Chemistry and C hemistry - challengeOrdered By: Ferny Yovani on 12-27-2022 ALP [Catalytic activity/Vol] 97 U/L 45-117 [facility] ALT [Catalytic activity/Vol] 17 U/L 13-56 [facility] CO2 [Moles/Vol] 28.0 mmol/L 21.0-32.0 [facility] Globulin (S) [Mass/Vol] 3.7 g/dL 2.2-4.2 [facility] Urea nitrogen/Creatinine [Mass ratio] 26.5 mg/mg 10-20 [facility] - Hematology and Cell countsOrdered By: Ferny Pina on 12-27-2022 Erythrocyte distribution width (RBC) [Entitic vol] 49.7 fL 35.1-43.9 [facility] Erythrocyte distribution width (RBC) [Ratio] 14.2 % 11.6-14.6 [facility] Immature granulocytes/100 WBC (Bld) 0.300 % 0.0-0.9 [facility] Comment on above: IG% - Immature Granu locytes (promyelocytes, myelocytes and metamyelocytes) > 1% indicates that a LEFT SHIFT is Present. MCH (RBC) [Entitic mass] 30.3 pg 27.0-32.0 [facility] Nucleated RBC/100 WBC (Bld) [Ratio] 0 % 0-5 [facility] MCHC Auto (RBC) [Mass/Vol]Or dered By: Ferny Pina on 12-27-2022 MCHC (RBC) [Mass/Vol] 31.7 g/dL 32-36 [facility] No Panel InformationOrdered By: Ferny Pina on 12-27-2022 Estimated GFR (MDRD) Amer 80 mL/min >60 [facility] Comment on above: GFR Calc Estimated GFR (MDRD) Non-Af Amer 66 mL/min >60 [facility] Comment on above: Non- GFR Calc Thyroid Stimulating Hormone (TSH) 1.34 uIU/mL 0.358-3.74 [facility] Vitamin D 25-Hydroxy 28.7 ng/mL [facility] Comment on above: Vitamin D 25(OH) Sta tus Range Deficiency <20 ng/mL (50nmol/L) Insufficiency 20 - 30 ng/mL (50 - 75 nmol/L) Sufficiency 30 - 100 ng/mL (75 - 250 nmol/L) Toxicity >100 ng/mL (>250 nmol/L) Platelets bldOrdered By: Ferny Pina on 12-27-2022 Platelets (Bld) [#/Vol] 249 10*3/uL 150-450 [facility] Serum or plasma albumin griselda urement (mass/volume)Ordered By: Ferny Pina on 12-27-2022 Albumin [Mass/Vol] 3.3 g/dL 3.2-5.0 [facility] Serum or plasma albumin/glob ulin mass ratioOrdered By: Ferny Pina on 12-27-2022 Albumin/Globulin [Mass ratio] 0.9 {ratio} 0.9-2.4 [facility] Serum or plasma calcium griselda urement (mass/volume)Ordered By: Ferny Pina on 12-27-2022 Calcium [Mass/Vol] 9.0 mg/dL 8.5-10.1 [facility] Serum or plasma creatinine m easurement (mass/volume)Ordered By: Ferny Pina on 12-27-2022 Creatinine [Mass/Vol] 0.87 mg/dL 0.55-1.02 [facility] Comment on above: The validity of the calculated GFR & GFRAA in patients over 70 years has not been determined. Clinical correlation is essential. Serum or plasma urea nitroge n measurement (mass/volume)Ordered By: Ferny Pina on 12-27-2022 Urea nitrogen [Mass/Vol] 23 mg/dL 7-18 [facility] Thin prep Papanicolaou smear with manual screeningOrdered By: Ferny Pina on 12-27-2022 Thin prep Papanicolaou smear with manual screening 15 U/L 15- [facility] Thin prep Papanicolaou smear with manual screening 6 5-15 [facility] Absolute lymphocyte countOrd ered By: Dr. Pina on 06-21-2022 Lymphocytes Auto (Unsp spec) [#/Vol] 2.60 10*3/uL 0.83-4.51 [facility] Basophil percentageOrdered B y: Dr. Pina on 06-21-2022 Basophils/100 WBC (Bld) 0.7 % 0-1 [facility] Bilirubin [Mass/Vol] 0.60 mg/dL 0.20-1.00 [facility] Comment on above: For patients on eltr ombopag therapy, use of Dimension [place] TBIL is not recommended. Chloride [Moles/Vol] 111 mmol/L 98-107 [facility] Eosinophils/100 WBC (Bld) 4.1 % 0-5 [facility] Glucose [Mass/Vol] 105 mg/dL 74-106 [facility] Comment on above: Fasting Glucose resu lt from 100 to 125 mg/dL suggests IMPAIRED HOMEOSTASIS per A.D.A. criteria. Neutrophils (Bld) [#/Vol] 3.8 10*3/uL 2.0-7.7 [facility] Neutrophils/100 WBC (Bld) 51.9 % 47-70 [facility] Potassium [Moles/Vol] 4.1 mmol/L 3.5-5.1 [facility] Protein [Mass/Vol] 7.4 g/dL 6.4-8.2 [facility] Sodium [Moles/Vol] 144 mmol/L 136-145 [facility] WBC (Bld) [#/Vol] 7.4 10*3/uL 4.4-11.0 [facility] Blood erythrocytes count (nu mber/volume)Ordered By: Dr. Pina on 06-21-2022 RBC (Bld) [#/Vol] 4.70 10*6/uL 4.2-5.4 [facility] Blood hemoglobin measurement (mass/volume)Ordered By: Dr. Pina on 06-21-2022 Hemoglobin (Bld) [Mass/Vol] 13.7 g/dL 12.0-15.0 [facility] Blood lymphocytes/100 leukoc ytesOrdered By: Dr. Pina on 06-21-2022 Lymphocytes/100 WBC (Bld) 35.3 % 19-41 [facility] Blood monocytes/100 leukocyt esOrdered By: Dr. Pina on 06-21-2022 Monocytes/100 WBC (Bld) 7.7 % 0-10 [facility] Blood platelet mean volumeOr dered By: Dr. Pina on 06-21-2022 Platelet mean volume (Bld) [Entitic vol] 10.7 fL 6.2-12.0 [facility] Determination of erythrocyte mean corpuscular volume (MCV)Ordered By: Dr. Pina on 06-21-2022 MCV (RBC) [Entitic vol] 92.8 fL 81-99 [facility] Hematocrit Auto (Bld) [Volum e fraction]Ordered By: Dr. Pina on 06-21-2022 Hematocrit (Bld) [Volume fraction] 43.6 % 37-47 [facility] Laboratory - Chemistry and C hemistry - challengeOrdered By: Dr. Pina on 06-21-2022 ALP [Catalytic activity/Vol] 103 U/L 45-117 [facility] ALT [Catalytic activity/Vol] 16 U/L 13-56 [facility] CO2 [Moles/Vol] 25.0 mmol/L 21.0-32.0 [facility] Globulin (S) [Mass/Vol] 3.8 g/dL 2.2-4.2 [facility] Urea nitrogen/Creatinine [Mass ratio] 29.8 mg/mg 10-20 [facility] Laboratory - Hematology and Cell countsOrdered By: Dr. Pina on 06-21-2022 Erythrocyte distribution width (RBC) [Entitic vol] 52.5 fL 35.1-43.9 [facility] Erythrocyte distribution width (RBC) [Ratio] 15.3 % 11.6-14.6 [facility] Immature granulocytes/100 WBC (Bld) 0.300 % 0.0-0.9 [facility] Comment on above: IG% - Immature Granu locytes (promyelocytes, myelocytes and metamyelocytes) > 1% indicates that a LEFT SHIFT is Present. MCH (RBC) [Entitic mass] 29.1 pg 27.0-32.0 [facility] Nucleated RBC/100 WBC (Bld) [Ratio] 0 % 0-5 [facility] MCHC Auto (RBC) [Mass/Vol]Or dered By: Dr. Pina on 06-21-2022 MCHC (RBC) [Mass/Vol] 31.4 g/dL 32-36 [facility] No Panel InformationOrdered By: Dr. Pina on 06-21-2022 Estimated GFR (MDRD) Amer 80 mL/min >60 [facility] Comment on above: GFR Calc Estimated GFR (MDRD) Non-Af Amer 66 mL/min >60 [facility] Comment on above: Non- GFR Calc Thyroid Stimulating Hormone (TSH) 1.01 uIU/mL 0.358-3.74 [facility] Vitamin D 25-Hydroxy 22.2 ng/mL [facility] Comment on above: Vitamin D 25(OH) Sta tus Range Deficiency <20 ng/mL (50nmol/L) Insufficiency 20 - 30 ng/mL (50 - 75 nmol/L) Sufficiency 30 - 100 ng/mL (75 - 250 nmol/L) Toxicity >100 ng/mL (>250 nmol/L) Platelets bldOrdered By: Dr. Pina on 06-21-2022 Platelets (Bld) [#/Vol] 301 10*3/uL 150-450 [facility] Serum or plasma albumin griselda urement (mass/volume)Ordered By: Dr. Pina on 06-21-2022 Albumin [Mass/Vol] 3.6 g/dL 3.2-5.0 [facility] Serum or plasma albumin/glob ulin mass ratioOrdered By: Dr. Pina on 06-21-2022 Albumin/Globulin [Mass ratio] 0.9 {ratio} 0.9-2.4 [facility] Serum or plasma calcium griselda urement (mass/volume)Ordered By: Dr. Pina on 06-21-2022 Calcium [Mass/Vol] 9.5 mg/dL 8.5-10.1 [facility] Serum or plasma creatinine m easurement (mass/volume)Ordered By: Dr. Pina on 06-21-2022 Creatinine [Mass/Vol] 0.87 mg/dL 0.55-1.02 [facility] Comment on above: The validity of the calculated GFR & GFRAA in patients over 70 years has not been determined. Clinical correlation is essential. Serum or plasma urea nitroge n measurement (mass/volume)Ordered By: Dr. Pina on 06-21-2022 Urea nitrogen [Mass/Vol] 26 mg/dL 7-18 [facility] Thin prep Papanicolaou smear with manual screeningOrdered By: Dr. Pina on 06-21-2022 Thin prep Papanicolaou smear with manual screening 15 U/L 15-37 [facility] Thin prep Papanicolaou smear with manual screening 8 5-15 [facility] Absolute lymphocyte counton 12-20-2021 Lymphocytes Auto (Unsp spec) [#/Vol] 2.31 10*3/uL 0.83-4.51 [facility] Work Phone: Basophil percentageon 2021 Basophils/100 WBC (Bld) 1.1 % 0-1 [facility] Work Phone: Bilirubin [Mass/Vol] 0.60 mg/dL 0.20-1.00 [facility] Work Phone: Comment on above: For patients on eltr ombopag therapy, use of Dimension [place] TBIL is not recommended. Chloride [Moles/Vol] 107 mmol/L 98-107 [facility] Work Phone: Eosinophils/100 WBC (Bld) 2.7 % 0-5 [facility] Work Phone: Glucose [Mass/Vol] 111 mg/dL 74-106 [facility] Work Phone: Comment on above: Fasting Glucose resu lt from 100 to 125 mg/dL suggests IMPAIRED HOMEOSTASIS per A.D.A. criteria. Neutrophils (Bld) [#/Vol] 3.6 10*3/uL 2.0-7.7 [facility] Work Phone: Neutrophils/100 WBC (Bld) 53.2 % 47-70 [facility] Work Phone: Potassium [Moles/Vol] 3.7 mmol/L 3.5-5.1 [facility] Work Phone: Protein [Mass/Vol] 7.8 g/dL 6.4-8.2 [facility] Work Phone: Sodium [Moles/Vol] 142 mmol/L 136-145 [facility] Work Phone: WBC (Bld) [#/Vol] 6.7 10*3/uL 4.4-11.0 [facility] Work Phone: Blood erythrocytes count (nu mber/volume)on 12-20-2021 RBC (Bld) [#/Vol] 4.56 10*6/uL 4.2-5.4 [facility] Work Phone: Blood hemoglobin measurement (mass/volume)on 12-20-2021 Hemoglobin (Bld) [Mass/Vol] 13.1 g/dL 12.0-15.0 [facility] Work Phone: Blood lymphocytes/100 leukoc yteson 12-20-2021 Lymphocytes/100 WBC (Bld) 34.7 % 19-41 [facility] Work Phone: Blood monocytes/100 leukocyt eson 12-20-2021 Monocytes/100 WBC (Bld) 8.1 % 0-10 [facility] Work Phone: Blood platelet mean volumeon 12-20-2021 Platelet mean volume (Bld) [Entitic vol] 10.5 fL 6.2-12.0 [facility] Work Phone: Determination of erythrocyte mean corpuscular volume (MCV)on 12-20-2021 MCV (RBC) [Entitic vol] 90.6 fL 81-99 [facility] Work Phone: Hematocrit Auto (Bld) [Volum e fraction]on 12-20-2021 Hematocrit (Bld) [Volume fraction] 41.3 % 37-47 [facility] Work Phone: Laboratory - Chemistry and C hemistry - challengeon 12-20-2021 ALP [Catalytic activity/Vol] 134 U/L 45-117 [facility] Work Phone: ALT [Catalytic activity/Vol] 16 U/L 13-56 [facility] Work Phone: CO2 [Moles/Vol] 26.0 mmol/L 21.0-32.0 [facility] Work Phone: Globulin (S) [Mass/Vol] 4.3 g/dL 2.2-4.2 [facility] Work Phone: Urea nitrogen/Creatinine [Mass ratio] 26.0 mg/mg 10-20 [facility] Work Phone: Laboratory - Hematology and Cell countson 12-20-2021 Erythrocyte distribution width (RBC) [Entitic vol] 50.3 fL 35.1-43.9 [facility] Work Phone: Erythrocyte distribution width (RBC) [Ratio] 15.1 % 11.6-14.6 [facility] Work Phone: Immature granulocytes/100 WBC (Bld) 0.200 % 0.0-0.9 [facility] Work Phone: Comment on above: IG% - Immature Granu locytes (promyelocytes, myelocytes and metamyelocytes) > 1% indicates that a LEFT SHIFT is Present. MCH (RBC) [Entitic mass] 28.7 pg 27.0-32.0 [facility] Work Phone: Nucleated RBC/100 WBC (Bld) [Ratio] 0 % 0-5 [facility] Work Phone: MCHC Auto (RBC) [Mass/Vol]on 12-20-2021 MCHC (RBC) [Mass/Vol] 31.7 g/dL 32-36 [facility] Work Phone: No Panel Informationon 12-20 Estimated GFR (MDRD) Amer 75 mL/min >60 [facility] Work Phone: Comment on above: GFR Calc Estimated GFR (MDRD) Non-Af Amer 62 mL/min >60 [facility] Work Phone: Comment on above: Non- GFR Calc Thyroid Stimulating Hormone (TSH) 1.10 uIU/mL 0.358-3.74 [facility] Work Phone: Vitamin D 25-Hydroxy 14.9 ng/mL [facility] Work Phone: Comment on above: Vitamin D 25(OH) Sta tus Range Deficiency <20 ng/mL (50nmol/L) Insufficiency 20 - 30 ng/mL (50 - 75 nmol/L) Sufficiency 30 - 100 ng/mL (75 - 250 nmol/L) Toxicity >100 ng/mL (>250 nmol/L) Platelets bldon 12-20-2021 Platelets (Bld) [#/Vol] 281 10*3/uL 150-450 [facility] Work Phone: Serum or plasma albumin griselda urement (mass/volume)on 12-20-2021 Albumin [Mass/Vol] 3.5 g/dL 3.2-5.0 [facility] Work Phone: Serum or plasma albumin/glob ulin mass ratioon 12-20-2021 Albumin/Globulin [Mass ratio] 0.8 {ratio} 0.9-2.4 [facility] Work Phone: Serum or plasma calcium griselda urement (mass/volume)on 12-20-2021 Calcium [Mass/Vol] 9.7 mg/dL 8.5-10.1 [facility] Work Phone: Serum or plasma creatinine m easurement (mass/volume)on 12-20-2021 Creatinine [Mass/Vol] 0.92 mg/dL 0.55-1.02 [facility] Work Phone: Comment on above: The validity of the calculated GFR & GFRAA in patients over 70 years has not been determined. Clinical correlation is essential. Serum or plasma urea nitroge n measurement (mass/volume)on 12-20-2021 Urea nitrogen [Mass/Vol] 24 mg/dL 7-18 [facility] Work Phone: Thin prep Papanicolaou smear with manual screeningon 12-20-2021 Thin prep Papanicolaou smear with manual screening 14 U/L 15-37 [facility] Work Phone: Thin prep Papanicolaou smear with manual screening 9 5-15 [facility] Work Phone: CNOVon 09-16-2020 MATT Office Visit (UCWSTR) ---- VEE FUENTES ([id number]) 1940 F Date Time Provider Department 09/16/20 6:15 PM KRANTHI TIJERINA [facility] During your visit today, we recorded the [...] (unless otherwis (more content not included)... Normal [facility] No Panel Informationon 09-16 [facility] XR WRIST 4V PA/LAT/OBL/SCAPH RTon 09-16-2020 [...] IMPRESSION: Advanced degenerative changes. Soft tissue swelling. Wic Site Coordinator: [facility] Transcribe Date/Time: Sep 16 2020 7:29P Dictated by : JEFFERY GUERRA MD This examination was interpreted and the report reviewed and electronically signed by: JEFFERY GUERRA MD on Sep 16 2020 7:31PM EST [id number] Normal [facility] XR Wrist - right 4 Viewson 0 09-16-2020 IMPRESSION: Advanced degenerative changes. Soft tissue swelling. Wic Site Coordinator: [facility] Transcribe Date/Time: Sep 16 2020 7:29P [...] erosion. No fracture. DIVISION OF RADIOLOGY Provider, [facility] - 09/16/2020 * * *Final Report* * [...] IMPRESSION: Advanced degenerative changes. Soft tissue swelling. Wic Site Coordinator: [facility] Transcribe Date/Time: Sep 16 2020 7:29P Dictated by : JEFFERY GUERRA MD This examination was interpreted and the report reviewed and electronically signed by: JEFFERY GUERRA MD on Sep 16 2020 7:31PM EST [facility] Radiology Study observation (narrative) Catalina renee [facility] XR Wrist - right 4 ViewsOrde red By: Ccf Provider on 09-16-2020 [facility] Vital Signs Date Time Vital Sign Value Performing Clinician Aletha wood 09-16-2020 18:16-0400 Body temperature 98.8 [degF] Kranthi Tijerina APRN.SERVICE COORDINATOR Work Phone: [facility] 09-16-2020 18:16-0400 Body weight 98.79 kg Kranthi Tijerina APRN.CNP Work Phone: [facility] 09-16-2020 18:16-0400 Diastolic blood pressure 80 mm[Hg] Kranthi Tijerina APRN.CNP Work Phone: [facility] 09-16-2020 18:16-0400 Heart rate 83 /min Kranthi Chatal SEED LABORATORY ASSISTANT.SERVICE COORDINATOR Work Phone: [facility] 09-16-2020 18:16-0400 Respiratory rate 16 /min Karnthi Chatal SEED LABORATORY ASSISTANT.SERVICE COORDINATOR Work Phone: [facility] 09-16-2020 18:16-0400 SaO2% (BldA) [Mass fraction] 95 % Kranthi Chatal SEED LABORATORY ASSISTANT.SERVICE COORDINATOR Work Phone: [facility] 09-16-2020 18:16-0400 Systolic blood pressure 138 mm[Hg] Kranthi Chatal SEED LABORATORY ASSISTANT.SERVICE COORDINATOR Work Phone: [facility] Encounters Encounter Date Encounter Type Care Provider Facility Start: 05-03-2024 End: 05-03-2024 ambulatory [facility] Facility:[facility] Start: 04-16-2024 End: 04-16-2024 ambulatory [facility] Facility:[facility] Start: 01-16-2024 End: 01-16-2024 ambulatory [facility] Facility:[facility] Start: 01-11-2024 End: 01-11-2024 ambulatory [facility] Facility:[facility] Start: 06-28-2023 End: 06-28-2023 ambulatory [facility] Work Phone: Start: 06-28-2023 End: 06-28-2023 Patient encounter procedure [facility]-Laboratory, Phy Office 3rd Flr Start: 06-28-2023 End: 06-28-2023 ambulatory [facility] Facility:[facility] Start: 12-27-2022 End: 12-27-2022 ambulatory [facility] Work Phone: Start: 12-27-2022 End: 12-27-2022 Patient encounter procedure [facility]-Laboratory, Phy Office 3rd Flr Start: 06-21-2022 End: 06-21-2022 ambulatory [facility] Work Phone: Start: 06-21-2022 End: 06-21-2022 Patient encounter procedure [facility]-Laboratory, Phy Office 3rd Flr Start: 12-20-2021 End: 12-20-2021 ambulatory [facility] Work Phone: Start: 12-20-2021 End: 12-20-2021 Patient encounter procedure [facility]-Laboratory, Phy Office 3rd Flr Start: 09-16-2020 End: 09-16-2020 Subsequent hospital visit by physician Christina [facility] Work Phone: Radiology Comment on above: Right wrist pain [M2 5.531] Start: 09-16-2020 End: 09-16-2020 Patient encounter procedure Kranthi Breezy SEED LABORATORY ASSISTANT.SERVICE COORDINATOR Work Phone: [facility] Comment on above: Right wrist pain (Pr imary Dx) Procedures Date Procedure Procedure Detail Performing Clinician Start: 09-16-2020 Radex wrist complete minimum 3 views Kranthi Ernestoal SEED LABORATORY ASSISTANT.SERVICE COORDINATOR Work Phone: H/O: tubal ligation History of t ubal ligation History of tonsillectomy History of tonsi llectomy Plan of Treatment Date Care Activity Detail Author Start: 12-10-2023 Covid-19 Vaccine ( season) Covid-19 Vaccine ( season) [facility] Start: 12-10-2023 Influenza vaccination Influenza Vacc ine (#1) [facility] Start: 04-10-2023 Advance Directive Discussion Advance Directive Discussion [facility] Start: 12-09-2020 Influenza vaccination INFLUENZA (Sea son Ended) [facility] Start: 2006 ADVANCE DIRECTIVE DISCUSSION ADVANCE DIRECTIVE DISCUSSION [facility] Start: 2006 BONE DENSITY BONE DENSITY [facility] Start: 2006 Pneumococcal Vaccine : 65+ (1 of 1 - PCV) Pneumococcal Vaccine: 65+ (1 of 1 - PCV) [facility] Start: 2006 PNEUMOVAX AGE 65 AND OVER WITH 5YR LOOKBACK (#1) PNEUMOVAX AGE 65 AND OVER WITH 5YR LOOKBACK (#1) [facility] Start: 2006 Screening for osteoporosis Bone Density Screening [facility] Start: 2001 RSV Vaccine (1 - 1-d ose 60+ series) RSV Vaccine (1 - 1-dose 60+ series) [facility] Start: 1991 Screening for malign ant neoplasm of colon [facility] Start: 1991 SHINGRIX VACCINE (1 of 2) SHINGRIX V ACCINE (1 of 2) [facility] Start: 1986 DIABETES SCREEN [facility]EN [facility] Start: 1986 Diabetes Screening Diabetes Screenin g [facility] Start: 1960 Urine microalbumin profile [facility] Start: 1959 Anxiety Screening Anxiety Screening [facility] Start: 1959 Depression Screening Depression Scre ening [facility] Start: 1953 Adult depression screening assessment DEPRESSION SCREENING [facility] Immunizations Immunization Date Immunization Notes Care Provider Fa cility 02-23-2017 influenza, injectabl e, quadrivalent, preservative free [facility] 02-23-2017 influenza, seasonal, injectable [facility] 02-23-2017 influenza virus vaccine, unspecified formulation [facility] [place] Work Phone: [facility] Payers Date Payer Category Payer Self-pay [id number] 2012 Private Health Insurance 101 [id number] 2009 Medicare AETNA MEDICARE A ETNA MEDICARE PPO [id number] 2009-Present PPO [id number] 2009 Medicare AETNA MEDICARE A ETNA MEDICARE PPO [id number] 2009-Present [phone] [address] [place] [address] PPO [id number] Unknown [id number] 62 Unknown [id number] 62 Unknown [id number] 62 Unknown [id number] 63 Unknown [id number] 63 Social History Date Type Detail Facility Start: 09-16-2020 Tobacco smoking status NHIS Never smoker [facility] Start: 09-16-2020 Tobacco use and exposure Never used [facility] Start: 09-16-2020 Alcohol intake Current non-dr log marker of alcohol (finding) [facility] Start: 1940 Sex Assigned At Not on file [facility] Start: 08-17-2020 End: 09-16-2020 Exposure to SARS-CoV-2 (event) Not sure [facility] Start: 10-29-2018 Tobacco smoking status WIIS Unknown if ever smoked [facility] Start: 01-14-2017 None [facility] Start: 02-22-2017 Spouse/ Signif icant Other [facility] Start: 09-10-2018 Non-smoker [facility] Start: 1940 Sex Assigned At Female [facility] Start: 09-16-2020 History of Social function [facility] Start: 09-16-2020 Tobacco use panel [facility] National Score (1-100), lower number is lower risk Not on file [facility] Medical Equipment Procedure Code Equipment Code Equipment Origin al Text Equipment Identifier Dates MESH,3DMAX RIGHT LG [id number] FDA Start: 10-18-2018 TACKER,SECURE STRAP FDA Start : 10-18-2018 MESH,3DMAX RIGHT LG [id number] FDA Start: 10-18-2018 TACKER,SECURE STRAP FDA Start : 10-18-2018 MESH,3DMAX RIGHT LG [id number] FDA Start: 10-18-2018 TACKER,SECURE STRAP FDA Start : 10-18-2018 MESH,3DMAX RIGHT LG [id number] FDA Start: 10-18-2018 TACKER,SECURE STRAP FDA Start : 10-18-2018 Progress note 09-16-2020 Note Date & Type Note Facility 09-16-2020 Note HNO ID: [id number] Author: Kranthi Tijerina APRN.SERVICE COORDINATOR Service: ? Author Type: Nurse Practitioner Type: Progress Notes Filed: 09/16/2020 7:42 PM Note Text: This note was created using [employer]. Subjective Vee Fuentes is a 80 year [...] home in stable condition. Kranthi Tijerina APRN.[facility] Progress note 09-16-2020 Note Date & Type Note Facility 09-16-2020 Note HNO ID: [id number] Author: Angelito Leon RT(R) Service: ? Author Type: Municipal Firefighter Type: Progress Notes Filed: 09/16/2020 7:03 PM [...] Leon, RT(R) September 16, 2020 6:55 PM [facility] Instructions 09-16-2020 Patient Instructions Note Date & [...] of Present illness Narrative 09-16-2020 Kranthi Tijerina APRN.SERVICE COORDINATOR - 09/16/2020 7:31 PM EDT Note Date & Type Note Facility 09-16-2020 History of Presen t illness Narrative This note was created using [employer]. Subjective Vee Fuentes is a 80 year [...] Tijerina APRN.MARY ELLEN documented in this encounter [facility] History of Present illness Narrative 09-16-2020 [...] 2020 6:55 PM documented in this encounter [facility] Evaluation note Note Date & Type Note Facility Evaluation note Diagnosis Right wrist pain- Primary Pain in joint, forearm documented in this encounter [facility] Evaluation note Note Date & Type Note Facility Evaluation note No assessment information availa [facility] Work Phone: Evaluation note Note Date & Type Note Facility Evaluation note Diagnosis Right wrist pain Pain in joint, forearm documented in this encounter [facility] Reason for Referral Status Reason Specialty Diagnoses / Procedures Referred By Contact Referred To Contact Pending Review PCP Requested Referral Orthopedics Diagnoses Right wrist pain Procedures CONSULT TO ORTHOPAEDICS NEW PATIENT VISIT LEVEL 5 Kranthi Tijerina, SAMEER.SERVICE COORDINATOR [address] [place] [address] Summary Purpose Family History No Family History Records Found Relationship Condition Age at Onset Recorded Date/T arianna father Cardiac disease Unknown Asthma Unknown brother Cardiac disease Unknown Malignant neoplasm Unknown Advance Directives No Advanced Directives Records Found Advance Directive Response Recorded Date/ Time Living Will Yes October 15, 2018 8 :14am Power of Garage Worker Yes October 15, 2018 8:14am Additional Source [...] or prosecute any alcohol or drug abuse patient.[facility] Reason for Visit (unrecogniz ed section and content) Reason Comments Hand Injury RIGHT hand x 1 day INFORMATION SOURCE (unrecogn ized section and content) DATE CREATED AUTHOR 09/18/2020 [facility] DATE CREATED AUTHOR AUTHOR'S ORGANIZ ATION 05/22/2024 [facility] Goals (unrecognized section and content) [...] MD Primary Care Provider, Attending Provider 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 [employer] [facility]. provides no warranty or guarantee of the accuracy or completeness of information in this document.
--- OUTSIDE RECORDS SUMMARY | 2024-12-14 17:40 | XMS RPT_ITS | CCD ---
Author Organization [facility] Care Team Providers Care Deportation Officer Name Role Phone Yovani, Ferny Chi Primary Care Provider [phone] Yovani, Ferny Chi Referring Unavailable Yovani, Ferny [...] (1 source) Cefaclor Drug Allergy 11-16-19 08 [facility] Work Phone: guaiFENesin / Phenylephrine (1 source) guaiFENesin / Phenylephrine Drug Allergy 11-16-19 08 [facility] Work Phone: (5 sources) Cefaclor Drug Allergy 11-16-19 08 Itching [facility] (4 sources) guaiFENesin Drug Allergy 10-30-19 19 HORRIBLE HEADACHE [facility] (4 sources) Phenylephrine Drug Allergy 10-30-19 19 HORRIBLE HEADACHE [facility] (4 sources) Phenylpropanolamine Drug Allergy 10-30-19 19 HORRIBLE HEADACHE [facility] (4 sources) predniSONE Drug Allergy 10-30-19 19 hallucinations [facility] (1 source) guaiFENesin / Phenylephrine Drug Allergy 11-16-19 08 [facility] (1 source) Cefaclor Drug Allergy 10-30-19 19 [facility] Repository (1 source) guaiFENesin Drug Allergy 10-30-19 19 [facility] (1 source) Phenylephrine Drug Allergy 10-30-19 19 [facility] (1 source) Phenylpropanolamine Drug Allergy 10-30-19 [facility] (1 source) predniSONE Drug Allergy 10-30-19 [facility] Medications Current Medications Medication Drug [...] 1,000 MG- 300 MG CAP, DELAYED RELEASE) vgkqdcsj-vfdyhnk-ekjc 149-hyal(GLUCOSAMINE CHONDROITIN COMPLEX ADVANCED [id number]-1.65MG TAB) (2 sources) Start: 07-03-2009 glucosam-chond ro-herb 149-hyal(GLUCOSAMINE CHONDROITIN COMPLEX ADVANCED [id number]-1.65MG TAB) 0 07/03/2009 Active Start: 07-03-2009 glucosam-chond ro-herb 149-hyal(GLUCOSAMINE CHONDROITIN COMPLEX ADVANCED [id number]-1.65MG TAB) hydroCHLOROthiazide 25 mg / losartan potassium [...] Take 88 mcg by mouth once daily. Urgcnlmh-Pbd-Nf-Lycopen-Lut ein (4 sources) Start: 017 Vvoxtlfl-Mbg-Ag-Lyco pen-Lutein Active 1 EACH PO DAILY February [...] )on 05-03-2024 BUN/CRE 26.9 RATIO High 10-20 [facility] Comment on above: Performed By: #### L 500.2500 #### [facility] [address] [place], [address] CA,Total 9.7 mg/dL Normal 8.5-10.1 [facility] Comment on above: Performed By: #### L 500.2500 #### [facility] [address] [place], [address] Chloride [Moles/Vol] 110 mmol/L High 98-107 [facility] Comment on above: Performed By: #### L 500.2500 #### [facility] [address] [place], [address] CO2 [Moles/Vol] 28.0 mmol/L Normal 21.0-32.0 [facility] Comment on above: Performed By: #### L 500.2500 #### [facility] [address] [place], [address] Creatinine [Mass/Vol] 0.93 mg/dL Normal 0.55-1.02 [facility] Comment on above: Result Comment: The validity of the calculated GFR GFRAA in patients over 70 years has not been determined. Clinical correlation is essential. Performed By: #### L 500.2500 #### [facility] [address] [place], [address] EST GFR - AA 74 mL/min Normal >60 [facility] Comment on above: Result Comment: Afri can [facility] GFR Calc Performed By: #### L 500.2500 #### [facility] [address] [place], [address] GAP 5 Normal 5-15 [facility] Comment on above: Performed By: #### L 500.2500 #### [facility] [address] [place], [address] GFR/1.73 sq M.predicted among non-blacks MDRD (S/P/Bld) [Vol rate/Area] 61 mL/min/{1.73_m2} Normal >60 [facility] Comment on above: Result Comment: Non- GFR Calc Performed By: #### L 500.2500 #### [facility] [address] [place], [address] Glucose [Mass/Vol] 100 mg/dL Normal 74-106 [facility] Comment on above: Result Comment: Fast ing Glucose result from 100 to 125 mg/dL suggests IMPAIRED HOMEOSTASIS per A.D.A. criteria. Performed By: #### L 500.2500 #### [facility] [address] [place], [address] Potassium [Moles/Vol] 3.9 mmol/L Normal 3.5-5.1 [facility] Comment on above: Performed By: #### L 500.2500 #### [facility] [address] [place], [address] Sodium [Moles/Vol] 143 mmol/L Normal 136-145 [facility] Comment on above: Performed By: #### L 500.2500 #### [facility] [address] [place], [address] Urea nitrogen [Mass/Vol] 25 mg/dL High 7-18 [facility] Comment on above: Performed By: #### L 500.2500 #### [facility] [address] [place], [address] CBC W/Diff, Automatedon 01-0 -2024 Absolute Lymph 1.78 X10 3/uL Normal 0.83-4.51 [facility] Comment on above: Performed By: #### L 500.4050, L506.1000, L501.9520, L100.0100 #### [facility] [address] [place], [address] Absolute Neut 4.7 X10 3/uL Normal 2.0-7.7 [facility] Comment on above: Performed By: #### L 500.4050, L506.1000, L501.9520, L100.0100 #### [facility] [address] [place], [address] Basophils/100 WBC (Bld) 0.8 % Normal 0-1 [facility] Comment on above: Performed By: #### L 500.4050, L506.1000, L501.9520, L100.0100 #### [facility] [address] [place], [address] Eosinophils/100 WBC (Bld) 2.8 % Normal 0-5 [facility] Comment on above: Performed By: #### L 500.4050, L506.1000, L501.9520, L100.0100 #### [facility] [address] [place], [address] Erythrocyte distribution width (RBC) [Ratio] 14.1 % Normal 11.6-14.6 [facility] Comment on above: Performed By: #### L 500.4050, L506.1000, L501.9520, L100.0100 #### [facility] [address] [place], [address] Hematocrit (Bld) [Volume fraction] 41.5 % Normal 37-47 [facility] Comment on above: Performed By: #### L 500.4050, L506.1000, L501.9520, L100.0100 #### [facility] [address] [place], [address] Hemoglobin (Bld) [Mass/Vol] 12.9 g/dL Normal 12.0-15.0 [facility] Comment on above: Performed By: #### L 500.4050, L506.1000, L501.9520, L100.0100 #### [facility] [address] [place], [address] IG% 0.100 Normal 0.0-0.9 [facility] Comment on above: Result Comment: IG% - Immature Granulocytes (promyelocytes, myelocytes and metamyelocytes) > 1% indicates that a LEFT SHIFT is Present. Performed By: #### L 500.4050, L506.1000, L501.9520, L100.0100 #### [facility] [address] [place], [address] Lymphocytes/100 WBC (Bld) 24.5 % Normal 19-41 [facility] Comment on above: Performed By: #### L 500.4050, L506.1000, L501.9520, L100.0100 #### [facility] [address] [place], [address] MCH (RBC) [Entitic mass] 29.7 pg Normal 27.0-32.0 [facility] Comment on above: Performed By: #### L 500.4050, L506.1000, L501.9520, L100.0100 #### [facility] [address] [place], [address] MCHC (RBC) [Mass/Vol] 31.1 g/dL Low 32-36 [facility] Comment on above: Performed By: #### L 500.4050, L506.1000, L501.9520, L100.0100 #### [facility] [address] [place], [address] MCV (RBC) [Entitic vol] 95.4 fL Normal 81-99 [facility] Comment on above: Performed By: #### L 500.4050, L506.1000, L501.9520, L100.0100 #### [facility] [address] [place], [address] Monocytes/100 WBC (Bld) 7.0 % Normal 0-10 [facility] Comment on above: Performed By: #### L 500.4050, L506.1000, L501.9520, L100.0100 #### [facility] [address] [place], [address] Neutrophils/100 WBC (Bld) 64.8 % Normal 47-70 [facility] Comment on above: Performed By: #### L 500.4050, L506.1000, L501.9520, L100.0100 #### [facility] [address] [place], [address] Nucleated RBC (Bld) [#/Vol] 0 10*3/uL Normal 0-5 [facility] Comment on above: Performed By: #### L 500.4050, L506.1000, L501.9520, L100.0100 #### [facility] [address] [place], [address] Platelet mean volume (Bld) [Entitic vol] 9.8 fL Normal 6.2-12.0 [facility] Comment on above: Performed By: #### L 500.4050, L506.1000, L501.9520, L100.0100 #### [facility] [address] [place], [address] Platelets (Bld) [#/Vol] 264 10*3/uL Normal 150-450 [facility] Comment on above: Performed By: #### L 500.4050, L506.1000, L501.9520, L100.0100 #### [facility] [address] [place], [address] RBC (Bld) [#/Vol] 4.35 10*6/uL Normal 4.2-5.4 [facility] Comment on above: Performed By: #### L 500.4050, L506.1000, L501.9520, L100.0100 #### [facility] [address] [place], [address] RDW SD 50.1 fl High 35.1-43.9 [facility] Comment on above: Performed By: #### L 500.4050, L506.1000, L501.9520, L100.0100 #### [facility] [address] [place], [address] WBC (Bld) [#/Vol] 7.3 10*3/uL Normal 4.4-11.0 [facility] Comment on above: Performed By: #### L 500.4050, L506.1000, L501.9520, L100.0100 #### [facility] [address] [place], [address] Comprehensive Metabolic Prof [facility] 04-16-2024 Albumin [Mass/Vol] 3.7 g/dL Normal 3.2-5.0 [facility] Comment on above: Performed By: #### L 500.4050, L506.1000, L501.9520, L100.0100 #### [facility] [address] [place], [address] Albumin/Globulin [Mass ratio] 0.9 {ratio} Normal 0.9-2.4 [facility] Comment on above: Performed By: #### L 500.4050, L506.1000, L501.9520, L100.0100 #### [facility] [address] [place], [address] ALK P 106 U/L Normal 45-117 [facility] Comment on above: Performed By: #### L 500.4050, L506.1000, L501.9520, L100.0100 #### [facility] [address] [place], [address] ALT [Catalytic activity/Vol] 14 U/L Normal 13-56 [facility] Comment on above: Performed By: #### L 500.4050, L506.1000, L501.9520, L100.0100 #### [facility] [address] [place], [address] AST [Catalytic activity/Vol] 13 U/L Low 15-37 [facility] Comment on above: Performed By: #### L 500.4050, L506.1000, L501.9520, L100.0100 #### [facility] [address] [place], [address] Bilirubin [Mass/Vol] 0.60 mg/dL Normal 0.20-1.00 [facility] Comment on above: Result Comment: For patients on eltrombopag therapy, use of Dimension [place] TBIL is not recommended. Performed By: #### L 500.4050, L506.1000, L501.9520, L100.0100 #### [facility] [address] [place], [address] BUN/CRE 29.8 RATIO High 10-20 [facility] Comment on above: Performed By: #### L 500.4050, L506.1000, L501.9520, L100.0100 #### [facility] [address] [place], [address] CA,Total 9.3 mg/dL Normal 8.5-10.1 [facility] Comment on above: Performed By: #### L 500.4050, L506.1000, L501.9520, L100.0100 #### [facility] [address] [place], [address] Chloride [Moles/Vol] 109 mmol/L High 98-107 [facility] Comment on above: Performed By: #### L 500.4050, L506.1000, L501.9520, L100.0100 #### [facility] [address] [place], [address] CO2 [Moles/Vol] 29.0 mmol/L Normal 21.0-32.0 [facility] Comment on above: Performed By: #### L 500.4050, L506.1000, L501.9520, L100.0100 #### [facility] [address] [place], [address] Creatinine [Mass/Vol] 0.91 mg/dL Normal 0.55-1.02 [facility] Comment on above: Result Comment: The validity of the calculated GFR GFRAA in patients over 70 years has not been determined. Clinical correlation is essential. Performed By: #### L 500.4050, L506.1000, L501.9520, L100.0100 #### [facility] [address] [place], [address] EST GFR - AA 76 mL/min Normal >60 [facility] Comment on above: Result Comment: Afri can [facility] GFR Calc Performed By: #### L 500.4050, L506.1000, L501.9520, L100.0100 #### [facility] [address] [place], [address] GAP 3 Low 5-15 [facility] Comment on above: Performed By: #### L 500.4050, L506.1000, L501.9520, L100.0100 #### [facility] [address] [place], [address] GFR/1.73 sq M.predicted among non-blacks MDRD (S/P/Bld) [Vol rate/Area] 63 mL/min/{1.73_m2} Normal >60 [facility] Comment on above: Result Comment: Non- GFR Calc Performed By: #### L 500.4050, L506.1000, L501.9520, L100.0100 #### [facility] [address] [place], [address] Globulin (S) [Mass/Vol] 3.9 g/dL Normal 2.2-4.2 [facility] Comment on above: Performed By: #### L 500.4050, L506.1000, L501.9520, L100.0100 #### [facility] [address] [place], [address] Glucose [Mass/Vol] 109 mg/dL High 74-106 [facility] Comment on above: Result Comment: Fast ing Glucose result from 100 to 125 mg/dL suggests IMPAIRED HOMEOSTASIS per A.D.A. criteria. Performed By: #### L 500.4050, L506.1000, L501.9520, L100.0100 #### [facility] [address] [place], [address] Potassium [Moles/Vol] 3.3 mmol/L Low 3.5-5.1 [facility] Comment on above: Performed By: #### L 500.4050, L506.1000, L501.9520, L100.0100 #### [facility] [address] [place], [address] Sodium [Moles/Vol] 142 mmol/L Normal 136-145 [facility] Comment on above: Performed By: #### L 500.4050, L506.1000, L501.9520, L100.0100 #### [facility] [address] [place] [place], [address] T PROT 7.6 g/dL Normal 6.4-8.2 [facility] Comment on above: Performed By: #### L 500.4050, L506.1000, L501.9520, L100.0100 #### [facility] [address] [place], [address] Urea nitrogen [Mass/Vol] 27 mg/dL High 7-18 [facility] Comment on above: Performed By: #### L 500.4050, L506.1000, L501.9520, L100.0100 #### [facility] [address] [place], [address] Thyroid Stim Hormone (TSH)on 04-16-2024 TSH 0.507 uIU/mL Normal 0.358-3.740 [facility] Comment on above: Performed By: #### L 500.4050, L506.1000, L501.9520, L100.0100 #### [facility] [address] [place], [address] Vitamin D,25 Hydroxyon 04-16 Vitamin D 25-OH 18.2 ng/mL Normal [facility] Comment on above: Result Comment: Pretty min D 25(OH) Status Range Deficiency <20 ng/mL (50nmol/L) Insufficiency 20 - 30 ng/mL (50 - 75 nmol/L) Sufficiency 30 - 100 ng/mL (75 - 250 nmol/L) Toxicity >100 ng/mL (>250 nmol/L) Performed By: #### L 500.4050, L506.1000, L501.9520, L100.0100 #### [facility] [address] [place], [address] CBC W/Diff, Automatedon 10-0 Absolute Lymph 2.06 X10 3/uL Normal 0.83-4.51 [facility] Comment on above: Performed By: #### L 500.4050, L100.0100, L501.9520, L506.1000 #### [facility] [address] [place], [address] Absolute Neut 3.4 X10 3/uL Normal 2.0-7.7 [facility] Comment on above: Performed By: #### L 500.4050, L100.0100, L501.9520, L506.1000 #### [facility] [address] [place], [address] Basophils/100 WBC (Bld) 0.9 % Normal 0-1 [facility] Comment on above: Performed By: #### L 500.4050, L100.0100, L501.9520, L506.1000 #### [facility] [address] [place], [address] Eosinophils/100 WBC (Bld) 4.1 % Normal 0-5 [facility] Comment on above: Performed By: #### L 500.4050, L100.0100, L501.9520, L506.1000 #### [facility] [address] [place], [address] Erythrocyte distribution width (RBC) [Ratio] 14.7 % High 11.6-14.6 [facility] Comment on above: Performed By: #### L 500.4050, L100.0100, L501.9520, L506.1000 #### [facility] [address] [place], [address] Hematocrit (Bld) [Volume fraction] 43.1 % Normal 37-47 [facility] Comment on above: Performed By: #### L 500.4050, L100.0100, L501.9520, L506.1000 #### [facility] [address] [place], [address] Hemoglobin (Bld) [Mass/Vol] 13.6 g/dL Normal 12.0-15.0 [facility] Comment on above: Performed By: #### L 500.4050, L100.0100, L501.9520, L506.1000 #### [facility] [address] [place], [address] IG% 0.300 Normal 0.0-0.9 [facility] Comment on above: Result Comment: IG% - Immature Granulocytes (promyelocytes, myelocytes and metamyelocytes) > 1% indicates that a LEFT SHIFT is Present. Performed By: #### L 500.4050, L100.0100, L501.9520, L506.1000 #### [facility] [address] [place], [address] Lymphocytes/100 WBC (Bld) 32.5 % Normal 19-41 [facility] Comment on above: Performed By: #### L 500.4050, L100.0100, L501.9520, L506.1000 #### [facility] [address] [place], [address] MCH (RBC) [Entitic mass] 30.0 pg Normal 27.0-32.0 [facility] Comment on above: Performed By: #### L 500.4050, L100.0100, L501.9520, L506.1000 #### [facility] [address] [place], [address] MCHC (RBC) [Mass/Vol] 31.6 g/dL Low 32-36 [facility] Comment on above: Performed By: #### L 500.4050, L100.0100, L501.9520, L506.1000 #### [facility] [address] [place], [address] MCV (RBC) [Entitic vol] 95.1 fL Normal 81-99 [facility] Comment on above: Performed By: #### L 500.4050, L100.0100, L501.9520, L506.1000 #### [facility] [address] [place], [address] Monocytes/100 WBC (Bld) 9.1 % Normal 0-10 [facility] Comment on above: Performed By: #### L 500.4050, L100.0100, L501.9520, L506.1000 #### [facility] [address] [place], [address] Neutrophils/100 WBC (Bld) 53.1 % Normal 47-70 [facility] Comment on above: Performed By: #### L 500.4050, L100.0100, L501.9520, L506.1000 #### [facility] [address] [place], [address] Nucleated RBC (Bld) [#/Vol] 0 10*3/uL Normal 0-5 [facility] Comment on above: Performed By: #### L 500.4050, L100.0100, L501.9520, L506.1000 #### [facility] [address] [place], [address] Platelet mean volume (Bld) [Entitic vol] 10.7 fL Normal 6.2-12.0 [facility] Comment on above: Performed By: #### L 500.4050, L100.0100, L501.9520, L506.1000 #### [facility] [address] [place], [address] Platelets (Bld) [#/Vol] 278 10*3/uL Normal 150-450 [facility] Comment on above: Performed By: #### L 500.4050, L100.0100, L501.9520, L506.1000 #### [facility] [address] [place], [address] RBC (Bld) [#/Vol] 4.53 10*6/uL Normal 4.2-5.4 [facility] Comment on above: Performed By: #### L 500.4050, L100.0100, L501.9520, L506.1000 #### [facility] [address] [place], [address] RDW SD 51.9 fl High 35.1-43.9 [facility] Comment on above: Performed By: #### L 500.4050, L100.0100, L501.9520, L506.1000 #### [facility] [address] [place], [address] WBC (Bld) [#/Vol] 6.3 10*3/uL Normal 4.4-11.0 [facility] Comment on above: Performed By: #### L 500.4050, L100.0100, L501.9520, L506.1000 #### [facility] [address] [place], [address] Comprehensive Metabolic Prof ilon 01-16-2024 Albumin [Mass/Vol] 3.6 g/dL Normal 3.2-5.0 [facility] Comment on above: Performed By: #### L 500.4050, L506.1000, L501.9520, L100.0100 #### [facility] [address] [place], [address] Albumin/Globulin [Mass ratio] 1.0 {ratio} Normal 0.9-2.4 [facility] Comment on above: Performed By: #### L 500.4050, L506.1000, L501.9520, L100.0100 #### [facility] [address] [place], [address] ALK P 109 U/L Normal 45-117 [facility] Comment on above: Performed By: #### L 500.4050, L506.1000, L501.9520, L100.0100 #### [facility] [address] [place], [address] ALT [Catalytic activity/Vol] 12 U/L Low 13-56 [facility] Comment on above: Performed By: #### L 500.4050, L506.1000, L501.9520, L100.0100 #### [facility] [address] [place], [address] AST [Catalytic activity/Vol] 15 U/L Normal 15-37 [facility] Comment on above: Performed By: #### L 500.4050, L506.1000, L501.9520, L100.0100 #### [facility] [address] [place], [address] Bilirubin [Mass/Vol] 0.60 mg/dL Normal 0.20-1.00 [facility] Comment on above: Result Comment: For patients on eltrombopag therapy, use of Dimension [place] TBIL is not recommended. Performed By: #### L 500.4050, L506.1000, L501.9520, L100.0100 #### [facility] [address] [place], [address] BUN/CRE 28.7 RATIO High 10-20 [facility] Comment on above: Performed By: #### L 500.4050, L506.1000, L501.9520, L100.0100 #### [facility] [address] [place], [address] CA,Total 9.5 mg/dL Normal 8.5-10.1 [facility] Comment on above: Performed By: #### L 500.4050, L506.1000, L501.9520, L100.0100 #### [facility] [address] [place], [address] Chloride [Moles/Vol] 110 mmol/L High 98-107 [facility] Comment on above: Performed By: #### L 500.4050, L506.1000, L501.9520, L100.0100 #### [facility] [address] [place], [address] CO2 [Moles/Vol] 24.0 mmol/L Normal 21.0-32.0 [facility] Comment on above: Performed By: #### L 500.4050, L506.1000, L501.9520, L100.0100 #### [facility] [address] [place], [address] Creatinine [Mass/Vol] 0.91 mg/dL Normal 0.55-1.02 [facility] Comment on above: Result Comment: The validity of the calculated GFR GFRAA in patients over 70 years has not been determined. Clinical correlation is essential. Performed By: #### L 500.4050, L506.1000, L501.9520, L100.0100 #### [facility] [address] [place], [address] EST GFR - AA 76 mL/min Normal >60 [facility] Comment on above: Result Comment: Afri can [facility] GFR Calc Performed By: #### L 500.4050, L506.1000, L501.9520, L100.0100 #### [facility] [address] [place], [address] GAP 10 Normal 5-15 [facility] Comment on above: Performed By: #### L 500.4050, L506.1000, L501.9520, L100.0100 #### [facility] [address] [place], [address] GFR/1.73 sq M.predicted among non-blacks MDRD (S/P/Bld) [Vol rate/Area] 63 mL/min/{1.73_m2} Normal >60 [facility] Comment on above: Result Comment: Non- GFR Calc Performed By: #### L 500.4050, L506.1000, L501.9520, L100.0100 #### [facility] [address] [place], [address] Globulin (S) [Mass/Vol] 3.7 g/dL Normal 2.2-4.2 [facility] Comment on above: Performed By: #### L 500.4050, L506.1000, L501.9520, L100.0100 #### [facility] [address] [place], [address] Glucose [Mass/Vol] 109 mg/dL High 74-106 [facility] Comment on above: Result Comment: Fast ing Glucose result from 100 to 125 mg/dL suggests IMPAIRED HOMEOSTASIS per A.D.A. criteria. Performed By: #### L 500.4050, L506.1000, L501.9520, L100.0100 #### [facility] [address] [place], [address] Potassium [Moles/Vol] 3.4 mmol/L Low 3.5-5.1 [facility] Comment on above: Performed By: #### L 500.4050, L506.1000, L501.9520, L100.0100 #### [facility] [address] [place], [address] Sodium [Moles/Vol] 144 mmol/L Normal 136-145 [facility] Comment on above: Performed By: #### L 500.4050, L506.1000, L501.9520, L100.0100 #### [facility] [address] [place], [address] T PROT 7.3 g/dL Normal 6.4-8.2 [facility] Comment on above: Performed By: #### L 500.4050, L506.1000, L501.9520, L100.0100 #### [facility] [address] [place], [address] Urea nitrogen [Mass/Vol] 26 mg/dL High 7-18 [facility] Comment on above: Performed By: #### L 500.4050, L506.1000, L501.9520, L100.0100 #### [facility] [address] [place], [address] Thyroid Stim Hormone (TSH)on 01-16-2024 TSH 0.949 uIU/mL Normal 0.358-3.740 [facility] Comment on above: Performed By: #### L 500.4050, L506.1000, L501.9520, L100.0100 #### [facility] [address] [place], [address] Vitamin D,25 Hydroxyon 01-15 Vitamin D 25-OH 20.7 ng/mL Normal [facility] Comment on above: Result Comment: Pretty min D 25(OH) Status Range Deficiency <20 ng/mL (50nmol/L) Insufficiency 20 - 30 ng/mL (50 - 75 nmol/L) Sufficiency 30 - 100 ng/mL (75 - 250 nmol/L) Toxicity >100 ng/mL (>250 nmol/L) Performed By: #### L 500.4050, L506.1000, L501.9520, L100.0100 #### [facility] [address] [place], [place], [id number] Absolute lymphocyte countOrd ered By: Ferny Pina on 06-28-2023 Lymphocytes Auto (Unsp spec) [#/Vol] 1.99 10*3/uL 0.83-4.51 [facility] Automated lymphocyte count a s percentage of total leukocytesOrdered By: Ferny Yovani on 06-28-2023 Lymphocytes/100 WBC Auto (Unsp spec) 39.3 % 19-41 [facility] Basophil percentageOrdered B y: Ferny Pina on 06-28-2023 Basophils/100 WBC (Bld) 1.0 % 0-1 [facility] Bilirubin [Mass/Vol] 0.40 mg/dL 0.20-1.00 [facility] Comment on above: For patients on eltr ombopag therapy, use of Dimension [place] TBIL is not recommended. Chloride [Moles/Vol] 108 mmol/L 98-107 [facility] Eosinophils/100 WBC (Bld) 3.6 % 0-5 [facility] Glucose [Mass/Vol] 112 mg/dL 74-106 [facility] Comment on above: Fasting Glucose resu lt from 100 to 125 mg/dL suggests IMPAIRED HOMEOSTASIS per A.D.A. criteria. Hemoglobin (Bld) [Mass/Vol] 12.4 g/dL 12.0-15.0 [facility] Monocytes/100 WBC (Bld) 8.5 % 0-10 [facility] Neutrophils (Bld) [#/Vol] 2.4 10*3/uL 2.0-7.7 [facility] Neutrophils/100 WBC (Bld) 47.4 % 47-70 [facility] Potassium [Moles/Vol] 3.5 mmol/L 3.5-5.1 [facility] Protein [Mass/Vol] 7.5 g/dL 6.4-8.2 [facility] Sodium [Moles/Vol] 145 mmol/L 136-145 [facility] WBC (Bld) [#/Vol] 5.1 10*3/uL 4.4-11.0 [facility] CBC W/Diff, Automatedon 03-2 0-2023 Absolute Lymph 1.99 X10 3/uL Normal 0.83-4.51 [facility] Comment on above: Performed By: #### L 100.0100, L506.1000, L500.4050, L501.9520 #### [facility] [address] [place], [address] Absolute Neut 2.4 X10 3/uL Normal 2.0-7.7 [facility] Comment on above: Performed By: #### L 100.0100, L506.1000, L500.4050, L501.9520 #### [facility] [address] [place], [address] Basophils/100 WBC (Bld) 1.0 % Normal 0-1 [facility] Comment on above: Performed By: #### L 100.0100, L506.1000, L500.4050, L501.9520 #### [facility] [address] [place], [address] Eosinophils/100 WBC (Bld) 3.6 % Normal 0-5 [facility] Comment on above: Performed By: #### L 100.0100, L506.1000, L500.4050, L501.9520 #### [facility] [address] [place], [address] Erythrocyte distribution width (RBC) [Ratio] 13.3 % Normal 11.6-14.6 [facility] Comment on above: Performed By: #### L 100.0100, L506.1000, L500.4050, L501.9520 #### [facility] [address] [place], [address] Hematocrit (Bld) [Volume fraction] 39.0 % Normal 37-47 [facility] Comment on above: Performed By: #### L 100.0100, L506.1000, L500.4050, L501.9520 #### [facility] [address] [place], [address] Hemoglobin (Bld) [Mass/Vol] 12.4 g/dL Normal 12.0-15.0 [facility] Comment on above: Performed By: #### L 100.0100, L506.1000, L500.4050, L501.9520 #### [facility] [address] [place], [address] IG% 0.200 Normal 0.0-0.9 [facility] Comment on above: Result Comment: IG% - Immature Granulocytes (promyelocytes, myelocytes and metamyelocytes) > 1% indicates that a LEFT SHIFT is Present. Performed By: #### L 100.0100, L506.1000, L500.4050, L501.9520 #### [facility] [address] [place], [address] Lymphocytes/100 WBC (Bld) 39.3 % Normal 19-41 [facility] Comment on above: Performed By: #### L 100.0100, L506.1000, L500.4050, L501.9520 #### [facility] [address] [place], [address] MCH (RBC) [Entitic mass] 29.1 pg Normal 27.0-32.0 [facility] Comment on above: Performed By: #### L 100.0100, L506.1000, L500.4050, L501.9520 #### [facility] [address] [place], [address] MCHC (RBC) [Mass/Vol] 31.8 g/dL Low 32-36 [facility] Comment on above: Performed By: #### L 100.0100, L506.1000, L500.4050, L501.9520 #### [facility] [address] [place], [address] MCV (RBC) [Entitic vol] 91.5 fL Normal 81-99 [facility] Comment on above: Performed By: #### L 100.0100, L506.1000, L500.4050, L501.9520 #### [facility] [address] [place], [address] Monocytes/100 WBC (Bld) 8.5 % Normal 0-10 [facility] Comment on above: Performed By: #### L 100.0100, L506.1000, L500.4050, L501.9520 #### [facility] [address] [place], [address] Neutrophils/100 WBC (Bld) 47.4 % Normal 47-70 [facility] Comment on above: Performed By: #### L 100.0100, L506.1000, L500.4050, L501.9520 #### [facility] [address] [place], [address] Nucleated RBC (Bld) [#/Vol] 0 10*3/uL Normal 0-5 [facility] Comment on above: Performed By: #### L 100.0100, L506.1000, L500.4050, L501.9520 #### [facility] [address] [place], [address] Platelet mean volume (Bld) [Entitic vol] 9.9 fL Normal 6.2-12.0 [facility] Comment on above: Performed By: #### L 100.0100, L506.1000, L500.4050, L501.9520 #### [facility] [address] [place], [address] Platelets (Bld) [#/Vol] 327 10*3/uL Normal 150-450 [facility] Comment on above: Performed By: #### L 100.0100, L506.1000, L500.4050, L501.9520 #### [facility] [address] [place], [address] RBC (Bld) [#/Vol] 4.26 10*6/uL Normal 4.2-5.4 [facility] Comment on above: Performed By: #### L 100.0100, L506.1000, L500.4050, L501.9520 #### [facility] [address] [place], [address] RDW SD 44.7 fl High 35.1-43.9 [facility] Comment on above: Performed By: #### L 100.0100, L506.1000, L500.4050, L501.9520 #### [facility] [address] [place], [address] WBC (Bld) [#/Vol] 5.1 10*3/uL Normal 4.4-11.0 [facility] Comment on above: Performed By: #### L 100.0100, L506.1000, L500.4050, L501.9520 #### [facility] [address] [place], [address] Comprehensive Metabolic Prof [facility] 06-28-2023 Albumin [Mass/Vol] 3.2 g/dL Normal 3.2-5.0 [facility] Comment on above: Performed By: #### L 100.0100, L506.1000, L500.4050, L501.9520 #### [facility] [address] [place], [address] Albumin/Globulin [Mass ratio] 0.7 {ratio} Low 0.9-2.4 [facility] Comment on above: Performed By: #### L 100.0100, L506.1000, L500.4050, L501.9520 #### [facility] [address] [place], [address] ALK P 104 U/L Normal 45-117 [facility] Comment on above: Performed By: #### L 100.0100, L506.1000, L500.4050, L501.9520 #### [facility] [address] [place], [address] ALT [Catalytic activity/Vol] 12 U/L Low 13-56 [facility] Comment on above: Performed By: #### L 100.0100, L506.1000, L500.4050, L501.9520 #### [facility] [address] [place], [address] AST [Catalytic activity/Vol] 15 U/L Normal 15-37 [facility] Comment on above: Performed By: #### L 100.0100, L506.1000, L500.4050, L501.9520 #### [facility] [address] [place], [address] Bilirubin [Mass/Vol] 0.40 mg/dL Normal 0.20-1.00 [facility] Comment on above: Result Comment: For patients on eltrombopag therapy, use of Dimension [place] TBIL is not recommended. Performed By: #### L 100.0100, L506.1000, L500.4050, L501.9520 #### [facility] [address] [place], [address] BUN/CRE 31.8 RATIO High 10-20 [facility] Comment on above: Performed By: #### L 100.0100, L506.1000, L500.4050, L501.9520 #### [facility] [address] [place], [address] CA,Total 9.3 mg/dL Normal 8.5-10.1 [facility] Comment on above: Performed By: #### L 100.0100, L506.1000, L500.4050, L501.9520 #### [facility] [address] [place], [address] Chloride [Moles/Vol] 108 mmol/L High 98-107 [facility] Comment on above: Performed By: #### L 100.0100, L506.1000, L500.4050, L501.9520 #### [facility] [address] [place], [address] CO2 [Moles/Vol] 28.0 mmol/L Normal 21.0-32.0 [facility] Comment on above: Performed By: #### L 100.0100, L506.1000, L500.4050, L501.9520 #### [facility] [address] [place], [address] Creatinine [Mass/Vol] 0.91 mg/dL Normal 0.55-1.02 [facility] Comment on above: Result Comment: The validity of the calculated GFR GFRAA in patients over 70 years has not been determined. Clinical correlation is essential. Performed By: #### L 100.0100, L506.1000, L500.4050, L501.9520 #### [facility] [address] [place], [address] EST GFR - AA 76 mL/min Normal >60 [facility] Comment on above: Result Comment: Afri can [facility] GFR Calc Performed By: #### L 100.0100, L506.1000, L500.4050, L501.9520 #### [facility] [address] [place], [address] GAP 9 Normal 5-15 [facility] Comment on above: Performed By: #### L 100.0100, L506.1000, L500.4050, L501.9520 #### [facility] [address] [place], [address] GFR/1.73 sq M.predicted among non-blacks MDRD (S/P/Bld) [Vol rate/Area] 63 mL/min/{1.73_m2} Normal >60 [facility] Comment on above: Result Comment: Non- GFR Calc Performed By: #### L 100.0100, L506.1000, L500.4050, L501.9520 #### [facility] [address] [place], [address] Globulin (S) [Mass/Vol] 4.3 g/dL High 2.2-4.2 [facility] Comment on above: Performed By: #### L 100.0100, L506.1000, L500.4050, L501.9520 #### [facility] [address] [place], [address] Glucose [Mass/Vol] 112 mg/dL High 74-106 [facility] Comment on above: Result Comment: Fast ing Glucose result from 100 to 125 mg/dL suggests IMPAIRED HOMEOSTASIS per A.D.A. criteria. Performed By: #### L 100.0100, L506.1000, L500.4050, L501.9520 #### [facility] [address] [place], [address] Potassium [Moles/Vol] 3.5 mmol/L Normal 3.5-5.1 [facility] Comment on above: Performed By: #### L 100.0100, L506.1000, L500.4050, L501.9520 #### [facility] [address] [place], [address] Sodium [Moles/Vol] 145 mmol/L Normal 136-145 [facility] Comment on above: Performed By: #### L 100.0100, L506.1000, L500.4050, L501.9520 #### [facility] [address] [place], [address] T PROT 7.5 g/dL Normal 6.4-8.2 [facility] Comment on above: Performed By: #### L 100.0100, L506.1000, L500.4050, L501.9520 #### [facility] [address] [place], [address] Urea nitrogen [Mass/Vol] 29 mg/dL High 7-18 [facility] Comment on above: Performed By: #### L 100.0100, L506.1000, L500.4050, L501.9520 #### [facility] [address] [place], [address] Determination of erythrocyte mean corpuscular volume (MCV)Ordered By: Ferny Pina on 06-28-2023 MCV (RBC) [Entitic vol] 91.5 fL 81-99 [facility] Erythrocyte distribution wid th ratioOrdered By: [facility] Erythrocyte distribution width (RBC) [Ratio] 13.3 % 11.6-14.6 [facility] Erythrocyte distribution wid th standard deviationOrdered By: Ferny Yovani on 06-28-2023 Erythrocyte distribution width (RBC) [Entitic vol] 44.7 fL 35.1-43.9 [facility] Hematocrit Auto (Bld) [Volum e fraction]Ordered By: [facility] 06-28-2023 Hematocrit (Bld) [Volume fraction] 39.0 % 37-47 [facility] Immature granulocytes/100 WB C Auto (Bld)Ordered By: Ferny Pina on 06-28-2023 Immature granulocytes/100 WBC (Bld) 0.200 % 0.0-0.9 [facility] Comment on above: IG% - Immature Granu locytes (promyelocytes, myelocytes and metamyelocytes) > 1% indicates that a LEFT SHIFT is Present. Laboratory - Chemistry and C hemistry - challengeOrdered By: Ferny Pina on 06-28-2023 Albumin/Globulin [Mass ratio] 0.7 {ratio} 0.9-2.4 [facility] ALP [Catalytic activity/Vol] 104 U/L 45-117 [facility] ALT [Catalytic activity/Vol] 12 U/L 13-56 [facility] CO2 [Moles/Vol] 28.0 mmol/L 21.0-32.0 [facility] Globulin (S) [Mass/Vol] 4.3 g/dL 2.2-4.2 [facility] Urea nitrogen/Creatinine [Mass ratio] 31.8 mg/mg 10-20 [facility] - Hematology and Cell countsOrdered By: Ferny Pina on 06-28-2023 MCH (RBC) [Entitic mass] 29.1 pg 27.0-32.0 [facility] MCHC (RBC) [Mass/Vol] 31.8 g/dL 32-36 [facility] Nucleated RBC/100 WBC (Bld) [Ratio] 0 % 0-5 [facility] Platelet mean volume (Bld) [Entitic vol] 9.9 fL 6.2-12.0 [facility] Platelets (Bld) [#/Vol] 327 10*3/uL 150-450 [facility] No Panel InformationOrdered By: Ferny Pina on 06-28-2023 Estimated GFR (MDRD) Amer 76 mL/min >60 [facility] Comment on above: GFR Calc Estimated GFR (MDRD) Non-Af Amer 63 mL/min >60 [facility] Comment on above: Non- GFR Calc Vitamin D 25-Hydroxy 19.5 ng/mL [facility] Comment on above: Vitamin D 25(OH) Sta tus Range Deficiency <20 ng/mL (50nmol/L) Insufficiency 20 - 30 ng/mL (50 - 75 nmol/L) Sufficiency 30 - 100 ng/mL (75 - 250 nmol/L) Toxicity >100 ng/mL (>250 nmol/L) RBC Auto (Bld) [#/Vol]Ordere d By: Ferny Pina on 06-28-2023 RBC (Bld) [#/Vol] 4.26 10*6/uL 4.2-5.4 [facility] Serum or plasma calcium griselda urement (mass/volume)Ordered By: Ferny Pina on 06-28-2023 Calcium [Mass/Vol] 9.3 mg/dL 8.5-10.1 [facility] Serum or plasma creatinine m easurement (mass/volume)Ordered By: Ferny Pina on 06-28-2023 Creatinine [Mass/Vol] 0.91 mg/dL 0.55-1.02 [facility] Comment on above: The validity of the calculated GFR & GFRAA in patients over 70 years has not been determined. Clinical correlation is essential. Serum or plasma thyroid stim ulating hormone (TSH) measurement (units/volume)Ordered By: Ferny Pina on 06-28-2023 TSH Qn 0.65 uIU/mL 0.358-3.74 [facility] Serum or plasma urea nitroge n measurement (mass/volume)Ordered By: Ferny Pina on 06-28-2023 Urea nitrogen [Mass/Vol] 29 mg/dL 7-18 [facility] Thin prep Papanicolaou smear with manual screeningOrdered By: Ferny Pina on 06-28-2023 Thin prep Papanicolaou smear with manual screening 3.2 g/dL 3.2-5.0 [facility] Thin prep Papanicolaou smear with manual screening 15 U/L 15-37 [facility] Thin prep Papanicolaou smear with manual screening 9 5-15 [facility] Thyroid Stim Hormone (TSH)on 06-28-2023 TSH 0.65 uIU/mL Normal 0.358-3.74 [facility] Comment on above: Performed By: #### L 100.0100, L506.1000, L500.4050, L501.9520 #### [facility] [address] [place], [place], [id number] Vitamin D,25 Hydroxyon 06-27 Vitamin D 25-OH 19.5 ng/mL Normal [facility] Comment on above: Result Comment: Pretty min D 25([place]) Status Range Deficiency <20 ng/mL (50nmol/L) Insufficiency 20 - 30 ng/mL (50 - 75 nmol/L) Sufficiency 30 - 100 ng/mL (75 - 250 nmol/L) Toxicity >100 ng/mL (>250 nmol/L) Performed By: #### L 100.0100, L506.1000, L500.4050, L501.9520 #### [facility] [address] [place], [address] Absolute lymphocyte countOrd ered By: Ferny Pina on 12-27-2022 Lymphocytes Auto (Unsp spec) [#/Vol] 2.30 10*3/uL 0.83-4.51 [facility] Basophil percentageOrdered B y: Ferny Pina on 12-27-2022 Basophils/100 WBC (Bld) 1.0 % 0-1 [facility] Bilirubin [Mass/Vol] 0.60 mg/dL 0.20-1.00 [facility] Comment on above: For patients on eltr ombopag therapy, use of Dimension [place] TBIL is not recommended. Chloride [Moles/Vol] 111 mmol/L 98-107 [facility] Eosinophils/100 WBC (Bld) 3.5 % 0-5 [facility] Glucose [Mass/Vol] 105 mg/dL 74-106 [facility] Comment on above: Fasting Glucose resu lt from 100 to 125 mg/dL suggests IMPAIRED HOMEOSTASIS per A.D.A. criteria. Neutrophils (Bld) [#/Vol] 3.8 10*3/uL 2.0-7.7 [facility] Neutrophils/100 WBC (Bld) 54.4 % 47-70 [facility] Potassium [Moles/Vol] 3.7 mmol/L 3.5-5.1 [facility] Protein [Mass/Vol] 7.0 g/dL 6.4-8.2 [facility] Sodium [Moles/Vol] 145 mmol/L 136-145 [facility] WBC (Bld) [#/Vol] 6.9 10*3/uL 4.4-11.0 [facility] Blood erythrocytes count (nu mber/volume)Ordered By: Ferny Pina on 12-27-2022 RBC (Bld) [#/Vol] 4.29 10*6/uL 4.2-5.4 [facility] Blood hemoglobin measurement (mass/volume)Ordered By: Ferny Pina on 12-27-2022 Hemoglobin (Bld) [Mass/Vol] 13.0 g/dL 12.0-15.0 [facility] Blood lymphocytes/100 leukoc ytesOrdered By: Ferny Pina on 12-27-2022 Lymphocytes/100 WBC (Bld) 33.4 % 19-41 [facility] Blood monocytes/100 leukocyt esOrdered By: Ferny Pina on 12-27-2022 Monocytes/100 WBC (Bld) 7.4 % 0-10 [facility] Blood platelet mean volumeOr dered By: Ferny Yovani on 12-27-2022 Platelet mean volume (Bld) [Entitic vol] 10.5 fL 6.2-12.0 [facility] Determination of erythrocyte mean corpuscular volume (MCV)Ordered By: Ferny Pina on 12-27-2022 MCV (RBC) [Entitic vol] 95.6 fL 81-99 [facility] Hematocrit Auto (Bld) [Volum e fraction]Ordered By: Ferny Pina on 12-27-2022 Hematocrit (Bld) [Volume fraction] 41.0 % 37-47 [facility] - Chemistry and C hemistry - challengeOrdered By: Ferny Yovani on 12-27-2022 ALP [Catalytic activity/Vol] 97 U/L 45-117 [facility] ALT [Catalytic activity/Vol] 17 U/L 13-56 [facility] CO2 [Moles/Vol] 28.0 mmol/L 21.0-32.0 [facility] Globulin (S) [Mass/Vol] 3.7 g/dL 2.2-4.2 [facility] Urea nitrogen/Creatinine [Mass ratio] 26.5 mg/mg 10-20 [facility] - Hematology and Cell countsOrdered By: Ferny Pina on 12-27-2022 Erythrocyte distribution width (RBC) [Entitic vol] 49.7 fL 35.1-43.9 [facility] Erythrocyte distribution width (RBC) [Ratio] 14.2 % 11.6-14.6 [facility] Immature granulocytes/100 WBC (Bld) 0.300 % 0.0-0.9 [facility] Comment on above: IG% - Immature Granu locytes (promyelocytes, myelocytes and metamyelocytes) > 1% indicates that a LEFT SHIFT is Present. MCH (RBC) [Entitic mass] 30.3 pg 27.0-32.0 [facility] Nucleated RBC/100 WBC (Bld) [Ratio] 0 % 0-5 [facility] MCHC Auto (RBC) [Mass/Vol]Or dered By: Ferny Pina on 12-27-2022 MCHC (RBC) [Mass/Vol] 31.7 g/dL 32-36 [facility] No Panel InformationOrdered By: Ferny Pina on 12-27-2022 Estimated GFR (MDRD) Amer 80 mL/min >60 [facility] Comment on above: GFR Calc Estimated GFR (MDRD) Non-Af Amer 66 mL/min >60 [facility] Comment on above: Non- GFR Calc Thyroid Stimulating Hormone (TSH) 1.34 uIU/mL 0.358-3.74 [facility] Vitamin D 25-Hydroxy 28.7 ng/mL [facility] Comment on above: Vitamin D 25(OH) Sta tus Range Deficiency <20 ng/mL (50nmol/L) Insufficiency 20 - 30 ng/mL (50 - 75 nmol/L) Sufficiency 30 - 100 ng/mL (75 - 250 nmol/L) Toxicity >100 ng/mL (>250 nmol/L) Platelets bldOrdered By: Ferny Pina on 12-27-2022 Platelets (Bld) [#/Vol] 249 10*3/uL 150-450 [facility] Serum or plasma albumin griselda urement (mass/volume)Ordered By: Ferny Pina on 12-27-2022 Albumin [Mass/Vol] 3.3 g/dL 3.2-5.0 [facility] Serum or plasma albumin/glob ulin mass ratioOrdered By: Ferny Pina on 12-27-2022 Albumin/Globulin [Mass ratio] 0.9 {ratio} 0.9-2.4 [facility] Serum or plasma calcium griselda urement (mass/volume)Ordered By: Ferny Pina on 12-27-2022 Calcium [Mass/Vol] 9.0 mg/dL 8.5-10.1 [facility] Serum or plasma creatinine m easurement (mass/volume)Ordered By: Ferny Pina on 12-27-2022 Creatinine [Mass/Vol] 0.87 mg/dL 0.55-1.02 [facility] Comment on above: The validity of the calculated GFR & GFRAA in patients over 70 years has not been determined. Clinical correlation is essential. Serum or plasma urea nitroge n measurement (mass/volume)Ordered By: Ferny Pina on 12-27-2022 Urea nitrogen [Mass/Vol] 23 mg/dL 7-18 [facility] Thin prep Papanicolaou smear with manual screeningOrdered By: Ferny Pina on 12-27-2022 Thin prep Papanicolaou smear with manual screening 15 U/L 15- [facility] Thin prep Papanicolaou smear with manual screening 6 5-15 [facility] Absolute lymphocyte countOrd ered By: Dr. Pina on 06-21-2022 Lymphocytes Auto (Unsp spec) [#/Vol] 2.60 10*3/uL 0.83-4.51 [facility] Basophil percentageOrdered B y: Dr. Pina on 06-21-2022 Basophils/100 WBC (Bld) 0.7 % 0-1 [facility] Bilirubin [Mass/Vol] 0.60 mg/dL 0.20-1.00 [facility] Comment on above: For patients on eltr ombopag therapy, use of Dimension [place] TBIL is not recommended. Chloride [Moles/Vol] 111 mmol/L 98-107 [facility] Eosinophils/100 WBC (Bld) 4.1 % 0-5 [facility] Glucose [Mass/Vol] 105 mg/dL 74-106 [facility] Comment on above: Fasting Glucose resu lt from 100 to 125 mg/dL suggests IMPAIRED HOMEOSTASIS per A.D.A. criteria. Neutrophils (Bld) [#/Vol] 3.8 10*3/uL 2.0-7.7 [facility] Neutrophils/100 WBC (Bld) 51.9 % 47-70 [facility] Potassium [Moles/Vol] 4.1 mmol/L 3.5-5.1 [facility] Protein [Mass/Vol] 7.4 g/dL 6.4-8.2 [facility] Sodium [Moles/Vol] 144 mmol/L 136-145 [facility] WBC (Bld) [#/Vol] 7.4 10*3/uL 4.4-11.0 [facility] Blood erythrocytes count (nu mber/volume)Ordered By: Dr. Pina on 06-21-2022 RBC (Bld) [#/Vol] 4.70 10*6/uL 4.2-5.4 [facility] Blood hemoglobin measurement (mass/volume)Ordered By: Dr. Pina on 06-21-2022 Hemoglobin (Bld) [Mass/Vol] 13.7 g/dL 12.0-15.0 [facility] Blood lymphocytes/100 leukoc ytesOrdered By: Dr. Pina on 06-21-2022 Lymphocytes/100 WBC (Bld) 35.3 % 19-41 [facility] Blood monocytes/100 leukocyt esOrdered By: Dr. Pina on 06-21-2022 Monocytes/100 WBC (Bld) 7.7 % 0-10 [facility] Blood platelet mean volumeOr dered By: Dr. Pina on 06-21-2022 Platelet mean volume (Bld) [Entitic vol] 10.7 fL 6.2-12.0 [facility] Determination of erythrocyte mean corpuscular volume (MCV)Ordered By: Dr. Pina on 06-21-2022 MCV (RBC) [Entitic vol] 92.8 fL 81-99 [facility] Hematocrit Auto (Bld) [Volum e fraction]Ordered By: Dr. Pina on 06-21-2022 Hematocrit (Bld) [Volume fraction] 43.6 % 37-47 [facility] - Chemistry and C hemistry - challengeOrdered By: Dr. Pina on 06-21-2022 ALP [Catalytic activity/Vol] 103 U/L 45-117 [facility] ALT [Catalytic activity/Vol] 16 U/L 13-56 [facility] CO2 [Moles/Vol] 25.0 mmol/L 21.0-32.0 [facility] Globulin (S) [Mass/Vol] 3.8 g/dL 2.2-4.2 [facility] Urea nitrogen/Creatinine [Mass ratio] 29.8 mg/mg 10-20 [facility] - Hematology and Cell countsOrdered By: Dr. Pina on 06-21-2022 Erythrocyte distribution width (RBC) [Entitic vol] 52.5 fL 35.1-43.9 [facility] Erythrocyte distribution width (RBC) [Ratio] 15.3 % 11.6-14.6 [facility] Immature granulocytes/100 WBC (Bld) 0.300 % 0.0-0.9 [facility] Comment on above: IG% - Immature Granu locytes (promyelocytes, myelocytes and metamyelocytes) > 1% indicates that a LEFT SHIFT is Present. MCH (RBC) [Entitic mass] 29.1 pg 27.0-32.0 [facility] Nucleated RBC/100 WBC (Bld) [Ratio] 0 % 0-5 [facility] MCHC Auto (RBC) [Mass/Vol]Or dered By: Dr. Pina on 06-21-2022 MCHC (RBC) [Mass/Vol] 31.4 g/dL 32-36 [facility] No Panel InformationOrdered By: Dr. Pina on 06-21-2022 Estimated GFR (MDRD) Amer 80 mL/min >60 [facility] Comment on above: GFR Calc Estimated GFR (MDRD) Non-Af Amer 66 mL/min >60 [facility] Comment on above: Non- GFR Calc Thyroid Stimulating Hormone (TSH) 1.01 uIU/mL 0.358-3.74 [facility] Vitamin D 25-Hydroxy 22.2 ng/mL [facility] Comment on above: Vitamin D 25(OH) Sta tus Range Deficiency <20 ng/mL (50nmol/L) Insufficiency 20 - 30 ng/mL (50 - 75 nmol/L) Sufficiency 30 - 100 ng/mL (75 - 250 nmol/L) Toxicity >100 ng/mL (>250 nmol/L) Platelets bldOrdered By: Dr. Pina on 06-21-2022 Platelets (Bld) [#/Vol] 301 10*3/uL 150-450 [facility] Serum or plasma albumin griselda urement (mass/volume)Ordered By: Dr. Pina on 06-21-2022 Albumin [Mass/Vol] 3.6 g/dL 3.2-5.0 [facility] Serum or plasma albumin/glob ulin mass ratioOrdered By: Dr. Pina on 06-21-2022 Albumin/Globulin [Mass ratio] 0.9 {ratio} 0.9-2.4 [facility] Serum or plasma calcium griselda urement (mass/volume)Ordered By: Dr. Pina on 06-21-2022 Calcium [Mass/Vol] 9.5 mg/dL 8.5-10.1 [facility] Serum or plasma creatinine m easurement (mass/volume)Ordered By: Dr. Pina on 06-21-2022 Creatinine [Mass/Vol] 0.87 mg/dL 0.55-1.02 [facility] Comment on above: The validity of the calculated GFR & GFRAA in patients over 70 years has not been determined. Clinical correlation is essential. Serum or plasma urea nitroge n measurement (mass/volume)Ordered By: Dr. Pina on 06-21-2022 Urea nitrogen [Mass/Vol] 26 mg/dL 7-18 [facility] Thin prep Papanicolaou smear with manual screeningOrdered By: Dr. Pina on 06-21-2022 Thin prep Papanicolaou smear with manual screening 15 U/L 15-37 [facility] Thin prep Papanicolaou smear with manual screening 8 5-15 [facility] Absolute lymphocyte counton 12-20-2021 Lymphocytes Auto (Unsp spec) [#/Vol] 2.31 10*3/uL 0.83-4.51 [facility] Work Phone: Basophil percentageon 2021 Basophils/100 WBC (Bld) 1.1 % 0-1 [facility] Work Phone: Bilirubin [Mass/Vol] 0.60 mg/dL 0.20-1.00 [facility] Work Phone: Comment on above: For patients on eltr ombopag therapy, use of Dimension [place] TBIL is not recommended. Chloride [Moles/Vol] 107 mmol/L 98-107 [facility] Work Phone: Eosinophils/100 WBC (Bld) 2.7 % 0-5 [facility] Work Phone: Glucose [Mass/Vol] 111 mg/dL 74-106 [facility] Work Phone: Comment on above: Fasting Glucose resu lt from 100 to 125 mg/dL suggests IMPAIRED HOMEOSTASIS per A.D.A. criteria. Neutrophils (Bld) [#/Vol] 3.6 10*3/uL 2.0-7.7 [facility] Work Phone: Neutrophils/100 WBC (Bld) 53.2 % 47-70 [facility] Work Phone: Potassium [Moles/Vol] 3.7 mmol/L 3.5-5.1 [facility] Work Phone: Protein [Mass/Vol] 7.8 g/dL 6.4-8.2 [facility] Work Phone: Sodium [Moles/Vol] 142 mmol/L 136-145 [facility] Work Phone: WBC (Bld) [#/Vol] 6.7 10*3/uL 4.4-11.0 [facility] Work Phone: Blood erythrocytes count (nu mber/volume)on 12-20-2021 RBC (Bld) [#/Vol] 4.56 10*6/uL 4.2-5.4 [facility] Work Phone: Blood hemoglobin measurement (mass/volume)on 12-20-2021 Hemoglobin (Bld) [Mass/Vol] 13.1 g/dL 12.0-15.0 [facility] Work Phone: Blood lymphocytes/100 leukoc yteson 12-20-2021 Lymphocytes/100 WBC (Bld) 34.7 % 19-41 [facility] Work Phone: Blood monocytes/100 leukocyt eson 12-20-2021 Monocytes/100 WBC (Bld) 8.1 % 0-10 [facility] Work Phone: Blood platelet mean volumeon 12-20-2021 Platelet mean volume (Bld) [Entitic vol] 10.5 fL 6.2-12.0 [facility] Work Phone: Determination of erythrocyte mean corpuscular volume (MCV)on 12-20-2021 MCV (RBC) [Entitic vol] 90.6 fL 81-99 [facility] Work Phone: Hematocrit Auto (Bld) [Volum e fraction]on 12-20-2021 Hematocrit (Bld) [Volume fraction] 41.3 % 37-47 [facility] Work Phone: Laboratory - Chemistry and C hemistry - challengeon 12-20-2021 ALP [Catalytic activity/Vol] 134 U/L 45-117 [facility] Work Phone: ALT [Catalytic activity/Vol] 16 U/L 13-56 [facility] Work Phone: CO2 [Moles/Vol] 26.0 mmol/L 21.0-32.0 [facility] Work Phone: Globulin (S) [Mass/Vol] 4.3 g/dL 2.2-4.2 [facility] Work Phone: Urea nitrogen/Creatinine [Mass ratio] 26.0 mg/mg 10-20 [facility] Work Phone: Laboratory - Hematology and Cell countson 12-20-2021 Erythrocyte distribution width (RBC) [Entitic vol] 50.3 fL 35.1-43.9 [facility] Work Phone: Erythrocyte distribution width (RBC) [Ratio] 15.1 % 11.6-14.6 [facility] Work Phone: Immature granulocytes/100 WBC (Bld) 0.200 % 0.0-0.9 [facility] Work Phone: Comment on above: IG% - Immature Granu locytes (promyelocytes, myelocytes and metamyelocytes) > 1% indicates that a LEFT SHIFT is Present. MCH (RBC) [Entitic mass] 28.7 pg 27.0-32.0 [facility] Work Phone: Nucleated RBC/100 WBC (Bld) [Ratio] 0 % 0-5 [facility] Work Phone: MCHC Auto (RBC) [Mass/Vol]on 12-20-2021 MCHC (RBC) [Mass/Vol] 31.7 g/dL 32-36 [facility] Work Phone: No Panel Informationon 12-20 Estimated GFR (MDRD) Amer 75 mL/min >60 [facility] Work Phone: Comment on above: GFR Calc Estimated GFR (MDRD) Non-Af Amer 62 mL/min >60 [facility] Work Phone: Comment on above: Non- GFR Calc Thyroid Stimulating Hormone (TSH) 1.10 uIU/mL 0.358-3.74 [facility] Work Phone: Vitamin D 25-Hydroxy 14.9 ng/mL [facility] Work Phone: Comment on above: Vitamin D 25(OH) Sta tus Range Deficiency <20 ng/mL (50nmol/L) Insufficiency 20 - 30 ng/mL (50 - 75 nmol/L) Sufficiency 30 - 100 ng/mL (75 - 250 nmol/L) Toxicity >100 ng/mL (>250 nmol/L) Platelets bldon 12-20-2021 Platelets (Bld) [#/Vol] 281 10*3/uL 150-450 [facility] Work Phone: Serum or plasma albumin griselda urement (mass/volume)on 12-20-2021 Albumin [Mass/Vol] 3.5 g/dL 3.2-5.0 [facility] Work Phone: Serum or plasma albumin/glob ulin mass ratioon 12-20-2021 Albumin/Globulin [Mass ratio] 0.8 {ratio} 0.9-2.4 [facility] Work Phone: Serum or plasma calcium griselda urement (mass/volume)on 12-20-2021 Calcium [Mass/Vol] 9.7 mg/dL 8.5-10.1 [facility] Work Phone: Serum or plasma creatinine m easurement (mass/volume)on 12-20-2021 Creatinine [Mass/Vol] 0.92 mg/dL 0.55-1.02 [facility] Work Phone: Comment on above: The validity of the calculated GFR & GFRAA in patients over 70 years has not been determined. Clinical correlation is essential. Serum or plasma urea nitroge n measurement (mass/volume)on 12-20-2021 Urea nitrogen [Mass/Vol] 24 mg/dL 7-18 [facility] Work Phone: Thin prep Papanicolaou smear with manual screeningon 12-20-2021 Thin prep Papanicolaou smear with manual screening 14 U/L 15-37 [facility] Work Phone: Thin prep Papanicolaou smear with manual screening 9 5-15 [facility] Work Phone: CNOVon 09-16-2020 MATT Office Visit (UCWSTR) ---- VEE FUENTES ([id number]) 1940 F Date Time Provider Department 09/16/20 6:15 PM KRANTHI TIJERINA [facility] During your visit today, we recorded the following information about you: Temperature Pulse Respiration Blood pressure 98.8 degrees 83/minute 16/minute 138/80 Weight 98.8 kg Kranthi Tijerina APRN.CNP 09/16/2020 7:42 PM Signed This note was created using NoteWriter. Subjective Vee Fuetnes is a 80 year old female. HPI [...] (unless otherwis (more content not included)... Normal [facility] No Panel Informationon 09-16 [facility] XR WRIST 4V PA/LAT/OBL/SCAPH RTon 09-16-2020 XR [...] IMPRESSION: Advanced degenerative changes. Soft tissue swelling. Senior Javascript Developer: [facility] Transcribe Date/Time: Sep 16 2020 7:29P Dictated by : JEFFERY GUERRA MD This examination was interpreted and the report reviewed and electronically signed by: JEFFERY GUERRA MD on Sep 16 2020 7:31PM EST [id number] Normal [facility] XR Wrist - right 4 Viewson 0 09-16-2020 IMPRESSION: Advanced degenerative changes. Soft tissue swelling. Senior Javascript Developer: [facility] Transcribe Date/Time: Sep 16 2020 7:29P Dictated by : JEFFEYR GUERRA MD This examination was interpreted and [...] erosion. No fracture. DIVISION OF RADIOLOGY Provider, [facility] [place] - 09/16/2020 * * *Final Report* * [...] IMPRESSION: Advanced degenerative changes. Soft tissue swelling. Senior Javascript Developer: [employer] Transcribe Date/Time: Sep 16 2020 7:29P Dictated by : JEFFERY GUERRA MD This examination was interpreted and the report reviewed and electronically signed by: JEFFERY GUERRA MD on Sep 16 2020 7:31PM EST [facility] Radiology Study observation (narrative) Catalina renee [facility] XR Wrist - right 4 ViewsOrde red By: [facility] Provider on 09-16-2020 [facility] Vital Signs Date Time Vital Sign Value Performing Clinician Aletha wood 09-16-2020 18:16-0400 Body temperature 98.8 [degF] Kranthi Tijerina APRN.SYSTEM SUPPORT SPECIALIST Work Phone: [facility] 09-16-2020 18:16-0400 Body weight 98.79 kg Kranthi Tijerina APRN.CNP Work Phone: [facility] 09-16-2020 18:16-0400 Diastolic blood pressure 80 mm[Hg] Kranthi Tijerina APRN.CNP Work Phone: [facility] 09-16-2020 18:16-0400 Heart rate 83 /min Kranthi Chatal TOMBSTONE SETTER.SYSTEM SUPPORT SPECIALIST Work Phone: [facility] 09-16-2020 18:16-0400 Respiratory rate 16 /min Kranthi Chatal TOMBSTONE SETTER.SYSTEM SUPPORT SPECIALIST Work Phone: [facility] 09-16-2020 18:16-0400 SaO2% (BldA) [Mass fraction] 95 % Kranthi Chatal TOMBSTONE SETTER.SYSTEM SUPPORT SPECIALIST Work Phone: [facility] 09-16-2020 18:16-0400 Systolic blood pressure 138 mm[Hg] Kranthi Chatal TOMBSTONE SETTER.SYSTEM SUPPORT SPECIALIST Work Phone: [facility] Encounters Encounter Date Encounter Type Care Provider Facility Start: 05-03-2024 End: 05-03-2024 ambulatory [facility] Facility:[facility] Start: 04-16-2024 End: 04-16-2024 ambulatory [facility] Facility:[facility] Start: 01-16-2024 End: 01-16-2024 ambulatory [facility] Facility:[facility] Start: 01-11-2024 End: 01-11-2024 ambulatory [facility] Facility:[facility] Start: 06-28-2023 End: 06-28-2023 ambulatory [facility] Work Phone: Start: 06-28-2023 End: 06-28-2023 Patient encounter procedure [facility]-Laboratory, Phy Office 3rd Flr Start: 06-28-2023 End: 06-28-2023 ambulatory [facility] Facility:[facility] Start: 12-27-2022 End: 12-27-2022 ambulatory [facility] Work Phone: Start: 12-27-2022 End: 12-27-2022 Patient encounter procedure [facility]-Laboratory, Phy Office 3rd Flr Start: 06-21-2022 End: 06-21-2022 ambulatory [facility] Work Phone: Start: 06-21-2022 End: 06-21-2022 Patient encounter procedure [facility]-Laboratory, Phy Office 3rd Flr Start: 12-20-2021 End: 12-20-2021 ambulatory [facility] Work Phone: Start: 12-20-2021 End: 12-20-2021 Patient encounter procedure [facility]-Laboratory, Phy Office 3rd Flr Start: 09-16-2020 End: 09-16-2020 Subsequent hospital visit by physician Christina [facility] [place] Work Phone: Radiology Comment on above: Right wrist pain [M2 5.531] Start: 09-16-2020 End: 09-16-2020 Patient encounter procedure Kranthi Breezy TOMBSTONE SETTER.SYSTEM SUPPORT SPECIALIST Work Phone: [facility] Comment on above: Right wrist pain (Pr imary Dx) Procedures Date Procedure Procedure Detail Performing Clinician Start: 09-16-2020 Radex wrist complete minimum 3 views Kranthi Ernestoal TOMBSTONE SETTER.SYSTEM SUPPORT SPECIALIST Work Phone: H/O: tubal ligation History of t ubal ligation History of tonsillectomy History of tonsi llectomy Plan of Treatment Date Care Activity Detail Author Start: 12-10-2023 Covid-19 Vaccine ( season) Covid-19 Vaccine ( season) [facility] Start: 12-10-2023 Influenza vaccination Influenza Vacc ine (#1) [facility] Start: 04-10-2023 Advance Directive Discussion Advance Directive Discussion [facility] Start: 12-09-2020 Influenza vaccination INFLUENZA (Sea son Ended) [facility] Start: 2006 ADVANCE DIRECTIVE DISCUSSION ADVANCE DIRECTIVE DISCUSSION [facility] Start: 2006 BONE DENSITY BONE DENSITY [facility] Start: 2006 Pneumococcal Vaccine : 65+ (1 of 1 - PCV) Pneumococcal Vaccine: 65+ (1 of 1 - PCV) [facility] Start: 2006 PNEUMOVAX AGE 65 AND OVER WITH 5YR LOOKBACK (#1) PNEUMOVAX AGE 65 AND OVER WITH 5YR LOOKBACK (#1) [facility] Start: 2006 Screening for osteoporosis Bone Density Screening [facility] Start: 2001 RSV Vaccine (1 - 1-d ose 60+ series) RSV Vaccine (1 - 1-dose 60+ series) [facility] Start: 1991 Screening for malign ant neoplasm of colon [facility] Start: 1991 SHINGRIX VACCINE (1 of 2) SHINGRIX V ACCINE (1 of 2) [facility] Start: 1986 DIABETES SCREEN [facility] [facility] Start: 1986 Diabetes Screening Diabetes Screenin g [facility] Start: 1960 Urine microalbumin profile [facility] Start: 1959 Anxiety Screening Anxiety Screening [facility] Start: 1959 Depression Screening Depression Scre ening [facility] Start: 1953 Adult depression screening assessment DEPRESSION SCREENING [facility] Immunizations Immunization Date Immunization Notes Care Provider Fa cility 02-23-2017 influenza, injectabl e, quadrivalent, preservative free [facility] 02-23-2017 influenza, seasonal, injectable [facility] 02-23-2017 influenza virus vaccine, unspecified formulation [facility] [place] Work Phone: [facility] Payers Date Payer Category Payer Self-pay [id number] 2012 Private Health Insurance 101 [id number] 2009 Medicare AETNA MEDICARE A ETNA MEDICARE PPO [id number] 2009-Present PPO [id number] 2009 Medicare AETNA MEDICARE A ETNA MEDICARE PPO [id number] 2009-Present [phone] [address] [place] [address] PPO [id number] Unknown [id number] Unknown [id number] 62 Unknown [id number] 62 Unknown [id number] 62 Unknown [id number] Social History Date Type Detail Facility Start: 09-16-2020 Tobacco smoking status NHIS Never smoker [facility] Start: 09-16-2020 Tobacco use and exposure Never used [facility] Start: 09-16-2020 Alcohol intake Current non-dr television producer of alcohol (finding) [facility] Start: 1940 Sex Assigned At Not on file [facility] Start: 08-17-2020 End: 09-16-2020 Exposure to SARS-CoV-2 (event) Not sure [facility] Start: 10-29-2018 Tobacco smoking status MNIS Unknown if ever smoked [facility] Start: 01-14-2017 None [facility] Start: 02-22-2017 Spouse/ Signif icant Other [facility] Start: 09-10-2018 Non-smoker [facility] Start: 1940 Sex Assigned At Female [facility] Start: 09-16-2020 History of Social function [facility] Start: 09-16-2020 Tobacco use panel [facility] National Score (1-100), lower number is lower risk Not on file [facility] Medical Equipment Procedure Code Equipment Code Equipment Origin al Text Equipment Identifier Dates MESH,3DMAX RIGHT LG [id number] FDA Start: 10-18-2018 TACKER,SECURE STRAP FDA Start : 10-18-2018 MESH,3DMAX RIGHT LG [id number] FDA Start: 10-18-2018 TACKER,SECURE STRAP FDA Start : 10-18-2018 MESH,3DMAX RIGHT LG [id number] FDA Start: 10-18-2018 TACKER,SECURE STRAP FDA Start : 10-18-2018 MESH,3DMAX RIGHT LG [id number] FDA Start: 10-18-2018 TACKER,SECURE STRAP FDA Start : 10-18-2018 Progress note 09-16-2020 Note Date & Type Note Facility 09-16-2020 Note HNO ID: [id number] Author: Kranthi Tijerina APRN.SYSTEM SUPPORT SPECIALIST Service: ? Author Type: Nurse Practitioner Type: Progress Notes Filed: 09/16/2020 7:42 PM Note Text: This note was created using [employer]. Subjective Vee Fuentes is a 80 year [...] discharged home in stable condition. Kranthi Tijerina APRN.[facility] Progress note 09-16-2020 Note Date & Type Note Facility 09-16-2020 Note HNO ID: [id number] Author: Angelito Leon RT(R) Service: ? Author Type: Wood And Hardware Outfitter Type: Progress Notes Filed: 09/16/2020 7:03 PM [...] Leon, RT(R) September 16, 2020 6:55 PM [facility] Instructions 09-16-2020 Patient Instructions Note Date [...] of Present illness Narrative 09-16-2020 Kranthi Tijerina APRN.SYSTEM SUPPORT SPECIALIST - 09/16/2020 7:31 PM EDT Note Date & Type Note Facility 09-16-2020 History of Presen t illness Narrative This note was created using [employer]. Subjective Vee Fuentes is a 80 year [...] Tijerina APRN.MARY ELLEN documented in this encounter [facility] History of Present illness Narrative 09-16-2020 Angelito [...] 2020 6:55 PM documented in this encounter [facility] Evaluation note Note Date & Type Note Facility Evaluation note Diagnosis Right wrist pain- Primary Pain in joint, forearm documented in this encounter [facility] Evaluation note Note Date & Type Note Facility Evaluation note No assessment information availa [facility] Work Phone: Evaluation note Note Date & Type Note Facility Evaluation note Diagnosis Right wrist pain Pain in joint, forearm documented in this encounter [facility] Reason for Referral Status Reason Specialty Diagnoses / Procedures Referred By Contact Referred To Contact Pending Review PCP Requested Referral Orthopedics Diagnoses Right wrist pain Procedures CONSULT TO ORTHOPAEDICS NEW PATIENT VISIT LEVEL 5 Kranthi Tijerina, SAMEER.SYSTEM SUPPORT SPECIALIST [address] [place] [address] Summary Purpose Family History No Family History Records Found Relationship Condition Age at Onset Recorded Date/T arianna father Cardiac disease Unknown Asthma Unknown brother Cardiac disease Unknown Malignant neoplasm Unknown Advance Directives No Advanced Directives Records Found Advance Directive Response Recorded Date/ Time Living Will Yes October 15, 2018 8 :14am Power of Life Skills Coordinator Volunteer Yes October 15, 2018 8:14am Additional Source [...] or prosecute any alcohol or drug abuse patient.[facility] Reason for Visit (unrecogniz ed section and content) Reason Comments Hand Injury RIGHT hand x 1 day INFORMATION SOURCE (unrecogn ized section and content) DATE CREATED AUTHOR 09/18/2020 [facility] DATE CREATED AUTHOR AUTHOR'S ORGANIZ ATION 05/22/2024 [facility] Goals (unrecognized section and content) Goals [...] MD Primary Care Provider, Attending Provider Active Deportation Officer Relationship Specialty Start Date End Date Ferny [...] BE BASED ON THE PRIMARY CLINICAL RECORDS. [employer] [facility]. provides no warranty or guarantee of the accuracy or completeness of information in this document.
[2024-12-14] MEDS: Midazolam 2 MG/2 ML Syringe IV (18:20)
[2024-12-14] MEDS: fentaNYL 100 MCG/2 ML Ampul IV (18:21)
[2024-12-14] MEDS: Lidocaine 1% (5 ml sdv) 5 ML Vial 4 ML IV (18:22)
[2024-12-14] MEDS: 0.9% Normal Saline (1000mL) 400 ML IV (18:26)
[2024-12-14] MEDS: Bupiv/Epi 0.25% 30 ML Vial (20:03)
--- NOTE | 2024-12-14 20:17 | PCM.OPRPT ---
Problems Associated Problem List Diagnoses (1) Incarcerated ventral hernia: Procedures Digestive 40xxx-49xxx: 53559 RPR AA HRN RCR 3-10 NCR/STRN Operative Report (Standard) Operative Information Date of Procedure: 12/14/24 Pre-Operative Diagnosis: Incarcerated right sided spigelian hernia Post-Operative Diagnosis: Same Surgery/Procedure Performed: 1. Diagnostic laparoscopy 2. Open repair of an incarcerated right sided spigelian hernia with mesh accounts payable analyst: Yes Home Health Cna: Mariela Chappell Tasks completed by first responder: Closing and Retracting Additional certified registered dental assistant?: No Type of Anesthesia: General and Local RN Documented Start/Stop Times: Operation Date: 12/14/24 16:15 Case Time Anesthesia Start 12/14/24 18:17 Into Room 12/14/24 18:17 Procedure Start 12/14/24 18:48 Procedure End 12/14/24 20:23 Anesthesia End 12/14/24 20:35 Out of Room 12/14/24 20:35 Procedure Start Time: 18:48 Procedure Stop Time: 20:23 Select all DRAINS/GRAFTS/IMPLANTS that apply: Drains Drain details: bere x 1 Special Medications: 900 mg clindamycin IV. Estimated Blood Loss: 15 mL Specimen collected: No Description of surgery: The patient is an 84-year-old female who presented to the emergency department earlier today with right-sided abdominal pain for the past 2 days. She noticed a new bulge at the site of her pain. She had a history of a previous laparoscopic right inguinal hernia however this pain and bulge was more superior to that location. She was seen evaluated by the ER staff. She was found to have a right sided spigelian hernia. Attempts at reducing the hernia were not successful. As a result I recommended surgical intervention to repair the incarcerated hernia. We discussed doing a diagnostic laparoscopy to assess the viability of the bowel and to attempt to reduce the hernia. The plan was to do an open right-sided spigelian hernia repair with possible mesh Patient was brought to the operating room today following informed consent. 900 mg of clindamycin was given IV upon induction. Her arms were outstretched and arm boards. A general anesthesia was induced. The abdomen was then prepped and draped in the usual sterile manner. A 5 mm incision was made just below the umbilicus through which a 5 mm trocar was placed optically. This was placed without incident. The abdomen is then fully insufflated with CO2 gas. Another 5 mm trocar was placed in the left upper quadrant. The cecum was noted adherent to the anterior abdominal wall in the right lower quadrant. This was not amenable to being reduced with combination of Alward pressure and inward retraction. At this point further attempts at laparoscopy were aborted. A transverse incision was made overlying the area of hernia. Bovie electrocautery was then used to dissect down through the subcutaneous tissues. The hernia sac was encountered. This was incised revealing the hernia contents which again was cecum and appendix. This was not readily reducible and so a relaxing incision was made and the fascia at the fascial edge after doing so I was then able to free up the hernia sac off of the fascial edge. This was then developed around the entire edge of the fascial defect. Once this was all freed up the bowel was able to be placed back into the abdomen fully reduced. The involved bowel was healthy and viable. There was some mild edema in the mesentery and fatty tissues around the cecum. The fascial defect was about 4 to 4.5 cm in diameter. The edge of the fascial defect was right up against the right anterior superior iliac spine. It was decided to close the fascia primarily using 0 Ethibond. This was placed in an interrupted [id number] manner to close the fascia. The subcutaneous tissues overlying the repair were then cleared so that a 10 x 15 cm piece of ProGrip mesh was able to be applied in an onlay manner over the repair. A 10 flat BERE drain was laid in the subcutaneous space on top of the mesh. This was brought out through the right side of the abdomen. The wound was copiously irrigated several times with several liters of saline. The wound was then closed using 2-0 Vicryl in an interrupted manner and the deep subcutaneous layer. 3-0 Vicryl was used to reapproximate the subdermal layer. Finally, 4-0 Vicryl was used to close the skin layer. Total of 30 cc of local anesthetic was injected. Skin glue was applied as dressing. This was followed by silver Mepilex gauze. The two 5 mm incisions were closed using 4-0 Vicryl and skin glue. An abdominal binder was placed. The patient was then awakened anesthesia and taken to recovery in good condition Surgical Findings: Incarcerated spigelian hernia. Right colon was viable Complications Complications: No Admit VTE Documentation VTE Present on Admission: No VTE Mechan Device Prophylaxis: SCD's VTE Pharm Prophylaxis ordered?: No Reason prophylaxis not ordered: Treatment Not Indicated
[2024-12-14] MEDS: Lactated Ringers 1,000 ML 70 ML IV (22:38)
[2024-12-15] VITALS (7 sets, daily range): BP systolic 119–142; BP diastolic 55–75; PULSE 68–82; RESP 16–18; TEMP 36.4–37.1; O2SAT 95–100
--- NOTE | 2024-12-15 10:01 | PCM.PN.SRG ---
Subjective Subjective Patient seen and evaluated on rounds this morning. Patient seems to be doing well. She complains of some mild incisional pain as well as chronic pain in her right knee. She denies any passage of flatus. She has been given some clear liquids which she has been tolerating thus far. Objective Data Objective Data Vital Signs: Vital Signs Temp Pulse Resp BP Pulse Ox O2 Del Method O2 Flow Rate 98.8 F 82 16 131/66 H 96 Room Air 2 12/15/24 06:00 12/15/24 06:00 12/15/24 06:00 12/15/24 06:00 12/15/24 06:00 12/15/24 06:00 12/15/24 02:34 Oxygen Flow Rate (L/min) 2 Oxygen Delivery Method Room Air Weight: 201 lb 4.513 oz Body Mass Index (BMI) 29.8 Intake & Output: Intake and Output for Last 24 Hours 12/13/24 12/14/24 12/15/24 23:59 23:59 23:59 Intake Total 1000 / 1000 Output Total 40 / 40 60 / 60 Balance 960 / 960 -60 / -60 Lab / Micro Data 12/14/24 10:19 12/14/24 10:19 Labs: Laboratory Results - last 24 hr 12/14/24 10:19: WBC 6.6, RBC 4.25, Hgb 13.2, Hct 39.5, MCV 92.9, MCH 31.1, MCHC 33.4, RDW Std Deviation 49.4 H, RDW Coeff of Ag 14.3, Plt Count 249, MPV 10.0, Immature Gran % (Auto) 0.300, Neut % (Auto) 61.7, Lymph % (Auto) 23.4, Dillon % (Auto) 8.4, Eos % (Auto) 5.1 H, Baso % (Auto) 1.1 H, Absolute Neuts (auto) 4.1, Absolute Lymphs (auto) 1.55, Nucleated RBC % 0, Sodium 143, Potassium 3.3, Chloride 106, Carbon Dioxide 22.2, Anion Gap 15, BUN 26 H, Creatinine 0.88, Estim Creat Clear Calc 57.96, Est GFR (MDRD) Non-Af 66, BUN/Creatinine Ratio 29.9 H, Glucose 101 H, Calcium 9.4, Total Bilirubin 0.61, AST 19, ALT 6, Alkaline Phosphatase 89, Total Protein 7.0, Albumin 4.1, Globulin 2.9, Albumin/Globulin Ratio 1.4, Lipase 34 Radiography Diagnostic Testing: Radiology Impression Abdomen/Pelvis CT 12/14/24 10:17 IMPRESSION: 1. Right lateral wall hernia contains proximal colonic loops. There is mild fat stranding consistent with surrounding inflammation, but no evidence of bowel obstruction, perforation or associated fluid collection/abscess. Reading Location: [id number] Physical Exam Narrative She is alert and oriented x 3. She is in no acute distress. Abdomen is soft and appropriately tender. Dressings are clean dry and intact. Abdominal binder remains in place. LAYA drain with small amount of serosanguineous drainage. Assessment & Plan Assessment/Plan (1) Incarcerated ventral hernia: PLAN: Plan The patient is an 84-year-old female who is postoperative day #1 from a open spigelian hernia repair on the right side. The hernia was incarcerated but not strangulated. She is doing well this morning. I have recommended that we advance her diet today. I encouraged her to be up and ambulating today in anticipation of discharge tomorrow. Patient and her daughter are in agreement with this plan. All questions and concerns were addressed
--- NOTE | 2024-12-15 11:30 | PCM.POST.ANE ---
Anesthesia: Postop Eval I Current Vital Signs Temperature: 97.6 F Pulse Rate: 68 Blood Pressure: 135/75 Respiratory Rate: 16 Pulse Ox: 95 Oxygen Delivery Method: Room Air Assessment Airway patent: Yes Spontaneous unlabored respirations: Yes Mental status: Awake nausea: No Vomiting: No Anesthesia Complication: No Fluid Hydration Crystalloid volume administer (ml): 600 Total IV fluid infused: 600 Progress Note Anesthesia document: Postop Eval 1 completed: Yes
--- NOTE | 2024-12-15 11:31 | PCM.POSTANE2 ---
Anesthesia Postop Eval I Sum Postop Eval Completion status Anesthesia document: Postop Eval 1 completed: Yes Anesthesia Postop Eval I Summary Anesthesia Postop Eval I Summary: Anesthesia Postop Eval I: Assessment Summary Airway patent Yes 12/15/24 11:31 Spontaneous unlabored Yes 12/15/24 11:31 respirations Mental status Awake 12/15/24 11:31 nausea No 12/15/24 11:31 Vomiting No 12/15/24 11:31 Anesthesia Postop Eval I: Fluid Summary Crystalloid volume administer 600 12/15/24 11:31 (ml) Colloids volume administered ( ml) Blood Product volume administered (ml) Total IV fluid infused 600 12/15/24 11:31 Anesthesia Postop Eval I: Summary Notes Anesthesia Complication No 12/15/24 11:31 Anesthesia Complication Comment: Post-operative progress note Anesthesia: Postop Eval II Evaluation Mental status: Awake and Calm Pain Level: 2 nausea: No Vomiting: No
[2024-12-15] MEDS: Lactated Ringers 1,000 ML 70 ML IV (12:22)
[2024-12-16 03:30] VITALS: BP 142/65; PULSE 66; RESP 16; TEMP 37.1; O2SAT 96
[2024-12-16] MEDS: Lactated Ringers 1,000 ML 70 ML IV (03:49)
--- NOTE | 2024-12-16 09:10 | PCM.PN.SRG ---
Subjective Subjective Patient evaluated resting comfortably in bed. She notes her main compliant is shoulder pain this morning. She notes minimal tenderness at the incision sites. She denies any nausea, vomiting, fever. She notes tolerating a diet well. Objective Data Objective Data Vital Signs: Vital Signs Temp Pulse Resp BP Pulse Ox O2 Del Method O2 Flow Rate 98.8 F 66 16 142/65 H 96 Room Air 2 12/16/24 03:30 12/16/24 03:30 12/16/24 03:30 12/16/24 03:30 12/16/24 03:30 12/16/24 03:30 12/15/24 02:34 Oxygen Flow Rate (L/min) 2 Oxygen Delivery Method Room Air Weight: 201 lb 4.513 oz Body Mass Index (BMI) 29.8 Intake & Output: Intake and Output for Last 24 Hours 12/14/24 12/15/24 12/16/24 23:59 23:59 23:59 Intake Total 1000 / 1000 1161.33 / 1161.33 1000 / 1000 Output Total 40 / 40 230 / 230 Balance 960 / 960 931.33 / 931.33 1000 / 1000 Lab / Micro Data 12/14/24 10:19 12/14/24 10:19 Physical Exam GI GI Narrative: Abdomen- soft, slight tenderness at the incision sites. Incisions c/d/i. No erythema or infection noted. LAYA drain intact. Assessment & Plan Assessment/Plan (1) Incarcerated ventral hernia: PLAN: I am following this patient in conjunction with Dr. Hatch. He will independently evaluate this patient. Patient recovering well She is tolerating a transitional diet We will discharge patient to home with a LAYA drain. Will need drain teaching Follow-up with our office in 1 week Plan for discharge today Charges/Coding Visit Charges Inpatient E&M: 22880 Subs Hosp L1 (no charge; post-op)
--- NOTE | 2024-12-16 09:44 | DCINST_ITS ---
Discharge Instructions DC O2, CPAP, BIPAP needs Home O2 Discharge instructions: No Dressing / Incision Discharge Activity: May Shower Lifting Restrictions: 20 pounds for 6 weeks Dressing / Incision Call your doctor if your incision/area has: Continuous Slow Oozing, Sudden Increased Bleeding, Increased Pain/ Swelling, Increased Redness, Foul Smelling Discharge and Swelling at the incision site Call your doctor if you observe: Fever of 101 or Higher Suture Line Care: Avoid Pulling/Pushing and Avoid Pinching/Bending Remove Dressing in: 1 week Follow Up Care Please Follow Up With: Ta Hatch MD When: Please call [phone], option #2 to schedule a 1 week follow-up appointment Test Results: Test results from this visit will be discussed in further detail at your follow- up appointment, if applicable. Discharge Plan Admission Admit Date/Time: 12/15/24 14:04 Primary Reason for Your Visit: Incarcerated ventral hernia Attending Provider: Ta Hatch Primary Care Provider: Ferny Pina Chi Instructions Additional Instructions / Restrictions: Hernia Diet ? Start light with soups and soft bland foods. You may advance diet as tolerated. Activity ? You may drive in 3-5 days but not while taking narcotic pain medication. ? I encourage walking. You may go up steps, one at a time. ? Do not swim or use hot tubs for 2 weeks. ? For comfort, you may use warm compresses or ice as needed for 15-20 minutes at a time. Lifting ? You may lift up to 20 pounds for 6 weeks. Dressings/Incision ? You may shower while drain is in place starting tomorrow ? Leave plastic dressings on for 1 week. Medications ? Anesthesia used during surgery and pain medications may cause constipation. I recommend initiating on the day of surgery a fiber supplement like, Metamucil, Citrucel, FiberCon, Benefiber, or a generic form of these medications. 1 heaping tablespoon in water daily. You may continue to utilize any bowel regimen or oral laxatives that you routinely take. ? As long as you are not intolerant to Tylenol, acetaminophen, ibuprofen, Motrin, Advil, Aleve, or similar medications, I would recommend transitioning to these [id number] medicines as soon as possible instead of continued use of narcotic pain medication. Follow up ? You should call [facility] soon after surgery, at [phone] option 2 to make a follow up appointment for 7 days after your surgery to have the drain removed. Discharge Orders/Prescriptions Prescriptions: New acetaminophen 500 mg Tablet 1,000 mg PO Q8 Qty: 0 0RF ibuprofen 400 mg Tablet 800 mg PO Q8 Qty: 0 0RF docusate sodium 100 mg Capsule 100 mg PO BID PRN PRN (Reason: Constipation) Qty: 0 0RF nystatin 100,000 unit/gram Powder 1 applic topical BID Qty: 30 1RF Protocol: *Topical Application Instructions APPLICATION INSTRUCTIONS: apply to abdominal folds oxycodone 5 mg Tablet 5 mg PO Q4H PRN PRN (Reason: Pain Score 4-10) 3 Days Qty: 9 0RF Continued Viibryd 40 mg tablet 40 mg PO DAILY quetiapine 25 MG tablet 1 tab PO QHS Patient Comments: MENTAL HEALTH losartan-hydrochlorothiazide 1 EACH tablet 1 tab PO DAILY Patient Comments: BLOOD PRESSURE/WATER PILL/HEART levothyroxine 88 MCG tablet 88 mcg PO DAILY Patient Comments: THYROID potassium chloride 20 MEQ tablet extended release 20 meq PO DAILY Patient Comments: SUPPLEMENT acetaminophen 500 MG tablet 1,000 mg PO DAILY Referrals / Follow Up: Ta Hatch MD [Med Staff - Active Staff] - 12/23/24 Ferny Pina Chi, MD [Primary Care Provider] - Disposition Disposition (needs filled in before D/C Order can be placed): Home, Self Care
--- NOTE | 2024-12-16 10:03 | PCM.DC.SUM ---
Providers Date of Admission: 12/15/24 Primary Care Physician: Dr. Ferny Pina MD Reason For Visit: INCARCERATED HERNIA Diagnosis Discharge Diagnosis (1) Incarcerated ventral hernia: Status: Acute Code(s): K43.6 - Other and unspecified ventral hernia with obstruction, without gangrene Plan: I am following this patient in conjunction with Dr. Hatch. He will independently evaluate this patient. Patient recovering well She is tolerating a transitional diet We will discharge patient to home with a LAYA drain. Will need drain teaching Follow-up with our office in 1 week Plan for discharge today Medications at Discharge Home Medications levothyroxine 88 mcg tablet 88 mcg PO DAILY thyroid 01/13/17 losartan 100 mg-hydrochlorothiazide 25 mg tablet 1 tab PO DAILY blood pressure 01/13/17 potassium chloride 20 mEq tablet,extended release 20 meq PO DAILY SUPPLEMENT 01/13/17 quetiapine 25 mg tablet 1 tab PO QHS sleep 01/13/17 acetaminophen 500 mg tablet 1,000 mg PO DAILY ARTHRITIS 02/22/17 vilazodone 40 mg tablet (Viibryd) 40 mg PO DAILY 08/28/18 acetaminophen 500 mg tablet 1,000 mg (2 x 500 mg) PO Q8 #0 tabs 12/16/24 docusate sodium 100 mg capsule 100 mg PO BID PRN PRN Constipation #0 caps 12/16/24 ibuprofen 400 mg tablet 800 mg (2 x 400 mg) PO Q8 #0 tabs 12/16/24 nystatin 100,000 unit/gram topical powder 1 applic topical BID #30 grams 12/16/24 oxycodone 5 mg tablet 5 mg PO Q4H PRN PRN Pain Score 4-10 3 days #9 tabs 12/16/24 Hospital Course Operations cholecystecomy (Diagnostic laparoscopy. Open repair of an incarcerated right sided spigelian hernia with mesh) Summary of Care Provided Minutes Spent on Discharge: 20 Hospital Course: Patient is an 84 y/o F who presented with progressive abdominal pain and swelling. CT scan of abdomen/pelvis demonstrated a right lateral wall hernia containing colonic loops of bowel with fat stranding. No signs of obstruction, perforation or fluid collection. Dr. Hatch performed a Diagnostic laparoscopy, Open repair of an incarcerated right sided spigelian hernia with mesh on 12/14. Patient tolerated the procedure well. She has had an uneventful hospitalization. Upon discharge, patient notes incisional discomfort. She denies any nausea, vomiting, fever. She is tolertaing a diet well. She has passed flatus. Weight / BMI Weight Weight: 201 lb 4.513 oz Body Mass Index (BMI) 29.8 ABG / Lab / Microbiology Data 12/14/24 10:19 12/14/24 10:19 D/C Instructions Call your doctor if your incision/area has: Continuous Slow Oozing, Sudden Increased Bleeding, Increased Pain/ Swelling, Increased Redness, Foul Smelling Discharge and Swelling at the incision site Call your doctor if you observe: Fever of 101 or Higher Suture Line Care: Avoid Pulling/Pushing and Avoid Pinching/Bending DC O2, CPAP, BIPAP Needs Home O2 Discharge instructions: No Please Follow Up With: Ta Hatch MD When: Please call [phone], option #2 to schedule a 1 week follow-up appointment Meaningful Use Info Meaningful Use Meaningful Use Diagnoses (Choose all that apply): None applicable Discharge Plan Admission Admit Date/Time: 12/15/24 14:04 Primary Reason for Your Visit: Incarcerated ventral hernia Attending Provider: Ta Hatch Primary Care Provider: Ferny Pina Chi Instructions Additional Instructions / Restrictions: Hernia Diet ? Start light with soups and soft bland foods. You may advance diet as tolerated. Activity ? You may drive in 3-5 days but not while taking narcotic pain medication. ? I encourage walking. You may go up steps, one at a time. ? Do not swim or use hot tubs for 2 weeks. ? For comfort, you may use warm compresses or ice as needed for 15-20 minutes at a time. Lifting ? You may lift up to 20 pounds for 6 weeks. Dressings/Incision ? You may shower while drain is in place starting tomorrow ? Leave plastic dressings on for 1 week. Medications ? Anesthesia used during surgery and pain medications may cause constipation. I recommend initiating on the day of surgery a fiber supplement like, Metamucil, Citrucel, FiberCon, Benefiber, or a generic form of these medications. 1 heaping tablespoon in water daily. You may continue to utilize any bowel regimen or oral laxatives that you routinely take. ? As long as you are not intolerant to Tylenol, acetaminophen, ibuprofen, Motrin, Advil, Aleve, or similar medications, I would recommend transitioning to these [id number] medicines as soon as possible instead of continued use of narcotic pain medication. Follow up ? You should call [facility] soon after surgery, at [phone] option 2 to make a follow up appointment for 7 days after your surgery to have the drain removed. Discharge Orders/Prescriptions Prescriptions: New acetaminophen 500 mg Tablet 1,000 mg PO Q8 Qty: 0 0RF ibuprofen 400 mg Tablet 800 mg PO Q8 Qty: 0 0RF docusate sodium 100 mg Capsule 100 mg PO BID PRN PRN (Reason: Constipation) Qty: 0 0RF nystatin 100,000 unit/gram Powder 1 applic topical BID Qty: 30 1RF Protocol: *Topical Application Instructions APPLICATION INSTRUCTIONS: apply to abdominal folds oxycodone 5 mg Tablet 5 mg PO Q4H PRN PRN (Reason: Pain Score 4-10) 3 Days Qty: 9 0RF Continued Viibryd 40 mg tablet 40 mg PO DAILY quetiapine 25 MG tablet 1 tab PO QHS Patient Comments: MENTAL HEALTH losartan-hydrochlorothiazide 1 EACH tablet 1 tab PO DAILY Patient Comments: BLOOD PRESSURE/WATER PILL/HEART levothyroxine 88 MCG tablet 88 mcg PO DAILY Patient Comments: THYROID potassium chloride 20 MEQ tablet extended release 20 meq PO DAILY Patient Comments: SUPPLEMENT acetaminophen 500 MG tablet 1,000 mg PO DAILY Referrals / Follow Up: Ta Hatch MD [Med Staff - Active Staff] - 12/23/24 Ferny Pina Chi, MD [Primary Care Provider] - Disposition Disposition (needs filled in before D/C Order can be placed): Home, Self Care Charges/Coding Visit Charges Inpatient E&M: 01562 Disch Hosp (no charge; post-op)
--- NOTE | 2024-12-16 10:09 | PHA.DC_ITS ---
Pharmacy [facility] Counseling Pharmacy Service has performed discharge medication reconciliation and counseling for this patient. The patient's discharge medication list was reviewed for discrepancies and discrepancies were resolved. The patient was counseled on the following discharge medications and changes in medications for homegoing were reviewed. The Reason for Use, instructions for use, and potential side effects were reviewed for all new medications. The patient's questions regarding all of their medications were answered. 1. Acetaminophen 1000 mg PO Q8H 2. Ibuprofen 800 mg PO Q8H 3. Oxycodone 5 mg PO Q4H RN 4. Docusate 100 mg PO BID PRN 5. Nystatin topically BID The patient and patient's daughter were able to verbally demonstrate an unde rstanding of their discharge medications. Medications at Discharge Home Medications levothyroxine 88 mcg tablet 88 mcg PO DAILY thyroid 01/13/17 losartan 100 mg-hydrochlorothiazide 25 mg tablet 1 tab PO DAILY blood pressure 01/13/17 potassium chloride 20 mEq tablet,extended release 20 meq PO DAILY SUPPLEMENT 01/13/17 quetiapine 25 mg tablet 1 tab PO QHS sleep 01/13/17 acetaminophen 500 mg tablet 1,000 mg PO DAILY ARTHRITIS 02/22/17 vilazodone 40 mg tablet (Viibryd) 40 mg PO DAILY 08/28/18 acetaminophen 500 mg tablet 1,000 mg (2 x 500 mg) PO Q8 #0 tabs 12/16/24 docusate sodium 100 mg capsule 100 mg PO BID PRN PRN Constipation #0 caps 12/16/24 ibuprofen 400 mg tablet 800 mg (2 x 400 mg) PO Q8 #0 tabs 12/16/24 nystatin 100,000 unit/gram topical powder 1 applic topical BID #30 grams 12/16/24 oxycodone 5 mg tablet 5 mg PO Q4H PRN PRN Pain Score 4-10 3 days #9 tabs 12/16/24
[2024-12-16 10:25] VITALS: BP 136/61; PULSE 73; RESP 16; TEMP 36.6; O2SAT 98
--- NOTE | 2024-12-16 11:28 | CASEMGMT ---
ANUSHKA GARCIA Assessment: Face to Face with pt for initial transition planning/care coordination assessment. ANUSHKA GARCIA introduced self and role at [facility], pt voices understanding and consents to assessment. Pt is A&O x4 and answers all questions appropriately at this time. Pt sitting up on eob in no distress with dtr Caroline present at bedside. Pt agreeable to assessment with dtr present. Care providers, pharmacy, and demographics verified/updated. Admitting Dx: incarcerated hernia Strata Score: 1 PCP:Yovani Specialists:Denies Preferred Pharmacy:[facility] Insurance: [employer] [facility] Prescription Benefit: yes LNOK: Marie Rodgers, dtr; Donya Thompson dtr Living Arrangements: Pt lives with in a 3 story home with FFSU and no steps to enter. Pt reports she is indep in ADLs, she sponge bathes and IADLs but family does most of IADLs. Pt with end stage cancer and family is present 31/10. Pt denies concerns at home. Transportation: Pt family transports her to medical appts. DME:lift chair, handrail in bathroom, BSC, walker HHC/SNF: Denies hx of Pt states no concerns with going home at time of dc. Pt states no further concerns/needs. CM to follow. Advised pt to ask CM if any further questions/concerns/needs arise, voices understanding. Pt Goal: Home Plan: Home Sonido REVELES CM
== END 2024-12-16 12:18 | disposition home or self-care (01) | DRG 355 ==
LOC: ED 14:17 → SDC 14:27 → ED 17:36 → MS3 17:38
PROVIDERS: Admitting Provider Surgery; Emergency Provider Emergency Medicine; PCP Family Medicine Geriatric Medicine; Visit Provider Surgery
PROC: 0WUF0JZ Supplement Abdominal Wall with Synthetic Substitute, Open Approach (ICD-10-PCS; CPT 49320; principal; 2024-12-14 16:00)
DX: K43.6 Other and unspecified ventral hernia with obstruction, without gangrene (principal); E03.9 Hypothyroidism, unspecified; I10 Essential (primary) hypertension; F32.A Depression, unspecified; F41.9 Anxiety disorder, unspecified; Z79.899 Other long term (current) drug therapy; Z53.31 Laparoscopic surgical procedure converted to open procedure
CPT/HCPCS: 74177; 80053; 83690; 85025; 93005; 99284; C1781; Q9967; A4216; J2405

== ENCOUNTER → 2025-02-13 | Outpatient (CLI) | payer MEDICARE, SELFPAY ==
[2025-02-13 14:45] LABS: Hematocrit 39.3 % (37-47); Hemoglobin 12.7 g/dL (12.0-15.0); Immature Granulocytes Count 0.010 X10^3/uL (0.0-0.0); Mean Corp Hgb Conc 32.3 g/dL (32-36); Mean Corpuscular Volume 97.0 fL (81-99); Mean Platelet Vol. 10.5 fl (6.2-12.0); NRBC Flagged by Analyzer 0 % (0-5); Platelet Count 286 K/mm3 (150-450); RBC Distribution Width CV 15.0 % (11.6-14.6); RBC Distribution Width SD 54.1 fl (35.1-43.9); Red Blood Count 4.05 M/mm3 (4.2-5.4); White Blood Count 6.9 K/mm3 (4.4-11.0)
[2025-02-13 15:33] LABS: AST(SGOT) 19 U/L (<=31); Alanine Aminotransfer ALT/SGPT 12 U/L (<=34); Albumin, Serum 4.2 g/dL (3.4-4.8); Alkaline Phosphatase 95 U/L (35-104); Anion Gap 12 (5-15); BUN 27 mg/dL (4-19); BUN/Creat Ratio 32.4 RATIO (10-20); Calcium,Total 9.6 mg/dL (7.6-11.0); Carbon Dioxide 25.3 mmol/L (21.0-32.0); Chloride 107 mmol/L (98-108); Globulin 2.9 g/dL (2.2-4.2); Glucose 106 mg/dL (70-99); Potassium 3.7 mmol/L (3.3-5.1); Vitamin D,25 Hydroxy 13.9 ng/mL (30-100)
[2025-02-13 21:54] LABS: Xtra Tube Kwok EXTRA TUBE
== END | disposition home or self-care (01) ==
LOC: POLAB3 13:53
PROVIDERS: PCP Family Medicine Geriatric Medicine; Visit Provider Family Medicine Geriatric Medicine
DX: I10 Essential (primary) hypertension (principal); E55.9 Vitamin D deficiency, unspecified
CPT/HCPCS: 36415; 80053; 82306; 84443; 85025